=== PATIENT | male | born 1930 | race Caucasian/White ===

== ENCOUNTER → 2018-02-08 | Outpatient (REF) | payer MEDICARE ==
[2018-02-08 19:05] LABS: PTH INTACT 112.5 PG/ML (18.5-88.0)
== END ==
LOC: M LAB REF 17:27
DX: N18.4 Chronic kidney disease, stage 4 (severe) (principal)
CPT/HCPCS: 83970

== ENCOUNTER 2018-07-14 12:21 | Day surgery (SDC) | payer MEDICARE ==
[~2018-07-14] VITALS: Ht 180.3 cm; Wt 77.6 kg
[~2018-07-14 12:21] MED LIST: ACCU1TAB2; ACET65TA; ALBU17IN2; ALDA25TA2; AMAR1TAB6; AMIO1TAB; AMLO10TA; ASPI81TA83; ATEN50TA2; AXID150C; BISA10SU2; BISA5TA; CATA0.3T; CLON0.3T; COLA100C2; COUM1TAB18; ECOT325T5; FURO80TA2; INSULANT; INSULIN LANTUS; JANUVIA; K-LO20PO; K-TA10TA; LASI40TA; LASI80TA; METO-1; METO-745; MILKSUS; POTA10CA2; PROV90AE; SPIR25TA2; THERGRAN; TRAM50TA2; VYTO10TA5; ZOCO20TA; stool softener
[2018-07-14 14:20] LABS: INR 1.86; PROTHROMBIN TIME 21.8 SECONDS (12.1-14.4)
[2018-07-14] MEDS ORDERED: ceFAZolin 1GM INJ (J0690 PER 500MG) As Ordered ONE (14:20)
[2018-07-14] MEDS ORDERED: BACITRACIN OINT 30GM As Ordered ONE (14:26)
[2018-07-14] MEDS ORDERED: VANCOMYCIN 1000 MG/20 ML VIAL (J3370) As Ordered ONE (14:26)
[2018-07-14] MEDS ORDERED: LIDOCAINE 1% SDV INJ 30 ML VIAL As Ordered ONE (14:26)
[2018-07-14] MEDS ORDERED: fentaNYL 100 MCG/2 ML INJECTION (J3010) As Ordered ONE (14:28)
[2018-07-14] MEDS ORDERED: PROPOFOL 200 MG/20 ML VIAL As Ordered ONE (14:29)
[2018-07-14] MEDS ORDERED: ONDANSETRON 4MG/2ML VIAL (J2405) As Ordered ONE (14:29)
[2018-07-14] MEDS ORDERED: LIDOCAINE 2% INJ 100 MG/5 ML SDV (FOR ANES.) As Ordered ONE (14:29)
[2018-07-14] MEDS ORDERED: KETAMINE HCL 200 MG/20 ML VIAL As Ordered ONE (14:42)
[2018-07-14] MEDS ORDERED: ePHEDrine SULFATE 25 MG/5 ML(5MG/ML) SYRINGE As Ordered ONE ×3 (15:08→16:03)
[2018-07-14 16:30] VITALS: BP 152/69
[2018-07-14] MEDS ORDERED: ONDANSETRON 4MG/2ML VIAL (J2405) IV PRN (16:45)
[2018-07-14] MEDS ORDERED: LR 1,000 ML IV SCH (16:45)
--- NOTE | 2018-07-14 17:21 | RO ---
DATE OF PROCEDURE: 07/14/2018 PREPROCEDURE DIAGNOSIS: Pacemaker battery depletion. POSTPROCEDURE DIAGNOSIS: Pacemaker battery depletion. FINDINGS: Pacemaker battery depletion. Discovery of outer insulation full circumference break on the ventricle lead at the junction of the thick portion of the insulation where it joins the thinner portion of the insulation a few centimeters from the terminal pin of the right ventricle lead. PROCEDURE: Explantation of old dual-chamber pacemaker pulse generator ([employer]) and implantation of new dual-chamber pacemaker pulse generator. Placement of a suture sleeve over the insulation break on the right ventricle lead. Placement of a medium size TYRX antimicrobial envelope. SURGEON: Sabino Hendrix MD VIDEO GAME REPAIR TECHNICIAN: None. ANESTHESIA: Lidocaine 1% local/monitored anesthetic care. SPECIMENS: Old [employer] dual-chamber pacemaker pulse generator. ESTIMATED BLOOD LOSS: Less than 5 mL. No blood products replaced. No drains. No complications. DESCRIPTION OF PROCEDURE: Patient was prepped and draped over the left pectoral region. 3M Ioban film was applied. Lidocaine 1% was used for local anesthetic. An incision was made with a #15 blade over the body of the existing pacemaker pulse generator caudal to the original incision. Fine scissor dissection was used to get down to and through the anterior capsule overlying the pacemaker pulse generator. The tie-down suture holding the pacemaker pulse generator was then cut with a 15 blade. The pacemaker pulse generator was then removed from the pocket. At this point, I noticed that there was a full outer insulation break involving the entire circumference on the right ventricle lead where the thinner portion of the ventricle lead joins the thicker portion of the ventricle lead, which contains the lead information. The existing terminal pins were removed from the header of the existing pacemaker pulse generator after loosening the set screws. Both leads were tested and found to be satisfactory. I took a suture sleeve and placed it over the ventricle lead to straddle the insulation break and then secured it with a total of two individual sutures consisting of #0 Ethibond placed on the outer most notches of the suture sleeve. Next, I helped free up some of the pacemaker lead adhesions using the PEAK PlasmaBlade. The terminal pins of the leads were placed into their respective ports in the header of the new pacemaker pulse generator. Each one was secured by tightening the set screws with the hex screwdriver. A medium size TYRX antimicrobial envelope was cut into four pieces and placed into the pacemaker pocket. The pacemaker pulse generator was then placed into the pacemaker pocket with the excess lead material placed below the pacemaker pulse generator. The deep layer was closed using individual sutures consisting of #2-0 Vicryl. A few additional #3-0 Vicryl sutures were used to help better approximate the superficial layer. The skin was closed using tonie. The patient tolerated the procedure well without any immediate complications. The existing pacemaker pulse generator that was removed was a [employer] [place], model 5826 with serial number [id number], originally implanted by Dr. Hendrix 10/29/2008. The new pacemaker pulse generator implanted was a [employer] Assurity MRI with model number CC4405 and serial number [id number]. The existing right atrial lead was a [employer] model 1782T with serial number [id number], originally implanted 10/29/2008. Testing in the operating room for the right atrial lead showed a capture threshold of 1.0 volts at 0.4 milliseconds and a lead impedance of 280 ohms. No P waves because the patient was pacemaker dependent. The existing right ventricle lead was a [employer] model number 1888TC with serial number [id number], originally implanted 10/29/2008. Testing in the operating room with the PSA analyzer in unipolar configuration for the right ventricle lead showed a capture threshold of 1.3 volts with pulse width of 0.4 milliseconds and a lead impedance of 250 ohms in unipolar configuration. Patient was pacemaker dependent and no R waves were present.
== END 2018-07-14 16:58 | disposition home or self-care (01) ==
LOC: M SDC 12:21
PROVIDERS: ATTEND Internal Medicine Cardiovascular Disease
DX: Z45.010 Encounter for checking and testing of cardiac pacemaker pulse generator [battery] (principal); I49.5 Sick sinus syndrome; I10 Essential (primary) hypertension; E11.9 Type 2 diabetes mellitus without complications; Z79.01 Long term (current) use of anticoagulants; Z79.82 Long term (current) use of aspirin; Z79.4 Long term (current) use of insulin; Z79.899 Other long term (current) drug therapy
CPT/HCPCS: 33228; 36415; 85610; C1785; J2405; J3010

== ENCOUNTER → 2018-09-14 | Outpatient (CLI) | payer MEDICARE ==
[~2018-09-14] MED LIST changes: +AMIO200T PO; +AMLO10TA5 PO; +ASPI81TA85 PO; +ATOR1TAB21 PO; +CALC1CAP31 PO; +D 101000 PO; +DOCU-129 PO; +HUMA100I5 SC; +HYDR25TA PO; +LANTINJ4 SC; +MULTCAP PO; +SYNT75TA PO; +TORS20TA2 PO; +ZETI10TA30 PO
--- NOTE | 2018-09-14 09:16 | REP ---
Renal ultrasound for stage IV chronic renal disease: The right kidney measures 14.4 x 5.4 x 6.5 cm. The left kidney measures 11.3 x 4.2 x 5.7 cm. The kidneys are normal size. Renal cortical echogenicity is hyperechoic bilaterally, compatible with medical renal disease. There is no hydronephrosis on the right on the left. The hilar vessels are echogenic compatible with calcified atheroma. There are multiple Bosniak type 1 simple renal cysts bilaterally as follows: Right kidney: Upper pole 9.0 cm. Upper pole 5.6 cm. Mid pole 4.5 cm. Lower pole 5.6 cm. Left kidney: The upper pole 4.6 cm. Upper pole 3.5 cm. Additionally, there is a Bosniak type 3 cyst at the lower pole of the left kidney measuring 4.6 centimeters containing a thick septum measuring up to 5 mm in thickness and also containing flowing debris. No solid renal masses are identified. No renal calculi are identified. Bladder: The bladder is incompletely distended and cannot be further evaluated. Prostate: The the prostate is enlarged with a prostate volume of 43 ml. Prostatic of this are incidentally identified. Impression: Multiple bilateral renal cysts. Most of the cysts are Bosniak type 1 simple cyst. However, there is a Bosniak type 3 complex cyst at the lower pole of the left kidney measuring 4.6 cm and containing a 5 mm thickened septum and 14 debris. The prostate is enlarged. Electronically Signed by Jorge Jaramillo MD 09/14/2018 09:07 A
--- NOTE | 2018-09-14 13:55 | REP ---
RENAL NUCLEAR SCAN WITH FLOW AND FUNCTION: Following the intravenous administration of 8.6 mCi of technetium-99m MAG 3, immediate flow images are obtained in the posterior projections showing symmetrical bilateral blood flow to the region of the kidneys. Delayed renal function images are performed every minute for a period of 30 minutes. Multiple photopenic areas are seen throughout the right renal cortex compatible with multiple renal cysts. Similar findings are seen to a lesser extent involving the upper and mid left kidney. Split function is 62.4% on the left and 37.6% on the right. Time to peak is delayed bilaterally, 4 minutes on the left and 16 minutes on the right. T1/2 could not be calculated bilaterally. Renal function curves are quite shallow in their downward slopes, with poor excretion bilaterally. There is activity in the urinary bladder, with moderate postvoid residual after voiding. IMPRESSION: Bilateral renal cysts cause photopenic defects in the renal cortex bilaterally more so on the right than on the left. There is compromised renal function bilaterally of a moderate degree. Split function is 62.4% on the left and 37.6% on the right. Electronically Signed by Jorge Caputo MD 09/17/2018 06:27 P
== END ==
LOC: M RAD 07:14
PROVIDERS: ATTEND Internal Medicine Nephrology
DX: I70.1 Atherosclerosis of renal artery (principal)
CPT/HCPCS: 76775; 78707; A9562

== ENCOUNTER → 2018-09-15 | Outpatient (REF) | payer MEDICARE ==
[2018-09-15 13:41] LABS: PERCENT SATURATION 6.3 % (19.7-50.0)
== END ==
LOC: M LAB REF 13:05
PROVIDERS: ATTEND Internal Medicine Nephrology
DX: N17.9 Acute kidney failure, unspecified (principal); D50.9 Iron deficiency anemia, unspecified

== ENCOUNTER 2018-09-16 08:05 | Outpatient (CLI) | payer MEDICARE ==
[~2018-09-16] VITALS: Ht 175.3 cm; Wt 81.4 kg
[~2018-09-16 08:05] MED LIST changes: -AMIO200T PO; -AMLO10TA5 PO; -ASPI81TA85 PO; -ATOR1TAB21 PO; -CALC1CAP31 PO; -D 101000 PO; -DOCU-129 PO; -HUMA100I5 SC; -HYDR25TA PO; -LANTINJ4 SC; -MULTCAP PO; -SYNT75TA PO; -TORS20TA2 PO; -ZETI10TA30 PO
[2018-09-16 08:30] VITALS: BP 152/63
[2018-09-16] MEDS ORDERED: ATOR1TAB21 PO (10:19)
[2018-09-16] MEDS ORDERED: ASPI81TA85 PO (10:19)
[2018-09-16] MEDS ORDERED: CALC1CAP31 PO (10:19)
[2018-09-16] MEDS ORDERED: TORS20TA2 PO (10:19)
[2018-09-16] MEDS ORDERED: HUMA100I5 SC (10:19)
[2018-09-16] MEDS ORDERED: SYNT75TA PO (10:19)
[2018-09-16] MEDS ORDERED: AMLO10TA5 PO (10:19)
[2018-09-16] MEDS ORDERED: DOCU-129 PO (10:19)
[2018-09-16] MEDS ORDERED: MULTCAP PO (10:19)
[2018-09-16] MEDS ORDERED: LANTINJ4 SC (10:19)
[2018-09-16] MEDS ORDERED: AMIO200T PO (10:19)
[2018-09-16] MEDS ORDERED: D 101000 PO (10:19)
[2018-09-16] MEDS ORDERED: HYDR25TA PO (10:19)
[2018-09-16] MEDS ORDERED: ZETI10TA30 PO (10:19)
[2018-09-16 14:15] VITALS: BP 162/69
== END 2018-09-16 14:15 | disposition home or self-care (01) ==
LOC: M INFU 08:05
PROVIDERS: ATTEND Internal Medicine Nephrology
DX: D50.9 Iron deficiency anemia, unspecified (principal); N17.9 Acute kidney failure, unspecified
CPT/HCPCS: 36430; P9016

== ENCOUNTER → 2018-11-02 | Outpatient (CLI) | payer MEDICARE ==
[~2018-11-02] MED LIST changes: +AMIO200T PO; +AMLO10TA5 PO; +ASPI81TA85 PO; +ATOR1TAB21 PO; +CALC1CAP31 PO; +D 101000 PO; +DOCU-129 PO; +HUMA100I5 SC; +HYDR25TA PO; +LANTINJ4 SC; +MULTCAP PO; +PRED5SOL10 PO; +SYNT75TA PO; +TORS20TA2 PO; +WARF4TAB52 PO; +ZETI10TA16 PO
--- NOTE | 2018-11-02 15:37 | REP ---
Clinical: Edema. Technique: AP, lateral, bilateral oblique views of the right hand. Findings: Age-related osteopenia and moderate arthritic degenerative changes are appreciated including joint space narrowing, marginal spurring, and areas of cortical irregularity. Peripheral vascular disease noted. No acute fracture dislocation. Impression: Age-related osteopenia and moderate generalized arthritic changes. Electronically Signed by Waqas Zavala MD 11/02/2018 03:29 P
--- NOTE | 2018-11-02 16:01 | REP ---
Right upper extremity duplex Doppler venous ultrasound. Real time compression and duplex Doppler evaluation of the right upper extremity deep venous system is performed. The right subclavian, jugular, axillary, brachial, basilic and cephalic veins are fully compressible where accessible with transducer pressure, and demonstrate no intraluminal thrombus and normal venous waveforms. There is no evidence of deep venous thrombosis. Impression: No evidence of deep venous thrombosis of the right upper extremity deep vein system. Electronically Signed by Jorge Caputo MD 11/02/2018 03:52 P
== END ==
LOC: M RAD 14:25
PROVIDERS: ATTEND Nurse Practitioner Adult Health
DX: M79.601 Pain in right arm (principal); M19.041 Primary osteoarthritis, right hand

== ENCOUNTER 2018-12-02 09:23 | Outpatient (CLI) | payer MEDICARE ==
[~2018-12-02] VITALS: Ht 181.6 cm; Wt 76.8 kg
[2018-12-02 09:15] VITALS: BP 162/89
[~2018-12-02 09:23] MED LIST changes: -PRED5SOL10 PO; -WARF4TAB52 PO
[2018-12-02] MEDS ORDERED: IRON SUCROSE 25 MG in NS 50 ML IV ONE (10:00)
[2018-12-02 11:00] VITALS: BP 142/61
[2018-12-02] MEDS ORDERED: IRON SUCROSE 475 MG in NS 250 ML IV ONE (11:00)
[2018-12-02 12:00] VITALS: BP 156/82
[2018-12-02 13:00] VITALS: BP 152/64
[2018-12-02 14:00] VITALS: BP 143/65
[2018-12-02] MEDS ORDERED: PRED5SOL10 PO (14:05)
[2018-12-02] MEDS ORDERED: WARF4TAB52 PO (14:06)
[2018-12-02 15:15] VITALS: BP 141/62
== END 2018-12-02 15:15 | disposition home or self-care (01) ==
LOC: M INFU 09:23
PROVIDERS: ATTEND Internal Medicine Nephrology
DX: D50.9 Iron deficiency anemia, unspecified (principal)
CPT/HCPCS: 96365; 96366; J1756

== ENCOUNTER → 2018-12-13 | Outpatient (REF) | payer MEDICARE ==
[~2018-12-13] MED LIST changes: +PRED5SOL10 PO; +WARF4TAB52 PO
[2018-12-13 15:52] LABS: PERCENT SATURATION 25.2 % (19.7-50.0)
== END ==
LOC: M LAB REF 13:07
PROVIDERS: ATTEND Nurse Practitioner Family
DX: D50.9 Iron deficiency anemia, unspecified (principal)

== ENCOUNTER → 2018-12-29 | Outpatient (REF) | payer MEDICARE ==
[2018-12-29 13:30] LABS: PERCENT SATURATION 25.8 % (19.7-50.0)
== END ==
LOC: M LAB REF 12:49
PROVIDERS: ATTEND Internal Medicine
DX: D50.9 Iron deficiency anemia, unspecified (principal)

== ENCOUNTER 2019-03-29 11:29 | Day surgery (SDC) | payer MEDICARE ==
[~2019-03-29] VITALS: Ht 177.8 cm; Wt 77.0 kg
[~2019-03-29 11:29] MED LIST changes: +FAMO40TA3 PO; +NS 1,000 ML IV ONE; +VITA100054 PO
[2019-03-29] MEDS ORDERED: LIDOCAINE 2% INJ 100 MG/5 ML SDV (FOR ANES.) As Ordered ONE (12:38)
[2019-03-29] MEDS ORDERED: propofoL 200 MG/20 ML VIAL As Ordered ONE (12:38)
--- NOTE | 2019-03-29 13:13 | ROOR ---
Patient Name: Ghassan Augustine Procedure Date: 03/29/2019 12:54 PM Date of : 1930 Age: 89 [facility] Gender: Male Note Status: Finalized Procedure: Upper Endoscopy + Biopsies Indications: Iron deficiency anemia Providers: Kristopher Torres MD Referring MD: TREY GRAVES JR, MD Requesting Provider: Medicines: Monitored Anesthesia Care Complications: No immediate complications. Procedure: Pre-Anesthesia Assessment: - The heart rate, respiratory rate, oxygen saturations, blood pressure, adequacy of pulmonary ventilation, and response to care were monitored throughout the procedure. The Endoscope was introduced through the mouth, and advanced to the second part of duodenum. The upper GI endoscopy was accomplished without difficulty. The patient tolerated the procedure well. Findings: The Z-line was variable and was found 40 cm from the incisors. Multiple biopsies were obtained with cold forceps for evaluation to rule out Paris's Esophagus randomly at the gastroesophageal junction. A small hiatal hernia was present. No other significant abnormalities were identified in a careful examination of the stomach. Biopsies were taken with a cold forceps in the gastric antrum for Helicobacter pylori testing. The exam of the duodenum was otherwise normal. Biopsies for histology were taken with a cold forceps in the first portion of the duodenum for evaluation of celiac disease. The exam was otherwise without abnormality. A medium non-bleeding diverticulum was found in the gastric fundus. Impression: - Z-line variable, 40 cm from the incisors. - Small hiatal hernia. - The examination was otherwise normal. - Gastric diverticulum. - Multiple biopsies were obtained at the gastroesophageal junction. - Biopsies were taken with a cold forceps for Helicobacter pylori testing. - Biopsies were taken with a cold forceps for evaluation of celiac disease. - The examination was otherwise normal. Recommendation: - Patient has a contact number available for emergencies. The signs and symptoms of potential delayed complications were discussed with the patient. Return to normal activities tomorrow. Written discharge instructions were provided to the patient. - High fiber diet. - Discharge patient to home. - Follow an antireflux regimen. - Continue present medications. - Await pathology results. - Telephone GI clinic for pathology results in 1 week. - Return to referring physician. - The findings and recommendations were discussed with the patient's family. Kristopher Torres MD Kristopher Torres MD 03/29/2019 1:12:35 PM Electronically signed by Kristopher Torres MD Number of Addenda: 0 Note Initiated On: 03/29/2019 12:54 PM Estimated Blood Loss: Estimated blood loss: none.
--- NOTE | 2019-03-29 13:27 | ROOR ---
Patient Name: Ghassan Augustine Procedure Date: 03/29/2019 12:55 PM Date of : 1930 Age: 89 Room: [facility] Gender: Male Note Status: Finalized Procedure: Total Colonoscopy to Cecum Indications: Iron deficiency anemia Providers: Kristopher Torres MD Referring MD: TREY GRAVES JR, MD Requesting Provider: Medicines: Monitored Anesthesia Care Complications: No immediate complications. Procedure: Pre-Anesthesia Assessment: - The heart rate, respiratory rate, oxygen saturations, blood pressure, adequacy of pulmonary ventilation, and response to care were monitored throughout the procedure. The Colonoscope was introduced through the anus and advanced to the cecum, identified by appendiceal orifice and ileocecal valve. The colonoscopy was performed without difficulty. The patient tolerated the procedure well. The quality of the bowel preparation was fair. Findings: The perianal and digital rectal examinations were normal. Non-bleeding internal hemorrhoids were found during retroflexion. The hemorrhoids were small and Grade I (internal hemorrhoids that do not prolapse). Multiple small and large-mouthed diverticula were found in the recto-sigmoid colon, sigmoid colon and descending colon. The exam was otherwise without abnormality on direct and retroflexion views. Impression: - Preparation of the colon was fair. - Non-bleeding internal hemorrhoids. - Diverticulosis in the recto-sigmoid colon, in the sigmoid colon and in the descending colon. - The examination was otherwise normal on direct and retroflexion views. - No specimens collected. - The exam was otherwise normal to the cecum. Recommendation: - Patient has a contact number available for emergencies. The signs and symptoms of potential delayed complications were discussed with the patient. Return to normal activities tomorrow. Written discharge instructions were provided to the patient. - High fiber diet. - Discharge patient to home. - Continue present medications. - Repeat colonoscopy for symptoms only. - Return to referring physician. - The findings and recommendations were discussed with the patient's family. Kristopher Torres MD Kristopher Torres MD 03/29/2019 1:26:40 PM Electronically signed by Kristopher Torres MD Number of Addenda: 0 Note Initiated On: 03/29/2019 12:55 PM Estimated Blood Loss: Estimated blood loss: none.
[2019-03-29 13:56] VITALS: BP 160/80
== END 2019-03-29 13:57 | disposition home or self-care (01) ==
LOC: M OPP 11:29
PROVIDERS: ATTEND Internal Medicine Gastroenterology
DX: K64.0 First degree hemorrhoids (principal); K57.30 Diverticulosis of large intestine without perforation or abscess without bleeding; K22.8 Other specified diseases of esophagus; K44.9 Diaphragmatic hernia without obstruction or gangrene; K31.4 Gastric diverticulum; D50.9 Iron deficiency anemia, unspecified; E11.9 Type 2 diabetes mellitus without complications; Z79.4 Long term (current) use of insulin; Z79.82 Long term (current) use of aspirin; Z79.899 Other long term (current) drug therapy; Z87.891 Personal history of nicotine dependence; Z95.5 Presence of coronary angioplasty implant and graft

== ENCOUNTER 2019-10-09 16:41 | Inpatient (IN) | payer MEDICARE ==
[~2019-10-09 16:41] MED LIST changes: -AMIO200T PO; +AMIO200T3 PO; -AMLO10TA5 PO; +AMLO1TAB25 PO; -ASPI81TA85 PO; +ASPI81TA86 PO; -NS 1,000 ML IV ONE
[2019-10-09] MEDS ORDERED: FUROSEMIDE 40MG/4ML VIAL (J1940) As Ordered ONE (21:01)
[2019-10-10] MEDS ORDERED: LEVOTHYROXINE 50MCG TABLET (0.05MG) As Ordered ONE (05:01)
[2019-10-10] MEDS ORDERED: NITROGLYCERIN 2% OINT 1 GM *U/D* PKT As Ordered ONE ×2 (08:35→21:51)
[2019-10-10] MEDS ORDERED: FUROSEMIDE 100MG/10ML VIAL (J1940) As Ordered ONE (08:35)
[2019-10-10] MEDS ORDERED: SPIRONOLACTONE 25 MG TAB As Ordered ONE (12:48)
[2019-10-10] MEDS ORDERED: AMIODARONE 200 MG TAB (PACERONE) As Ordered ONE (12:48)
[2019-10-10] MEDS ORDERED: FUROSEMIDE 100 MG/10 ML ONE (13:30)
[2019-10-10] MEDS ORDERED: amLODIPine 10 MG TAB As Ordered ONE (16:20)
[2019-10-11] MEDS ORDERED: LEVOTHYROXINE 50MCG TABLET (0.05MG) As Ordered ONE (05:08)
[2019-10-11] MEDS ORDERED: EZETIMIBE 10 MG TAB (ZETIA) As Ordered ONE (08:40)
[2019-10-11] MEDS ORDERED: ATORVASTATIN 20 MG TAB As Ordered ONE (08:40)
[2019-10-11] MEDS ORDERED: CALCITRIOL 0.25 MCG CAP (S0169) As Ordered ONE (08:41)
[2019-10-11] MEDS ORDERED: SPIRONOLACTONE 25 MG TAB As Ordered ONE ×2 (08:41→17:45)
[2019-10-11] MEDS ORDERED: amLODIPine 10 MG TAB As Ordered ONE (08:41)
[2019-10-11] MEDS ORDERED: NITROGLYCERIN 2% OINT 1 GM *U/D* PKT As Ordered ONE ×3 (08:41→22:37)
[2019-10-11] MEDS ORDERED: ASPIRIN 81 MG ENTERIC TAB As Ordered ONE (08:42)
[2019-10-11] MEDS ORDERED: AMIODARONE 200 MG TAB (PACERONE) As Ordered ONE (08:42)
[2019-10-11] MEDS ORDERED: FUROSEMIDE 100 MG/10 ML ONE (13:27)
[2019-10-12] MEDS ORDERED: NITROGLYCERIN 2% OINT 1 GM *U/D* PKT As Ordered ONE ×2 (04:59→10:16)
[2019-10-12] MEDS ORDERED: LEVOTHYROXINE 50MCG TABLET (0.05MG) As Ordered ONE (06:33)
[2019-10-12] MEDS ORDERED: ATORVASTATIN 20 MG TAB As Ordered ONE (09:54)
[2019-10-12] MEDS ORDERED: amLODIPine 10 MG TAB As Ordered ONE (09:55)
[2019-10-12] MEDS ORDERED: EZETIMIBE 10 MG TAB (ZETIA) As Ordered ONE (09:55)
[2019-10-12] MEDS ORDERED: SPIRONOLACTONE 25 MG TAB As Ordered ONE ×2 (09:55→16:16)
[2019-10-12] MEDS ORDERED: CALCITRIOL 0.25 MCG CAP (S0169) As Ordered ONE (09:57)
[2019-10-12] MEDS ORDERED: AMIODARONE 200 MG TAB (PACERONE) As Ordered ONE (09:57)
[2019-10-12] MEDS ORDERED: ASPIRIN 81 MG ENTERIC TAB As Ordered ONE (10:16)
[2019-10-12] MEDS ORDERED: ISOSORBIDE MON. (IMDUR) 30 MG XR TAB As Ordered ONE (16:16)
[2019-10-13] MEDS ORDERED: LEVOTHYROXINE 50MCG TABLET (0.05MG) As Ordered ONE (05:48)
[2019-10-13] MEDS ORDERED: ATORVASTATIN 20 MG TAB As Ordered ONE (10:38)
[2019-10-13] MEDS ORDERED: ISOSORBIDE MON. (IMDUR) 30 MG XR TAB As Ordered ONE (10:38)
[2019-10-13] MEDS ORDERED: EZETIMIBE 10 MG TAB (ZETIA) As Ordered ONE (10:38)
[2019-10-13] MEDS ORDERED: SPIRONOLACTONE 25 MG TAB As Ordered ONE (10:39)
[2019-10-13] MEDS ORDERED: TORSEMIDE 20 MG TAB As Ordered ONE (10:39)
[2019-10-13] MEDS ORDERED: amLODIPine 10 MG TAB As Ordered ONE (10:39)
[2019-10-13] MEDS ORDERED: CALCITRIOL 0.25 MCG CAP (S0169) As Ordered ONE (10:39)
[2019-10-13] MEDS ORDERED: ASPIRIN 81 MG ENTERIC TAB As Ordered ONE (10:40)
[2019-10-13] MEDS ORDERED: AMIODARONE 200 MG TAB (PACERONE) As Ordered ONE (10:40)
[2019-10-13] MEDS ORDERED: FUROSEMIDE 100 MG/10 ML ONE ×2 (13:00)
[2019-10-14] MEDS ORDERED: LEVOTHYROXINE 50MCG TABLET (0.05MG) As Ordered ONE (06:56)
[2019-10-14] MEDS ORDERED: ISOSORBIDE MON. (IMDUR) 30 MG XR TAB As Ordered ONE (10:30)
[2019-10-14] MEDS ORDERED: EZETIMIBE 10 MG TAB (ZETIA) As Ordered ONE (10:30)
[2019-10-14] MEDS ORDERED: amLODIPine 10 MG TAB As Ordered ONE (10:31)
[2019-10-14] MEDS ORDERED: CALCITRIOL 0.25 MCG CAP (S0169) As Ordered ONE (10:31)
[2019-10-14] MEDS ORDERED: SPIRONOLACTONE 12.5MG PER 1/2 TABLET As Ordered ONE ×2 (10:31→17:25)
[2019-10-14] MEDS ORDERED: ATORVASTATIN 10 MG TAB As Ordered ONE (10:31)
[2019-10-14] MEDS ORDERED: TORSEMIDE 20 MG TAB As Ordered ONE ×2 (10:31→23:28)
[2019-10-14] MEDS ORDERED: AMIODARONE 200 MG TAB (PACERONE) As Ordered ONE (10:31)
[2019-10-14] MEDS ORDERED: ASPIRIN 81 MG ENTERIC TAB As Ordered ONE (10:36)
[2019-10-15] MEDS ORDERED: LEVOTHYROXINE 50MCG TABLET (0.05MG) As Ordered ONE (05:50)
[2019-10-15] MEDS ORDERED: IRON SUCROSE 100MG 5ML VIAL (J1756 PER 1MG) ONE (09:00)
[2019-10-15] MEDS ORDERED: SPIRONOLACTONE 25 MG TAB As Ordered ONE ×2 (09:19→17:42)
[2019-10-15] MEDS ORDERED: EZETIMIBE 10 MG TAB (ZETIA) As Ordered ONE (09:19)
[2019-10-15] MEDS ORDERED: ATORVASTATIN 20 MG TAB As Ordered ONE (09:19)
[2019-10-15] MEDS ORDERED: amLODIPine 10 MG TAB As Ordered ONE (09:19)
[2019-10-15] MEDS ORDERED: ISOSORBIDE MON. (IMDUR) 30 MG XR TAB As Ordered ONE (09:19)
[2019-10-15] MEDS ORDERED: TORSEMIDE 20 MG TAB As Ordered ONE ×2 (09:20→21:07)
[2019-10-15] MEDS ORDERED: CALCITRIOL 0.25 MCG CAP (S0169) As Ordered ONE (09:20)
[2019-10-15] MEDS ORDERED: ASPIRIN 81 MG ENTERIC TAB As Ordered ONE (09:21)
[2019-10-15] MEDS ORDERED: AMIODARONE 200 MG TAB (PACERONE) As Ordered ONE (09:22)
[2019-10-15] MEDS ORDERED: FERROUS SULFATE 325MG TAB As Ordered ONE ×2 (10:48→21:07)
[2019-10-16] MEDS ORDERED: LEVOTHYROXINE 50MCG TABLET (0.05MG) As Ordered ONE (05:34)
[2019-10-16] MEDS ORDERED: IRON SUCROSE 100MG 5ML VIAL (J1756 PER 1MG) ONE (09:00)
[2019-10-16] MEDS ORDERED: ISOSORBIDE MON. (IMDUR) 30 MG XR TAB As Ordered ONE (09:10)
[2019-10-16] MEDS ORDERED: ATORVASTATIN 20 MG TAB As Ordered ONE (09:10)
[2019-10-16] MEDS ORDERED: EZETIMIBE 10 MG TAB (ZETIA) As Ordered ONE (09:10)
[2019-10-16] MEDS ORDERED: ASPIRIN ENTERIC 325 MG TAB As Ordered ONE (09:11)
[2019-10-16] MEDS ORDERED: SPIRONOLACTONE 25 MG TAB As Ordered ONE (09:11)
[2019-10-16] MEDS ORDERED: amLODIPine 10 MG TAB As Ordered ONE (09:11)
[2019-10-16] MEDS ORDERED: CALCITRIOL 0.25 MCG CAP (S0169) As Ordered ONE (09:11)
[2019-10-16] MEDS ORDERED: TORSEMIDE 20 MG TAB As Ordered ONE ×2 (09:12→20:03)
[2019-10-16] MEDS ORDERED: AMIODARONE 200 MG TAB (PACERONE) As Ordered ONE (09:12)
[2019-10-16] MEDS ORDERED: FERROUS SULFATE 325MG TAB As Ordered ONE ×2 (09:12→20:03)
[2019-10-16] MEDS ORDERED: WARFARIN SOD 5MG TAB As Ordered ONE (18:02)
[2019-10-16] MEDS ORDERED: **hydrALAZINE HCL** 25 MG TAB As Ordered ONE (20:03)
[2019-10-17] MEDS ORDERED: LEVOTHYROXINE 50MCG TABLET (0.05MG) As Ordered ONE (05:27)
[2019-10-17] MEDS ORDERED: ATORVASTATIN 20 MG TAB As Ordered ONE (09:12)
[2019-10-17] MEDS ORDERED: SPIRONOLACTONE 25 MG TAB As Ordered ONE ×2 (09:13→16:16)
[2019-10-17] MEDS ORDERED: ISOSORBIDE MON. (IMDUR) 30 MG XR TAB As Ordered ONE (09:13)
[2019-10-17] MEDS ORDERED: EZETIMIBE 10 MG TAB (ZETIA) As Ordered ONE (09:13)
[2019-10-17] MEDS ORDERED: TORSEMIDE 20 MG TAB As Ordered ONE (09:14)
[2019-10-17] MEDS ORDERED: ASPIRIN 81 MG ENTERIC TAB As Ordered ONE (09:14)
[2019-10-17] MEDS ORDERED: **hydrALAZINE HCL** 25 MG TAB As Ordered ONE ×2 (09:14→16:17)
[2019-10-17] MEDS ORDERED: AMIODARONE 200 MG TAB (PACERONE) As Ordered ONE (09:14)
[2019-10-17] MEDS ORDERED: CALCITRIOL 0.25 MCG CAP (S0169) As Ordered ONE (09:14)
[2019-10-17] MEDS ORDERED: FERROUS SULFATE 325MG TAB As Ordered ONE (09:15)
[2019-10-17] MEDS ORDERED: SLF 3 ML SYR IV PRN (12:15)
[2019-10-17] MEDS ORDERED: BISACODYL 5 MG TAB PO PRN (12:15)
[2019-10-17] MEDS ORDERED: ONDANSETRON 4 MG TAB PO PRN (12:15)
[2019-10-17] MEDS ORDERED: ACETAMINOPHEN TAB 650MG DOSE (2X325MG) PO PRN (12:15)
[2019-10-17] MEDS ORDERED: RAMELTEON 8 MG TAB (ROZEREM) PO PRN (12:15)
[2019-10-17] MEDS ORDERED: WARF-18 PO (12:38)
[2019-10-17] MEDS ORDERED: SPIR-10 PO (12:38)
[2019-10-17] MEDS ORDERED: D31000TA2 PO (12:38)
[2019-10-17] MEDS ORDERED: LEVO50TA45 PO (12:38)
[2019-10-17] MEDS ORDERED: CARVedilol 3.125 MG TAB As Ordered ONE (12:57)
[2019-10-17] MEDS ORDERED: SLF 3 ML SYR IV SCH (14:00)
[2019-10-17] MEDS ORDERED: WARFARIN SOD 5MG TAB As Ordered ONE (16:16)
[2019-10-17] MEDS ORDERED: IRON SUCROSE 100MG 5ML VIAL (J1756 PER 1MG) ONE (18:00)
[2019-10-17] MEDS ORDERED: CARVedilol 3.125 MG TAB PO SCH (21:00)
[2019-10-17] MEDS ORDERED: FERROUS SULFATE 325MG TAB PO SCH (21:00)
[2019-10-17 21:13] LABS: HEMATOCRIT 29.8 % (42.0-52.0); HEMOGLOBIN 9.6 g/dl (13.5-17.5); MEAN CORPUSCULAR HEMOGLOBIN 32.4 pg (27.0-33.0); MEAN CORPUSCULAR HGB CONC 32.2 g/dl (32.0-36.5); MEAN CORPUSCULAR VOLUME 100.7 fl (80.0-96.0); PLATELET COUNT, AUTOMATED 175 10^3/uL (150-450); RED BLOOD COUNT 2.96 10^6/uL (4.30-6.10); WHITE BLOOD COUNT 5.4 10^3/uL (4.0-10.0)
[2019-10-17 21:25] LABS: INR 1.58; PROTHROMBIN TIME 19.2 SECONDS (11.8-14.0)
[2019-10-17] MEDS ORDERED: **hydrALAZINE HCL** 25 MG TAB PO SCH (22:00)
[2019-10-18] MEDS ORDERED: LEVOTHYROXINE 50MCG TABLET (0.05MG) PO SCH (06:00)
[2019-10-18] MEDS ORDERED: CALCITRIOL 0.25 MCG CAP (S0169) PO SCH (09:00)
[2019-10-18] MEDS ORDERED: ASPIRIN 81 MG ENTERIC TAB PO SCH (09:00)
[2019-10-18] MEDS ORDERED: SPIRONOLACTONE 25 MG TAB PO SCH (09:00)
[2019-10-18] MEDS ORDERED: ISOSORBIDE MON. (IMDUR) 30 MG XR TAB PO SCH (09:00)
[2019-10-18] MEDS ORDERED: IRON SUCROSE 200 MG in NS 200 ML IV ONE (09:00)
[2019-10-18] MEDS ORDERED: ATORVASTATIN 20 MG TAB PO SCH (09:00)
[2019-10-18] MEDS ORDERED: AMIODARONE 200 MG TAB (PACERONE) PO SCH (09:00)
[2019-10-18] MEDS ORDERED: TORSEMIDE 20 MG TAB PO SCH (09:00)
[2019-10-18] MEDS ORDERED: EZETIMIBE 10 MG TAB (ZETIA) PO SCH (09:00)
[2019-10-18] MEDS ORDERED: IRON SUCROSE 200 MG in NS 100 ML OVER 1 HR IV ONE (09:00)
[2019-10-18] MEDS ORDERED: WARFARIN SOD 2.5MG TAB PO SCH (17:00)
[2019-10-21 23:21] LABS: ALBUMIN 2.9 GM/DL (3.2-5.2); CALCIUM LEVEL 9.1 MG/DL (8.8-10.2); CREATININE FOR GFR 2.39 MG/DL (0.70-1.30); GLOMERULAR FILTRATION RATE 27.5 (>35); PHOSPHORUS LEVEL 2.9 MG/DL (2.5-4.9); POTASSIUM SERUM 4.4 MEQ/L (3.5-5.1)
[2019-10-22 19:06] LABS: HEMATOCRIT 31.1 % (42.0-52.0); MEAN CORPUSCULAR HEMOGLOBIN 32.5 pg (27.0-33.0); MEAN CORPUSCULAR HGB CONC 32.2 g/dl (32.0-36.5); PLATELET COUNT, AUTOMATED 189 10^3/uL (150-450); RED BLOOD COUNT 3.08 10^6/uL (4.30-6.10); WHITE BLOOD COUNT 5.4 10^3/uL (4.0-10.0)
[2019-10-22 19:10] LABS: APPEARANCE, BODY FLUID CLEAR
[2019-10-22 19:40] LABS: INR 1.64; PROTHROMBIN TIME 19.8 SECONDS (11.8-14.0)
--- NOTE | 2019-11-14 10:02 | ECGEPIP ---
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
--- NOTE | 2019-11-16 15:47 | ECGEPIP ---
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
--- NOTE | 2019-11-22 09:29 | REP ---
CHEST PORTABLE HISTORY: Shortness of breath. TECHNIQUE: Single frontal view of the chest is performed and compared to a prior study of 10/09/2019. FINDINGS: There is cardiomegaly and there appears to be vascular congestion and diffuse interstitial and alveolar infiltrate, likely representing pulmonary edema. Consolidative opacity and possible effusion is seen inferiorly on the left. There are multiple sternal wires present. There are multiple mediastinal clips present. There is a left dual-lead pacemaker. MTDD
--- NOTE | 2019-11-22 09:31 | REP ---
ULTRASOUND-GUIDED LEFT THORACENTESIS: The procedure was performed under the direct supervision of Dr. Cabello. The risks and benefits of the procedure were explained to the patient and informed consent was obtained. PROCEDURE: The left pleural effusion was localized using ultrasound guidance. The skin was prepped and draped in a sterile fashion. 1% lidocaine was used as a local anesthetic. Using ultrasound guidance, an 8-Citizen Of [place] multi-side hole catheter was inserted using trocar technique. 1035 cc of clear yellow fluid was withdrawn with a sample sent to the lab for analysis. The patient tolerated the procedure well and there were no immediate complications. After the appropriate amount of monitored convalescence, the patient was discharged from the department. GRAY
--- NOTE | 2019-11-22 09:32 | REP ---
CHEST X-RAY: 2-VIEWS HISTORY: Status post left thoracentesis. COMPARISON: Chest x-ray 10/10/2019. FINDINGS: Left pleural effusion is improved post thoracentesis. There is no evidence of pneumothorax. There is plate-like atelectasis in the left base. There is hazy mild opacity in the right base. Cardiomegaly with pacemaker. IMPRESSION: Improved left pleural effusion. No complication seen. MTDD
[2019-11-24 22:12] LABS: BASO % 0.5 % (0.0-1.0); EOS # 0.1 10^3/uL (0.0-0.5); HEMATOCRIT 33.2 % (42.0-52.0); HEMOGLOBIN 10.5 g/dl (13.5-17.5); LYMPH # 0.4 10^3/uL (1.5-5.0); LYMPH % 7.4 % (24.0-44.0); MEAN CORPUSCULAR HEMOGLOBIN 32.5 pg (27.0-33.0); MEAN CORPUSCULAR HGB CONC 31.6 g/dl (32.0-36.5); MEAN CORPUSCULAR VOLUME 102.8 fl (80.0-96.0); MONO # 0.4 10^3/uL (0.0-0.8); MONO % 6.1 % (0.0-5.0); NEUTROPHILS % 84.8 % (36.0-66.0); PLATELET COUNT, AUTOMATED 239 10^3/uL (150-450); RED BLOOD COUNT 3.23 10^6/uL (4.30-6.10); WHITE BLOOD COUNT 5.9 10^3/uL (4.0-10.0)
[2019-11-24 22:17] LABS: INR 3.62; PROTHROMBIN TIME 36.9 SECONDS (12.5-14.3)
[2019-11-30 09:36] LABS: BASO % 0.6 % (0.0-1.0); EOS # 0.1 10^3/uL (0.0-0.5); EOS % 1.5 % (0.0-3.0); HEMATOCRIT 32.7 % (42.0-52.0); HEMOGLOBIN 10.5 g/dl (13.5-17.5); LYMPH # 0.5 10^3/uL (1.5-5.0); LYMPH % 6.4 % (24.0-44.0); MEAN CORPUSCULAR HEMOGLOBIN 33.1 pg (27.0-33.0); MEAN CORPUSCULAR HGB CONC 32.1 g/dl (32.0-36.5); MEAN CORPUSCULAR VOLUME 103.2 fl (80.0-96.0); MONO # 0.4 10^3/uL (0.0-0.8); MONO % 5.7 % (0.0-5.0); NEUTROPHILS # 6.1 10^3/uL (1.5-8.5); NEUTROPHILS % 85.2 % (36.0-66.0); PLATELET COUNT, AUTOMATED 241 10^3/uL (150-450); RED BLOOD COUNT 3.17 10^6/uL (4.30-6.10); WHITE BLOOD COUNT 7.2 10^3/uL (4.0-10.0)
[2019-11-30 09:42] LABS: INR 3.77; PROTHROMBIN TIME 38.1 SECONDS (12.5-14.3)
[2019-12-03 01:01] LABS: BASO % 0.4 % (0.0-1.0); EOS # 0.1 10^3/uL (0.0-0.5); EOS % 2.2 % (0.0-3.0); HEMATOCRIT 29.1 % (42.0-52.0); HEMOGLOBIN 9.3 g/dl (13.5-17.5); LYMPH # 0.5 10^3/uL (1.5-5.0); LYMPH % 8.5 % (24.0-44.0); MEAN CORPUSCULAR HEMOGLOBIN 32.9 pg (27.0-33.0); MEAN CORPUSCULAR VOLUME 102.8 fl (80.0-96.0); MONO # 0.4 10^3/uL (0.0-0.8); MONO % 6.7 % (0.0-5.0); NEUTROPHILS # 4.6 10^3/uL (1.5-8.5); PLATELET COUNT, AUTOMATED 175 10^3/uL (150-450); RED BLOOD COUNT 2.83 10^6/uL (4.30-6.10); WHITE BLOOD COUNT 5.6 10^3/uL (4.0-10.0)
[2019-12-03 02:20] LABS: INR 3.88
[2019-12-03 16:42] LABS: BASO % 0.4 % (0.0-1.0); EOS # 0.2 10^3/uL (0.0-0.5); EOS % 3.6 % (0.0-3.0); HEMATOCRIT 28.5 % (42.0-52.0); HEMOGLOBIN 9.2 g/dl (13.5-17.5); LYMPH # 0.6 10^3/uL (1.5-5.0); LYMPH % 10.9 % (24.0-44.0); MEAN CORPUSCULAR HEMOGLOBIN 32.9 pg (27.0-33.0); MEAN CORPUSCULAR HGB CONC 32.3 g/dl (32.0-36.5); MEAN CORPUSCULAR VOLUME 101.8 fl (80.0-96.0); MONO # 0.4 10^3/uL (0.0-0.8); MONO % 7.9 % (0.0-5.0); NEUTROPHILS # 4.1 10^3/uL (1.5-8.5); NEUTROPHILS % 76.8 % (36.0-66.0); PLATELET COUNT, AUTOMATED 167 10^3/uL (150-450); WHITE BLOOD COUNT 5.3 10^3/uL (4.0-10.0)
[2019-12-03 17:28] LABS: INR 4.47; PROTHROMBIN TIME 43.6 SECONDS (12.5-14.3)
--- NOTE | 2019-12-08 16:12 | ECHO ---
DATE OF PROCEDURE: 10/10/2019 Age: 89 years Height: 72 inches Weight: 187 pounds Body surface area: 2.07 sq. m. Inpatient - Progressive Care Unit (PCU) room 3230 REFERRING PHYSICIAN: Dr. Gallego INDICATION: Congestive heart failure (CHF) (unspecified). MEASUREMENTS: 2D Measurements: RV - 4.5 cm LV - 5.4 cm Septum 1.1 cm Posterior wall 1.2 cm Aortic Root 3.9 cm LA - 4.0 cm LVEF - 25-30% Doppler Measurements: AV - 1.25 m/s LVOT - 0.65 m/s LVOT diameter 2.4 cm MV-E 139 Early mitral deceleration time 127 ms E prime medial 2.9, E prime lateral 6.5 PV - Not well seen RVSP 66 mmHg IVC - 2.8 cm COMMENTS: Underlying consistent ventricular paced rhythm with left bundle branch block (LBBB) QRS configuration. M-Mode and two-dimensional echocardiography was performed with pulsed, continuous wave, color flow, and tissue Doppler studies. At least mildly dilated left ventricle with left ventricular (LV) wall thickness upper limits of normal. Paradoxical septal motion and apical akinesis related to right ventricular pacing. Moderately severe-severe impairment of global left ventricular systolic function. At least mildly dilated left atrium with restrictive impairment of LV diastolic function and significantly elevated estimated mean left atrial pressure. At least mildly dilated right heart chambers with right ventricular free wall hypokinesis and Doppler evidence of severe pulmonary hypertension. Prominently dilated inferior vena cava (IVC) size with absent respiratory collapse in keeping with significantly elevated central venous pressure/right heart failure. Mildly dilated aortic root and ascending aorta. Moderate aortic valvular sclerosis with adequate cusp separation but premature closure in keeping with reduced forward stroke volume. At least mild aortic insufficiency. Mild-moderate degenerative changes of the mitral valvular apparatus without inflow tract obstruction but mild-moderate insufficiency. Normal appearing tricuspid valve with at least mild insufficiency. Pacing lead can be visualized traversing right heart structures. No other intracardiac mass or pericardial effusion but at least moderate sized left pleural effusion. MTDD
[2019-12-09 19:14] LABS: INR 3.04; PROTHROMBIN TIME 32.2 SECONDS (12.5-14.3)
[2019-12-09 19:19] LABS: HEMATOCRIT 29.3 % (42.0-52.0); HEMOGLOBIN 9.3 g/dl (13.5-17.5); MEAN CORPUSCULAR HEMOGLOBIN 32.3 pg (27.0-33.0); MEAN CORPUSCULAR HGB CONC 31.7 g/dl (32.0-36.5); MEAN CORPUSCULAR VOLUME 101.7 fl (80.0-96.0); PLATELET COUNT, AUTOMATED 170 10^3/uL (150-450); RED BLOOD COUNT 2.88 10^6/uL (4.30-6.10); WHITE BLOOD COUNT 5.6 10^3/uL (4.0-10.0)
[2019-12-10 18:14] LABS: HEMATOCRIT 29.9 % (42.0-52.0); HEMOGLOBIN 9.5 g/dl (13.5-17.5); MEAN CORPUSCULAR HEMOGLOBIN 32.2 pg (27.0-33.0); MEAN CORPUSCULAR HGB CONC 31.8 g/dl (32.0-36.5); MEAN CORPUSCULAR VOLUME 101.4 fl (80.0-96.0); PLATELET COUNT, AUTOMATED 178 10^3/uL (150-450); RED BLOOD COUNT 2.95 10^6/uL (4.30-6.10); WHITE BLOOD COUNT 5.2 10^3/uL (4.0-10.0)
[2019-12-11 21:21] LABS: LDH, BODY FLUID 75 U/L (NOT ESTABLISHED); SOURCE, BODY FLUID LDH PLEURAL; SOURCE, BODY FLUID TOT PROTEIN PLEURAL; TOTAL PROTEIN, BODY FLUID 2.8 G/DL (NOT ESTABLISHED)
[2019-12-23 22:25] LABS: BILIRUBIN,DIRECT 0.4 MG/DL (0.0-0.2); BILIRUBIN,TOTAL 1.1 MG/DL (0.2-1.0); CALCIUM LEVEL 9.3 MG/DL (8.8-10.2); CK-MB VALUE MASS 8.8 NG/ML (<3.6); CREATININE FOR GFR 3.8 MG/DL (0.70-1.30); GLOMERULAR FILTRATION RATE 16.1 (>35); MB/CK RELATIVE INDEX 1.98 (< OR =4); POTASSIUM SERUM 4.7 MEQ/L (3.5-5.1); TROPONIN I 0.02 NG/ML (< 0.10)
[2019-12-23 22:27] LABS: ABG BASE EXCESS -1.5 (-2.0-2.0); ABG O2 SATURATION 88.4 % (95.0-99.0); ABG PARTIAL PRESSURE CO2 32.8 mmHg (35.0-45.0); ABG PARTIAL PRESSURE O2 57.8 mmHg (75.0-100.0); ABG STANDARD HCO3 23.1 MEQ/L (22.0-26.0); ABG pH (ARTERIAL) 7.445 UNITS (7.350-7.450)
[2019-12-26 10:02] LABS: HEMATOCRIT 29.4 % (42.0-52.0); HEMOGLOBIN 9.6 g/dl (13.5-17.5); INR 1.88; MEAN CORPUSCULAR HEMOGLOBIN 32.9 pg (27.0-33.0); MEAN CORPUSCULAR HGB CONC 32.7 g/dl (32.0-36.5); MEAN CORPUSCULAR VOLUME 100.7 fl (80.0-96.0); PLATELET COUNT, AUTOMATED 173 10^3/uL (150-450); RED BLOOD COUNT 2.92 10^6/uL (4.30-6.10); WHITE BLOOD COUNT 5.1 10^3/uL (4.0-10.0)
[2019-12-31 11:48] LABS: BILIRUBIN,TOTAL 0.8 MG/DL (0.2-1.0); CALCIUM LEVEL 8.9 MG/DL (8.8-10.2); CREATININE FOR GFR 2.15 MG/DL (0.70-1.30); GLOMERULAR FILTRATION RATE 31.1 (>35); PERCENT SATURATION 18.9 % (19.7-50.0); TOTAL PROTEIN 6.7 GM/DL (6.4-8.2)
[2020-01-03 03:39] LABS: BLOOD UREA NITROGEN 52 MG/DL (7-18); CALCIUM LEVEL 9.3 MG/DL (8.8-10.2); CARBON DIOXIDE LEVEL 26 MEQ/L (21-32); CHLORIDE LEVEL 104 MEQ/L (98-107); CK-MB VALUE MASS 12.3 NG/ML (<3.6); CPK CREATINE PHOSPHOKINASE 522 U/L (39-308); CREATININE FOR GFR 3.85 MG/DL (0.70-1.30); FOLATE > 24.0 NG/ML; GLOMERULAR FILTRATION RATE 15.9 (>35); GLUCOSE, FASTING 215 MG/DL (70-100); MAGNESIUM LEVEL 2.6 MG/DL (1.8-2.4); MB/CK RELATIVE INDEX 2.36 (< OR =4); PHOSPHORUS LEVEL 4.4 MG/DL (2.5-4.9); POTASSIUM SERUM 4.9 MEQ/L (3.5-5.1); PTH INTACT 97.1 PG/ML (18.5-88.0); SODIUM LEVEL 141 MEQ/L (136-145); TROPONIN I 0.02 NG/ML (< 0.10); VITAMIN B12 LEVEL 734 PG/ML
[2020-01-03 03:39] LABS: TROPONIN I 0.03 NG/ML (< 0.10)
[2020-01-03 03:39] LABS: CREATININE,RANDOM URINE 73.5 MG/DL
[2020-01-03 03:53] LABS: ABG MODE OF VENT R/A; ABG PARTIAL PRESSURE CO2 38.5 mmHg (35.0-45.0); ABG pH (ARTERIAL) 7.386 UNITS (7.350-7.450)
[2020-01-03 03:54] LABS: ABG BASE EXCESS -2.2 (-2.0-2.0); ABG HCO3 22.6 MEQ/L (22.0-26.0); ABG O2 SATURATION 91.9 % (95.0-99.0); ABG STANDARD HCO3 22.5 MEQ/L (22.0-26.0); ABG TOTAL CO2 23.8 MEQ/L (23.0-31.0)
[2020-01-03 15:47] LABS: CALCIUM LEVEL 9.1 MG/DL (8.8-10.2); CREATININE FOR GFR 3.45 MG/DL (0.70-1.30); PHOSPHORUS LEVEL 4.4 MG/DL (2.5-4.9); POTASSIUM SERUM 4.3 MEQ/L (3.5-5.1)
[2020-01-03 15:48] LABS: ALBUMIN 3.4 GM/DL (3.2-5.2); MAGNESIUM LEVEL 2.4 MG/DL (1.8-2.4); TOTAL PROTEIN 6.9 GM/DL (6.4-8.2)
[2020-01-03 22:09] LABS: CALCIUM LEVEL 8.9 MG/DL (8.8-10.2); GLOMERULAR FILTRATION RATE 21.2 (>35); MAGNESIUM LEVEL 2.2 MG/DL (1.8-2.4); PHOSPHORUS LEVEL 3.6 MG/DL (2.5-4.9); POTASSIUM SERUM 3.9 MEQ/L (3.5-5.1)
[2020-01-07 05:27] LABS: BILIRUBIN,TOTAL 0.9 MG/DL (0.2-1.0); CALCIUM LEVEL 8.9 MG/DL (8.8-10.2); CREATININE FOR GFR 2.63 MG/DL (0.70-1.30); GLOMERULAR FILTRATION RATE 24.7 (>35); MAGNESIUM LEVEL 2.1 MG/DL (1.8-2.4); PHOSPHORUS LEVEL 3.4 MG/DL (2.5-4.9); POTASSIUM SERUM 3.9 MEQ/L (3.5-5.1); TOTAL PROTEIN 6.5 GM/DL (6.4-8.2)
[2020-01-07 11:12] LABS: BILIRUBIN,TOTAL 0.7 MG/DL (0.2-1.0); CALCIUM LEVEL 8.9 MG/DL (8.8-10.2); CREATININE FOR GFR 2.31 MG/DL (0.70-1.30); GLOMERULAR FILTRATION RATE 28.6 (>35); TOTAL PROTEIN 6.5 GM/DL (6.4-8.2)
== END 2019-10-19 | disposition home or self-care (01) | DRG 291 ==
LOC: M ED 16:41 → M PCU 10-10 03:05
PROVIDERS: ADMIT Internal Medicine; ATTEND Family Medicine
PROC: 0W9B3ZZ Drainage of Left Pleural Cavity, Percutaneous Approach (ICD-10-PCS; principal; 2019-10-16)
DX: I13.0 Hypertensive heart and chronic kidney disease with heart failure and stage 1 through stage 4 chronic kidney disease, or unspecified chronic kidney disease (principal); J96.21 Acute and chronic respiratory failure with hypoxia; I50.33 Acute on chronic diastolic (congestive) heart failure; N17.9 Acute kidney failure, unspecified; J90 Pleural effusion, not elsewhere classified; N18.3 Chronic kidney disease, stage 3 (moderate); Z79.01 Long term (current) use of anticoagulants; E78.5 Hyperlipidemia, unspecified; D53.9 Nutritional anemia, unspecified; I48.0 Paroxysmal atrial fibrillation

== ENCOUNTER 2019-12-10 10:13 | Emergency (ER) | payer MEDICARE ==
[~2019-12-10] VITALS: Ht 180.3 cm; Wt 64.1 kg
[~2019-12-10 10:13] MED LIST changes: +D31000TA2 PO; +LEVO50TA45 PO; +SPIR-10 PO; +WARF-18 PO
[2019-12-10 11:16] LABS: APPEARANCE, URINE CLEAR (CLEAR); BACTERIA, URINE AUTO 1+ (NEGATIVE); BILIRUBIN, URINE AUTO NEGATIVE (NEGATIVE); BLOOD, URINE BLOOD NEGATIVE (NEGATIVE); COLOR, URINE STRAW (YELLOW); GLUCOSE, URINE (UA) AUTO 3+ mg/dL (NEGATIVE); KETONE, URINE AUTO NEGATIVE (NEGATIVE); LEUKOCYTE ESTERASE, URINE AUTO 1+ (NEGATIVE); MUCUS, URINE SMALL (NEGATIVE); NITRITE, URINE AUTO NEGATIVE (NEGATIVE); PROTEIN, URINE AUTO NEGATIVE (NEGATIVE); RBC, URINE AUTO 4 /HPF (0-3); SPECIFIC GRAVITY URINE AUTO 1.006 (1.002-1.035); SQUAMOUS EPITHELIAL CELL UR AU 0 /HPF (0-6); UROBILINOGEN, URINE AUTO 0.2 mg/dL (0.0-2.0); WBC, URINE AUTO 19 /HPF (0-3)
[2019-12-10] MEDS ORDERED: HYDR-3910 (11:20)
[2019-12-10] MEDS ORDERED: LANTINJ4 (11:20)
[2019-12-10] MEDS ORDERED: QUIN1TAB4 (11:20)
[2019-12-10] MEDS ORDERED: ISOS30TA4 (11:20)
[2019-12-10] MEDS ORDERED: HUMA100I5 (11:20)
[2019-12-10] MEDS ORDERED: CARV3.12 (11:20)
[2019-12-10] MEDS ORDERED: HumaLOG INSULIN (NovoLOG) PER UNIT SC STA (11:27)
[2019-12-10 12:23] LABS: CALCIUM LEVEL 8.9 MG/DL (8.8-10.2); CREATININE FOR GFR 2.72 MG/DL (0.70-1.30); GLOMERULAR FILTRATION RATE 23.7 (>35); POTASSIUM SERUM 6.1 MEQ/L (3.5-5.1)
[2019-12-10] MEDS ORDERED: SOD POLYSTYRENE SULFONATE SUSP 15 GM/60 ML UD PO ONE (13:00)
[2019-12-10 14:31] VITALS: BP 125/62
== END 2019-12-10 15:07 | disposition home or self-care (01) ==
LOC: M ED 10:13 → EDBD 10:13 → M ED 15:07
DX: E11.65 Type 2 diabetes mellitus with hyperglycemia (principal); E87.5 Hyperkalemia; I13.10 Hypertensive heart and chronic kidney disease without heart failure, with stage 1 through stage 4 chronic kidney disease, or unspecified chronic kidney disease; Z79.82 Long term (current) use of aspirin; Z79.4 Long term (current) use of insulin; Z79.899 Other long term (current) drug therapy

== ENCOUNTER → 2019-12-14 | Outpatient (REF) | payer MEDICARE ==
[~2019-12-14] MED LIST changes: +CARV3.12; +HUMA100I5; +HYDR-3910; +ISOS30TA4; +LANTINJ4; +QUIN1TAB4
[2019-12-14 18:34] LABS: PERCENT SATURATION 17.6 % (19.7-50.0)
== END ==
LOC: M LAB REF 17:05
PROVIDERS: ATTEND Internal Medicine Nephrology
DX: D50.9 Iron deficiency anemia, unspecified (principal)

== ENCOUNTER → 2019-12-25 | Outpatient (REF) | payer MEDICARE | LOC: M LAB REF 16:34 | PROVIDERS: ATTEND Internal Medicine | DX: N17.9 Acute kidney failure, unspecified (principal) ==

== ENCOUNTER → 2020-03-08 | Outpatient (REF) | payer MEDICARE ==
[2020-03-08 18:00] LABS: INR 2.02; PROTHROMBIN TIME 23.3 SECONDS (12.5-14.3)
== END ==
LOC: M LAB REF 16:18
PROVIDERS: ATTEND Internal Medicine
DX: I48.0 Paroxysmal atrial fibrillation (principal)

== ENCOUNTER 2020-04-18 12:27 | Inpatient (IN) | payer MEDICARE ==
[~2020-04-18] VITALS: Ht 180.3 cm; Wt 64.7 kg
[~2020-04-18 12:27] MED LIST changes: -CARV3.12; +CARV3.12 PO; -HUMA100I5; +HUMA100I5 SQ; -HYDR-3910; +HYDR-3910 PO; +ISOS1TAB35 PO; -ISOS30TA4; -LANTINJ4; +LANTINJ4 SQ; -QUIN1TAB4; +QUIN1TAB4 PO
[2020-04-18 13:17] LABS: BASO % 0.3 % (0.0-1.0); EOS # 0.2 10^3/uL (0.0-0.5); EOS % 1.9 % (0.0-3.0); HEMATOCRIT 29.8 % (42.0-52.0); HEMOGLOBIN 9.7 g/dl (13.5-17.5); LYMPH # 0.7 10^3/uL (1.5-5.0); LYMPH % 7.3 % (24.0-44.0); MEAN CORPUSCULAR HEMOGLOBIN 34.5 pg (27.0-33.0); MEAN CORPUSCULAR HGB CONC 32.6 g/dl (32.0-36.5); MONO # 0.4 10^3/uL (0.0-0.8); MONO % 4.4 % (2.0-8.0); NEUTROPHILS # 7.6 10^3/uL (1.5-8.5); NEUTROPHILS % 85.7 % (36.0-66.0); PLATELET COUNT, AUTOMATED 190 10^3/uL (150-450); RED BLOOD COUNT 2.81 10^6/uL (4.30-6.10); WHITE BLOOD COUNT 8.9 10^3/uL (4.0-10.0)
[2020-04-18] MEDS ORDERED: NS 1,000 ML IV SCH (13:31)
[2020-04-18 13:35] LABS: CK-MB VALUE MASS 2.1 NG/ML (<3.6); MB/CK RELATIVE INDEX 4.57 (< OR =4); TROPONIN I 0.02 NG/ML (< 0.10)
[2020-04-18 13:38] LABS: CALCIUM LEVEL 10.3 MG/DL (8.8-10.2); CREATININE FOR GFR 2.21 MG/DL (0.70-1.30); GLOMERULAR FILTRATION RATE 30.1 (>35); POTASSIUM SERUM 4.4 MEQ/L (3.5-5.1)
[2020-04-18] MEDS ORDERED: HumuLIN R (REGULAR) INSULIN (NovoLIN R) **100U/ML** PER UNIT IV ONE (13:45)
--- OUTSIDE RECORDS SUMMARY | 2020-04-18 14:29 | CCD | Continuity of Care Document ---
Author Author Ghassan RUEDA DPM Organization Unknown Address [address] [place] [address] [address] [place] [address] Phone [phone] Problems Active Problems Provider Date Onychomycosis Hernnado Rueda DPM Onset: 12/21/2018 Type 2 diabetes mellitus with diabetic polyneuropathy Hernando Rueda DPM Onset: 12/21/2018 Corns and callosities Hernando Rueda DPM Onset: 12/21/2018 Social History Type Date Description Comments Sex Unknown ETOH Use Rarely consumed alcohol in the p ast Tobacco Use Start: Unknown End: Unknown Patient is a former smoker smoked cigars 8 years quit 1990 Allergies, Adverse Reactions, Alerts Description No Known Drug Allergies Medications Active Medications SIG Qnty Indications Ordering Provide r Date Pravastatin Sodium 20mg Tablets Jackeline PENNY M.D., Zetia 10mg Tablets Jackeline PENNY M.D., Amiodarone HCL 200mg Tablets Jackeline PENNY M.D., Quinapril HCL 40mg Tablets Jackeline PENNY M.D., Warfarin Sodium 2.5mg Tablets Jackeline PENNY M.D., Zemplar 1mcg Capsules Jackeline PENNY M.D., Vytorin 10-20mg Tablets Jackeline PENNY M.D., Ventolin HFA 108(90Base) mcg/ac Aerosol Jackeline PENNY M.D., Nizatidine 150mg Capsules Jackeline PENNY M.D., Lantus 100Unit/ML Solution Jackeline PENNY M.D.,[place] Januvia 50mg Tablets Jackeline PENNY M.D.,[place] Glimepiride 4mg Tablets Lepine ANP,Aliya Furosemide 80mg Tablets Jackeline PENNY M.D.,[place] Atenolol 50mg Tablets Jackeline PENNY M.D.,[place] Amlodipine Besylate 10mg Tablets Jackeline PENNY M.D.,[place] Contour Blood Glucose Test Strips Strips Jackeline PENNY M.D.,[place] 00 Immunizations Description No Information Available Vital Signs Date Vital Result Comment 08/09/2014 10:27am Pain Level 1 05/10/2014 10:51am Pain Level 0 Results Description No Information Available Procedures Date Code Description Status 01/16/2020 99735 Debridement 6-10 Nails Electric Completed 01/16/2020 55501 Paring/Cut Benign Lesion 2 To 4 Completed 11/07/2019 61087 Debridement 6-10 Nails Electric Completed 11/07/2019 52383 Paring/Cut Benign Lesion 2 To 4 Completed 08/29/2019 12818 Debridement 6-10 Nails Electric Completed 08/29/2019 34944 Paring/Cut Benign Lesion 2 To 4 Completed Medical Devices Description No Information Available Encounters Description No Information Available Assessments Date Code Description Provider 01/16/2020 B35.1 Tinea unguium Hernando Rueda, DP 01/16/2020 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 Hernando Rueda, DP 01/16/2020 L84 Corns and callosities Hernando Rueda, DP 11/07/2019 B35.1 Tinea unguium Hernando Rueda, DP 11/07/2019 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 Hernando Rueda, DP 11/07/2019 L84 Corns and callosities Hernando Rueda, DP 08/29/2019 B35.1 Tinea unguium Hernando Rueda, DP 08/29/2019 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 Hernando Rueda, DP 08/29/2019 L84 Corns and callosities Hernando Rueda DPM Plan of Treatment Future Appointment(s):* 03/26/2020 3:00 pm - Hernando Rueda DPM at [facility] Functional Status Description No Information Available Mental Status Description No Information Available Referrals Description No Information Available
--- OUTSIDE RECORDS SUMMARY | 2020-04-18 14:29 | CCD | Continuity of Care Document ---
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 Name Role Phone Tenzin Viveros JR, MD AUTM [phone] Arpit Waggoner MD AUTM [phone] Sabiha Browne PA-C AUTM [phone] Thony Cat MD AUTM [phone] Caden Dong MD AUTM [phone] Problems Active Problems Provider Date Coronary arteriosclerosis Sabiha Browne, PA-C Onset: 2011 Coronary artery bypass grafts x 4 Sabihatavo Tiradow, PA-C Onset : 06/04/2011 Chronic diastolic heart failure Sabiha Tiradow, PA-C Onset: 06/04/2011 Benign hypertensive heart disease with congestive card iac failure Sabiha Tiradow, PA-C Onset: 06/04/2011 Atrial fibrillation Sabihatavo Tiradow, PA-C Onset: 06/04/2011 Aortic valve disorder Sabihatavo Tiradow, PA-C Onset: 06/04/2011 Mitral valve disorder Sabiha Tiradow, PA-C Onset: 06/04/2011 Pure hypercholesterolemia Sabihatavo Tiradow, PA-C Onset: 2011 Sinus node dysfunction Sabihatavo Tiradow, PA-C Onset: 2 Cardiac pacemaker in situ Sabiha Tiradow, PA-C Onset: 2011 Carotid artery occlusion Sabiha Browne, PA-C Onset: 012 History of coronary artery bypass grafting Sabiha Browne P A-C Onset: 02/14/2015 Paroxysmal atrial fibrillation Sabiha Browne, PA-C Onset: 0 08/16/2015 Social History Type Date Description Comments Sex Unknown Tobacco Use Start: Unknown Never Smoked Cigarettes Tobacco Use Start: Unknown End: Unknown Former Cigar Smoker up to 2 per day for approx 8 years, quit 1998 ETOH Use Consumes Beer 1-2 weekly Tobacco Use Start: Unknown End: Unknown Patient is a former smoker Cigars: up to 2 per day for approx 8 years, quit 1998, never smoked cigarettes Smoking Status Reviewed: 02/15/20 Patient is a former smoker Ci gars: up to 2 per day for approx 8 years, quit 1998, never smoked cigarettes Exercise Type/Frequency Ambulatory & jenifer f-care, unable to carry out any work activities Exercise Type/Frequency Does housework sporadica lly Exercise Limitations Imbalance Allergies, Adverse Reactions, Alerts Description No Known Drug Allergies Medications Active Medications SIG Qnty Indications Ordering Provide r Date Calcitriol 0.25mcg Capsules 1 by mouth every day Unknown 02/14/2020 Isosorbide Mononitrate ER 30mg Tablets ER 24HR 1 by mouth every day Unknown 020 Carvedilol 3.125mg Tablets 1 by mouth twice a day Unknown 02/14/2020 Levothyroxine Sodium 50mcg Tablets 1 by mouth every day Unknown 02/14/2020 Famotidine 40mg Tablets 1 by mouth every day Unknown 02/14/2020 Tamsulosin HCL 0.4mg Capsules 1 by mouth every day at bedtime Unknown 02/14/2020 Hydralazine HCL 25mg Tablets 1 by mouth two times a day Caden Dong MD 11/13/2019 Coumadin 2.5mg Tablets as directed by pcp Unknown 01/08/2019 Torsemide 20mg Tablets 1 by mouth every day Caden Dong MD 11/30/2018 Humalog Kwikpen 100U nit/ML Solution Pen-Inject inject as directed per sliding scale Eleroy Tenzin ku JR, MD F 08/16/2016 Atorvastatin Calcium 20mg Tablets 1 by mouth every night at bedtime Jackeline PENNY MD, Martin ins F 08/14/2014 Lantus 100Unit/ML Solution as directed Tenzin Viveros JR, MD F 01/31/2013 Zetia 10mg Tablets 1 b y mouth every day 90tabs Riki Augustin MD 10/30/2010 Aspirin 81mg Tablets 1 po [place] Unknown 11/07/2008 Multi-Vitamin Tablets daily Unknown 11/07/2008 Nitrostat 0.4mg Tablets Sub 1 sl q 5min x3 prn for chest pain 25tabs Riki Augustin MD History Medications Allopurinol 100mg Tablets 1 by mouth every day Caden Dong MD 11/13/2019 - 02/14/2020 Quinapril HCL 40mg Tablets 1 by mouth every night at bedtime Caden Dong MD 2019 - 02/14/2020 Colace 100mg Capsules 1 by mouth once a day Jackeline PENNY MD, Dave F 020 - 02/14/2020 Spironolactone 25mg Tablets 1 by mouth every day Caden Dong MD 11/13/2019 - 02/14/2020 Nateglinide 120mg Tablets 1 by mouth twice daily Caden Dong MD 11/13/2019 - 02/14/2020 Immunizations Description No Information Available Vital Signs Date Vital Result Comment 02/15/2020 12:17pm Weight 156.00 lb Home Weight 157lb Home weight Height 70 inches 5'10" BMI (Body Mass Index) 22.4 kg/m2 Heart Rate 80 /min Regular Respiratory Rate 16 /min BP Systolic Right Arm 126 mmHg sitting, regular c uff BP Diastolic Right Arm 66 mmHg sitting, regular cuff 11/14/2019 2:47pm Weight 147.00 lb Height 70 inches 5'10" BMI (Body Mass Index) 21.1 kg/m2 Heart Rate 80 /min Regular Respiratory Rate 16 /min BP Systolic Right Arm 126 mmHg sitting, regular c uff BP Diastolic Right Arm 68 mmHg sitting, regular cuff BP Systolic Left Arm 124 mmHg sitting BP Diastolic Left Arm 68 mmHg sitting Results Test Acquired Date Facility Test Result H/L Range Note Renal Profile 03/11/2020 [facility] ([facility] - Glucose 347 High 70-100 Blood Urea Nitrogen 40.2 High 5-21 Creatinine 2.5 High 0.6-1.5 GFR (Calculated) 24 Sodium 139 136-146 Potassium 4.77 3.5-5.3 Chloride 95.6 Low 98-110 Carbon Dioxide 32.5 High 20-32 Calcium 9.6 8.4-10.4 Phosphorus 3.6 Albumin 3.8 3.5-4.7 CBC without Differential 03/11/2020 [facility] ([facility] - White Blood Count 4.7 4.3-10.9 Red Blood Count 2.98 Low 4.70-6.20 Platelets 200 130-400 Hemoglobin 10.0 Low 13.0-17.0 Hematocrit 31.1 Low 39.0-50.0 Renal Profile 01/08/2020 [facility] ([facility])- - Glucose 216 High 70-100 Blood Urea Nitrogen 36.9 High 5-21 Creatinine 2.1 High 0.6-1.5 GFR (Calculated) 30 Sodium 140.2 136-146 Potassium 4.88 3.5-5.3 Chloride 103.4 98-110 Carbon Dioxide 26.7 20-32 Calcium 8.3 Low 8.4-10.4 Phosphorus 3.4 Albumin 3.8 3.5-4.7 CBC without Differential 01/08/2020 [facility] - White Blood Count 4.5 4.3-10.9 Red Blood Count 2.90 Low 4.70-6.20 Platelets 213 130-400 Hemoglobin 9.7 Low 13.0-17.0 Hematocrit 30.4 Low 39.0-50.0 Laboratory test finding 01/08/2020 [facility] ([facility])- - Magnesium Level 1.99 Renal Profile 12/14/2019 [facility] ([facility])- - Glucose 221 High 70-100 Blood Urea Nitrogen 60.3 High 5-21 Creatinine 3.2 High 0.6-1.5 GFR (Calculated) 18 Sodium 141.4 136-146 Potassium 4.63 3.5-5.3 Chloride 100.9 98-110 Carbon Dioxide 24.0 20-32 Calcium 9.1 8.4-10.4 Phosphorus 4.0 Albumin 3.9 3.5-4.7 CBC without Differential 12/14/2019 [facility] ([facility] - White Blood Count 6.0 4.3-10.9 Red Blood Count 2.85 Low 4.70-6.20 Platelets 299 130-400 Hemoglobin 9.4 Low 13.0-17.0 Hematocrit 29.3 Low 39.0-50.0 Laboratory test finding 12/14/2019 [facility] ([facility])- - Magnesium Level 2.31 Renal Profile 12/04/2019 [facility] ([facility])- - Glucose 362 High 70-100 Blood Urea Nitrogen 40.3 High 5-21 Creatinine 2.2 High 0.6-1.5 GFR (Calculated) 28 Sodium 139 136-146 Potassium 5.27 3.5-5.3 Chloride 103.1 98-110 Carbon Dioxide 26.0 20-32 Calcium 9.4 8.4-10.4 Phosphorus 3.5 Albumin 4.1 3.5-4.7 CBC without Differential 12/04/2019 [facility] ([facility] - White Blood Count 5.1 4.3-10.9 Red Blood Count 3.08 Low 4.70-6.20 Platelets 191 130-400 Hemoglobin 10.3 Low 13.0-17.0 Hematocrit 31.8 Low 39.0-50.0 Laboratory test finding 12/04/2019 [facility] ([facility])- - Magnesium Level 2.17 BMP 11/10/2019 [facility] ([facility])- - Calcium Ser/Plasma Mass/Vol 9.4 Sodium 137 Carbon Dioxide Ser/Plasm 24 Chloride Serum/Plasma 102 Potassium 4.9 Glucose 261 High 70-100 Blood Urea Nitrogen 42 High 5-21 Creatinine 3.3 High 0.6-1.5 G F R 18 CBC without Differential 11/10/2019 [facility] ([facility])- - White Blood Count 4.8 4.3-10.9 Red Blood Count 3.09 Low 4.70-6.20 Platelets 213 130-400 Hemoglobin 10.0 Low 13.0-17.0 Hematocrit 29.8 Low 39.0-50.0 PT/Inr 11/10/2019 [facility] ([facility])- - P T 1.4 I N R None Renal Profile 10/30/2019 [facility] ([facility])- - Glucose 297 High 70-100 Blood Urea Nitrogen 44.7 High 5-21 Creatinine 3.1 High 0.6-1.5 GFR (Calculated) 19 Sodium 140.7 136-146 Potassium 4.08 3.5-5.3 Chloride 96.5 Low 98-110 Carbon Dioxide 29.6 20-32 Calcium 8.8 8.4-10.4 Phosphorus 3.7 Albumin 3.9 3.5-4.7 CBC without Differential 10/30/2019 [facility] ([facility] - White Blood Count 6.8 4.3-10.9 Red Blood Count 3.34 Low 4.70-6.20 Platelets 361 130-400 Hemoglobin 10.9 Low 13.0-17.0 Hematocrit 32.9 Low 39.0-50.0 Laboratory test finding 10/30/2019 [facility] ([facility])- - Magnesium Level 1.99 CBC without Differential 10/17/2019 [facility] - not inter faced (315)- - White Blood Count 5.4 4.0-10.0 Red Blood Count 2.96 Low 4.30-6.10 Platelets 175 150-450 Hemoglobin 9.6 Hematocrit 29.9 CBC without Differential 10/16/2019 [facility] - not inter faced (315)- - White Blood Count 5.4 4.0-10.0 Red Blood Count 3.08 Low 4.30-6.10 Platelets 169 150-450 Hemoglobin 10.0 Hematocrit 31.1 CBC without Differential 10/10/2019 [facility] ([facility] - White Blood Count 7.2 4.0-10.0 Red Blood Count 3.17 Low 4.30-6.10 Platelets 241 150-450 Hemoglobin 10.5 Low 13.5-17.5 Hematocrit 32.7 Low 42.0-52.0 CBC without Differential 10/09/2019 [facility] - not inter faced (315)- - White Blood Count 5.9 4.0-10.0 Red Blood Count 3.23 Low 4.30-6.10 Platelets 239 150-450 Hemoglobin 10.5 Hematocrit 33.2 Procedures Date Code Description Status 02/15/2020 42874 Pacer Interrogation Any Leads Co mpleted 11/14/2019 76480 ECG 12-Lead Completed Medical Devices Description No Information Available Encounters Type Date Location Provider Dx Diagnosis Office Visit 02/15/2020 12:45p Main Office Sabiha Browne PA-C 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 I49.5 Sick sinus syndrome Office Visit 11/14/2019 2:30p Main Office Sabiha Browne PA-C I25.1 0 Athscl heart disease of [place] coronary artery w/o ang pctrs Z95.1 Presence of aortocoronary by pass graft I50.42 Chronic combined systolic an d diastolic hrt fail I11.0 Hypertensive heart disease w ith heart failure I48.0 Paroxysmal atrial fibrillati on I35.1 Nonrheumatic aortic (valve) insufficiency I34.0 Nonrheumatic mitral (valve) insufficiency I49.5 Sick sinus syndrome Z95.0 Presence of cardiac pacemake r E78.00 Pure hypercholesterolemia, u nspecified I65.23 Occlusion and stenosis of bi lateral carotid arteries Assessments Date Code Description Provider 02/15/2020 I50.42 Chronic combined sys tolic (congestive) and diastolic (congestive) heart failure Sabiha Browne, PA-C 02/15/2020 I49.5 Sick sinus syndrome Sabihatavo resendiz, PA-C 11/14/2019 I25.10 Atherosclerotic heart disease of [place] coronary artery with Sabiha Browne, PA-C 11/14/2019 Z95.1 Presence of aortocoronary bypass graft Sabiha Browne, PA-C 11/14/2019 I50.42 Chronic combined sys tolic (congestive) and diastolic (congestive) heart failure Sabiha Browne, PA-C 11/14/2019 I11.0 Hypertensive heart disease with heart failure Sabiha Browne, PA-C 11/14/2019 I48.0 Paroxysmal atrial fibrillation K bernice Browne, PA-C 11/14/2019 I35.1 Nonrheumatic aortic (valve) insu fficiency Sabiha Tiradow, PA-C 11/14/2019 I34.0 Nonrheumatic mitral (valve) insu fficiency Sabiha Tiradow, PA-C 11/14/2019 I49.5 Sick sinus syndrome Sabiha resendiz, PA-C 11/14/2019 Z95.0 Presence of cardiac pacemaker Susan Gao, PA-C 11/14/2019 E78.00 Pure hypercholesterolemia, unspe cified Sabiha Browne, PA-C 11/14/2019 I65.23 Occlusion and stenosis of bilate ral carotid arteries Sabiha Browne PA-C Plan of Treatment Future Appointment(s):* 05/16/2020 7:00 am - [facility] at Main Office * 05/16/2020 9:45 am - Sabiha Browne PA-C at Main Office * 02/17/2021 9:30 am - Sabiha Browne PA-C at Main Office 02/15/2020 - Sabiha Browne PA-C* I50.42 Chronic combined systolic (congestive) and diastolic (congestive) heart failure* Recommendations:* Follow a low sodium diet and 1500cc/24 hour fluid restriction and do daily weights. Call the office with weight gain of 3 lbs or more. * I49.5 Sick sinus syndrome * All * Follow up:* 3 month follow up. 91 day [place] home pacer check 12 month office pacer check. Functional Status Functional Condition Comment Date Status Independent with all ADL's Activ e Requires assistance with ambulating uses cane, walker with 2 whe els Active Mental Status Description No Information Available Referrals Description No Information Available
--- OUTSIDE RECORDS SUMMARY | 2020-04-18 14:29 | CCD | Continuity of Care Document ---
Author Author Ghassan RUEDA DPM Organization Unknown Address [address] [place] [address], [facility] [address] [place] [address] Phone [phone] Problems Active Problems Provider Date Onychomycosis Hernando Rueda DPM Onset: 12/21/2018 Type 2 diabetes [...] PENNY M.D., Lantus 100Unit/ML Solution Jackeline PENNY M.D.,[place] Januvia 50mg Tablets Jackeline PENNY M.D.,[place] Glimepiride 4mg Tablets Lepine ANP,Aliya Furosemide 80mg Tablets Jackeline PENNY M.D.,[place] Atenolol 50mg Tablets Jackeline PENNY M.D.,[place] Amlodipine Besylate 10mg Tablets Jackeline PENNY M.D.,[place] Contour Blood Glucose Test Strips Strips Jackeline PENNY M.D.,[place] 00 Immunizations Description No Information Available Vital Signs Date Vital Result Comment 08/09/2014 10:27am Pain Level 1 05/10/2014 10:51am Pain Level 0 Results Description No Information Available Procedures Date Code Description Status 03/26/2020 23984 Debridement 6-10 Nails Electric Completed 03/26/2020 55953 Paring/Cut Benign Lesion 2 To 4 Completed 01/16/2020 20142 Debridement 6-10 Nails Electric Completed 01/16/2020 89378 Paring/Cut Benign Lesion 2 To 4 Completed 11/07/2019 44979 Debridement 6-10 Nails Electric Completed 11/07/2019 65227 Paring/Cut Benign Lesion 2 To 4 Completed Medical Devices Description No Information Available Encounters Description No Information Available Assessments Date Code Description Provider 03/26/2020 B35.1 Tinea unguium Hernando Rueda, DP 03/26/2020 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 Hernando Rueda, [facility] 03/26/2020 L84 Corns and callosities Hernando Rueda, DP 01/16/2020 B35.1 Tinea unguium Hernando Rueda, DP 01/16/2020 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
--- OUTSIDE RECORDS SUMMARY | 2020-04-18 14:29 | CCD | Continuity of Care Document ---
Author Author Ghassan RUEDA DPM Organization Unknown Address [address] [place] [address], [facility] [address] [place] [address] Phone [phone] Problems Active Problems Provider Date Onychomycosis Hernando [...] PENNY M.D., Lantus 100Unit/ML Solution Jackeline PENNY M.D.,[place] Januvia 50mg Tablets Jackeline PENNY M.D.,[place] Glimepiride 4mg Tablets Lepine [place],Aliya Furosemide 80mg Tablets Jackeline PENNY M.D.,[place] Atenolol 50mg Tablets Jackeline PENNY M.D.,[place] Amlodipine Besylate 10mg Tablets Jackeline PENNY M.D.,[place] Contour Blood Glucose Test Strips Strips Jackelnie PENNY M.D.,[place] 00 Immunizations Description No Information Available Vital Signs Date Vital Result Comment 08/09/2014 10:27am Pain Level 1 05/10/2014 10:51am Pain Level 0 Results Description No Information Available Procedures Date Code Description Status 01/16/2020 80940 Debridement 6-10 Nails Electric Completed 01/16/2020 37638 Paring/Cut Benign Lesion 2 To 4 Completed 11/07/2019 45704 Debridement 6-10 Nails Electric Completed 11/07/2019 41243 Paring/Cut Benign Lesion 2 To 4 Completed Medical Devices Description No Information Available Encounters Description No Information Available Assessments Date Code Description Provider 01/16/2020 B35.1 Tinea unguium Hernando Rueda, BENJI 01/16/2020 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
--- OUTSIDE RECORDS SUMMARY | 2020-04-18 14:30 | CCD ---
Author Author [facility] Organization [facility] Address Unknown Phone Unavailable Care Team Providers Care Weeder Name Role Phone SYMENOW G CHRISTOPHER PA Unavailable Unavailable SYMENOW, G CHRISTOPHER PA Unavailable Unavailable SYMENOW, G CHRISTOPHER PA Unavailable Unavailable SYMENOW, G CHRISTOPHER PA Unavailable Unavailable SYMENOW, G CHRISTOPHER PA Unavailable Unavailable SYMENOW, G CHRISTOPHER PA Unavailable Unavailable SYMENOW, G CHRISTOPHER PA Unavailable Unavailable SYMENOW, G CHRISTOPHER PA Unavailable Unavailable SYMENOW, G CHRISTOPHER PA Unavailable Unavailable SYMENOW, G CHRISTOPHER PA Unavailable Unavailable SYMENOW, G CHRISTOPHER PA Unavailable Unavailable SYMENOW, G CHRISTOPHER PA Unavailable Unavailable SYMENOW, G CHRISTOPHER PA Unavailable Unavailable SYMENOW, G CHRISTOPHER PA Unavailable Unavailable SYMENOW, G CHRISTOPHER PA Unavailable Unavailable SYMENOW, G CHRISTOPHER PA Unavailable Unavailable SYMENOW, G CHRISTOPHER PA Unavailable Unavailable Osiris PERKINS PA Unavailable Unavailable GREGORIOOsiris PA Unavailable Unavailable GREGORIOOsiris PA Unavailable Unavailable GREGORIOOsiris PA Unavailable Unavailable GREGORIOOsiris PA Unavailable Unavailable GREGORIOOsiris PA Unavailable Unavailable Osiris PERKINS PA Unavailable Unavailable Osiris PERKINS PA Unavailable Unavailable GREGORIOOsiris PA Unavailable Unavailable Osiris PERKINS PA Unavailable Unavailable GREGORIOOsiris PA Unavailable Unavailable GREGORIOOsiris PA Unavailable Unavailable GREGORIO, L VIRGEN PA Unavailable Unavailable GREGORIO, L VIRGEN PA Unavailable Unavailable GREGORIO, L VIRGEN PA Unavailable Unavailable GREGORIO, L VIRGEN PA Unavailable Unavailable GREGORIO, L VIRGEN PA Unavailable Unavailable GREGORIO, L VIRGEN PA Unavailable Unavailable GREGORIO, L VIRGEN PA Unavailable Unavailable Symenow, Rehana Sabiha PA Unavailable Unavailable Symenow, Rehana Sabiha PA Unavailable Unavailable Symenow, Rehana Sabiha PA Unavailable Unavailable Symenow, Rehana Sabiha PA Unavailable Unavailable Symenow, Rehana Sabiha PA Unavailable Unavailable Symenow, Rehana Sabiha PA Unavailable Unavailable Symenow, Rehana Sabiha PA Unavailable Unavailable Symenow, Rehana Sabiha PA Unavailable Unavailable Symenow, Rehana Sabiha PA Unavailable Unavailable Symenow, Rehana Sabiha PA Unavailable Unavailable Symenow, Rehana Sabiha PA Unavailable Unavailable Symenow, Rehana Sabiha PA Unavailable Unavailable Symenow, Rehana Sabiha PA Unavailable Unavailable Symenow, Rehana Sabiha PA Unavailable Unavailable Symenow, Rehana Sabiha PA Unavailable Unavailable Symenow, Rehana Sabiha PA Unavailable Unavailable Symenow, Rehana Sabiha PA Unavailable Unavailable Symenow, Rehana Sabiha PA Unavailable Unavailable Symenow, Rehana Sabiha PA Unavailable Unavailable Symenow, Rehana Sabiha PA Unavailable Unavailable Symenow, Rehana Sabiha PA Unavailable Unavailable Symenow, Rehana Sabiha PA Unavailable Unavailable Symenow, Rehana Sabiha PA Unavailable Unavailable Symenow, Rehana Sabiha PA Unavailable Unavailable Symenow, Rehana Sabiha PA Unavailable Unavailable Symenow, Rehana Sabiha PA Unavailable Unavailable Symenow, Rehana Sabiha PA Unavailable Unavailable Symenow, Rehana Sabiha PA Unavailable Unavailable Symenow, Rehana Sabiha PA Unavailable Unavailable Symenow, Rehana Sabiha PA Unavailable Unavailable Symenow, Rehana Sabiha PA Unavailable Unavailable Symenow, Rehana Sabiha PA Unavailable Unavailable Symenow, Rehana Sabiha PA Unavailable Unavailable Symenow, Rehana Sabiha PA Unavailable Unavailable Symenow, Rehana Sabiha PA Unavailable Unavailable Symenow, Rehana Sabiha PA Unavailable Unavailable Dombek-Alexandr Duggan MD Unavailable Unavailable Tommiebek-Alexandr Duggan MD Unavailable Unavailable Dombek-Alexandr Duggan MD Unavailable Unavailable Dombek-Alexandr Duggan MD Unavailable Unavailable Tommiebek-Alexandr Duggan MD Unavailable Unavailable Dombek-Lang, Alexandr Nieves MD Unavailable Unavailable Tommiebek-LangAlexandr MD Unavailable Unavailable Dombek-LangAlexandr MD Unavailable Unavailable Dombek-Lang, Alexandr Nieves MD Unavailable Unavailable Dombek-Lang, Alexandr Nieves MD Unavailable Unavailable Dombek-Lang, Alexandr Nieves MD Unavailable Unavailable Dombek-Lang, Alexandr Nieves MD Unavailable Unavailable Dombek-LangAlexandr MD Unavailable Unavailable Dombek-Alexandr Duggan MD Unavailable Unavailable Tommiebek-Alexandr Duggan MD Unavailable Unavailable Tommiebek-Alexandr Duggan MD Unavailable Unavailable Tommiebek-Alexandr Duggan MD Unavailable Unavailable TommiebekAlexandr Davenport MD Unavailable Unavailable Dombek-Alexandr Duggan MD Unavailable Unavailable Tommiebek-Alexandr Duggan MD Unavailable Unavailable TommiebeAlexandr Dejesus MD Unavailable Unavailable Tommiebek-Alexandr Duggan MD Unavailable Unavailable TommiebekAlexandr Davenport MD Unavailable Unavailable Tommiebek-Alexandr Duggan MD Unavailable Unavailable TommiebeAlexandr Dejesus MD Unavailable Unavailable TommiebeAlexandr Dejesus MD Unavailable Unavailable Tommiebek-Alexandr Duggan MD Unavailable Unavailable Tommiebek-Alexandr Duggan MD Unavailable Unavailable Tommiebek-Alexandr Duggan MD Unavailable Unavailable Tommiebek-Alexandr Duggan MD Unavailable Unavailable TommiebeAlexandr Dejesus MD Unavailable Unavailable Tommiebek-Alexandr Duggan MD Unavailable Unavailable TommiebekAlexandr Davenport MD Unavailable Unavailable Tommiebek-Alexandr Duggan MD Unavailable Unavailable TommiebekAlexandr Davenport MD Unavailable Unavailable TommiebekAlexandr Davenport MD Unavailable Unavailable Marti Graves MD Unavailable Unavailable Marti Graves MD Unavailable Unavailable Marti Graves MD Unavailable Unavailable JackelineMarti MD Unavailable Unavailable Loco HillsMarti MD Unavailable Unavailable Loco HillsMarti MD Unavailable Unavailable Loco HillsMarti MD Unavailable Unavailable Loco HillsMarti MD Unavailable Unavailable JackelineMarti MD Unavailable Unavailable JackelineMarti MD Unavailable Unavailable Loco HillsMarti MD Unavailable Unavailable JackelineMarti MD Unavailable Unavailable JackelineMarti MD Unavailable Unavailable Loco HillsMarti MD Unavailable Unavailable JackelineMarti MD Unavailable Unavailable JackelineMarti MD Unavailable Unavailable JackelineMarti MD Unavailable Unavailable Loco HillsMarti MD Unavailable Unavailable JackelineMarti MD Unavailable Unavailable JackelineMarti MD Unavailable Unavailable Loco HillsMarti MD Unavailable Unavailable Loco HillsMarti MD Unavailable Unavailable JackelineMarti MD Unavailable Unavailable Loco HillsMarti MD Unavailable Unavailable Loco HillsMarti MD Unavailable Unavailable Loco HillsMarti MD Unavailable Unavailable JackelineMarti MD Unavailable Unavailable Loco HillsMarti MD Unavailable Unavailable JackelineMarti MD Unavailable Unavailable Loco HillsMarti MD Unavailable Unavailable Loco HillsMarti MD Unavailable Unavailable JackelineMarti MD Unavailable Unavailable Loco HillsMarti MD Unavailable Unavailable JackelineMarti MD Unavailable Unavailable JackelineMarti MD Unavailable Unavailable Loco HillsMarti MD Unavailable Unavailable Loco HillsMarti MD Unavailable Unavailable JackelineMarti MD Unavailable Unavailable JackelineMarti MD Unavailable Unavailable Loco HillsMarti MD Unavailable Unavailable JackelineMarti MD Unavailable Unavailable Loco HillsMarti MD Unavailable Unavailable Loco HillsMarti MD Unavailable Unavailable Loco HillsMarti MD Unavailable Unavailable Loco HillsMarti MD Unavailable Unavailable JackelineMarti MD Unavailable Unavailable Loco HillsMarti MD Unavailable Unavailable Loco HillsMarti MD Unavailable Unavailable Loco HillsMarti MD Unavailable Unavailable Loco HillsMarti MD Unavailable Unavailable Loco HillsMarti MD Unavailable Unavailable JackelineMarti MD Unavailable Unavailable JackelineMarti MD Unavailable Unavailable Loco HillsMarti MD Unavailable Unavailable JackelineMarti MD Unavailable Unavailable Loco HillsMarti MD Unavailable Unavailable JackelineMarti MD Unavailable Unavailable JackelineMarti MD Unavailable Unavailable Loco HillsMarti MD Unavailable Unavailable JackelineMarti MD Unavailable Unavailable JackelineMarti MD Unavailable Unavailable Loco HillsMarti MD Unavailable Unavailable JackelineMarti MD Unavailable Unavailable Loco HillsMarti MD Unavailable Unavailable Loco HillsMarti MD Unavailable Unavailable Loco HillsMarti MD Unavailable Unavailable Loco HillsMarti MD Unavailable Unavailable JackelineMarti MD Unavailable Unavailable JackelineMarti MD Unavailable Unavailable JackelineMarti MD Unavailable Unavailable Loco HillsMarti MD Unavailable Unavailable JackelineMarti MD Unavailable Unavailable JackelineMarti MD Unavailable Unavailable JackelineMarti MD Unavailable Unavailable JackelineMarti MD Unavailable Unavailable JackelineMarti MD Unavailable Unavailable Loco HillsMarti MD Unavailable Unavailable JackelineMarti MD Unavailable Unavailable Loco HillsMarti MD Unavailable Unavailable Loco HillsMarti MD Unavailable Unavailable JackelineMarti MD Unavailable Unavailable JackelineMarti MD Unavailable Unavailable Loco HillsMarti MD Unavailable Unavailable JackelineMarti MD Unavailable Unavailable JackelineMarti MD Unavailable Unavailable Loco HillsMarti MD Unavailable Unavailable Mary, Gloria MEAL ATTENDANT Unavailable Unavailable Mary, Gloria MEAL ATTENDANT Unavailable Unavailable Mary, Gloria MEAL ATTENDANT Unavailable Unavailable Mary, Gloria MEAL ATTENDANT Unavailable Unavailable Mary, Gloria MEAL ATTENDANT Unavailable Unavailable Mary, Gloria MEAL ATTENDANT Unavailable Unavailable Mary, Gloria MEAL ATTENDANT Unavailable Unavailable Mary, Gloria MEAL ATTENDANT Unavailable Unavailable Mary, Gloria MEAL ATTENDANT Unavailable Unavailable Mary, Gloria MEAL ATTENDANT Unavailable Unavailable Mary, Gloria MEAL ATTENDANT Unavailable Unavailable Mary, Gloria MEAL ATTENDANT Unavailable Unavailable Mary, Gloria MEAL ATTENDANT Unavailable Unavailable Mary, Gloria MEAL ATTENDANT Unavailable Unavailable Mary, Gloria MEAL ATTENDANT Unavailable Unavailable Mary, Gloria MEAL ATTENDANT Unavailable Unavailable Mary, Gloria MEAL ATTENDANT Unavailable Unavailable Mary, Gloria MEAL ATTENDANT Unavailable Unavailable Mary, Gloria MEAL ATTENDANT Unavailable Unavailable Mary, Gloria MEAL ATTENDANT Unavailable Unavailable Mary, Gloria MEAL ATTENDANT Unavailable Unavailable Mary, Gloria MEAL ATTENDANT Unavailable Unavailable Mary, Gloria MEAL ATTENDANT Unavailable Unavailable Mary, Gloria MEAL ATTENDANT Unavailable Unavailable Mary, Gloria MEAL ATTENDANT Unavailable Unavailable Mary, Gloria MEAL ATTENDANT Unavailable Unavailable Mary, Gloria MEAL ATTENDANT Unavailable Unavailable Letitia, P Khalid MD Unavailable Unavailable Letitia, P Khalid MD Unavailable Unavailable Letitia, P Khalid MD Unavailable Unavailable Letitia, P Khalid MD Unavailable Unavailable Letitia, P Khalid MD Unavailable Unavailable Letitia, P Khalid MD Unavailable Unavailable Letitia, P Khalid MD Unavailable Unavailable Letitia, P Khalid MD Unavailable Unavailable Letitia, P Khalid MD Unavailable Unavailable Letitia, P Khalid MD Unavailable Unavailable Letitia, P Khalid MD Unavailable Unavailable Letitia, P Khalid MD Unavailable Unavailable Letitia, P Khalid MD Unavailable Unavailable Letitia, P Khalid MD Unavailable Unavailable Letitia, P Khalid MD Unavailable Unavailable Letitia, P Khalid MD Unavailable Unavailable Letitia, P Khalid MD Unavailable Unavailable Letitia, P Khalid MD Unavailable Unavailable Letitia, P Khalid MD Unavailable Unavailable Letitia, P Khalid MD Unavailable Unavailable Letitia, P Khalid MD Unavailable Unavailable Letitia, P Khalid MD Unavailable Unavailable Letitia, P Khalid MD Unavailable Unavailable Letitia, P Khalid MD Unavailable Unavailable Letitia, P Khalid MD Unavailable Unavailable Letitia, P Khalid MD Unavailable Unavailable Letitia, P Khalid MD Unavailable Unavailable Letitia, P Khalid MD Unavailable Unavailable Letitia, P Khalid MD Unavailable Unavailable Letitia, P Khalid MD Unavailable Unavailable Letitia, P Khalid MD Unavailable Unavailable Letitia, P Khalid MD Unavailable Unavailable Letitia, P Khalid MD Unavailable Unavailable Letitia, P Khalid MD Unavailable Unavailable Letitia, P Khalid MD Unavailable Unavailable Letitia, P Khalid MD Unavailable Unavailable Letitia, P Khalid MD Unavailable Unavailable Letitia, P Khalid MD Unavailable Unavailable Letitia, P Khalid MD Unavailable Unavailable Letitia, P Khalid MD Unavailable Unavailable Letitia, P Khalid MD Unavailable Unavailable Letitia, P Khalid MD Unavailable Unavailable Letitia, P Khalid MD Unavailable Unavailable Letitia, P Khalid MD Unavailable Unavailable Letitia, Katheryn Negrete MD Unavailable Unavailable Letitia, Katheryn Negrete MD Unavailable Unavailable Letitia, Katheryn Negrete MD Unavailable Unavailable Letitia, Katheryn Negrete MD Unavailable Unavailable Letitia, Katheryn Negrete MD Unavailable Unavailable Katheryn Dong MD Unavailable Unavailable WERBLIN, Jennifer. LORI Unavailable [phone] WERBLIN, Jennifer. LORI Unavailable [phone] WERBLIN, Z. LORI Unavailable [phone] WERBLIN, Z. LORI Unavailable [phone] WERBLIN, Z. LORI Unavailable [phone] [facility] Un[facility] Unavailable Alexandr Fernández MD Unavailable Unavailable Alexandr Fernández MD Unavailable Unavailable Alexandr Fernández MD Unavailable Unavailable Alexandr Fernández MD Unavailable Unavailable Alexandr Fernández MD Unavailable Unavailable Alexandr Fernández MD Unavailable Unavailable Alexandr Fernández MD Unavailable Unavailable Alexandr Fernández MD Unavailable Unavailable Alexandr Fernández MD Unavailable Unavailable Alexandr Fernández MD Unavailable Unavailable Alexandr Fernández MD Unavailable Unavailable Alexandr Fernández MD Unavailable Unavailable Alexandr Fernández MD Unavailable Unavailable Alexandr Fernández MD Unavailable Unavailable Alexandr Fernández MD Unavailable Unavailable TommiebeAlexandr Dejesus MD Unavailable Unavailable TommiebeAlexandr Dejesus MD Unavailable Unavailable Alexandr Fernández MD Unavailable Unavailable Alexandr Fernández MD Unavailable Unavailable TommiebeAlexandr Dejesus MD Unavailable Unavailable Alexandr Fernández MD Unavailable Unavailable TommiebekAlexandr Davenport MD Unavailable Unavailable Alexandr Fernández MD Unavailable Unavailable Alexandr Fernández MD Unavailable Unavailable TommiebeAlexandr Dejesus MD Unavailable Unavailable TommiebekAlexandr Davenport MD Unavailable Unavailable Alexandr Fernández MD Unavailable Unavailable Alexandr Fernández MD Unavailable Unavailable Alexandr Fernández MD Unavailable Unavailable Alexandr Fernández MD Unavailable Unavailable Alexandr Fernández MD Unavailable Unavailable Alexandr Fernández MD Unavailable Unavailable Alexandr Fernández MD Unavailable Unavailable Alexandr Fernández MD Unavailable Unavailable Alexandr Fernández MD Unavailable Unavailable Alexandr Fernández MD Unavailable Unavailable LePine, M Aliya BOOK CANVASSER Unavailable Unavailable LePine, M Aliya BOOK CANVASSER Unavailable Unavailable LePine, M Aliya BOOK CANVASSER Unavailable Unavailable LePine, M Aliya BOOK CANVASSER Unavailable Unavailable LePine, M Aliya BOOK CANVASSER Unavailable Unavailable LePine, M Aliya BOOK CANVASSER Unavailable Unavailable LePine, M Aliya BOOK CANVASSER Unavailable Unavailable LePine, M Aliya BOOK CANVASSER Unavailable Unavailable LePine, M Aliya BOOK CANVASSER Unavailable Unavailable LePine, M Aliya BOOK CANVASSER Unavailable Unavailable LePine, M Aliya BOOK CANVASSER Unavailable Unavailable LePine, M Aliya BOOK CANVASSER Unavailable Unavailable LePine, M Aliya BOOK CANVASSER Unavailable Unavailable LePine, M Aliya BOOK CANVASSER Unavailable Unavailable LePine, M Aliya BOOK CANVASSER Unavailable Unavailable LePine, M Aliya BOOK CANVASSER Unavailable Unavailable LePine, M Aliya BOOK CANVASSER Unavailable Unavailable LePine, M Aliya BOOK CANVASSER Unavailable Unavailable LePine, M Alyia BOOK CANVASSER Unavailable Unavailable LePine, M Aliya BOOK CANVASSER Unavailable Unavailable LePine, M Aliya BOOK CANVASSER Unavailable Unavailable LePine, M Aliya BOOK CANVASSER Unavailable Unavailable LePine, M Aliya BOOK CANVASSER Unavailable Unavailable LePine, M Aliya BOOK CANVASSER Unavailable Unavailable LePine, M Aliya BOOK CANVASSER Unavailable Unavailable LePine, M Aliya BOOK CANVASSER Unavailable Unavailable LePine, M Aliya BOOK CANVASSER Unavailable Unavailable LePine, M Aliya BOOK CANVASSER Unavailable Unavailable LePine, M Aliya BOOK CANVASSER Unavailable Unavailable LePine, M Aliya BOOK CANVASSER Unavailable Unavailable LePine, M Aliya BOOK CANVASSER Unavailable Unavailable LePine, M Aliya BOOK CANVASSER Unavailable Unavailable LePine, M Aliya BOOK CANVASSER Unavailable Unavailable LePine, M Aliya BOOK CANVASSER Unavailable Unavailable LePine, M Aliya BOOK CANVASSER Unavailable Unavailable LePine, M Aliya BOOK CANVASSER Unavailable Unavailable LePine, M Aliya BOOK CANVASSER Unavailable Unavailable LePine, M Aliya BOOK CANVASSER Unavailable Unavailable LePine, M Aliya BOOK CANVASSER Unavailable Unavailable LePine, M Aliya BOOK CANVASSER Unavailable Unavailable LePine, M Aliya BOOK CANVASSER Unavailable Unavailable LePine, M Aliya BOOK CANVASSER Unavailable Unavailable LePine, M Aliya BOOK CANVASSER Unavailable Unavailable LePine, M Aliya BOOK CANVASSER Unavailable Unavailable LePine, M Aliya BOOK CANVASSER Unavailable Unavailable LePine, M Aliya BOOK CANVASSER Unavailable Unavailable LePine, M Aliya BOOK CANVASSER Unavailable Unavailable LePine, M Aliya BOOK CANVASSER Unavailable Unavailable LePine, M Aliya BOOK CANVASSER Unavailable Unavailable LePine, M Aliya BOOK CANVASSER Unavailable Unavailable LePine, M Aliya BOOK CANVASSER Unavailable Unavailable LePine, M Aliya BOOK CANVASSER Unavailable Unavailable LePine, M Aliya BOOK CANVASSER Unavailable Unavailable LePine, M Aliya BOOK CANVASSER Unavailable Unavailable LePine, M Aliya BOOK CANVASSER Unavailable Unavailable LePine, M Aliya BOOK CANVASSER Unavailable Unavailable Re-disclosure Warning The records that you are about to access may contain information from federally-assisted alcohol or drug abuse programs. If such information is present, then the following federally mandated warning applies: This information has been disclosed to you from records protected by federal confidentiality rules (42 CFR part 2). The federal rules prohibit you from making any further disclosure of this information unless further disclosure is expressly permitted by the written consent of the person to whom it pertains or as otherwise permitted by 42 CFR part 2. A general authorization for the release of medical or other information is NOT sufficient for this purpose. The Federal rules restrict any use of the information to criminally investigate or prosecute any alcohol or drug abuse patient.The records that you are about to access may contain highly sensitive health information, the redisclosure of which is protected by Article 27-F of the [facility] Public Health law. If you continue you may have access to information: Regarding HIV / AIDS; Provided by facilities licensed or operated by the [facility] Office of Mental Health; or Provided by the [facility] Office for People With Developmental Disabilities. If such information is present, then the following [facility] mandated warning applies: This information has been disclosed to you from confidential records which are protected by state law. State law prohibits you from making any further disclosure of this information without the specific written consent of the person to whom it pertains, or as otherwise permitted by law. Any unauthorized further disclosure in violation of state law may result in a fine or mcfp sentence or both. A general authorization for the release of medical or other information is NOT sufficient authorization for further disc losure. Allergies and Adverse Reactions Type Description Substance Reaction Status Data Source(s ) Drug allergy No Known Allergies No Known Allergies [facility] Allergy to substance No Known Allergies No known allergies (situation ) [place] (Sabino Watkins MD [facility]) Family History Family Member Name Family Member Gender Family Member Status Date o f Status Description Data Source(s) Unknown Unknown Problem [facility] ([facility] Unknown Male Problem [facility] ([facility]) Unknown Female Problem [facility] ([facility] Encounters Encounter Providers Location Date Indications Data Source(s ) Outpatient Attender: Tenzin Graves MDReferrer: Dulce Graves MD EMERGENCY ROOM-LAB NOT ORDERED BY [facility] 04/18/2020 09:30:00 AM [facility] - 04/18/2020 09:30:00 AM [facility] Outpatient Attender: Tenzin Graves MDReferrer: Dulce Graves MD EMERGENCY ROOM-LABOTHPROV 04/09/2020 11:04:00 AM [facility] - 04/09/2020 11:04:00 AM [facility] Outpatient Attender: Tenzin Graves MDReferrer: Dulce Graves MD EMERGENCY ROOM-LABOTHPROV 03/25/2020 10:59:00 AM [facility] - 03/25/2020 10:59:00 AM [facility] Outpatient Attender: Tenzin Graves MDReferrer: Dulce Graves MD EMERGENCY ROOM-LABOTHPROV 03/18/2020 01:25:00 PM [facility] - 03/18/2020 01:25:00 PM [facility] Outpatient Attender: Tenzin Graves MDReferrer: Tenzin valenzuela MD 03/13/2020 11:30:00 AM [facility] Outpatient Attender: Tenzin Graves MDReferrer: Dulce Graves MD EMERGENCY ROOM-LABOTHPROV 02/16/2020 01:47:00 PM [facility] - 02/16/2020 01:47:00 PM [facility] Outpatient Attender: Sabiha KINNEY Main Office 02/15/2020 11:45:00 AM EST [facility] ([facility] Outpatient Attender: Tenzin Graves MDReferrer: Dulce Graves MD EMERGENCY ROOM-LABOTHPROV 02/09/2020 01:40:00 PM [facility] - 02/09/2020 01:40:00 PM [facility] Outpatient Attender: Tenzin Graves MD 12/11/2019 01:01:0 0 PM [facility] Outpatient Attender: Sabiha KINNEY Main Office 11/14/2019 02:30:00 PM EDT [facility] ([facility]) Outpatient Attender: Tenzin Graves MDReferrer: Dulce Graves MD EMERGENCY ROOM-LABOTHPROV 09/25/2019 11:03:00 AM EDT - 09/25/2019 11:03:00 AM [facility] Outpatient Attender: Tenzin Graves MDReferrer: Dulce Graves MD EMERGENCY ROOM-LABOTHPROV 09/21/2019 08:35:00 AM EDT - 09/21/[facility]: Tenzin Graves MDReferrer: Tenzin avlenzuela MD 09/08/2019 09:04:00 AM EDT - 09/08/2019 09:04:[address] [facility] Outpatient Attender: Tenzin Graves MDReferrer: Dulce Graves MD EMERGENCY ROOM-LABOTHPROV 08/24/2019 09:08:00 AM EDT - 08/24/2019 09:08:00 AM [facility] Outpatient Attender: Lizbeth Fernández MDConsultant: [facility] [id number] 08/05/2019 04:54:00 PM EDT [facility] Inpatient Attender: Lizbeth Fernández MDAdmitter: Lizbeth Fernández MDReferrer: Tenzin Graves MD EMERGENCY ROOM-2N 08/05/2019 02:00:00 PM EDT - 08/09/2019 04:10[facility] Attender: Lizbeth Fernández MDAttender: JENNY MONTILLA PAAdmitter: Lizbeth Fernández MDReferrer: Tenzin Graves MD EMERGENCY ROOM-2N 08/04/2019 01:03:00 PM EDT - 08/05/2019 01:59:[facility]. Outpatient Attender: Sabiha KINNEY Main Office 07/28/2019 08:30:00 AM EDT [facility] ([facility]) Outpatient Attender: Sabiha Montilla PAReferrer: Karl Graves MD EMERGENCY ROOM-LABOTHPROV 07/26/2019 08:52:00 AM EDT - 07/26/2019 08:52:00 AM [facility] Outpatient Attender: Gloria Palomino 02:00:00 PM EDT [facility] ([facility] ) Outpatient Attender: Tenzin Palomino 0 05/08/2019 11:20:00 AM EDT [facility] ([facility] ) Outpatient Attender: Sabiha KINNEY Main Office 04/03/2019 07:45:00 AM [facility] Outpatient Attender: Tenzin Graves MDReferrer: Dulce Graves MD EMERGENCY ROOM-LABOTHPROV 03/15/2019 11:22:00 AM [facility] - 03/15/2019 11:22:00 AM [facility] Outpatient Attender: Sabiha Rooneyer: Karl Graves MD EMERGENCY ROOM-LABOTHPROV 02/14/2019 11:20:00 AM [facility] - 02/14/2019 11:20:00 AM [facility] Outpatient Attender: Sabiha Rooneyer: Karl Graves MD EMERGENCY ROOM-LABOTHPROV 01/18/2019 11:11:00 AM [facility] - 01/18/2019 11:11:00 AM [facility] Outpatient Attender: Sabiha Ventura: Tenzin nuñez MD 01/18/2019 11:00:00 AM [facility] Outpatient Attender: Sabiha Ventura: Karl Graves MD EMERGENCY ROOM-LABOTHPROV 01/11/2019 09:29:00 AM [facility] - 01/11/2019 09:29:00 AM [facility] Outpatient Attender: Tenzin Graves MDReferrer: Dulce Graves MD EMERGENCY ROOM-LABOTHPROV 01/02/2019 08:35:00 AM [facility] 01/02/2019 08:35:00 AM [facility] Outpatient Attender: Aliya SMITHReferrer: Roby Graves MD EMERGENCY ROOM-LABOTHPROV 01/02/2019 08:32:00 AM [facility] - 01/02/2019 08:32:00 AM [facility] Outpatient Attender: Tenzin Josepherrer: Lupe SMITH EMERGENCY ROOM-LABOTHPROV 11/21/2018 09:15:00 AM EDT - 11/21/2018 09:15:00 AM [facility] Emergency Attender: VIRGEN Pierreerrer: Aliya SMITH 10/24/2018 02:07:00 PM EDT - 10/24/2018 03:30:00 PM [facility] pital Patient discharged. Outpatient Attender: Sabiha KINNEY 10/20/2018 12:30:00 P M [facility] Outpatient Attender: Sabiha Pierreerrer: Aliya SMITH EMERGENCY ROOM-LABOTHPROV 10/10/2018 08:28:00 AM EDT - 10/10/2018 08:28:00 AM [facility] Outpatient Attender: Caden BELTRÁNeferrer: Aliya SMITH EMERGENCY ROOM-LABOTHPROV 09/19/2018 09:21:00 AM EDT - 09/19/2018 09:21:00 AM [facility] Outpatient Attender: Tenzin Josepherrer: Lupe SMITH EMERGENCY ROOM-ULTRA 08/31/2018 12:44:00 PM EDT - 08/31/2018 12:44:00 PM [facility] Outpatient Attender: Tenzin Villagomez: Lupe SMITH EMERGENCY ROOM-LABOTHPROV 08/25/2018 09:06:00 AM EDT - 08/25/2018 09:06:00 AM [facility] Outpatient Attender: Tenzin Graves MD 03/2018 09:27:00 AM EST - 05/26/2018 03:26:00 PM [facility] Emergency Attender: VIRGEN KINNEY 10/31 10:48:00 AM EDT - 11/18/2017 12:00:00 PM [facility] Outpatient Attender: Tenzin Graves MD 12/2017 09:27:00 AM EDT - 09/08/2017 09:27:00 AM [facility] Outpatient Attender: Tenzin Graves MD 06/2017 09:04:00 AM EDT - 09/02/2017 09:04:00 AM [facility] Outpatient Attender: Aliya SMITH 018 09:49:00 AM EDT - 06/07/2017 09:49:00 AM [facility] Outpatient Attender: Aliya SMITH 05/10/2017 08:53:00 AM [facility] Inpatient Attender: JENNY Wongitter : LORI BROOKE EMERGENCY ROOM-2N 05/05/2017 10:36:00 AM EST - 05/04/2017 03:50:00 PM [facility] Outpatient Attender: Sabiha KINNEY EMERGENCY ROOM-LABOTH RO 03/04/2017 09:04:00 AM [facility] - 03/04/2017 09:04:00 AM [facility] Outpatient Attender: [facility]INNEY [facility] 08/27/2016 08:17:00 AM EDT - 08/27/2016 08:17:00 AM [facility] Outpatient Attender: [facility]IN[facility]/19/2016 11:00:00 AM [facility] - 02/19/2016 11:00:00 AM [facility] Outpatient Attender: Sabiha KINNEY [facility] 08/19/2015 07:40:00 AM [facility] Outpatient Attender: Sabiha KINNEY 02/20/2015 09:21:00 A [facility] Outpatient Attender: Sabiha KINNEY [facility] 08/16/2014 07:10:00 AM [facility] Outpatient Attender: Sabiha KINNEY [facility] 02/14/2014 09:10:00 AM [facility] Outpatient Attender: Sabiha KINNEY [facility] 08/16/2013 07:28:00 AM [facility] Outpatient Attender: Tenzin Graves MD 05/09/2013 08:50:0 0 AM [facility] Outpatient Attender: Sabiha KINNEY 02/07/2013 07:49:00 [facility] Outpatient Attender: Sabiha KINNEY 06/13/2012 07:37:00 [facility] Outpatient Attender: Sabiha KINNEY 12/10/2011 09:40:00 [facility] Medications Medication Brand Name Start Date Product Form Dose Route Admi nistrative Instructions Pharmacy Instructions Status Indications Reaction Description Data Source(s) Levothyroxine Sodium 0.05 MG Oral Tablet Levothyroxine Sodiu m 02/14/2020 12:00:00 AM EST ORAL active M [facility] ([facility]) Famotidine 40 MG Oral Tablet Famotidine 02/14/2020 12:00:00 AM EST ORAL active [facility] ([facility]) Tamsulosin hydrochloride 0.4 MG Oral Capsule Tamsulosin HCL 02/14/2020 12:00:00 AM EST ORAL active [facility] ([facility]) Calcitriol 0.94394 MG Oral Capsule Calcitriol 02/14/2020 12:00:00 AM EST ORAL active [facility] ([facility]) 24 HR Isosorbide Mononitrate 30 MG Extended Release Or al Tablet Isosorbide Mononitrate ER 02/14/2020 12:00:00 AM EST ORAL active [facility] ([facility]) carvedilol 3.125 MG Oral Tablet Carvedilol 02/14/2020 12:00:00 AM EST ORAL active [facility] ([facility]) 0.4 mg 12/15/2019 12:00:00 AM EDT capsule 30 TAKE ONE CAPSULE BY MOUTH EVERY DAY AT BEDTIME TAKE ONE CAPSULE BY MOUTH EVERY DAY AT BEDTIME SOLD: 020 [facility] carvedilol 3.125 MG Oral Tablet CARVEDILOL 12/05/2019 12:00:00 AM EDT tablet 60 TAKE ONE TABLET BY MOUTH TWICE A DAY TAKE ONE TABLET BY MOUT H TWICE A DAY SOLD: 12/07/2019 [facility] 20 mg 12/05/2019 12:00:00 AM EDT tablet 120 TAKE TWO TABLETS BY MOUTH TWICE A DAY TAKE TWO TABLETS BY MOUTH TWICE A DAY SOLD: 12/07/2019 [facility] 0.25 mcg 12/05/2019 12:00:00 AM EDT capsule 30 TAKE ONE CAPSULE BY MOUTH EVERY DAY TAKE ONE CAPSULE BY MOUTH EVERY DAY SOLD: 12/07/2019 [facility] Hydralazine Hydrochloride 25 MG Oral Tablet Hydralazine HCL 11/13/2019 12:00:00 AM EDT ORAL active [facility] ([facility]) nateglinide 120 MG Oral Tablet Nateglinide 11/13/2019 12:00:00 AM EDT ORAL completed [facility] ([facility]) Spironolactone 25 MG Oral Tablet Spironolactone 11/13/2019 12:00:00 A M EDT ORAL completed [facility] ([facility]) Docusate Sodium 100 MG Oral Capsule [Colace] Colace 12:00:00 AM EDT ORAL completed [facility] ([facility]) quinapril 40 MG Oral Tablet Quinapril HCL 11/13/2019 12:00:00 AM EDT ORAL completed [facility] ([facility]) Allopurinol 100 MG Oral Tablet Allopurinol 11/13/2019 12:00:00 AM EDT ORAL completed [facility] ([facility]) 24 HR Isosorbide Mononitrate 30 MG Extended Release Or al Tablet ISOSORBIDE MONONITRATE 11/02/2019 12:00:00 AM EDT tablet extended release 24 hr 30 TAKE 1 TABLET BY MOUTH ONCE A DAY TAKE 1 TABLET BY MOUTH ONCE A DAY SOLD: 11/02/2019 [facility] carvedilol 3.125 MG Oral Tablet CARVEDILOL 11/02/2019 12:00:00 AM EDT tablet 60 TAKE 1 TABLET BY MOUTH TWO TIMES A DAY TAKE 1 TABLET BY MOUT H TWO TIMES A DAY SOLD: 11/02/2019 [facility] 20 mg 11/02/2019 12:00:00 AM EDT tablet 120 TAKE 2 TABLETS BY MOUTH TWO TIMES A DAY TAKE 2 TABLETS BY MOUTH TWO TIMES A DAY SOLD: 11/02/2019 [facility] 25 mg 11/02/2019 12:00:00 AM EDT tablet 60 TAKE 1 TABLET BY MOUTH TWO TIMES A DAY TAKE 1 TABLET BY MOUTH TWO TIMES A DAY SOLD: 11/02/2019 [facility] Hydralazine Hydrochloride 25 MG Oral Tablet HYDRALAZINE HCL 11/02/2019 12:00:00 AM EDT tablet 90 TAKE 1 TABLET BY MOUTH THREE TIMES A DAY TAKE 1 TABLET BY MOUTH THREE TIMES A DAY SOLD: 11/02/2019 [facility] 90 mcg/actuation 09/13/2019 12:00:00 AM EDT HFA aerosol inha ler 8 INHALE TWO PUFFS BY MOUTH FOUR TIMES A DAY NEEDED INHALE TWO PUFFS BY MOUTH FOUR TIMES A DAY NEEDED SOLD: 09/29/2019 [facility] 90 mcg/actuation 09/13/2019 12:00:00 AM EDT HFA aerosol inha ler 8 INHALE TWO PUFFS BY MOUTH FOUR TIMES A DAY NEEDED INHALE TWO PUFFS BY MOUTH FOUR TIMES A DAY NEEDED SOLD: 10/03/2019 [facility] 90 mcg/actuation 09/13/2019 12:00:00 AM EDT HFA aerosol inha ler 8 INHALE TWO PUFFS BY MOUTH FOUR TIMES A DAY NEEDED INHALE TWO PUFFS BY MOUTH FOUR TIMES A DAY NEEDED SOLD: 09/15/2019 [facility] Famotidine 40 MG Oral Tablet Famotidine 04/02/2019 12:00:00 AM EST ORAL active [facility] ([facility] 40 mg 03/22/2019 12:00:00 AM EST tablet 30 TAKE ONE TABLET BY MOUTH EVERY DAY TAKE ONE TABLET BY MOUTH EVERY DAY SOLD: 03/23/2019 [facility] Famotidine 40 MG Oral Tablet Famotidine 03/22/2019 12:00:00 AM EST ORAL active [facility] ([facility]) 17.5-3.13-1.6 gram 03/15/2019 12:00:00 AM EST recon soln 354 USE DIRECTED USE DIRECTED SOLD: 03/17/2019 [facility] Suprep Bowel Prep Kit Suprep Bowel Prep Kit 03/14/2019 12:00:00 AM EST active [facility] ([facility]) 25 mg 02/09/2019 12:00:00 AM EST tablet extended release 24 hr 30 TAKE ONE TABLET BY MOUTH EVERY DAY TAKE ONE TABLET BY MOUTH EVERY DAY SOLD: 04/03/2019 [facility] 24 HR metoprolol succinate 25 MG Extended Release Oral Tablet Metoprolol Succinate ER 02/07/2019 12:00:00 AM EST ORAL completed [facility] ([facility]) Insurance Providers Payer name Policy type / Coverage type Policy ID Covered alliance party ID Covered alliance party's relationship to cruz Policy Cruz Plan Information MEDICARE COMPLETE [id number] SP [id number] [facility] [id number] SP [id number] MEDICARE [id number] SP [id number] [facility] MEDICARE [id number] S [id number] [facility] MEDICARE [id number] S [id number] [facility] MEDICARE [id number] S [id number] [facility] MEDICARE [id number] S [id number] [facility] MEDICARE [id number] S [id number] [facility] MEDICARE [id number] S [id number] [facility] MEDICARE [id number] S [id number] [facility] MEDICARE [id number] S [id number] MEDICARE COMPLETE-[facility] O [id number] S [id number] [facility] MEDICARE [id number] Page [id number] [facility] MEDICARE [id number] Medicare Natl Govt Servic Medicare Primary [id number] Self [id number] [facility] [employer] Commercial [id number] Self [id number] 00 United Hcare/Multiplan Medigap Part B [id number] Self [id number] Medicare Natl Govt Servic Medicare Primary [id number] Self [id number] [facility] MEDICARE PI PI [facility] MEDICARE [id number] S [id number] Medicare Natl Govt Servic Medicare Primary [id number] Self [id number] Medicare Natl Govt Servic Medicare Primary [id number] Self [id number] Commercial [id number] Self [id number] 00 Medicare (Part B) Medicare Primary [id number] Self [id number] [facility]-Commercial Plan Medigap Part B [id number] Self [id number] [facility] [employer] [id number] Self [id number] [facility]-Medicare [facility] Commercial [id number] Self [id number] Medicare (Part B) Medicare Primary [id number] Self [id number] Medicare Natl Govt Servic Medicare Primary [id number] Self [id number] MEDICARE COMPLETE [id number] 00 SP [id number] 00 Medicare (Part B) Medicare Primary [id number] Self [id number] Medicare (Part B) Medicare Primary [id number] Self [id number] Medicare Natl Govt Servic Medicare Primary [id number] Self [id number] Medicare (Part B) Medicare Primary [id number] Self [id number] Medicare Natl Govt Servic Medicare Primary [id number] Self [id number] Medicare Natl Govt Servic Medicare Primary [id number] Self [id number] Medicare (Part B) Medicare Primary [id number] Self [id number] Medicare (Part B) Medicare Primary [id number] Self [id number] Medicare Natl Govt Servic Medicare Primary [id number] Self [id number] Unitedhcare Medicare [place] Commercial [id number] Self [id number] Medicare Natl Govt Servic Medicare Primary [id number] Self [id number] [employer] Commercial Self Unitedhcare Medicare [place] Commercial [id number] Self [id number] United Hcare/Multiplan Medigap Part B Self Medicare Natl Govt Servic Medicare Primary Self Medicare (Part B) Medicare Primary Self [facility]-Commercial Plan Medigap Part B Self [facility] MCR Commercial Self U/HC Medicare Solutions Commercial Self [facility] (MCR) Commercial Self SELF PAY SP UNAVAILABLE S UNAVAILA BLE Medicare Medicare Primary Self [facility] Medigap Part B Self Problems, Conditions, and Diagnoses Code Display Name Description Problem Type Effective Dates Data Source(s) [id number] Anemia Anemia Problem 03/14/2019 12:00:00 AM SOO Chao [facility] ([facility]) Z79.01 emt intermediate (current) use of anticoagulant s RADIO COMMENTATOR (CURRENT) USE OF ANTICOAGULANT Diagnosis 04/18/2020 09:30:00 AM [facility] l R91.8 Other nonspecific abnormal finding of lyudmila ng field OTHER NONSPECIFIC ABNORMAL FINDING OF LUNG FIELD Diagnosis 03/13/2020 12:00:00 PM [facility] I50.33 Acute on chronic diastolic (congestive) heart failure ACUTE ON CHRONIC DIASTOLIC (CONGESTIVE) Diagnosis 09/25/2019 11:03:00 AM [facility] E87.6 Hypokalemia HYPOKALEMIA Diagnosis 09/25/2019 11:03:00 AM [facility] 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, or unspecified chronic kidney disease HYP HRT CHR KDNY DIS W HRT FAIL AND ST Diagnosis 020 08:35:00 AM [facility] J98.11 Atelectasis ATELECTASIS Diagnosis 09/08/2019 09:04:00 AM [facility] J18.1 Lobar pneumonia, unspecified organism LO BAR PNEUMONIA, UNSPECIFIED ORGANISM Diagnosis 09/08/2019 09:04:00 AM [facility] l J90 Pleural effusion, not elsewhere classifi ed PLEURAL EFFUSION, NOT ELSEWHERE CLASSIFIED Diagnosis 09/08/2019 09:04:00 AM [facility] l I50.9 Heart failure, unspecified HEART FAILURE, UNSPECIFIED Diagnosis 09/08/2019 09:04:00 AM [facility] Z96.642 Presence of left artificial hip joint TN ESENCE OF LEFT ARTIFICIAL HIP JOINT Diagnosis 08/05/2019 02:00:00 PM [facility] l Z86.79 Personal history of other diseases of th e circulatory system PERSONAL HISTORY OF OTHER DISEASES OF THE CIRCULAT Diagnosis 08/05/2019 02:00:0 0 PM [facility] Z66 Do not resuscitate DO NOT RESUSCITATE Diagnosis 0 02:00:00 PM [facility] R59.9 Enlarged lymph nodes, unspecified ENLARGED LYMPH NODES, UNSPECIFIED Diagnosis 08/05/2019 02:00:00 PM [facility] R09.02 Hypoxemia HYPOXEMIA Diagnosis 08/05/2019 02:00:00 PM [facility] K22.2 Esophageal obstruction ESOPHAGEAL OBSTRUCTION Diagnosi s 08/05/2019 02:00:00 PM [facility] K21.9 Gastro-esophageal reflux disease without esophagitis GASTRO-ESOPHAGEAL REFLUX DISEASE WITHOUT ESOPHAGIT Diagnosis 08/05/2019 02:00:00 PM [facility] I49.5 Sick sinus syndrome SICK SINUS SYNDROME Diagnosis 0 08/05/2019 02:00:00 PM [facility] E78.2 Mixed hyperlipidemia MIXED HYPERLIPIDEMIA Diagnosis 08/05/2019 02:00:00 PM [facility] J44.0 Chronic obstructive pulmonar y disease with acute lower respiratory infection CHR OBSTRUCTIVE PULMON DISEASE WITH (ACUTE) LOWER Diagnosis 08/05/2019 02:00:00 PM [facility] I50.41 Acute combined systolic (con gestive) and diastolic (congestive) heart failure ACUTE COMBINED SYSTOLIC AND DIASTOLIC (CONGESTIVE) Diagnosis 08/05/2019 02:00:00 PM [facility] Z87.891 Personal history of nicotine dependence PERSONAL HISTORY OF NICOTINE DEPENDENCE Diagnosis 08/04/2019 01:03:00 PM [facility] Z79.82 group home (current) use of aspirin RADIO COMMENTATOR (CU RRENT) USE OF ASPIRIN Diagnosis 08/04/2019 01:03:00 PM [facility] Z79.4 emt intermediate (current) use of insulin LONG-TERM (CU RRENT) USE OF INSULIN Diagnosis 08/04/2019 01:03:00 PM [facility] Z95.0 Presence of cardiac pacemaker PRESENCE OF CARDIAC PACE MAKER Diagnosis 08/04/2019 01:03:00 PM [facility] Z79.899 Other assisted (current) drug therapy O THER LONG-TERM (CURRENT) DRUG THERAPY Diagnosis 08/04/2019 01:03:00 PM [facility] l Z95.1 Presence of aortocoronary bypass graft P RESENCE OF AORTOCORONARY BYPASS GRAFT Diagnosis 08/04/2019 01:03:00 PM [facility] I25.5 Ischemic cardiomyopathy ISCHEMIC CARDIOMYOPATHY Diagno sis 08/04/2019 01:03:00 PM [facility] R79.82 Elevated C-reactive protein (CRP) ELEVATED C-SANDRA CTIVE PROTEIN (CRP) Diagnosis 08/04/2019 01:03:00 PM [facility] 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, unspecif ied RHEUMATIC MITRAL VALVE DISEASE, UNSPECIFIED Diagnosis 08/04/2019 01:03:00 PM [facility] al 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, unsp ecified NONRHEUMATIC AORTIC VALVE DISORDER, UNSPECIFIED Diagnosis 08/04/2019 01:03:00 PM [facility] E11.9 Type 2 diabetes mellitus without complic ations TYPE 2 DIABETES MELLITUS WITHOUT COMPLICATIONS Diagnosis 08/04/2019 01:03:00 PM [facility] J45.909 Unspecified asthma, uncomplicated UNSPECIFIED THMA, UNCOMPLICATED Diagnosis 08/04/2019 01:03:00 PM [facility] R06.00 Dyspnea, unspecified DYSPNEA, UNSPECIFIED Diagnosis 08/04/2019 01:03:00 PM [facility] I50.32 Chronic diastolic (congestive) heart jhonatan lure CHRONIC DIASTOLIC (CONGESTIVE) HEART JHONATAN Diagnosis 07/26/2019 08:52:00 AM [facility] I48.0 Paroxysmal atrial fibrillation PAROXYSMAL ATRIAL FIBRI LLATION Diagnosis 07/26/2019 08:52:00 AM [facility] 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 HYPOTHYROIDISM DUE TO MEDS AND OTH EXOGENOUS SUBSTANCES Diagnosis 03/15/2019 11:22:00 AM [facility] Surgeries/Procedures Procedure Description Date Indications Data Source(s) PARING/CUTTING BENIGN HYPERKERATOTIC LESION 2-4 2020 12:00:00 AM EST [facility] DEBRIDEMENT NAIL ANY METHOD 03/26/2020 12:00:00 AM EST [facility] INTERROGATION EVAL IN PERSON 1/DUAL/COLOR GRINDER LEAD PM 2019 12:00:00 AM EST [facility] ([facility]) PARING/CUTTING BENIGN HYPERKERATOTIC LESION 2-4 2019 12:00:00 AM EST [facility] ([facility] DEBRIDEMENT NAIL ANY METHOD 01/16/2020 12:00:00 AM EST [facility] ECG ROUTINE ECG W/LEAST 12 LDS W/I&R 11/14/2019 12:00: 00 AM EDT [facility] ([facility]) PARING/CUTTING BENIGN HYPERKERATOTIC LESION 2-4 2019 12:00:00 AM EDT [facility] ([facility] DEBRIDEMENT NAIL ANY METHOD 11/07/2019 12:00:00 AM EDT [facility] ([facility] INTERROGATION EVAL REMOTE </90 D 1/2/COLOR GRINDER LEAD PM 09/06 12:00:00 AM EDT [facility] ([facility]) INTERROGATION REMOTE </90 D PRINTING EQUIPMENT MECHANIC REVIEW 09/07/19 12:00:00 AM EDT [facility] ([facility]) PARING/CUTTING BENIGN HYPERKERATOTIC LESION 2-4 2019 12:00:00 AM EDT [facility] ([facility] DEBRIDEMENT NAIL ANY METHOD 08/29/2019 12:00:00 AM EDT [facility] ([facility] Introduction of Insulin into Subcutaneous Tissue, Percutaneo us Approach 08/05/2019 12:00:00 AM [facility] Introduction of Other Therapeutic Substa nce into Peripheral Vein, Percutaneous Approach 08/05/2019 12:00:00 AM [facility] Introduction of Anti-inflammatory into R espiratory Tract, Via Natural or Artificial Opening 08/05/2019 12:00:00 AM [facility] Introduction of Other Anti-infective int o Peripheral Vein, Percutaneous Approach 08/05/2019 12:00:00 AM [facility] ECG ROUTINE ECG W/LEAST 12 LDS W/I&R 07/21/2019 12:00: 00 AM EDT [facility] ([facility]) INTERROGATION EVAL REMOTE </90 D 1/2/COLOR GRINDER LEAD PM 06/07 12:00:00 AM EDT [facility] ([facility]) INTERROGATION REMOTE </90 D PRINTING EQUIPMENT MECHANIC REVIEW 06/08/19 12:00:00 AM EDT [facility] ([facility]) History of diabetes mellitus , Dx: Early 90's, A1c: unsure of the last result, FBS: 140 this morning History of diabetes mellitus , Dx: Early 90's, A1c: unsure of the last result, FBS: 140 this morning 05/23/2019 12:00:00 AM EDT [place] (Sabino Watkins MD [facility]) History of cataract surgery PCIOL OU - MFIOL History of cataract surgery PCIOL OU - MFIOL 05/23/2019 12:00:00 AM EDT [place] (Dax Watkins MD [facility]) PARING/CUTTING BENIGN HYPERKERATOTIC LESION 2-4 2019 12:00:00 AM EST [facility] ([facility] DEBRIDEMENT NAIL ANY METHOD 6/> 05/01/2019 12:00:00 AM EST [facility] ECG ROUTINE ECG W/LEAST 12 LDS W/I&R 04/03/2019 12:00: 00 AM EST [facility] ([facility]) Colonoscopy 03/29/2019 12:00:00 AM EST M [facility] ([facility]) INTERROGATION EVAL REMOTE </90 D 1/2/COLOR GRINDER LEAD PM 03/09 12:00:00 AM EST [facility] ([facility]) INTERROGATION REMOTE </90 D PRINTING EQUIPMENT MECHANIC REVIEW 03/09/19 12:00:00 AM EST [facility] ([facility]) PARING/CUTTING BENIGN HYPERKERATOTIC LESION 2-4 2018 12:00:00 AM EST [facility] ([facility] DEBRIDEMENT NAIL ANY METHOD 6/> 02/20/2019 12:00:00 AM EST [facility] ([facility] Results ID Date Data Source [id number] 04/18/2020 10:03:00 AM EST [facility] [phone] Name Value Range Interpretation Code Description Data Cindy rce(s) Supporting Document(s) PROTHROMBIN TIME (PATIENT) 15.3 SECONDS 9.1-11.6 [facility] INR 1.48 0.87-1.06 [facility] ID Date Data Source [id number] 04/09/2020 11:34:00 AM EST [facility] FA[facility] TO [phone] Name Value Range Interpretation Code Description Data Cindy rce(s) Supporting Document(s) PROTHROMBIN TIME (PATIENT) 13.7 SECONDS 9.1-11.6 [facility] INR 1.32 0.87-1.06 [facility] ID Date Data Source [id number] 03/25/2020 11:48:00 AM EST [facility] [phone] Name Value Range Interpretation Code Description Data Cindy rce(s) Supporting Document(s) PROTHROMBIN TIME (PATIENT) 15.0 SECONDS 9.1-11.6 [facility] INR 1.45 0.87-1.06 [facility] ID Date Data Source [id number] 03/18/2020 01:58:00 PM EST [facility] [phone] Name Value Range Interpretation Code Description Data Cindy rce(s) Supporting Document(s) PROTHROMBIN TIME (PATIENT) 16.0 SECONDS 9.1-11.6 [facility] INR 1.55 0.87-1.06 [facility] ID Date Data Source [id number] 03/13/2020 01:10:00 PM EST Adria buck DATE OF EXAMINATION: 03/13/2020 11:45 EST CHEST W/O IV CONTRAST HISTORY: Abnormal lung findings. Comparison is made to prior study of 08/04/2019 TECHNIQUE: This CT exam was performed using the following dose reduction techniques:automatic exposure control, adjustment of mA and/or kV according to thepatient's size, and use of iterative reconstruction technique. Standard contiguous axial spiral imaging was obtained from lung apices to thelung bases without intravenous contrast administration and with coronalreformatting. FINDINGS: Emphysematous changes of both lungs reveal no interval progression. C alcifiedgranuloma is seen in the right upper lobe. There is no definite focalconsolidation or mass. 1 to 2 mm nodule in the right lower lobe is unchanged.Previously noted pleural effusion on each side has resolved with reexpansion ofboth lower lobes. Previously noted mediastinal nodes are unchanged in numbersize and contour. Neoplastic involvement is not excluded. Clinical correlationfor these nodes is encouraged. Alternatively a PET/CT may prove useful forfurther evaluation. A sending aorta measures 4.4 cm, unchanged since the priorstudy. IMPRESSION: Interval resolution of previously noted pleural ef fusions reexpansion of bothlower lobes. Mediastinal nodes are unchanged. Neoplastic involvement is not excluded.Correlation with PET/CT may prove useful for further evaluation. Electronically signed in PS360 by: Thony Becker M.D. 03/13/2020 13:04 EST Name Value Range Interpretation Code Description Data Cindy e(s) Supporting Document(s) ID Date Data Source [id number] 03/11/2020 02:47:00 PM EST [facility] ([facility]) Name Value Range Interpretation Code Description Data Cindy rce(s) Supporting Document(s) White Blood Count 4.7 4.3-10.9 [facility] ([facility]) Red Blood Count 2.98 4.70-6.20 [facility] ([facility]) Platelets 200 130-400 [facility] ([facility]) Hemoglobin 10.0 13.0-17.0 [facility] ([facility]) Hematocrit 31.1 39.0-50.0 [facility] ([facility]) ID Date Data Source [id number] 03/11/2020 02:47:00 PM EST [facility] ([facility]) Name Value Range Interpretation Code Description Data Cindy rce(s) Supporting Document(s) Glucose 347 70-100 [facility] ([facility]) Creatinine 2.5 0.6-1.5 [facility] ([facility]) Blood Urea Nitrogen 40.2 5-21 [facility] ([facility]) Sodium 139 136-146 [facility] ([facility]) Glomerular filtration rate/1.73 sq M.pre dicted [Volume Rate/Area] in Serum or Plasma by Creatinine-based formula (MDRD) 24 [facility] ([facility]) Chloride 95.6 98-110 [facility]) Carbon Dioxide 32.5 20-32 [facility] ([facility]) Potassium 4.77 3.5-5.3 [facility] ([facility]) Calcium 9.6 8.4-10.4 [facility] ([facility]) Phosphorus 3.6 [facility] ([facility]) Albumin 3.8 3.5-4.7 [facility] ID Date Data Source [id number] 02/16/2020 02:12:00 PM EST [facility] FA[facility] [phone] Name Value Range Interpretation Code Description Data Cindy rce(s) Supporting Document(s) PROTHROMBIN TIME (PATIENT) 28.7 SECONDS 9.1-11.6 [facility] INR 2.79 0.87-1.06 [facility] ID Date Data Source [id number] 02/09/2020 02:22:00 PM EST [facility] FA[facility] [phone] Name Value Range Interpretation Code Description Data Cindy rce(s) Supporting Document(s) PROTHROMBIN TIME (PATIENT) 15.8 SECONDS 9.1-11.6 [facility] INR 1.53 0.87-1.06 [facility] ID Date Data Source [id number] 01/08/2020 02:32:00 PM EST [facility]) Name Value Range Interpretation Code Description Data Cindy rce(s) Supporting Document(s) Magnesium Level 1.99 [facility]) ID Date Data Source [id number] 01/08/2020 02:32:00 PM EST [facility] ([facility]) Name Value Range Interpretation Code Description Data Cindy rce(s) Supporting Document(s) Red Blood Count 2.90 4.70-6.20 [facility] White Blood Count 4.5 4.3-10.9 [facility] ([facility]) Platelets 213 130-400 [facility] ([facility]) Hematocrit 30.4 39.0-50.0 [facility] Hemoglobin 9.7 13.0-17.0 [facility] ID Date Data Source [id number] 01/08/2020 02:32:00 PM EST [facility] ([facility]) Name Value Range Interpretation Code Description Data Cindy rce(s) Supporting Document(s) Creatinine 2.1 0.6-1.5 [facility] Glucose 216 70-100 [facility] Blood Urea Nitrogen 36.9 5-21 [facility] ([facility]) Potassium 4.88 3.5-5.3 [facility] Sodium 140.2 136-146 [facility] Glomerular filtration rate/1.73 sq M.pre dicted [Volume Rate/Area] in Serum or Plasma by Creatinine-based formula (MDRD) 30 [facility] Carbon Dioxide 26.7 20-32 [facility] ([facility]) Calcium 8.3 8.4-10.4 [facility] Chloride 103.4 98-110 [facility] Albumin 3.8 3.5-4.7 [facility] Phosphorus 3.4 [facility] ID Date Data Source [id number] 12/14/2019 09:31:00 AM EDT [facility] Name Value Range Interpretation Code Description Data Cindy rce(s) Supporting Document(s) Magnesium Level 2.31 [facility] ID Date Data Source [id number] 12/14/2019 09:31:00 AM EDT [facility] Name Value Range Interpretation Code Description Data Cindy rce(s) Supporting Document(s) White Blood Count 6.0 4.3-10.9 [facility] Red Blood Count 2.85 4.70-6.20 [facility] Platelets 299 130-400 [facility] Hemoglobin 9.4 13.0-17.0 [facility]) Hematocrit 29.3 39.0-50.0 [facility] ID Date Data Source [id number] 12/14/2019 09:31:00 AM EDT [facility] Name Value Range Interpretation Code Description Data Cindy rce(s) Supporting Document(s) Glucose 221 70-100 [facility] Glomerular filtration rate/1.73 sq M.pre dicted [Volume Rate/Area] in Serum or Plasma by Creatinine-based formula (MDRD) 18 [facility] Blood Urea Nitrogen 60.3 5-21 [facility] Creatinine 3.2 0.6-1.5 [facility] Potassium 4.63 3.5-5.3 [facility] Chloride 100.9 98-110 [facility] Sodium 141.4 136-146 [facility] Carbon Dioxide 24.0 20-32 [facility] Phosphorus 4.0 [facility] Calcium 9.1 8.4-10.4 [facility] Albumin 3.9 3.5-4.7 [facility] ID Date Data Source [id number] 12/04/2019 08:58:00 AM EDT [facility] ([facility]) Name Value Range Interpretation Code Description Data Cindy rce(s) Supporting Document(s) Magnesium Level 2.17 [facility] ID Date Data Source [id number] 12/04/2019 08:58:00 AM EDT [facility] ([facility]) Name Value Range Interpretation Code Description Data Cindy rce(s) Supporting Document(s) White Blood Count 5.1 4.3-10.9 [facility] ([facility]) Red Blood Count 3.08 4.70-6.20 [facility]) Hematocrit 31.8 39.0-50.0 [facility]) Platelets 191 130-400 [facility] ([facility]) Hemoglobin 10.3 13.0-17.0 [facility] ([facility]) ID Date Data Source [id number] 12/04/2019 08:58:00 AM EDT [facility] ([facility]) Name Value Range Interpretation Code Description Data Cindy rce(s) Supporting Document(s) Glucose 362 70-100 [facility] ([facility]) Blood Urea Nitrogen 40.3 5-21 [facility] ([facility]) Creatinine 2.2 0.6-1.5 [facility] ([facility]) Sodium 139 136-146 [facility] ([facility]) Glomerular filtration rate/1.73 sq M.pre dicted [Volume Rate/Area] in Serum or Plasma by Creatinine-based formula (MDRD) 28 [facility] Potassium 5.27 3.5-5.3 [facility] Chloride 103.1 98-110 [facility] Carbon Dioxide 26.0 20-32 [facility] Calcium 9.4 8.4-10.4 [facility] Albumin 4.1 3.5-4.7 [facility] Phosphorus 3.5 [facility] ID Date Data Source [id number] 11/10/2019 02:59:00 PM EDT [facility]) Name Value Range Interpretation Code Description Data Cindy rce(s) Supporting Document(s) I N R Laboratory test result [facility] ([facility]) P T 1.4 [facility] ([facility]) ID Date Data Source [id number] 11/10/2019 02:59:00 PM EDT [facility]) Name Value Range Interpretation Code Description Data Cindy rce(s) Supporting Document(s) White Blood Count 4.8 4.3-10.9 [facility] ([facility]) Platelets 213 130-400 [facility] ([facility]) Red Blood Count 3.09 4.70-6.20 [facility]) Hemoglobin 10.0 13.0-17.0 [facility] ([facility]) Hematocrit 29.8 39.0-50.0 [facility] ([facility]) ID Date Data Source [id number] 11/10/2019 02:59:00 PM EDT [facility]) Name Value Range Interpretation Code Description Data Cindy rce(s) Supporting Document(s) Calcium [Mass/volume] in Serum or Plasma 9.4 [facility] ([facility]) Carbon dioxide, total [Moles/volume] in Serum or Plasma 24 [facility] ([facility]) Chloride [Moles/volume] in Serum or Plasma 102 [facility]) Sodium 137 [facility] ([facility]) Blood Urea Nitrogen 42 5-21 [facility] ([facility]) Potassium [Moles/volume] in Serum or Plasma 4.9 [facility] ([facility]) Glucose 261 70-100 [facility] ([facility]) Glomerular filtration rate/1.73 sq M.pre dicted [Volume Rate/Area] in Serum or Plasma by Creatinine-based formula (MDRD) 18 [facility] ([facility]) Creatinine 3.3 0.6-1.5 [facility] ([facility]) ID Date Data Source [id number] 10/30/2019 08:33:00 AM EDT [facility] ([facility]) Name Value Range Interpretation Code Description Data Cindy rce(s) Supporting Document(s) Magnesium Level 1.99 [facility] ([facility]) ID Date Data Source [id number] 10/30/2019 08:33:00 AM EDT [facility] ([facility]) Name Value Range Interpretation Code Description Data Cindy rce(s) Supporting Document(s) White Blood Count 6.8 4.3-10.9 [facility]) Red Blood Count 3.34 4.70-6.20 [facility]) Hemoglobin 10.9 13.0-17.0 [facility] ([facility]) Platelets 361 130-400 [facility] ([facility]) Hematocrit 32.9 39.0-50.0 [facility] ([facility]) ID Date Data Source [id number] 10/30/2019 08:33:00 AM EDT [facility] ([facility]) Name Value Range Interpretation Code Description Data Cindy rce(s) Supporting Document(s) Creatinine 3.1 0.6-1.5 [facility] Glucose 297 70-100 [facility] ([facility]) Blood Urea Nitrogen 44.7 5-21 [facility] ([facility]) Potassium 4.08 3.5-5.3 [facility] Sodium 140.7 136-146 [facility] Glomerular filtration rate/1.73 sq M.pre dicted [Volume Rate/Area] in Serum or Plasma by Creatinine-based formula (MDRD) 19 [facility] Calcium 8.8 8.4-10.4 [facility] Chloride 96.5 98-110 [facility] Carbon Dioxide 29.6 20-32 [facility] ([facility]) Phosphorus 3.7 [facility]) Albumin 3.9 3.5-4.7 [facility] ID Date Data Source [id number] 10/17/2019 04:02:00 PM EDT [facility] Name Value Range Interpretation Code Description Data Cindy rce(s) Supporting Document(s) White Blood Count 5.4 4.0-10.0 [facility] Hemoglobin 9.6 [facility] Platelets 175 150-450 [facility] Red Blood Count 2.96 4.30-6.10 [facility] Hematocrit 29.9 [facility] ID Date Data Source [id number] 10/16/2019 04:01:00 PM EDT [facility] Name Value Range Interpretation Code Description Data Cindy rce(s) Supporting Document(s) White Blood Count 5.4 4.0-10.0 [facility] Red Blood Count 3.08 4.30-6.10 [facility] Hemoglobin 10.0 [facility] Platelets 169 150-450 [facility] Hematocrit 31.1 [facility] ID Date Data Source [id number] 10/10/2019 03:59:00 PM EDT [facility] Name Value Range Interpretation Code Description Data Cindy rce(s) Supporting Document(s) White Blood Count 7.2 4.0-10.0 [facility] Red Blood Count 3.17 4.30-6.10 [facility] Platelets 241 150-450 [facility] Hemoglobin 10.5 13.5-17.5 [facility]) Hematocrit 32.7 42.0-52.0 [facility] ID Date Data Source [id number] 10/09/2019 03:57:00 PM EDT [facility] Name Value Range Interpretation Code Description Data Cindy rce(s) Supporting Document(s) White Blood Count 5.9 4.0-10.0 [facility] ([facility]) Red Blood Count 3.23 4.30-6.10 [facility]) Platelets 239 150-450 [facility] ([facility]) Hemoglobin 10.5 [facility] ([facility]) Hematocrit 33.2 [facility] ([facility]) ID Date Data Source [id number] 09/25/2019 12:15:00 PM EDT [facility] FAX [phone] Name Value Range Interpretation Code Description Data Cindy rce(s) Supporting Document(s) B-TYPE NATRIURETIC PEPTIDE 9870 pg/ml 0-450 *H [facility] ID Date Data Source [id number] 09/25/2019 11:57:00 AM EDT [facility] FAX [phone] Name Value Range Interpretation Code Description Data Cindy rce(s) Supporting Document(s) ACETONE,SERUM NEGATIVE NEGATIVE [facility] ID Date Data Source [id number] 09/25/2019 12:15:00 PM EDT [facility] FA[facility] [phone] Name Value Range Interpretation Code Description Data Cindy rce(s) Supporting Document(s) GLUCOSE 240 mg/dL 74-[address] [facility] BLOOD UREA NITROGEN 36 mg/dL 7-18 H [facility] ital CREATININE 3.1 mg/dL 0.7-1.[address] [facility] SODIUM 139 mmol/L 136-[address] [facility] POTASSIUM 4.0 mmol/L 3.5-5.[address] [facility] CHLORIDE 101 mmol/L 98-[address] [facility] CO2 25 mmol/L 21-[address] [facility] CALCIUM 9.3 mg/dL 8.5-10.[address] [facility] ANION GAP 13.0 mmol/L 5-[address] [facility] GLOMERULAR FILTRATION RATE 18 mL/min [facility] GFR IS CALCULATED IN mL/min/1.73m2 LEONARD L FUNCTION: >90MILDLY DECREASED: 60-89MILDY TO MODERATELY DECREASED: 45-59 MODERATELY TO SEVERELY DECREASED: 30-44SEVERELY DECREASED: 15-29RENAL FAILURE: <15 ID Date Data Source [id number] 09/21/2019 10:00:00 AM EDT [facility] [phone] Name Value Range Interpretation Code Description Data Cindy rce(s) Supporting Document(s) B-TYPE NATRIURETIC PEPTIDE [id number] pg/ml 0-450 *H [facility] ID Date Data Source [id number] 09/21/2019 10:00:00 AM [facility] [phone] Name Value Range Interpretation Code Description Data Cindy rce(s) Supporting Document(s) GLUCOSE 44 mg/dL 74-[address] [facility] BLOOD UREA NITROGEN 31 mg/dL 7-18 H [facility] ital CREATININE 2.7 mg/dL 0.7-1.[address] [facility] SODIUM 145 mmol/L 136-[address] [facility] POTASSIUM 3.1 mmol/L 3.5-5.1 [facility] CHLORIDE 104 mmol/L 98-[address] [facility] CO2 29 mmol/L 21-[address] [facility] CALCIUM 9.1 mg/dL 8.5-10.[address] [facility] ANION GAP 12.0 mmol/L 5-[address] [facility] GLOMERULAR FILTRATION RATE 22 mL/min [facility] GFR IS CALCULATED IN mL/min/1.73m2 LEONARD L FUNCTION: >90MILDLY DECREASED: 60-89MILDY TO MODERATELY DECREASED: 45-59 MODERATELY TO SEVERELY DECREASED: 30-44SEVERELY DECREASED: 15-29RENAL FAILURE: <15 ID Date Data Source [id number] 09/08/2019 09:59:00 AM [facility] DATE OF EXAMINATION: 09/08/2019 9:08 EDT CHEST 2 VIEWS HISTORY: Follow-up of pneumonia TECHNIQUE: PA and lateral radiographs of the chest COMPARISON: 08/08/2019 FINDINGS: Previously noted left-sided effusion and left lower lobe pneumonia has resolved.Today's study reveals newly developed moderate right lower lobe atelectasis.Cardiac silhouette and pulmonary vascularity is within normal limits. IMPRESSION: Resolved left-sided pleural effusion and left lower lobe pneumonia. Newly developed mild right lower lobe atelectasis. Electronically signed in [id number] by: Thony Becker M.D. 09/08/2019 9:53 EDT Name Value Range Interpretation Code Description Data Cindy rce(s) Supporting Document(s) ID Date Data Source [id number] 08/24/2019 09:55:00 AM [facility] Name Value Range Interpretation Code Description Data Cindy rce(s) Supporting Document(s) PROTHROMBIN TIME (PATIENT) 29.7 SECONDS 9.2-11.[address] [facility] INR 2.95 0.87-1.[address] [facility] ID Date Data Source [id number] 08/17/2019 12:17:00 PM [facility] In-Patient NoteNote:[facility] Dear Dr Correia,Dear Mr Hdz, We had a pleasure of having Mr Ghassan Samano at our facility. He presented with worsening of his chronic heart failure, bilateral pleural effusions and atelectases as well as possible LLL pneumonia.I am concerned about his left sided pleural effusion as well as CT changes in his left lower lobe.He may have a neoplastic process involving left lung. He will need thoracenthesis and further follow up in that issue.I am sending you a copy of his CT reading as well as CD of the images send home with the patient. It was a pleasure to meet your very delightful patient. Sincerely, Lizbeth Duggan M.D.Hospitalist [facility] Name Value Range Interpretation Code Description Data Cindy rce(s) Supporting Document(s) ID Date Data Source [id number] 08/17/2019 12:17:00 PM [facility] Discharge Appointments AppointmentsFoll ow up with:TENZIN GRAVES JRon: 08/11/19at: 11:00 Outpatient Tests*You need the following test(s) done as an outpatient:CBCBMPPT, INRYou will also need to have a follow up with a lung specialistto evaluate your left lung and fluid on the left side.* [] Diagnosis & Medication Allergy Information Coded Allergies:No Known Allergies (08/05/19) DiagnosisProblem ListMedical Problems Aortic valve disease Asthma Atrial fibrillation CAD (coronary artery disease) Carotid arterial disease Congestive heart failure COPD (chronic obstructive pulmonary disease) Diabetes Esophageal stricture GERD with stricture Hyperlipidemia Hypertensive heart and chronic kidney disease Hypoxemia Left lower lobe pneumonia Pleural effusion Sick sinus syndromeSurgical Problems History of carotid endarterectomy History of cataract surgery History of coronary artery bypass graft History of left hip replacement History of permanent cardiac pacemaker placement History of tonsillectomy Discharge Instructions Review & Sign* I understand the instructions I have received: Patient/Family Signature: Date/Time OrderingProvider Signature: Date/Time Discharging Nurse Signature: Date/Time Name Value Range Interpretation Code Description Data Cindy rce(s) Supporting Document(s) ID Date Data Source [id number] 08/11/2019 08:26:00 AM EDT [facility] Patient: GHASSAN AUGUSTINE Observation Report - [facility].VisitID: [id number] [place] [address] [phone], MRegistration Date/Time: 08/04/2019 10:52 Weight:77.7 kg (M). Height/Length:71 inches (S). BMI:23.9 Obs Start: 08/04/2019 13:47 Obs Dispo: 08/05/2019 13:38 Obs Duration: 24 hr 12 min Time Seen: (13:30), initial patient contact, received patient report. ED care transferred. Decision to end Obs: 13:38 08/05/2019. HISTORY OF PRESENT ILLNESSChief Complaint: DYSPNEA and FOOT SWELLING. ( This is an 89 year old male with history of CAD, CABGx4, Hypertensive Heart Disease, Congestive Heart Failure, Atrial fibrillation, Hyperlipidemia, Diabetes Mellitus, Sick sinus syndrome with pacemaker in place Carotid Artery Disease st post left CEA, VAlvular Heart Disease WHO PRESENTED TO Emergency Department of [facility] with dyspnea. His worsening of breathing and shortness of breath started 4 days ago with ortho pnea and increased foot swelling. He denies any fever or chills, no chest pain or chest discomfort.His symptoms are described as severe.They are worse with lying flat and improve with sitting up. His symptoms started gradually and they are continues.). This started 4 ago and is still present. At its maximum, severity described as severe. When seen in the E.D., severity described as severe. Modifying factors- worsened by walking and supine position. Relieved by oxygen and upright position. The patient has had loss of appetite, fatigue, a sleep problem and generalized weakness. No weight loss, headache, visual disturbance or muscle aches. No decreased urine output. (Leg edema). Similar symptoms previously. Patient has had similar symptoms several times. Recent medical care: The patient was seen recently by a health care provider. REVIEW OF SYSTEMSNo fever, sore throat, sinus drainage, nasal congestion or cough. No chest pain, abdominal pain, nausea, vomiting or diarrhea. No black stools, bloody stools, difficulty with urination, skin rash or back pain. No calf pain, headache, blackouts or double vision. The patient has had difficulty breathing. No difficulty with ambulation. All other systems reviewed and are negative. PAST HISTORYSee nurses notes. Hypertension. Diabetes mellitus. Heart disease. Lung disease. Renal disease. SOCIAL HISTORYFormer smoker, end date 1998 (cigar). Alcohol use, consumes two beers a week. No drug use. No recent travel. Is a local resident. FAMILY HISTORYFather: Lung Disease. Sister(s): Breast Cancer. ADDITIONAL NOTESThe nursing notes have been reviewed with agreement regarding the chief complaint, HPI, PMH and patient medications and allergies. PHYSICAL EXAMVital Signs: 08/04/2019 15:55 BP: 151/75. MAP: 100. HR: 80. RR: 18. O2 saturation: 94% on nasal cannula at 3 liters/minute. Temp: 98.2 F. Pain level now: 0/10.08/04/2019 15:00 BP: 138/74. MAP: 95. HR: 80. RR: 16. O2 saturation: 93% on nasal cannula at 4 liters/minute.08/04/2019 13:22 BP: 156/72. MAP: 100. HR: 79. RR: 16. O2 saturation: 91% on nasal cannula at 4 liters/minute.08/04/2019 13:02 BP: 122/75. MAP: 90. HR: 80. O2 saturation: 92% on nasal cannula at 4 liters/minute. Pain level now: 0.08/04/2019 12:00 BP: 155/77. MAP: 103. HR: 80. RR: 18. O2 saturation: 90% on nasal cannula at 4 liters/minute. Pain level now: 0.08/04/2019 11:58 BP: 164/81. MAP: 108. HR: 80. O2 saturation: 93% on nasal cannula at 3 liters/minute.08/04/2019 11:05 BP: 150/72. MAP: 98. HR: 80. RR: 22. O2 saturation: 92% on nasal cannula at 3 liters/minute. Pain level now: 0.08/04/2019 10:57 BP: sitting 172/73. MAP: 106. HR: 80. RR: 18. O2 saturation: 94% on nasal cannula at 2 liters/minute. Pain level now: 0.08/04/2019 10:49 BP: 147/67. MAP: 93. HR: 88. RR: 20. O2 saturation: 97% on non-rebreather at 12 liters/minute. Temp: 99.2 F. Pain level now: 0/10. Have been reviewed. Appearance: Alert. No acute distress. Eyes: Pupils equal, round and reactive to light. Eyes normal inspection. ENT: Ears normal. Nose normal. Pharynx normal. Neck: Normal inspection. Neck supple. CVS: Normal heart rate and rhythm. Heart sounds normal. Pulses normal. Respiratory: Decreased air movement in the right lung base, decreased air movement in the left lung base. Abdomen: No visible injury. Soft and nontender. Bowel sounds normal. No organomegaly. No mass. Femoral pulses equal. Skin: Skin warm and dry. Normal skin color. No rash. Normal skin turgor. (Well healed sternotomy incision). Extremities: Extremities exhibit normal ROM. (Bilateral pedal edema). Neuro: Oriented X 3. No motor deficit. No sensory deficit. Reflexes normal. LABS, X-RAYS, AND EKGLaboratory Tests: CBC w Diff: (CHRISTIE: 08/05/2019 06:15)( MsgRcvd 08/05/2019 06:35) New Order TSYSORDER [id number] Test Result Flag Units (Reference)WHITE BLOOD COUNT 6.0 K/mm3 (4.0-10.0) RED BLOOD COUNT 2.79 L M/mm3 (4.50-6.00) HEMOGLOBIN 9.1 L gm/dL (14.0-18.0) HEMATOCRIT 28.5 L % (42.0-54.0) MEAN CELL VOLUME 102.2 *H fl (80-96) MEAN CORPUSCULAR HEMOGLOBIN 32.6 H pg (27.0-31.0) MEAN CORPUSCULAR HGB CONC 31.9 L g/dl (32.0-36.0) RED CELL DISTRIBUTION WIDTH 15.6 H % (10.0-14.5) PLATELET COUNT 184 K/mm3 (172-450) MEAN PLATELET VOLUME 10.0 fl (9.0- 13.0) GRAN % 80.0 % (50-80.0) IG% 0.2 % (0.0-0.2) LYMPH % 11.4 L % (25.0-50.0) MONO % 6.9 % (2.0-10.0) EOS % 1.0 % (0-5.0) BASO % 0.5 % (0.0-2.0) GRAN # 4.8 K/mm3 (2.0- 8.00) IG# 0.0 K/mm3 (0.0-0.2) LYMPH # 0.7 L K/mm3 (1.0-5.0) MONO # 0.4 K/mm3 (0.10-1.20) EOS # 0.1 K/mm3 (0.0-0.5) BASO # 0.0 K/mm3 (0.0-0.2) CMP: (CHRISTIE: 08/05/2019 06:15)( MsgRcvd 08/05/2019 07:06) New Order TSYSORDER [id number] Test Result Flag Units (Reference)GLUCOSE 221 H mg/dL (74-106) BLOOD UREA NITROGEN 36 H mg/dL (7-18) CREATININE 2.4 H mg/dL (0.7-1.3) SODIUM 147 H mmol/L (136-145) POTASSIUM 3.7 mmol/L (3.5-5.1) CHLORIDE 107 mmol/L (98-107) CO2 31 mmol/L (21-32) CALCIUM 8.7 mg/dL (8.5-10.1) ANION GAP 9.0 mmol/L (5-12) GLOMERULAR FILTRATION RATE 26 mL/min GFR IS CALCULATED IN mL/min/[id number] FUNCTION: >90MILDLY DECREASED: 60-89MILDY TO MODERATELY DECREASED: 45-59 MODERATELY TO SEVERELY DECREASED: 30-44SEVERELY DECREASED: 15-29RENAL FAILURE: <15 AST 18 U/L (15-37) ALT 20 U/L (12-78) ALKALINE PHOSPHATASE 79 U/L (46-116) TOTAL BILIRUBIN 0.8 mg/dL (0.2-1.0) TOTAL PROTEIN 7.1 g/dl (6.4-8.2) ALBUMIN 3.6 gm/dL (3.4-5.0) PT with INR: (CHRISTIE: 08/05/2019 06:15)( [facility] [place] 07:11[place] New Order TSYSORDER [id number] Test Result Flag Units (Reference)PROTHROMBIN TIME (PATIENT) 25.6 H SECONDS (9.2-11.6) INR 2.53 H (0.87-1.06) CT Chest wo IV Cont: (CHRISTIE: 08/04/2019 13:45)( TngRcvd 08/04/2019 14:39) Exam CHEST W/O IV CONTRAST DATE OF EXAMINATION: 08/04/2019 13:47 EDT CHEST W/O IV CONTRAST HISTORY: Hypoxia. Comparison is made to prior study of 01/18/2019 TECHNIQUE: This CT exam was performed using the following dose reduction techniques: automatic exposure control, adjustment of mA and/or kV according to the patient's size, and use of iterative reconstruction technique. Standard contiguous axial spiral imaging was obtained from lung apices to the lung bases without intravenous contrast administration and with coronal reformatting. FINDINGS: Lungs: Compressive atelectatic changes of both lower lobes with area of increased consolidation in the left lower lobe which may be compressive atelectasis or pneumonia Pleural space: [id number] bilateral pleural effusions more pronounced on the left side Mediastinum: Previously noted mediastinal nodes are once again identified, grossly unchanged since the prior study. Neoplastic process is not excluded Bones/joints: Median sternotomy with multiple midline sternotomy sutures and mediastinal tonie No pericardial effusion IMPRESSION: Newly developed small to moderate bilateral pleural effusions with compressive atelectasis of both lower lobes. Electronically signed in PS360 by: Thony Becker M.D. 08/04/2019 14:33 EDT Dictated by: THONY BECKER CBC w Diff: (CHRISTIE: 08/04/2019 11:20)( MsgRcvd 08/04/2019 11:34) New Order TSYSORDER [id number] Test Result Flag Units (Reference)WHITE BLOOD COUNT 6.2 K/mm3 (4.0-10.0) RED BLOOD COUNT 3.04 L M/mm3 (4.50-6.00) HEMOGLOBIN 9.8 L gm/dL (14.0-18.0) HEMATOCRIT 30.9 L % (42.0-54.0) MEAN CELL VOLUME 101.6 *H fl (80-96) MEAN CORPUSCULAR HEMOGLOBIN 32.2 H pg (27.0-31.0) MEAN CORPUSCULAR HGB CONC 31.7 L g/dl (32.0-36.0) RED CELL DISTRIBUTION WIDTH 15.7 H % (10.0-14.5) PLATELET COUNT 2 13 K/mm3 (172-450) MEAN PLATELET VOLUME 9.9 fl (9.0-13.0) GRAN % 81.7 H % (50-80.0) IG% 0.0 % (0.0-0.2) LYMPH % 9.5 L % (25.0-50.0) MONO % 7.2 % (2.0-10.0) EOS % 1.0 % (0-5.0) BASO % 0.6 % (0.0-2.0) GRAN # 5.1 K/mm3 (2.0-8.00) IG# 0.0 K/mm3 (0.0-0.2) LYMPH # 0.6 L K/mm3 (1.0-5.0) MONO # 0.5 K/mm3 (0.10-1.20) EOS # 0.1 K/mm3 (0.0-0.5) BASO # 0.0 K/mm3 (0.0-0.2) PT with INR: (CHRISTIE: 08/04/2019 11:20)( MsgRcvd 08/04/2019 11:54) New Order TSYSORDER [id number] Test Result Flag Units (Reference)PROTHROMBIN TIME (PATIENT) 22.6 H SECONDS (9.2-11.6) INR 2.22 H (0.87-1.06) PARTIAL THROMBOPLASTIN TIME 41.7 H SECONDS (21.4-30.2) CMP: (CHRISTIE: 08/04/2019 11:20)( MsgRcvd 08/04/2019 12:17) New Order Test Result Flag Units (Reference)GLUCOSE 273 H mg/dL (74-106) BLOOD UREA NITROGEN 35 H mg/dL (7-18) CREATININE 2.5 H mg/dL (0.7-1.3) SODIUM 142 mmol/L (136-145) POTASSIUM 3.9 mmol/L (3.5-5.1) CHLORIDE 104 mmol/L (98-107) CO2 28 mmol/L (21-32) CALCIUM 9.2 mg/dL (8.5-10.1) ANION GAP 10.0 mmol/L (5-12) GLOMERULAR FILTRATION RATE 25 mL/min GFR IS CALCULATED IN mL/min/[id number] FUNCTION: > 90MILDLY DECREASED: 60-89MILDY TO MODERATELY DECREASED: 45-59 MODERATELY TO SEVERELY DECREASED: 30-44SEVERELY DECREASED: 15-29RENAL FAILURE: <15 AST 22 U/L (15-37) ALT 20 U/L (12-78) ALKALINE PHOSPHATASE 88 U/L (46-116) TOTAL BILIRUBIN 1.3 H mg/dL (0.2-1.0) TOTAL PROTEIN 7.9 g/dl (6.4-8.2) ALBUMIN 3.8 gm/dL (3.4-5.0) TROPONIN I < 0.017 ng/mL (0.0-0.056) MAGNESIUM 2.1 mg/dL (1.8-2.4) B-TYPE NATRIURETIC PEPTIDE 63909 *H pg/ml (0- 450) CRP: (CHRISTIE: 08/04/2019 11:20)( MsgRcvd 08/04/2019 14:00) New Order TSYSORDER [id number] Test Result Flag Units (Reference)C REACTIVE PROTEIN 70.9 H mg/L (0.0-3.0) CHEST 2 VIEWS: (CHRISTIE: 08/04/2019 11:04)( MsgRcvd 08/04/2019 12:06) F Test Result Flag Units (Reference)CHEST 2 VIEWS DATE OF EXAMINATION: 08/04/2019 11:07 EDT -- -- CHEST 2 VIEWS -- HISTORY: Shortness of breath -- TECHNIQUE: PA and lateral radiographs of the chest -- COMPARISON: 07/26/2019 -- -- FINDINGS: -- Moderate COPD is again identified. Cardiac silhouette is in the upper limits of normal. Pulmonary venous hypertension is seen without amy edema. Small newly developed left-sided pleural effusion and trace right-sided pleural effusion is noted with mild bibasilar atelectasis versus less likely pneumonia. -- -- IMPRESSION: -- Newly developed pulmonary venous hypertension bilateral effusions and bibasilar atelectasis most pronounced on the left side as described above. -- Electronically signed in PS360 by: Thony Becker M.D. 08/04/2019 12:00 EDT -- -- Dictated by: THONY BECKER . PROGRESS AND PROCEDURESCourse of Care: 13,30 i MET INITIALLY WITH mR Augustine IN EMERGENCY DEPARTMENT.I WOULD ADD CT OF THE CHEST WELL CRP. 13:[address] SUGGESTIVE OF LEFT LOWER LOBE PNEUMONIA WELL WILL OBTAIN 2 BLOOD CTX WELL crp. 16:30 Patient is resting and appear to feels tired. 08/05/2019 8:30am Reviewed morning labs and met with Mr Augustine. His chest exam is still significant for largely diminished breath sounds in bot lower lobes left more then right. Patient is not having pain. No chest pain, nausea, vomiting, palpitations or anxiety. No dizziness or seizure. He is having difficulty breathing. Physical exam findings are improved. Alert. Patient in mild distress. Crackles present. Decreased breath sounds. Normal heart rate and rhythm. No cardiac murmur. Abdomen soft and nontender. Skin warm and dry. ( Bilateral lower leg edema). 08/05/2019 12:30 I did contact Mrs Tracey Nelson patient's significant other to inform her of acute admission. 08/05/2019 Due to significant worsening of patients conGESTIVE HEART FAILURE with Left Lower Lobe Pneumonia and Chronic Kidney Disease and atrial fibrillation patient is being admitted to acute care floor for further treatment. Disposition: Admitted to the Medical / Surgical Unit. CLINICAL IMPRESSIONDyspnea. Acute congestive heart failure. Moderately elevated C- reactive protein. Probable pneumonia. Ischemic cardiomyopathy. Chronic Kidney Disease. INSTRUCTIONS Understanding of the discharge instructions verbalized. (Electronically signed by Lizbeth Fernández MD 08/05/2019 14:11) Weight:77.7 kg (M). Height/Length:71 inches (S). BMI:23.9 Obs Start: 08/04/2019 13:47 Obs Dispo: 08/05/2019 13:38 Obs Duration: 24 hr 12 min PAST HISTORYProblems:Asthma [Chronic].Anemia [Chronic].Hypercholesterolemia [Chronic].Hypertension [Chronic].Renal Insufficiency [Chronic].Congestive Heart Failure [Chronic].Diabetes Mellitus [Chronic].Thyroid problem [Chronic].Atrial Fibrillation. (Paroxysmal)Aortic valve disease.Sick Sinus Syndrome.Esophageal problems- stricture.Mitral valve disease. Additional Surgeries:Carotid endarterectomy.Cataract Surgery.Coronary Artery Bypass Graft.Hip Surgery Bilateral.Pacemaker.Tonsillectomy. Medications:Nitroglycerin Sublingual 0.4 mg, as needed, last dose unknkown.Xopenex HFA Inhalation (Aerosol 45 mcg/act), daily, last dose 08/04/19.Zetia Oral (Tablet 10 mg) 1 tablet, daily, last dose 08/04/19.Amiodarone HCL Oral 200 mg, daily, last dose 08/04/19.AmLODIPine Besylate Oral (Tablet 10 mg) 1 tablet, daily, last dose 08/04/19.Aspirin Oral (Tablet Chewable 81 mg) 1 tablet, daily, last dose 08/04/19.Atorvastatin Calcium Oral 20 mg, daily, last dose 08/03/19pm.Calcitriol Oral (Capsule 0.25 mcg) 1 capsule, daily, last dose 08/04/19.HumaLOG KwikPen Subcutaneous (Solution Pen-injector 100 unit/mL) per sliding sclea, 3x a day, diabetes, last dose 08/04/19 (10units).Lantus Subcutaneous 24 units, daily after meals, last dose 08/03/19pm.Multivitamins Oral 1 pill, daily, last dose 08/04/19.Synthroid Oral 75 mcg, daily, last dose 08/04/19.Torsemide Oral (Tablet 20 mg) 2 tablets, daily, last dose 08/04/19.Vitamin D3 Oral (Tablet 25 MCG (1000 UT)) 1 tablet, daily, last dose 08/04/19. Allergies:No Known Drug Allergy. FAMILY HISTORYFather: Lung Disease. Sister(s): Breast Cancer. (Electronically signed by Pau Perez 08/06/2019 23:41) Name Value Range Interpretation Code Description Data Cindy rce(s) Supporting Document(s) ID Date Data Source [id number] 08/09/2019 11:56:00 AM EDT [facility] Progress Note GeneralEncounter:Chart re viewed. Patient interviewed and examined. Labs, medications and orders viewed by me. SubjectiveGeneral Condition:Mr Augustine is ObjectiveOther:Laboratory Tests 08/06 08/07 08/07 1813 0635 1045 Chemistry Sodium (136 - 145 mmol/L) 143 147 H Potassium (3.5 - 5.1 mmol/L) 3.2 L 3.3 L Chloride (98 - 107 mmol/L) 103 106 Carbon Dioxide (21 - 32 mmol/L) 31 32 Anion Gap (5 - 12 mmol/L) 9.0 9.0 BUN (7 - 18 mg/dL) 50 *H 51 *H Creatinine (0.7 - 1.3 mg/dL) 2.9 H 2.7 H Estimated GFR (MDRD) (mL/min) 21 22 Glucose (74 - 106 mg/dL) 200 H 55 L Calcium (8.5 - 10.1 mg/dL) 9.1 8.7 Total Bilirubin (0.2 - 1.0 mg/dL) 0.5 AST (15 - 37 U/L) 38 H ALT (12 - 78 U/L) 29 Alkaline Phosphatase (46 - 116 U/L) 76 Total Protein (6.4 - 8.2 g/dl) 7.3 Albumin (3.4 - 5.0 gm/dL) 3.5 Coagulation PT (9.2 - 11.6 SECONDS) 22.8 H INR (0.87 - 1.06) 2.24 H Hematology WBC (4.0 - 10.0 K/mm3) 6.8 RBC (4.50 - 6.00 M/mm3) 2.97 L Hgb (14.0 - 18.0 gm/dL) 9.6 L Hct (42.0 - 54.0 %) 30.1 L MCV (80 - 96 fl) 101.3 *H MCH (27.0 - 31.0 pg) 32.3 H MCHC Differential (32.0 - 36.0 g/dl) 31.9 L RDW (10.0 - 14.5 %) 15.5 H Plt Count (172 - 450 K/mm3) 262 MPV (9.0 - 13.0 fl) 10.1 Gran % (Auto) (50 - 80.0 %) 74.9 Gran # (2.0 - 8.00 K/mm3) 5.1 Immature Gran % (0.0 - 0.2 %) 0.1 Lymphocytes % (25.0 - 50.0 %) 13.4 L Monocytes % (2.0 - 10.0 %) 5.9 Eosinophils % (0 - 5.0 %) 5.1 H Basophils % (0.0 - 2.0 %) 0.6 Immature Gran # (0.0 - 0.2 K/mm3) 0.0 Lymphocytes # (1.0 - 5.0 K/mm3) 0.9 L Monocytes # (0.10 - 1.20 K/mm3) 0.4 Eosinophils # (0.0 - 0.5 K/mm3) 0.4 Basophils # (0.0 - 0.2 K/mm3) 0.0 Other Body Source Stool Occult Blood (NEGATIVE) NEGATIVE Current MedicationsAcetaminophen 650 MG Q6H PRN PO PAIN/FEVER Amiodarone HCl 300 MG DAILY PO Amlodipine Besylate 10 MG DAILY PO Aspirin 81 MG DAILY PO Atorvastatin Calcium 20 MG DAILY 2100 PO Azithromycin 500 MG Q24H IVPB Sodium Chloride 250 MLCeftriaxone Sodium 1 GM Q12H IVPB Sodium Chloride 100 MLCholecalciferol 1,000 UNIT DAILY PO Docusate Sodium 100 MG DAILY PO Ezetimibe 10 MG DAILY PO Famotidine 40 MG DAILY PO Insulin Glargine 16 U DAILY 2100 SC Insulin Human Regular MODERATE DOSE - Sliding Scale < 60 MG/DL * Follow Hypoglycemic Protocol 61 - 150 No COVERAGE 151 - 180 2 UNITS 181 - 240 4 UNITS 241 - 300 6 UNITS 301 - 350 8 UNITS 351 - 400 10 UNITS > 400 Serum Glucose, Notify Provider ACHS SC Levalbuterol HCl 1.25 MG QID IH Levothyroxine Sodium 50 MCG DAILY@0600 PO Multivitamins 1 TAB DAILY PO Potassium Chloride 20 MEQ BID PO Sodium Chloride 5 ML QID PRN IV Flush Spironolactone 50 MG DAILY PO Torsemide 40 MG DAILY PO Vital Signs 08/06 08/06 08/07 08/07 08/07 1900 2300 0300 0656 1120 Temp 97.9 98.6 97.8 99.1 98.9 Pulse 80 80 80 81 80 Resp 16 20 20 18 18 B/P 125/72 140/76 137/72 122/69 125/66 B/P Mean Pulse Ox 94 94 96 96 97 O2 Delivery O2 Flow Rate FiO2 08/07 1441 Temp 99.1 Pulse 79 Resp 16 B/P 135/73 B/P Mean Pulse Ox 92 O2 Delivery O2 Flow Rate FiO2 Laboratory Tests 08/06 08/07 08/07 1813 0635 1045 Chemistry Sodium (136 - 145 mmol/L) 143 147 H Potassium (3.5 - 5.1 mmol/L) 3.2 L 3.3 L Chloride (98 - 107 mmol/L) 103 106 Carbon Dioxide (21 - 32 mmol/L) 31 32 Anion Gap (5 - 12 mmol/L) 9.0 9.0 BUN (7 - 18 mg/dL) 50 *H 51 *H Creatinine (0.7 - 1.3 mg/dL) 2.9 H 2.7 H Estimated GFR (MDRD) (mL/min) 21 22 Glucose (74 - 106 mg/dL) 200 H 55 L Calcium (8.5 - 10.1 mg/dL) 9.1 8.7 Total Bilirubin (0.2 - 1.0 mg/dL) 0.5 AST (15 - 37 U/L) 38 H ALT (12 - 78 U/L) 29 Alkaline Phosphatase (46 - 116 U/L) 76 Total Protein (6.4 - 8.2 g/dl) 7.3 Albumin (3.4 - 5.0 gm/dL) 3.5 Coagulation PT (9.2 - 11.6 SECONDS) 22.8 H INR (0.87 - 1.06) 2.24 H Hematology WBC (4.0 - 10.0 K/mm3) 6.8 RBC (4.50 - 6.00 M/mm3) 2.97 L Hgb (14.0 - 18.0 gm/dL) 9.6 L Hct (42.0 - 54.0 %) 30.1 L MCV (80 - 96 fl) 101.3 *H MCH (27.0 - 31.0 pg) 32.3 H MCHC Differential (32.0 - 36.0 g/dl) 31.9 L RDW (10.0 - 14.5 %) 15.5 H Plt Count (172 - 450 K/mm3) 262 MPV (9.0 - 13.0 fl) 10.1 Gran % (Auto) (50 - 80.0 %) 74.9 Gran # (2.0 - 8.00 K /mm3) 5.1 Immature Gran % (0.0 - 0.2 %) 0.1 Lymphocytes % (25.0 - 50.0 %) 13.4 L Monocytes % (2.0 - 10.0 %) 5.9 Eosinophils % (0 - 5.0 %) 5.1 H Basophils % (0.0 - 2.0 %) 0.6 Immature Gran # (0.0 - 0.2 K/mm3) 0.0 Lymphocytes # (1.0 - 5.0 K/mm3) 0.9 L Monocytes # (0.10 - 1.20 K/mm3) 0.4 Eosinophils # (0.0 - 0.5 K/mm3) 0.4 Basophils # (0.0 - 0.2 K/mm3) 0.0 Other Body Source Stool Occult Blood (NEGATIVE) NEGATIVE Current MedicationsAcetaminophen 650 MG Q6H PRN PO PAIN/FEVER Amiodarone HCl 300 MG DAILY PO Amlodipine Besylate 10 MG DAILY PO Aspirin 81 MG DAILY PO Atorvastatin Calcium 20 MG DAILY 2100 PO Azithromycin 500 MG Q24H IVPB Sodium Chloride 250 MLCeftriaxone Sodium 1 GM Q12H IVPB Sodium Chloride 100 MLCholecalciferol 1,000 UNIT DAILY PO Docusate Sodium 100 MG DAILY PO Ezetimibe 10 MG DAILY PO Famotidine 40 MG DAILY PO Insulin Glargine 16 U DAILY 2100 SC Insulin Human Regular MODERATE DOSE - Sliding Scale < 60 MG/DL * Follow Hypoglycemic Protocol 61 - 150 No COVERAGE 151 - 180 2 UNITS 181 - 240 4 UNITS 241 - 300 6 UNITS 301 - 350 8 UNITS 351 - 400 10 UNITS > 400 Serum Glucose, Notify Provider ACHS SC Levalbuterol HCl 1.25 MG QID IH Levothyroxine Sodium 50 MCG DAILY@0600 PO Multivitamins 1 TAB DAILY PO Potassium Chloride 20 MEQ BID PO Sodium Chloride 5 ML QID PRN IV Flush Spironolactone 50 MG DAILY PO Torsemide 40 MG DAILY PO Vital Signs 08/06 08/06 08/07 08/07 08/07 1900 2300 0300 0656 1120 Temp 97.9 98.6 97.8 99.1 98.9 Pulse 80 80 80 81 80 Resp 16 20 20 18 18 B/P 125/72 140/76 137/72 122/69 125/66 B/P Mean Pulse Ox 94 94 96 96 97 O2 Delivery O2 Flow Rate FiO2 08/07 1441 Temp 99.1 Pulse 79 Resp 16 B/P 135/73 B/P Mean Pulse Ox 92 O2 Delivery O2 Flow Rate FiO2 Assessment/PlanAllergiesCoded Allergies:No Known Allergies (08/05/19) Problem List 1. Left lower lobe pneumonia 2. 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 Sick sinus syndrome 5. Atrial fibrillation 6. Hyperlipidemia 7. Hypoxemia 8. Diabetes 9. COPD (chronic obstructive pulmonary disease) 10. 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 Carotid arterial disease 13. Aortic valve disease 14. CAD (coronary artery disease) Name Value Range Interpretation Code Description Data Cindy rce(s) Supporting Document(s) ID Date Data Source [id number] 08/09/2019 06:39:00 AM EDT [facility] Name Value Range Interpretation Code Description Data Cindy rce(s) Supporting Document(s) WHITE BLOOD COUNT 6.7 K/mm3 4.0-10.0 [facility] RED BLOOD COUNT 3.03 M/mm3 4.50-6.00 L [facility] l HEMOGLOBIN 9.8 gm/dL 14.0-18.[address] [facility] HEMATOCRIT 30.6 % 42.0-54.[address] [facility] MEAN CELL VOLUME 101.0 fl 80-96 *H [facility] MEAN CORPUSCULAR HEMOGLOBIN 32.3 pg 27.0-31.0 H [facility] MEAN CORPUSCULAR HGB CONC 32.0 g/dl 32.0-36.0 [facility] RED CELL DISTRIBUTION WIDTH 15.3 % 10.0-14.5 H [facility] PLATELET COUNT 263 K/mm3 172-[address] [facility] MEAN PLATELET VOLUME 9.7 fl 9.0-13.0 [facility] pital GRAN % 70.7 % 50-80.0 [facility] IG% 0.1 % 0.0-0.[address] [facility] LYMPH % 17.2 % 25.0-50.[address] [facility] MONO % 5.4 % 2.0-10.0 [facility] EOS % 5.7 % 0-5.[address] [facility] BASO % 0.9 % 0.0-2.[address] [facility] GRAN # 4.7 K/mm3 2.0-8.[address] [facility] IG# 0.0 K/mm3 0.0-0.[address] [facility] LYMPH # 1.2 K/mm3 1.0-5.[address] [facility] MONO # 0.4 K/mm3 0.10-1.[address] [facility] EOS # 0.4 K/mm3 0.0-0.[address] [facility] BASO # 0.1 K/mm3 0.0-0.[address] [facility] ID Date Data Source [id number] 08/09/2019 07:49:00 AM EDT [facility] l Name Value Range Interpretation Code Description Data Cindy rce(s) Supporting Document(s) ERYTHROCYTE SEDIMENTATION RATE 60 mm/hr 0-30 H [facility] ID Date Data Source [id number] 08/09/2019 07:06:00 AM EDT [facility] l Name Value Range Interpretation Code Description Data Cindy rce(s) Supporting Document(s) C REACTIVE PROTEIN 49.7 mg/L 0.0-3.0 [facility] ID Date Data Source [id number] 08/09/2019 07:03:00 AM [facility] Name Value Range Interpretation Code Description Data Cindy rce(s) Supporting Document(s) GLUCOSE 87 mg/dL 74-[address] [facility] BLOOD UREA NITROGEN 60 mg/dL 7-18 *H [facility] ital CREATININE 2.9 mg/dL 0.7-1.[address] [facility] SODIUM 145 mmol/L 136-[address] [facility] POTASSIUM 4.4 mmol/L 3.5-5.[address] [facility] CHLORIDE 105 mmol/L 98-[address] [facility] CO2 31 mmol/L 21-[address] [facility] CALCIUM 9.2 mg/dL 8.5-10.[address] [facility] ANION GAP 9.0 mmol/L 5-[address] [facility] GLOMERULAR FILTRATION RATE 21 mL/min [facility] GFR IS CALCULATED IN mL/min/1.73m2 LEONARD L FUNCTION: >90MILDLY DECREASED: 60-89MILDY TO MODERATELY DECREASED: 45-59 MODERATELY TO SEVERELY DECREASED: 30-44SEVERELY DECREASED: 15-29RENAL FAILURE: <15 ID Date Data Source [id number] 08/09/2019 06:59:00 AM T [facility] Name Value Range Interpretation Code Description Data [facility] rce(s) Supporting Document(s) PROTHROMBIN TIME (PATIENT) 23.7 SECONDS 9.2-11.[address] [facility] INR 2.34 0.87-1.[address] [facility] ID Date Data Source [id number] 08/08/2019 04:13:00 PM EDT [facility] l Progress Note GeneralEncounter:Chart re viewed. Patient interviewed and examined. Labs, medications and orders viewed by me. SubjectiveGeneral Condition:89 year old male admited with worsening orthopnea, bibasilar atelectases, left lower lobe pneumonia and pleural effusions.Continue diuresis, replacing potassium, atelectasis prevention and nebulizer treatments.Continue fluid restriction of 2000 ml as well as daily weights. Encourage out ofbed stay, ambulation in hallways and sitting position.Will repeat chest xray tomorrow.It is possible that Mr Augustine presents with a combination of CHF exacerbation., atelectases that led to infiltrate formation and possibly underlying neoplastic process. There was a pleural based small nodule on patient's CT from 2019. ObjectiveNote:Temp; 98.9, Pulse; 80, Resp: 18, B/P: 115/66 SaO2: 94, O2 Status:2 L per NC EENT PERRL/EOMI, normal ENT inspectionNeck normal inspection, non- tender, supple, full range of motionRespiratory chest non-tender, decreased lashell ath sounds, Breath sounds absent in left lower base, Decreased air exchange in both lungs , no wheezingCardiovascular regular rate/rhythm, no gallop, no JVDGastrointestinal normal bowel sounds, non tender, soft, no organomegaly, no pulsatile massBack normal inspection, no CVA tendernessExtremities non-tender, normal range of motion, normal inspection, normal capillary refill, no calf tendernessNeurologic/Psychiatric alert, 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 tested, normal mood/affect, no motor/sensory deficits, oriented x 3Other:Laboratory Tests 08/06 08/06 0643 1813 Chemistry Sodium (136 - 145 mmol/L) 146 H Pending Potassium (3.5 - 5.1 mmol/L) 3.1 L Pending Chloride (98 - 107 mmol/L) 104 Pending Carbon Dioxide (21 - 32 mmol/L) 31 Pending Anion Gap (5 - 12 mmol/L) 11.0 Pending BUN (7 - 18 mg/dL) 48 *H Pending Creatinine (0.7 - 1.3 mg/dL) 2.7 H Pending Estimated GFR (MDRD) (mL/min) 22 Glucose (74 - 106 mg/dL) 81 Pending Calcium (8.5 - 10.1 mg/dL) 9.3 Pending Iron (65 - 175 ug/dL) 23 L Total Bilirubin (0.2 - 1.0 mg/dL) 0.6 AST (15 - 37 U/L) 32 ALT (12 - 78 U/L) 27 Alkaline Phosphatase (46 - 116 U/L) 80 B-Natriuretic Peptide (0 - 450 pg/ml) 9907 *H Total Protein (6.4 - 8.2 g/dl) 7.4 Albumin (3.4 - 5.0 gm/dL) 3.6 Hematology WBC (4.0 - 10.0 K/mm3) 6.6 RBC (4.50 - 6.00 M/mm3) 2.91 L Hgb (14.0 - 18.0 gm/dL) 9.5 L Hct (42.0 - 54.0 %) 29.4 L MCV (80 - 96 fl) 101.0 *H MCH (27.0 - 31.0 pg) 32.6 H MCHC Differential (32.0 - 36.0 g/dl) 32.3 RDW (10.0 - 14.5 %) 15.4 H Plt Count (172 - 450 K/mm3) 241 MPV (9.0 - 13.0 fl) 9.8 Gran % (Auto) (50 - 80.0 %) 76.5 Gran # (2.0 - 8.00 K/mm3) 5.1 Immature Gran % (0.0 - 0.2 %) 0.2 Lymphocytes % (25.0 - 50.0 %) 10.7 L Monocytes % (2.0 - 10.0 %) 6.9 Eosinophils % (0 - 5.0 %) 4.8 Basophils % (0.0 - 2.0 %) 0.9 Immature Gran # (0.0 - 0.2 K/mm3) 0.0 Lymphocytes # (1.0 - 5.0 K/mm3) 0.7 L Monocytes # (0.10 - 1.20 K/mm3) 0.5 Eosinophils # (0.0 - 0.5 K/mm3) 0.3 Basophils # (0.0 - 0.2 K/mm3) 0.1 Current MedicationsAcetaminophen 650 MG Q6H PRN PO PAIN/FEVER Amiodarone HCl 300 MG DAILY PO Amlodipine Besylate 10 MG DAILY PO Aspirin 81 MG DAILY PO Atorvastatin Calcium 20 MG DAILY 2100 PO Azithromycin 500 MG Q24H IVPB Sodium Chloride 250 MLCeftriaxone Sodium 1 GM Q12H IVPB Sodium Chloride 100 MLCholecalciferol 1,000 UNIT DAILY PO Docusate Sodium 100 MG DAILY PO Ezetimibe 10 MG DAILY PO Famotidine 40 MG DAILY PO Insulin Glargine 16 U DAILY 2100 SC Insulin Human Regular MODERATE DOSE - Sliding Scale < 60 MG/DL * Follow Hypoglycemic Protocol 61 - 150 No COVERAGE 151 - 180 2 UNITS 181 - 240 4 UNITS 241 - 300 6 UNITS 301 - 350 8 UNITS 351 - 400 10 UNITS > 400 Serum Glucose, Notify Provider ACHS SC Levalbuterol HCl 1.25 MG QID IH Levothyroxine Sodium 50 MCG DAILY@0600 PO Multivitamins 1 TAB DAILY PO Potassium Chloride 20 MEQ BID PO Sodium Chloride 5 ML QID PRN IV Flush Torsemide 20 MG DAILY PO Vital Signs 08/05 08/05 08/06 08/06 08/06 1910 2248 0258 0657 1116 Temp 98.7 98.7 98.9 99.1 98.7 Pulse 80 80 79 80 80 Resp 17 17 18 18 18 B/P 135/71 137/72 148/74 130/67 115/62 B/P Mean Pulse Ox 91 90 91 94 94 O2 Delivery O2 Flow Rate FiO2 08/06 1505 Temp 98.9 Pulse 80 Resp 18 B/P 115/66 B/P Mean Pulse Ox 94 O2 Delivery O2 Flow Rate FiO2 Assessment/PlanAllergiesCoded Allergies:No Known Allergies (08/05/19) Problem List 1. Left lower lobe pneumonia A&PContinue Ceftriaxone and Azithromycin IV Continue incentive spirometer as well as Xopenex nebulizer treatments.Patient still requires oxygen supplementation. 2. Congestive heart failure A&PContginue aggressive diuresis as well as electrolyte replacement and daily weights, 2000 ml of fluids and strict iS AND oS. 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 Sick sinus syndrome A&PSt post pacemaker placement 5. Atrial fibrillation A&PParoxysmal On beta natalie 6. Hyperlipidemia A&PContinnue Statin 7. Hypoxemia A&PContoinue oxygen supplementation 8. Diabetes A&PContinue concentrated sweet diet and Lantus Insulin. 9. COPD (chronic obstructive pulmonary disease) A&PContinue nebulizer treatments,Incentive spirometer and oxygen supplementation 10. Esophageal stricture A&PRElated to GERD with esophagitis. Continue soft food as well as PPIs. 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 Carotid arterial disease A&PSecondary prevention to be continued. 13. Aortic valve disease A&PContinue following with PCP and cardiology 14. CAD (coronary artery disease) A&PContinue secondary prevention Name Value Range Interpretation Code Description Data Cindy rce(s) Supporting Document(s) ID Date Data Source [id number] 08/08/2019 11:26:00 AM EDT [facility] DATE OF EXAMINATION: 08/08/2019 9:49 EDT CHEST 2 VIEWS HISTORY: Left lower lobe pneumonia TECHNIQUE: PA and lateral radiographs of the chest COMPARISON: CT scan of 08/04/2019 FINDINGS: Previously noted left-sided pleural effusion and left lower lobe parenchymaldisease is unchanged. Previously noted right-sided effusion has decreased insize. Cardiomediastinal contours appear unremarkable. IMPRESSION: Unchanged pleural-parenchymal disease in the left lower lobe. Previously noted right-sided effusion has decreased in size. Electronically signed in [id number] by: Thony Becker M.D. 08/08/2019 11:20 EDT Name Value Range Interpretation Code Description Data Cindy rce(s) Supporting Document(s) ID Date Data Source [id number] 08/08/2019 10:57:00 AM EDT [facility] l Name Value Range Interpretation Code Description Data Cindy rce(s) Supporting Document(s) STOOL FOR OCCULT BLOOD NEGATIVE NEGATIVE [facility] ospital ID Date Data Source [id number] 08/08/2019 07:15:00 AM EDT [facility] l Name Value Range Interpretation Code Description Data Cindy rce(s) Supporting Document(s) GLUCOSE 55 mg/dL 74-106 [facility] BLOOD UREA NITROGEN 51 mg/dL 7-18 *H [facility] ital CREATININE 2.7 mg/dL 0.7-1.[address] [facility] SODIUM 147 mmol/L 136-[address] [facility] POTASSIUM 3.3 mmol/L 3.5-5.[address] [facility] CHLORIDE 106 mmol/L 98-[address] [facility] CO2 32 mmol/L 21-[address] [facility] CALCIUM 8.7 mg/dL 8.5-10.[address] [facility] ANION GAP 9.0 mmol/L 5-[address] [facility] GLOMERULAR FILTRATION RATE 22 mL/min [facility] GFR IS CALCULATED IN mL/min/1.73m2 LEONARD L FUNCTION: >90MILDLY DECREASED: 60-89MILDY TO MODERATELY DECREASED: 45-59 MODERATELY TO SEVERELY DECREASED: 30-44SEVERELY DECREASED: 15-29RENAL FAILURE: <15 AST 38 U/L 15-[address] [facility] ALT 29 U/L 12-[address] [facility] ALKALINE PHOSPHATASE 76 U/L 46-116 [facility] pital TOTAL BILIRUBIN 0.5 mg/dL 0.2-1.[address] [facility] TOTAL PROTEIN 7.3 g/dl 6.4-8.[address] [facility] ALBUMIN 3.5 gm/dL 3.4-5.0 [facility] ID Date Data Source [id number] 08/08/2019 06:57:00 AM EDT [facility] l Name Value Range Interpretation Code Description Data Cindy rce(s) Supporting Document(s) PROTHROMBIN TIME (PATIENT) 22.8 SECONDS 9.2-11.[address] [facility] INR 2.24 0.87-1.[address] [facility] ID Date Data Source [id number] 08/08/2019 06:49:00 AM EDT [facility] l Name Value Range Interpretation Code Description Data Cindy rce(s) Supporting Document(s) WHITE BLOOD COUNT 6.8 K/mm3 4.0-10.0 [facility] 2.97 M/mm3 4.50-6.00 L [facility] HEMOGLOBIN 9.6 gm/dL 14.0-18.[address] [facility] HEMATOCRIT 30.1 % 42.0-54.[address] [facility] MEAN CELL VOLUME 101.3 fl 80-96 *H [facility] MEAN CORPUSCULAR HEMOGLOBIN 32.3 pg 27.0-31.0 H [facility] MEAN CORPUSCULAR HGB CONC 31.9 g/dl 32.0-36.0 L [facility] RED CELL DISTRIBUTION WIDTH 15.5 % 10.0-14.5 H [facility] PLATELET COUNT 262 K/mm3 172-[address] [facility] MEAN PLATELET VOLUME 10.1 fl 9.0-13.0 [facility] pital GRAN % 74.9 % 50-80.[address] [facility] IG% 0.1 % 0.0-0.[address] [facility] LYMPH % 13.4 % 25.0-50.[address] [facility] MONO % 5.9 % 2.0-10.[address] [facility] EOS % 5.1 % 0-5.[address] [facility] BASO % 0.6 % 0.0-2.[address] [facility] GRAN # 5.1 K/mm3 2.0-8.[address] [facility] IG# 0.0 K/mm3 0.0-0.[address] [facility] LYMPH # 0.9 K/mm3 1.0-5.[address] [facility] MONO # 0.4 K/mm3 0.10-1.[address] [facility] EOS # 0.4 K/mm3 0.0-0.[address] [facility] BASO # 0.0 K/mm3 0.0-0.[address] [facility] ID Date Data Source [id number] 08/07/2019 06:26:00 PM EDT [facility] Progress Note GeneralEncounter:Chart re viewed. Patient interviewed and examined. Labs, medications and orders viewed by me. SubjectiveGeneral Condition:Very frail elderly man with multiple chronic medical problems including CAD, CHF, Diabetes Mellitus, Arthitis, Impaired mobility, Gerd, esophageal stricture, COPD presented to [facility] ED woith progressively worsening ortopnea preventing him from sleep. Mr Augustine also has chronic kidney disease with GFR inlow 20-ties.He was found to have worsening of his CHF as well as possibly left lower lobe pneumonia.Patient needs few days of more aggressive diuresis to improve his respiratory function.Mr Augustine needs limited sodium diet and fluid restriction of max 2000 ml of liquid.We continue aggressive respiratory therapy as well as Ceftriaxone and Azithromycin, oxygen supplementation and incentive spirometry. ObjectiveNote:Temp; 98.9, Pulse; 80, Resp: 18, B/P: 115/66 SaO2: 94, O2 Status: 2 L of oxygen NC EENT PERRL/EOMI, normal ENT inspectionNeck normal inspection, non-tender, supple, full range of motionRespiratory Breath sounds are diminished,(-) left 1/3, decreased air movement the remaining 2/3 of the left lung No wheezing or rhonchi.Card iovascular regular rate/rhythm, no murmur, Pedal edema bilateralGastrointestinal normal bowel sounds, non tender, soft, no organomegaly, no pulsatile massBack normal inspection, no CVA tenderness, no vertebral tendernessExtremities non- tender, normal capillary refill, no calf tenderness, pedal edemaNeurologic/Psychiatric alert, 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1 Albumin (3.4 - 5.0 gm/dL) 3.5 Coagulation PT (9.2 - 11.6 SECONDS) 30.2 H INR (0.87 - 1.06) 2.99 H Hematology WBC (4.0 - 10.0 K/mm3) 6.5 RBC (4.50 - 6.00 M/mm3) 2.73 L Hgb (14.0 - 18.0 gm/dL) 8.9 L Hct (42.0 - 54.0 %) 27.6 L MCV (80 - 96 fl) 101.1 *H MCH (27.0 - 31.0 pg) 32.6 H MCHC Differential (32.0 - 36.0 g/dl) 32.2 RDW (10.0 - 14.5 %) 15.6 H Plt Count (172 - 450 K/mm3) 210 MPV (9.0 - 13.0 fl) 10.3 Gran % (Auto) (50 - 80.0 %) 76.7 Gran # (2.0 - 8.00 K/mm3) 5.0 Immature Gran % (0.0 - 0.2 %) 0.2 Lymphocytes % (25.0 - 50.0 %) 12.2 L Monocytes % (2.0 - 10.0 %) 6.7 Eosinophils % (0 - 5 .0 %) 3.4 Basophils % (0.0 - 2.0 %) 0.8 Immature Gran # (0.0 - 0.2 K/mm3) 0.0 Lymphocytes # (1.0 - 5.0 K/mm3) 0.8 L Monocytes # (0.10 - 1.20 K/mm3) 0.4 Eosinophils # (0.0 - 0.5 K/mm3) 0.2 Basophils # (0.0 - 0.2 K/mm3) 0.1 Current MedicationsAcetaminophen 650 MG Q6H PRN PO PAIN/FEVER Amiodarone HCl 300 MG DAILY PO Amlodipine Besylate 10 MG DAILY PO Aspirin 81 MG DAILY PO Atorvastatin Calcium 20 MG DAILY 2100 PO Azithromycin 500 MG Q24H IVPB Sodium Chloride 250 MLCeftriaxone Sodium 1 GM Q12H IVPB Sodium Chloride 100 MLCholecalciferol 1,000 UNIT DAILY PO Docusate Sodium 100 MG DAILY PO Ezetimibe 10 MG DAILY PO Famotidine 40 MG DAILY PO Insulin Glargine 16 U DAILY 2100 SC Insulin Human Regular MODERATE DOSE - Sliding Scale < 60 MG/DL * Follow Hypoglycemic Protocol 61 - 150 No COVERAGE 151 - 180 2 UNITS 181 - 240 4 UNITS 241 - 300 6 UNITS 301 - 350 8 UNITS 351 - 400 10 UNITS > 400 Serum Glucose, Notify Provider ACHS SC Levalbuterol HCl 1.25 MG QID IH Levothyroxine Sodium 50 MCG DAILY@0600 PO Multivitamins 1 TAB DAILY PO Sodium Chloride 5 ML QID PRN IV Flush Torsemide 20 MG DAILY PO Vital Signs 08/04 08/05 08/05 08/05 08/05 2304 0243 0700 1100 1432 Temp 98.7 98.7 98.9 98.1 98.4 Pulse 80 80 80 80 80 Resp 18 16 18 18 18 B/P 135/70 149/80 141/73 143/75 135/71 B/P Mean Pulse Ox 90 86 91 92 92 O2 Delivery O2 Flow Rate FiO2 08/05 1910 Temp 98.7 Pulse 80 Resp 17 B/P 135/71 B/P Mean Pulse Ox 91 O2 Delivery O2 Flow Rate FiO2 Assessment/PlanAllergiesCoded Allergies:No Known Allergies (08/05/19) Problem List 1. Left lower lobe pneumonia A&PContinue Ceftriaxone and AzithromycinContinue incentive spirometry and nebulizertreatments. Will repeat chest xray in 2 days. . 2. Congestive heart failure A&PSevere CHF and CKD that makes aggressive diuresis a challenge.A temporary worsening of Cr related to diuresis is to be expected. 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 No NSAIDs , Renal Dosing. 4. Sick sinus syndrome A&PSt post pacemaker placement 5. Atrial fibrillation A&Shashi Warfarin and betablocker 6. Hyperlipidemia A&PContinue Statin 7. Hypoxemia A&POxygen Via nasal Cannula 8. Diabetes A&PContinue insulin and ADA diet, 9. COPD (chronic obstructive pulmonary disease) A&POxygen supplementation plus nebulizer treatments. 10. Esophageal stricture A&PContinue soft diet and PPIs. 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 Carotid arterial disease A&PSecondary prevention to be continued. 13. Aortic valve disease A&PPatient is following with [facility] 14. CAD (coronary artery disease) A&PSecondary prevention to be continued Name Value Range Interpretation Code Description Data Cindy rce(s) Supporting Document(s) ID Date Data Source [id number] 08/07/2019 06:33:00 PM EDT [facility] l Name Value Range Interpretation Code Description Data Cindy rce(s) Supporting Document(s) GLUCOSE 200 mg/dL 74-[address] [facility] BLOOD UREA NITROGEN 50 mg/dL 7-18 *H [facility] ital CREATININE 2.9 mg/dL 0.7-1.[address] [facility] SODIUM 143 mmol/L 136-[address] [facility] POTASSIUM 3.2 mmol/L 3.5-5.[address] [facility] CHLORIDE 103 mmol/L 98-[address] [facility] CO2 31 mmol/L 21-[address] [facility] CALCIUM 9.1 mg/dL 8.5-10.[address] [facility] ANION GAP 9.0 mmol/L 5-[address] [facility] GLOMERULAR FILTRATION RATE 21 mL/min [facility] GFR IS CALCULATED IN mL/min/1.73m2 LEONARD L FUNCTION: >90MILDLY DECREASED: 60-89MILDY TO MODERATELY DECREASED: 45-59 MODERATELY TO SEVERELY DECREASED: 30-44SEVERELY DECREASED: 15-29RENAL FAILURE: <15 ID Date Data Source [id number] 08/07/2019 07:30:00 AM EDT [facility] Name Value Range Interpretation Code Description Data Cindy rce(s) Supporting Document(s) B-TYPE NATRIURETIC PEPTIDE 9907 pg/ml 0-450 *H [facility] ID Date Data Source [id number] 08/07/2019 07:30:00 AM EDT [facility] Name Value Range Interpretation Code Description Data Cindy rce(s) Supporting Document(s) IRON 23 ug/dL 65-[address] [facility] ID Date Data Source [id number] 08/07/2019 07:30:00 AM EDT [facility] Name Value Range Interpretation Code Description Data Cindy rce(s) Supporting Document(s) GLUCOSE 81 mg/dL 74-[address] [facility] BLOOD UREA NITROGEN 48 mg/dL 7-18 *H [facility] ital CREATININE 2.7 mg/dL 0.7-1.[address] [facility] SODIUM 146 mmol/L 136-[address] [facility] POTASSIUM 3.1 mmol/L 3.5-5.[address] [facility] CHLORIDE 104 mmol/L 98-[address] [facility] CO2 31 mmol/L 21-[address] [facility] CALCIUM 9.3 mg/dL 8.5-10.[address] [facility] ANION GAP 11.0 mmol/L 5-[address] [facility] GLOMERULAR FILTRATION RATE 22 mL/min [facility] GFR IS CALCULATED IN mL/min/1.73m2 LEONARD L FUNCTION: >90MILDLY DECREASED: 60-89MILDY TO MODERATELY DECREASED: 45-59 MODERATELY TO SEVERELY DECREASED: 30-44SEVERELY DECREASED: 15-29RENAL FAILURE: <15 AST 32 U/L 15-[address] [facility] ALT 27 U/L 12-[address] [facility] ALKALINE PHOSPHATASE 80 U/L 46-116 [facility] pital TOTAL BILIRUBIN 0.6 mg/dL 0.2-1.[address] [facility] TOTAL PROTEIN 7.4 g/dl 6.4-8.[address] [facility] ALBUMIN 3.6 gm/dL 3.4-5.[address] [facility] ID Date Data Source [id number] 08/07/2019 06:54:00 AM EDT [facility] Name Value Range Interpretation Code Description Data [facility](s) Supporting Document(s) WHITE BLOOD COUNT 6.6 K/mm3 4.0-10.0 [facility] al RED BLOOD COUNT 2.91 M/mm3 4.50-6.00 L [facility] HEMOGLOBIN 9.5 gm/dL 14.0-18.[address] [facility] HEMATOCRIT 29.4 % 42.0-54.[address] [facility] MEAN CELL VOLUME 101.0 fl 80-96 *H [facility] MEAN CORPUSCULAR HEMOGLOBIN 32.6 pg 27.0-31.0 H [facility] MEAN CORPUSCULAR HGB CONC 32.3 g/dl 32.0-36.0 [facility] RED CELL DISTRIBUTION WIDTH 15.4 % 10.0-14.5 H [facility] PLATELET COUNT 241 K/mm3 172-[address] [facility] MEAN PLATELET VOLUME 9.8 fl 9.0-13.0 [facility] pitva GRAN % 76.5 % 50-80.[address] [facility] IG% 0.2 % 0.0-0.[address] [facility] LYMPH % 10.7 % 25.0-50.[address] [facility] MONO % 6.9 % 2.0-10.[address] [facility] EOS % 4.8 % 0-5.[address] [facility] BASO % 0.9 % 0.0-2.[address] [facility] GRAN # 5.1 K/mm3 2.0-8.[address] [facility] IG# 0.0 K/mm3 0.0-0.[address] [facility] LYMPH # 0.7 K/mm3 1.0-5.[address] [facility] MONO # 0.5 K/mm3 0.10-1.[address] [facility] EOS # 0.3 K/mm3 0.0-0.[address] [facility] BASO # 0.1 K/mm3 0.0-0.[address] [facility] ID Date Data Source [id number] 08/06/2019 07:29:00 AM EDT [facility] Name Value Range Interpretation Code Description Data Cindy rce(s) Supporting Document(s) GLUCOSE 88 mg/dL 74-[address] [facility] BLOOD UREA NITROGEN 43 mg/dL 7-18 *H [facility] ital CREATININE 2.6 mg/dL 0.7-1.[address] [facility] SODIUM 147 mmol/L 136-[address] [facility] POTASSIUM 3.2 mmol/L 3.5-5.[address] [facility] CHLORIDE 105 mmol/L 98-[address] [facility] CO2 30 mmol/L 21-[address] [facility] CALCIUM 8.8 mg/dL 8.5-10.[address] [facility] ANION GAP 12.0 mmol/L 5-[address] [facility] GLOMERULAR FILTRATION RATE 23 mL/min [facility] GFR IS CALCULATED IN mL/min/1.73m2 LEONARD L FUNCTION: >90MILDLY DECREASED: 60-89MILDY TO MODERATELY DECREASED: 45-59 MODERATELY TO SEVERELY DECREASED: 30-44SEVERELY DECREASED: 15-29RENAL FAILURE: <15 AST 23 U/L 15-[address] [facility] ALT 22 U/L 12-[address] [facility] ALKALINE PHOSPHATASE 74 U/L 46-116 [facility] TOTAL BILIRUBIN 0.7 mg/dL 0.2-1.[address] [facility] TOTAL PROTEIN 7.1 g/dl 6.4-8.[address] [facility] ALBUMIN 3.5 gm/dL 3.4-5.[address] [facility] ID Date Data Source [id number] 08/06/2019 06:48:00 AM EDT [facility] Name Value Range Interpretation Code Description Data Cindy rce(s) Supporting Document(s) PROTHROMBIN TIME (PATIENT) 30.2 SECONDS 9.2-11.[address] [facility] INR 2.99 0.87-1.[address] [facility] ID Date Data Source [id number] 08/06/2019 06:40:00 AM T [facility] Name Value Range Interpretation Code Description Data Cindy rce(s) Supporting Document(s) WHITE BLOOD COUNT 6.5 K/mm3 4.0-10.0 [facility]LOOD COUNT 2.73 M/mm3 4.50-6.00 L [facility] HEMOGLOBIN 8.9 gm/dL 14.0-18.[address] [facility] HEMATOCRIT 27.6 % 42.0-54.0 [facility] MEAN CELL VOLUME 101.1 fl 80-96 *H [facility] MEAN CORPUSCULAR HEMOGLOBIN 32.6 pg 27.0-31.0 H [facility] MEAN CORPUSCULAR HGB CONC 32.2 g/dl 32.0-36.0 [facility] RED CELL DISTRIBUTION WIDTH 15.6 % 10.0-14.5 H [facility] PLATELET COUNT 210 K/mm3 172-[address] [facility] MEAN PLATELET VOLUME 10.3 fl 9.0-13.0 [facility] pital GRAN % 76.7 % 50-80.[address] [facility] IG% 0.2 % 0.0-0.[address] [facility] LYMPH % 12.2 % 25.0-50.[address] [facility] MONO % 6.7 % 2.0-10.[address] [facility] EOS % 3.4 % 0-5.[address] [facility] BASO % 0.8 % 0.0-2.[address] [facility] GRAN # 5.0 K/mm3 2.0-8.[address] [facility] IG# 0.0 K/mm3 0.0-0.[address] [facility] LYMPH # 0.8 K/mm3 1.0-5.[address] [facility] MONO # 0.4 K/mm3 0.10-1.20 [facility] EOS # 0.2 K/mm3 0.0-0.[address] [facility] BASO # 0.1 K/mm3 0.0-0.[address] [facility] ID Date Data Source [id number] 08/05/2019 10:24:00 PM EDT [facility] l HistoryChief Complaint/Admit ReasonCHF exacerbationFluid OverloadLeft Lower Lobe PneumoniaBilateral pleural effusionsChronic Kidney InsufficiencyDiabetes MellitusHistory of Presenting IllnessMr Augustine is a delightful 89 year old male with hx of CAD, st post CABG x 4, Hypertensive Heart Disease, Congestive Heart Failure, Paroxysmal atrial fibrillation, Hyperlipidemia, Insulin dependent diabetes mellitus, valvular heart disease, sick sinus syndrome, st post pacemaker placement and carotid artery disease who presented to [facility] Emertgency Department on 08/04/2019 after progressively worsening shortness of breath and orthopnea that prevented his from sleep. Mr Augustine also noticed shortness of breath with any slightest exertion and swelling of his feet.Evaluation in Emergency Department revealed elevated BNP (that needs to be corrrected for his chronic kidney failure), Large left sided and smaller right sided effusion as well as bibasilar atelectases and left lower lobe pneumonia with CRP of 77. We are transitioning Mr Augustine to acute care fopr further treatment of his pneumonia, aggressive diuresis with attention to his kidney failure and potential decompensation.Patient's comorbidities do not allow for "at home trial of treatment". Past Medical/Surgical HistoryPast Medical/Surgical HistoryMedical Problems Aortic valve disease Asthma Atrial fibrillation CAD (coronary artery disease) Carotid arterial disease Congestive heart failure COPD (chronic obstructive pulmonary disease) Diabetes Esophageal stricture GERD with stricture Hyperlipidemia Hypertensive heart and chronic kidney disease Hypoxemia Left lower lobe pneumonia Pleural effusion Sick sinus syndromeSurgical Problems History of carotid endarterectomy History of cataract surgery History of coronary artery bypass graft History of left hip replacement History of permanent cardiac pacemaker placement History of tonsillectomy Reconciled Home Med ListSee Reconciled Home Medication List AllergiesCoded Allergies:No Known Allergies (08/05/19) Family history arthritis (2 sisters of cancers)Social History , quit smoking, no recreational drug use, Occasional beer Review of SystemsConstitutionalReports: Generalized weakness, Malaise, Fatigue. Denies: Pain, Chills, Sweats. SkinReports: swelling. Denies: bruising, diaphoresis, ecchymosis, laceration. EyesDenies: redness, discharge, visual loss/blurred, diplopia, eye pain. ENTDenies: earache, nasal congestion, rhinorrhea, ear drainage, ear ringing, nose bleeding. RespiratoryReports: dyspne a, shortness of breath (Orthopnea). CardiovascularReports: dyspnea on exertion, edema, orthopnea. Denies: chest pain. GastrointestinalDenies: nausea, vomiting, abdominal pain, diarrhea, constipation. GenitourinaryReports: frequency. Denies: dysuria, flank pain, hematuria. MusculoskeletalReports: arthritis, extremity pain, extremity swelling. HematologyReports: bruising, petechiae. EndocrineDenies: cold intolerance, heat intolerance, polydipsia, polyphagia. NeurologicalDenies: bladder dysfunction, bowel dysfunction, change in LOC, dizziness, spinning sensation. PsychDenies: agitation, anxiety, auditory hallucination, change in mental status, other. Additional notesDATE OF EXAMINATION: 08/04/2019 13:47 EDT CHEST W/O IV CONTRAST HISTORY: Hypoxia. Comparison is made to prior study of 01/18/2019 TECHNIQUE: This CT exam was performed using the following dose reduction techniques: automatic exposure control, adjustment of mA and/or kV according to the patient's size, and use of iterative reconstruction technique. Standard contiguous axial spiral imaging was obtained from lung apices to the lung bases without intravenous contrast administration and with coronal reformatting. FINDINGS: Lungs: Compressive atelectatic changes of both lower lobes with area of increased consolidation in the left lower lobe which may be compressive atelectasis or pneumonia Pleural space: Eoqdw-ec-mocmluij bilateral pleural effusions more pronounced on the left side Mediastinum: Previously noted mediastinal nodes are once again identified, grossly unchanged since the prior study. Neoplastic process is not excluded Bones/joints: Median sternotomy with multiple midline sternotomy sutures and mediastinal tonie No pericardial effusion IMPRESSION: Newly developed small to moderate bilateral pleural effusions with compressive atelectasis of both lower lobes. Electronically signed in PS360 by: Thony Becker M.D. 08/04/2019 14:33 EDT C REACTIVE PROTEIN 70.9 H mg/L (0.0-3.0) B-TYPE NATRIURETIC PEPTIDE 47708 *H pg/ml (0-450) Unable to obtainAll 14 systems were reviewed and arre negative unless mentioned above ExamVital SignsVital Signs 08/04 1548 Temp 98.6 Pulse 80 Resp 16 B/P 138/78 B/P Mean Pulse Ox 92 O2 Delivery O2 Flow Rate FiO2 Physical ExaminationEENT PERRL/EOMI, normal ENT inspection, TMs normalNeck normal inspection, non-tender, supple, full range of motionRespiratory decreased breath sounds, Breath sound are absent in the left lower 1/3 Cardiovascular regular rate/rhythm, no gallop, no JVD, no murmurPeripheral Pulses2+ femoral (R), 2+ femoral (L), 2+ dorsalis pedis (R), 2+ dorsalis pedis (L), 3+carotid (R), 3+ carotid (L)Gastrointestinal normal bowel sounds, non tender, soft, no organomegaly, no pulsatile massBack Exam normal inspection, no CVA tendernessExtremities non-tender, normal range of motion, normal inspection, normal capillary refill, no calf tenderness, pedal edemaNeurologic/Psychiatric alert, 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 Left lower lobe pneumonia A&PStarted Ceftriaxone 1 g q 12 hrs as well as Zithromax 500 mg iv q 24 hrs as wellas respiratory therapy, Incentive spirometer and neb treatments plus oxygen supplementation 2. 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 Sick sinus syndrome A&PSt post pacemaker placement 5. Atrial fibrillation A&PParoxysmal Qualifiers Atrial fibrillation type: paroxysmal Qualified Code: I48.0 - Paroxysmal atrial fibrillation 6. Hyperlipidemia A&PContinue Atorvastatin 20 mg po daily Qualifiers Hyperlipidemia type: mixed hyperlipidemia Qualified Code: E78.2 - Mixed hyperlipidemia 7. Hypoxemia A&PContinue oxygen supplementation 8. Diabetes A&BSkwo5is insulin 16 units at bedtime and sliding svcale plus consistent carb diet. 9. COPD (chronic obstructive pulm onary disease) A&PNebulizer treatments as well as oxygen supplementation Qualifiers COPD type: COPD with acute lower respiratory infection Qualified Code: J44.0 - Chronic obstructive pulmonary disease with (acute) lower respiratory infection 10. Esophageal stricture A&PRelated to GERD Continue Pepcid 40 mg po daily 11. GERD with stricture A&PSoft food and Famotidine 40 mg po daily 12. Carotid arterial disease A&PContinue secondary prevention.Following twice a year with Dr Waggoner Qualifiers Laterality: bilateral 13. Aortic valve disease A&PMild sclerosis without stenosis and mild regurgitation 14. CAD (coronary artery disease) A&PSt post CABG x 4 2017.Continue to follow with cardiology on a regular basis. DIET Consistent Carbohydrate (2 g sodium)Activity OOB as tolerated w/assist, Patient ambulates using two canes.Patient Condition StableResuscitation Status DNR & DNIPlan discussed with patient, significant otherCase discussed with manager caseblane staffCopies toFamily Provider: TENZIN GRAVES JR VTE ProphylaxisVTE Prophylaxis: Patient is fully anticoagulated with warfarin Name Value Range Interpretation Code Description Data Cindy rce(s) Supporting Document(s) ID Date Data Source [id number] 08/06/2019 12:21:00 PM EDT [facility] the patient hospitalized ([facility] or [facility] er)? Y Name Value Range Interpretation Code Description Data Cindy rce(s) Supporting Document(s) L PNEUMO SERO 1 NEGATIVE NEGATIVE N [facility] Screen for L. pneumophila serogroup 1: NEGATIVE (Presumptive negative for L. pneumophila serogroup 1 antigen in urine, suggesting no recent or current infection. Infection due to Legionella cannot be ruled out since other serogroups and species may cause disease, antigen may not be present in urine in early infection, and the level of antigen present in the urine may be below the detection limit of the test.)TESTED BY CHROMATOGRAPHIC IMMUNOASSAY (REFERENCE RANGE= NEGATIVE) ID Date Data Source [id number] 08/10/2019 04:06:00 PM EDT [facility] Name Value Range Interpretation Code Description Data Cindy rce(s) Supporting Document(s) Specimen Source Urine [facility] Streptococcus pneumoniae Ag Negative Negative [facility] Body Fluid Culture, Sterile Not indicated. [facility] Organism ID Not indicated. [facility] Please Note: [facility] [employer] standar ds require a culture to beperformed on CSF specimens submitted for bacterial antigen testing.(CAP CLARE.[id number]) Urine specimens will not be cultured. ID Date Data Source [id number] 08/05/2019 07:10:00 AM EDT [facility] l TSYSORDER [id number] Name Value Range Interpretation Code Description Data Cindy rce(s) Supporting Document(s) PROTHROMBIN TIME (PATIENT) 25.6 SECONDS 9.2-11.[address] [facility] INR 2.53 0.87-1.[address] [facility] ID Date Data Source [id number] 08/05/2019 07:05:00 AM T [facility] l TSYSORDER [id number] Name Value Range Interpretation Code Description Data Cindy rce(s) Supporting Document(s) GLUCOSE 221 mg/dL 74-[address] [facility] BLOOD UREA NITROGEN 36 mg/dL 7-18 H [facility] ital CREATININE 2.4 mg/dL 0.7-1.[address] [facility] SODIUM 147 mmol/L 136-[address] [facility] POTASSIUM 3.7 mmol/L 3.5-5.[address] [facility] CHLORIDE 107 mmol/L 98-[address] [facility] CO2 31 mmol/L 21-[address] [facility] CALCIUM 8.7 mg/dL 8.5-10.[address] [facility] ANION GAP 9.0 mmol/L 5-[address] [facility] GLOMERULAR FILTRATION RATE 26 mL/min [facility] GFR IS CALCULATED IN mL/min/1.73m2 LEONARD L FUNCTION: >90MILDLY DECREASED: 60-89MILDY TO MODERATELY DECREASED: 45-59 MODERATELY TO SEVERELY DECREASED: 30-44SEVERELY DECREASED: 15-29RENAL FAILURE: <15 AST 18 U/L 15-[address] [facility] ALT 20 U/L 12-[address] [facility] ALKALINE PHOSPHATASE 79 U/L 46-116 [facility] pital TOTAL BILIRUBIN 0.8 mg/dL 0.2-1.[address] [facility] TOTAL PROTEIN 7.1 g/dl 6.4-8.[address] [facility] ALBUMIN 3.6 gm/dL 3.4-5.[address] [facility] ID Date Data Source [id number] 08/05/2019 06:34:00 AM T [facility] TSYSORDER [id number] Name Value Range Interpretation Code Description Data Cindy rce(s) Supporting Document(s) WHITE BLOOD COUNT 6.0 K/mm3 4.0-10.0 [facility] 2.79 M/mm3 4.50-6.00 L [facility] HEMOGLOBIN 9.1 gm/dL 14.0-18.[address] [facility] HEMATOCRIT 28.5 % 42.0-54.[address] [facility] MEAN CELL VOLUME 102.2 fl 80-96 *H [facility] MEAN CORPUSCULAR HEMOGLOBIN 32.6 pg 27.0-31.0 H [facility] MEAN CORPUSCULAR HGB CONC 31.9 g/dl 32.0-36.0 L [facility] RED CELL DISTRIBUTION WIDTH 15.6 % 10.0-14.5 H [facility] PLATELET COUNT 184 K/mm3 172-[address] [facility] MEAN PLATELET VOLUME 10.0 fl 9.0-13.0 [facility] pital GRAN % 80.0 % 50-80.[address] [facility] IG% 0.2 % 0.0-0.[address] [facility] LYMPH % 11.4 % 25.0-50.[address] [facility] MONO % 6.9 % 2.0-10.[address] [facility] EOS % 1.0 % 0-5.[address] [facility] BASO % 0.5 % 0.0-2.[address] [facility] GRAN # 4.8 K/mm3 2.0-8.[address] [facility] IG# 0.0 K/mm3 0.0-0.[address] [facility] LYMPH # 0.7 K/mm3 1.0-5.[address] [facility] MONO # 0.4 K/mm3 0.10-1.[address] [facility] EOS # 0.1 K/mm3 0.0-0.[address] [facility] BASO # 0.0 K/mm3 0.0-0.[address] [facility] ID Date Data Source [id number] 08/10/2019 02:09:00 PM EDT [facility] Name Value Range Interpretation Code Description Data Cindy rce(s) Supporting Document(s) BLOOD CULTURE, ROUTINE Final report . [facility] 08/10/19 1409: BLOOD CULT, RT previousl y reported as: Preliminary report BC RESULT1 Comment . [facility] No aerobic or anaerobic growth in five d ays.Performed at: RN - [facility] [id number] Director: Cira Joe MD, Phone: [phone]/11/20 1409: BC RESULT1 previously reported as: Comment No growth in 36 - 48 hours. Performed at: [address] [id number] Gauge Maker Apprentice: Cira Joe MD, Phone: [phone] 08/07/19 1205: BC RESULT1 previously reported as: Comment No growth after 16-24 hours. Performed at: [address] [id number] Gauge Maker Apprentice: Cira Joe MD, Phone: [phone] @ Edited by: @ Reason: [] ID Date Data Source [id number] 08/10/2019 02:05:00 PM EDT [facility] Name Value Range Interpretation Code Description Data Cindy rce(s) Supporting Document(s) Blood Culture, Routine Final report [facility] ID Date Data Source [id number] 08/10/2019 02:05:00 PM EDT [facility] Name Value Range Interpretation Code Description Data Cindy rce(s) Supporting Document(s) Result 1 [facility] No aerobic or anaerobic growth in five d ays. ID Date Data Source [id number] 08/10/2019 02:09:00 PM EDT [facility] Name Value Range Interpretation Code Description Data Cindy rce(s) Supporting Document(s) BLOOD CULTURE, ROUTINE Final report . [facility] 08/10/19 1409: BLOOD CULT, RT previousl y reported as: Preliminary report BC RESULT1 Comment . [facility] No aerobic or anaerobic growth in five d ays.Performed at: [facility] [id number] Director: Cira Joe MD, Phone: [phone]/11/20 1409: BC RESULT1 previously reported as: Comment No growth in 36 - 48 hours. Performed at: [address] [id number] Gauge Maker Apprentice: Cira Joe MD, Phone: [phone] 08/07/19 1205: BC RESULT1 previously reported as: Comment No growth after 16-24 hours. Performed at: RN - [facility] [address] [id number] Gauge Maker Apprentice: Cira Joe MD, Phone: [phone] @ Edited by: @ Reason: [] ID Date Data Source [id number] 08/10/2019 02:05:00 PM EDT [facility] Name Value Range Interpretation Code Description Data Cindy rce(s) Supporting Document(s) Blood Culture, Routine Final report [facility] ID Date Data Source [id number] 08/10/2019 02:05:00 PM EDT [facility] Name Value Range Interpretation Code Description Data Cindy rce(s) Supporting Document(s) Result 1 [facility] No aerobic or anaerobic growth in five d ays. ID Date Data Source [id number] 08/04/2019 02:38:00 PM EDT [facility] DATE OF EXAMINATION: 08/04/2019 13:47 EDT CHEST W/O IV CONTRAST HISTORY: Hypoxia. Comparison is made to prior study of 01/18/2019 TECHNIQUE: This CT exam was performed using the following dose reduction techniques:automatic exposure control, adjustment of mA and/or kV according to thepatient's size, and use of iterative reconstruction technique. Standard contiguous axial spiral imaging was obtained from lung apices to thelung bases without intravenous contrast administration and with coronalreformatting. FINDINGS: Lungs: Compressive atelectatic changes of both lower lobes with area ofincreased consolidation in the left lower lobe which may be compressiveatelectasis or pneumoniaPleural space: Fdjpz-ww-midbnnka bilateral pleural effusions more pronounced onthe left sideMediastinum: Previously noted mediastinal nodes are once again identified,grossly unchanged since the prior study. Neoplastic process is not excludedBones/joints: Median sternotomy with multiple midline sternotomy sutures andmediastinal tonie No pericardial effusion IMPRESSION: Newly developed small to moderate bilateral pleural effusions with compressiveatelectasis of both lower lobes. Electronically signed in PS360 by: Thony Becker M.D. 08/04/2019 14:33 EDT Name Value Range Interpretation Code Description Data Cindy rce(s) Supporting Document(s) ID Date Data Source [id number] 08/04/2019 12:06:00 PM EDT [facility] DATE OF EXAMINATION: 08/04/2019 11:07 EDT CHEST 2 VIEWS HISTORY: Shortness of breath TECHNIQUE: PA and lateral radiographs of the chest COMPARISON: 07/26/2019 FINDINGS: Moderate COPD is again identified. Cardiac silhouette is in the upper limits ofnormal. Pulmonary venous hypertension is seen without amy edema. Small newlydeveloped left-sided pleural effusion and trace right-sided pleural effusion isnoted with mild bibasilar atelectasis versus less likely pneumonia. IMPRESSION: Newly developed pulmonary venous hypertension bilateral effusions and bibasilaratelectasis most pronounced on the left side as described above. Electronically signed in PS360 by: Thony Becker M.D. 08/04/2019 12:00 EDT Name Value Range Interpretation Code Description Data Cindy rce(s) Supporting Document(s) ID Date Data Source [id number] 08/04/2019 01:58:00 PM EDT [facility] TSYSORDER [id number] Name Value Range Interpretation Code Description Data Cindy rce(s) Supporting Document(s) C REACTIVE PROTEIN 70.9 mg/L 0.0-3.0 [facility] ID Date Data Source [id number] 08/04/2019 12:15:00 PM EDT [facility] TSYSORDER [id number] Name Value Range Interpretation Code Description Data Cindy rce(s) Supporting Document(s) B-TYPE NATRIURETIC PEPTIDE [id number] pg/ml 0-450 *H [facility] ID Date Data Source [id number] 08/04/2019 12:15:00 PM EDT [facility] TSYSORDER [id number] Name Value Range Interpretation Code Description Data Cindy rce(s) Supporting Document(s) MAGNESIUM 2.1 mg/dL 1.8-2.[address] [facility] ID Date Data Source [id number] 08/04/2019 12:15:00 PM EDT [facility] TSYSORDER [id number] Name Value Range Interpretation Code Description Data Cindy rce(s) Supporting Document(s) TROPONIN I < 0.017 ng/mL 0.0-0.[address] [facility] ID Date Data Source [id number] 08/04/2019 12:15:00 PM EDT [facility] TSYSORDER [id number] Name Value Range Interpretation Code Description Data Cindy rce(s) Supporting Document(s) GLUCOSE 273 mg/dL 74-[address] [facility] BLOOD UREA NITROGEN 35 mg/dL 7-18 H [facility] ital CREATININE 2.5 mg/dL 0.7-1.[address] [facility] SODIUM 142 mmol/L 136-[address] [facility] POTASSIUM 3.9 mmol/L 3.5-5.[address] [facility] CHLORIDE 104 mmol/L 98-[address] [facility] CO2 28 mmol/L 21-[address] [facility] CALCIUM 9.2 mg/dL 8.5-10.[address] [facility] ANION GAP 10.0 mmol/L 5-[address] [facility] GLOMERULAR FILTRATION RATE 25 mL/min [facility] GFR IS CALCULATED IN mL/min/1.73m2 LEONARD L FUNCTION: >90MILDLY DECREASED: 60-89MILDY TO MODERATELY DECREASED: 45-59 MODERATELY TO SEVERELY DECREASED: 30-44SEVERELY DECREASED: 15-29RENAL FAILURE: <15 AST 22 U/L 15-[address] [facility] ALT 20 U/L 12-[address] [facility] ALKALINE PHOSPHATASE 88 U/L 46-116 [facility] pital TOTAL BILIRUBIN 1.3 mg/dL 0.2-1.[address] [facility] TOTAL PROTEIN 7.9 g/dl 6.4-8.[address] [facility] ALBUMIN 3.8 gm/dL 3.4-5.[address] [facility] ID Date Data Source [id number] 08/04/2019 11:53:00 AM EDT [facility] TSYSORDER [id number] Name Value Range Interpretation Code Description Data Cindy rce(s) Supporting Document(s) PARTIAL THROMBOPLASTIN TIME 41.7 SECONDS 21.4-30.[address] [facility] ID Date Data Source [id number] 08/04/2019 11:53:00 AM EDT [facility] [id number] Name Value Range Interpretation Code Description Data Cindy rce(s) Supporting Document(s) PROTHROMBIN TIME (PATIENT) 22.6 SECONDS 9.2-11.[address] [facility] INR 2.22 0.87-1.[address] [facility] ID Date Data Source [id number] 08/04/2019 11:32:00 AM EDT [facility] l TSYSORDER [id number] Name Value Range Interpretation Code Description Data Cindy rce(s) Supporting Document(s) WHITE BLOOD COUNT 6.2 K/mm3 4.0-10.0 [facility] RED BLOOD COUNT 3.04 M/mm3 4.50-6.00 L [facility] HEMOGLOBIN 9.8 gm/dL 14.0-18.[address] [facility] HEMATOCRIT 30.9 % 42.0-54.[address] [facility] MEAN CELL VOLUME 101.6 fl 80-96 *H [facility] MEAN CORPUSCULAR HEMOGLOBIN 32.2 pg 27.0-31.0 H [facility] MEAN CORPUSCULAR HGB CONC 31.7 g/dl 32.0-36.0 L [facility] RED CELL DISTRIBUTION WIDTH 15.7 % 10.0-14.5 H [facility] PLATELET COUNT 213 K/mm3 172-[address] [facility] MEAN PLATELET VOLUME 9.9 fl 9.0-13.0 [facility] pital GRAN % 81.7 % 50-80.[address] [facility] IG% 0.0 % 0.0-0.[address] [facility] LYMPH % 9.5 % 25.0-50.[address] [facility] MONO % 7.2 % 2.0-10.[address] [facility] EOS % 1.0 % 0-5.[address] [facility] BASO % 0.6 % 0.0-2.[address] [facility] GRAN # 5.1 K/mm3 2.0-8.[address] [facility] IG# 0.0 K/mm3 0.0-0.[address] [facility] LYMPH # 0.6 K/mm3 1.0-5.[address] [facility] MONO # 0.5 K/mm3 0.10-1.[address] [facility] EOS # 0.1 K/mm3 0.0-0.[address] [facility] BASO # 0.0 K/mm3 0.0-0.[address] [facility] ID Date Data Source [id number] 08/01/2019 02:16:00 PM EDT [facility] ([facility]) Name Value Range Interpretation Code Description Data Cindy rce(s) Supporting Document(s) Urea nitrogen [Mass/volume] in Serum or Plasma 31 mg/dL 7-18 [facility] ([facility]) Glucose [Mass/volume] in Serum or Plasma 221 mg/dL 74-99 [facility] ([facility]) 100-125 mg/dL PRE-DIABETES/FASTING >126 mg/dL DIABETES/FASTING Sodium [Moles/volume] in Serum or Plasma 147 meq/L 136-145 [facility] ([facility]) Creatinine 2.3 mg/dL 0.6-1.3 [facility] ([facility]) Potassium [Moles/volume] in Serum or Plasma 4.0 meq/L 3.5-5.1 [facility] ([facility]) Carbon dioxide, total [Moles/volume] in Serum or Plasma 25 meq/L 21 -32 [facility] ([facility]) Chloride [Moles/volume] in Serum or Plasma 108 meq/L 98-107 [facility] ([facility]) Glomerular filtration rate/1.73 sq M pre dicted among non-blacks [Volume Rate/Area] in Serum or Plasma by Creatinine-based formula (MDRD) 27 mL/min [facility] ([facility]) Calcium [Mass/volume] in Serum or Plasma 8.7 mg/dL 8.5-10.1 [facility] ([facility]) Glomerular filtration rate/1.73 sq M pre dicted among blacks [Volume Rate/Area] in Serum or Plasma by Creatinine-based formula (MDRD) 33 mL/min [facility] ([facility]) <content>CHRONIC KIDNEY DISEASE STAGING PER NKF</content>
<content></content>
<content>STAGE I & II GFR >= 60 NORMAL TO MILDLY DECREASED</content>
<content>STAGE III GFR 30-59 MODERATELY DECREASED</content>
<content>STAGE IV GFR 15-29 SEVERELY DECREASED</content>
<content>STAGE V GFR <15 VERY LITTLE GFR LEFT</content>
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
<content></content> ID Date Data Source [id number] 07/26/2019 09:33:00 AM EDT [facility] DATE OF EXAMINATION: 07/26/2019 9:07 EDT CHEST 2 VIEWS HISTORY: A. Fib TECHNIQUE: PA and lateral radiographs of the chest COMPARISON: CT of 01/18/2019 FINDINGS: Moderate COPD is noted. Cardiac silhouette and pulmonary vascularity is withinnormal limits. Dual-lead left-sided pacer device is seen. IMPRESSION: Moderate COPD. Electronically signed in PS360 by: Thony Becker M.D. 07/26/2019 9:27 EDT Name Value Range Interpretation Code Description Data Cindy rce(s) Supporting Document(s) ID Date Data Source [id number] 07/26/2019 08:58:00 AM EDT [facility] ([facility]) Name Value Range Interpretation Code Description Data Cindy rce(s) Supporting Document(s) Magnesium [Mass/volume] in Serum or Plasma 2.3 mg/dL 1.8-2.4 [facility] ([facility]) FAX RESULTS TO [phone] CC: [phone] ID Date Data Source [id number] 07/26/2019 08:58:00 AM EDT [facility] ([facility]) Name Value Range Interpretation Code Description Data Cindy rce(s) Supporting Document(s) Glu 120 mg/dL 74-106 [facility] Na 144 mmol/L 136-145 [facility] ([facility]) BUN 32 mg/dL 7-18 [facility] Cre 2.5 mg/dL 0.7-1.3 [facility] Co2 29 mmol/L 21-32 [facility] K 3.6 mmol/L 3.5-5.1 [facility] ([facility]) CL 103 mmol/L 98-107 [facility] ([facility]) Gap 12.0 mmol/L 5-12 [facility] ([facility]) CA 9.4 mg/dL 8.5-10.1 [facility] GFR 25 mL/min [facility] <content>GFR IS CALCULATED IN mL/min/1.73m2</content>
<content></content>
<content>NORMAL FUNCTION: >90</content>
<content>MILDLY DECREASED: 60-89</content>
<content>MILDY TO MODERATELY DECREASED: 45-59</content>
<content>MODERATELY TO SEVERELY DECREASED: 30-44</content>
<content>SEVERELY DECREASED: 15- 29</content>
<content>RENAL FAILURE: <15</content>
<content></content> Ast 26 U/L 15-37 [facility] Alt 24 U/L 12-78 [facility] Tbili 0.8 mg/dL 0.2-1.0 [facility] Alk 86 U/L 46-116 [facility] TP 7.4 g/dL 6.4-8.2 [facility] Alb 4.1 gm/dL 3.4-5.0 [facility] ID Date Data Source [id number] 07/26/2019 08:58:00 AM EDT [facility] ([facility]) Name Value Range Interpretation Code Description Data Cindy rce(s) Supporting Document(s) Magnesium 2.3 mg/dL 1.8-2.4 [facility]) FAX RESULTS TO [phone] CC: [phone] ID Date Data Source [id number] 07/26/2019 08:58:00 AM EDT [facility] ([facility]) Name Value Range Interpretation Code Description Data Cindy rce(s) Supporting Document(s) Glu 120 mg/dL 74-106 [facility] BUN 32 mg/dL 7-18 [facility] Na 144 mmol/L 136-145 [facility] Cre 2.5 mg/dL 0.7-1.3 [facility] Co2 29 mmol/L 21-32 [facility] CL 103 mmol/L 98-107 [facility] K 3.6 mmol/L 3.5-5.1 [facility] Gap 12.0 mmol/L 5-12 [facility] ([facility]) GFR 25 mL/min [facility] <content>GFR IS CALCULATED IN mL/min/1.73m2</content>
<content></content>
<content>NORMAL FUNCTION: >90</content>
<content>MILDLY DECREASED: 60-89</content>
<content>MILDY TO MODERATELY DECREASED: 45-59</content>
<content>MODERATELY TO SEVERELY DECREASED: 30-44</content>
<content>SEVERELY DECREASED: 15- 29</content>
<content>RENAL FAILURE: <15</content>
<content></content> CA 9.4 mg/dL 8.5-10.1 [facility] Ast 26 U/L 15-37 [facility] Alt 24 U/L 12-78 [facility] TP 7.4 g/dL 6.4-8.2 [facility] Alk 86 U/L 46-116 [facility] Tbili 0.8 mg/dL 0.2-1.0 [facility] Alb 4.1 gm/dL 3.4-5.0 [facility]) ID Date Data Source [id number] 07/26/2019 09:41:00 AM EDT [facility] l FAX RESULTS TO [phone]: Name Value Range Interpretation Code Description Data Cindy rce(s) Supporting Document(s) MAGNESIUM 2.3 mg/dL 1.8-2.[address] [facility] ID Date Data Source [id number] 07/26/2019 09:41:00 AM EDT [facility] TO [phone]: Name Value Range Interpretation Code Description Data Cindy rce(s) Supporting Document(s) GLUCOSE 120 mg/dL 74-[address] [facility] BLOOD UREA NITROGEN 32 mg/dL 7-18 H [facility] ital CREATININE 2.5 mg/dL 0.7-1.[address] [facility] SODIUM 144 mmol/L 136-[address] [facility] POTASSIUM 3.6 mmol/L 3.5-5.[address] [facility] CHLORIDE 103 mmol/L 98-[address] [facility] CO2 29 mmol/L 21-[address] [facility] CALCIUM 9.4 mg/dL 8.5-10.[address] [facility] ANION GAP 12.0 mmol/L 5-[address] [facility] GLOMERULAR FILTRATION RATE 25 mL/min [facility] GFR IS CALCULATED IN mL/min/1.73m2 LEONARD L FUNCTION: >90MILDLY DECREASED: 60-89MILDY TO MODERATELY DECREASED: 45-59 MODERATELY TO SEVERELY DECREASED: 30-44SEVERELY DECREASED: 15-29RENAL FAILURE: <15 AST 26 U/L 15-[address] [facility] ALT 24 U/L 12-[address] [facility] ALKALINE PHOSPHATASE 86 U/L 46-116 [facility] pital TOTAL BILIRUBIN 0.8 mg/dL 0.2-1.[address] [facility] TOTAL PROTEIN 7.4 g/dl 6.4-8.[address] [facility] ALBUMIN 4.1 gm/dL 3.4-5.[address] [facility] ID Date Data Source [id number] 07/21/2019 01:34:00 PM EDT [facility] ([facility]) Name Value Range Interpretation Code Description Data Cindy rce(s) Supporting Document(s) Glucose [Mass/volume] in Serum or Plasma 252 mg/dL 74-99 [facility] ([facility]) 100-125 mg/dL PRE-DIABETES/FASTING >126 mg/dL DIABETES/FASTING Urea nitrogen [Mass/volume] in Serum or Plasma 32 mg/dL 7-18 [facility] ([facility]) Sodium [Moles/volume] in Serum or Plasma 142 meq/L 136-145 [facility] ([facility]) Potassium [Moles/volume] in Serum or Plasma 4.1 meq/L 3.5-5.1 [facility] ([facility]) Creatinine 2.6 mg/dL 0.6-1.3 [facility] ([facility]) Calcium [Mass/volume] in Serum or Plasma 9.5 mg/dL 8.5-10.1 [facility] ([facility]) Chloride [Moles/volume] in Serum or Plasma 104 meq/L 98-107 [facility] ([facility]) Carbon dioxide, total [Moles/volume] in Serum or Plasma 26 meq/L 21 -32 [facility] Glomerular filtration rate/1.73 sq M pre dicted among non-blacks [Volume Rate/Area] in Serum or Plasma by Creatinine-based formula (MDRD) 23 mL/min [facility] Glomerular filtration rate/1.73 sq M pre dicted among blacks [Volume Rate/Area] in Serum or Plasma by Creatinine-based formula (MDRD) 28 mL/min [facility] ([facility]) <content>CHRONIC KIDNEY DISEASE STAGING PER NKF</content>
<content></content>
<content>STAGE I & II GFR >= 60 NORMAL TO MILDLY DECREASED</content>
<content>STAGE III GFR 30-59 MODERATELY DECREASED</content>
<content>STAGE IV GFR 15-29 SEVERELY DECREASED</content>
<content>STAGE V GFR <15 VERY LITTLE GFR LEFT</content>
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
<content></content> ID Date Data Source [id number] 07/21/2019 01:34:00 PM EDT [facility] ([facility]) Name Value Range Interpretation Code Description Data Cindy rce(s) Supporting Document(s) Natriuretic peptide B [Mass/volume] in Serum or Plasma 441.0 pg/mL 0.0-100.0 [facility] ([facility]) ID Date Data Source [id number] 07/21/2019 01:34:00 PM EDT [facility] ([facility]) Name Value Range Interpretation Code Description Data Cindy rce(s) Supporting Document(s) Leukocytes [#/volume] in Blood by Automated count 5.6 x10*3/UL 4.1-10 .9 [facility] ([facility]) Hemoglobin [Mass/volume] in Blood 10.1 g/dL 12.0-18.0 [facility] ([facility]) NOTE: RESULT VERIFIED. Erythrocytes [#/volume] in Blood by Automated count 3.18 x10*6/UL 4.2 0-6.30 [facility] Hematocrit [Volume Fraction] of Blood by Automated count 31.3 % 3 7.0-51.0 [facility] MCV 98.2 fL 80.0-97.0 [facility] MCHC 32.3 g/dL 31.0-38.0 [facility] ([facility]) Erythrocyte distribution width [Ratio] by Automated count 15.7 % 11.6-13.7 [facility] ([facility]) MCH 31.8 pg 26.0-32.0 [facility] MPV 8.3 FL 7.8-11.0 [facility] ([facility]) Platelets [#/volume] in Blood by Automated count 242 x10*3/UL 140-440 [facility] ([facility]) Lymph % 19.7 % 10.0-58.5 [facility] Mid % 8.0 % 1.7-9.3 [facility] Neut % 72.3 % 37.0-92.0 [facility] Neut # 4.0 x10*3/UL 2.0-7.8 [facility] ([facility]) Mid # 0.5 x10*3/UL 0.1-0.6 [facility] ([facility]) Lymph # 1.1 x10*3/UL 0.6-4.1 [facility] ([facility]) ID Date Data Source [id number] 05/08/2019 11:15:00 AM EDT [facility] ([facility] Name Value Range Interpretation Code Description Data Cindy rce(s) Supporting Document(s) Glucose [Mass/volume] in Serum or Plasma 191 mg/dL 74-99 [facility] ([facility]) 100-125 mg/dL PRE-DIABETES/FASTING >126 mg/dL DIABETES/FASTING Creatinine 2.0 mg/dL 0.6-1.3 [facility] ([facility]) Sodium [Moles/volume] in Serum or Plasma 146 meq/L 136-145 [facility] ([facility]) Urea nitrogen [Mass/volume] in Serum or Plasma 29 mg/dL 7-18 [facility] ([facility]) Calcium [Mass/volume] in Serum or Plasma 9.3 mg/dL 8.5-10.1 [facility] ([facility]) Chloride [Moles/volume] in Serum or Plasma 105 meq/L 98-107 [facility] ([facility]) Potassium [Moles/volume] in Serum or Plasma 4.1 meq/L 3.5-5.1 [facility] ([facility]) Carbon dioxide, total [Moles/volume] in Serum or Plasma 25 meq/L 21 -32 [facility] ([facility]) Alkaline phosphatase isoenzyme [Units/volume] in Serum or Pl asma 94 mg/dL 46-116 [facility] ([facility]) Aspartate aminotransferase [Enzymatic activity/volume] in Serum or Plasma 20 U/L 15-37 [facility] ([employer] [facility]) Total Bilirubin 0.7 mg/dL 0.2-1.0 [facility] ([facility]) Proteinase 3 Ab [Units/volume] in Serum 7.6 g/dL 6.4-8.2 [facility] ([facility]) Alanine aminotransferase [Enzymatic activity/volume] in Seru m or Plasma 24 U/L 12-78 [facility] ([facility]) Albumin [Mass/volume] in Serum or Plasma 4.3 g/dL 3.4-5.0 [facility] ([facility]) Glomerular filtration rate/1.73 sq M pre dicted among non-blacks [Volume Rate/Area] in Serum or Plasma by Creatinine-based formula (MDRD) 32 mL/min [facility] ([facility]) A/G Ratio 1.30 CALC 1.00-1.[address] [facility] ([facility]) Glomerular filtration rate/1.73 sq M pre dicted among blacks [Volume Rate/Area] in Serum or Plasma by Creatinine-based formula (MDRD) 38 mL/min [facility] ([facility]) <content>CHRONIC KIDNEY DISEASE STAGING PER NKF</content>
<content></content>
<content>STAGE I & II GFR >= 60 NORMAL TO MILDLY DECREASED</content>
<content>STAGE III GFR 30-59 MODERATELY DECREASED</content>
<content>STAGE IV GFR 15-29 SEVERELY DECREASED</content>
<content>STAGE V GFR <15 VERY LITTLE GFR LEFT</content>
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
<content></content>
<content></content> ID Date Data Source [id number] 05/08/2019 11:15:00 AM EDT [facility] ([facility]) Name Value Range Interpretation Code Description Data Cindy rce(s) Supporting Document(s) Hemoglobin A1c/Hemoglobin.total in Blood 7.8 g/dL 4.8-5.6 [facility] ([facility]) Lab Result Notes: Pre-Diabetes 5.7 - 6.4 % Diabetes = or > 6.5% Glucose mean value [Mass/volume] in Blood Estimated fr om glycated hemoglobin 177 mg/dL 60-110 [facility] ([employer] [facility]) ID Date Data Source [id number] 05/08/2019 11:15:00 AM EDT [facility] ([facility]) Name Value Range Interpretation Code Description Data Cindy rce(s) Supporting Document(s) Leukocytes [#/volume] in Blood by Automated count 5.7 x10*3/UL 4.1-[address] [facility] ([facility]) Erythrocytes [#/volume] in Blood by Automated count 3.17 x10*6/UL 4.2 0-6.30 [facility] ([facility]) Hematocrit [Volume Fraction] of Blood by Automated count 31.3 % 3 7.0-51.0 [facility] ([facility]) MCH 32.5 pg 26.0-32.0 [facility] ([facility]) Hemoglobin [Mass/volume] in Blood 10.3 g/dL 12.0-18.0 [facility] ([facility]) MCV 98.5 fL 80.0-97.0 [facility] ([facility]) Erythrocyte distribution width [Ratio] by Automated count 13.8 % 11.6-13.7 [facility] ([facility]) MCHC 33.0 g/dL 31.0-38.0 [facility] ([facility]) Lymphocytes/100 leukocytes in Blood by Automated count 23.2 % 10. 0-58.5 [facility] ([facility]) Platelet mean volume [Entitic volume] in Blood by Satish 8.4 FL 7.8-11.0 [facility] ([facility]) Platelets [#/volume] in Blood by Automated count 231 x10*3/UL 140-440 [facility] ([facility]) Mid % 7.1 % 1.7-9.3 [facility] ([facility]) Mid # 0.4 x10*3/UL 0.1-0.6 [facility] ([facility]) Lymph # 1.3 x10*3/UL 0.6-4.1 [facility] ([facility]) Neut % 69.7 % 37.0-92.0 [facility] ([facility]) Neutrophils [#/volume] in Semen by Manual count 4.0 x10*3/UL 2.0-7.8 [facility] ([facility]) ID Date Data Source [id number] 05/08/2019 11:15:00 AM EDT [facility] ([facility]) Name Value Range Interpretation Code Description Data Cindy rce(s) Supporting Document(s) Hemoglobin A1c/Hemoglobin.total in Blood <pending> [facility] ([facility]) ID Date Data Source [id number] 05/08/2019 11:15:00 AM EDT [facility] ([facility]) Name Value Range Interpretation Code Description Data Cindy rce(s) Supporting Document(s) Leukocytes [#/volume] in Blood by Automated count 5.7 x10*3/UL 4.1-10 .9 [facility] ([facility]) Hematocrit [Volume Fraction] of Blood by Automated count 31.3 % 3 7.0-51.0 [facility] ([facility]) Hemoglobin [Mass/volume] in Blood 10.3 g/dL 12.0-18.0 [facility] ([facility]) Erythrocytes [#/volume] in Blood by Automated count 3.17 x10*6/UL 4.2 0-6.30 [facility] ([facility]) MCV 98.5 fL 80.0-97.0 [facility] MCH 32.5 pg 26.0-32.0 [facility]) MCHC 33.0 g/dL 31.0-38.0 [facility] ([facility]) Platelets [#/volume] in Blood by Automated count 231 x10*3/UL 140-440 [facility] ([facility]) Erythrocyte distribution width [Ratio] by Automated count 13.8 % 11.6-13.7 [facility] ([facility]) Lymph % 23.2 % 10.0-58.5 [facility] MPV 8.4 FL 7.8-11.0 [facility] Mid % 7.1 % 1.7-9.3 [facility] Mid # 0.4 x10*3/UL 0.1-0.6 [facility] ([facility]) Neut % 69.7 % 37.0-92.0 [facility] Lymph # 1.3 x10*3/UL 0.6-4.1 [facility] ([facility]) Neut # 4.0 x10*3/UL 2.0-7.8 [facility] ([facility]) ID Date Data Source [id number] 05/08/2019 11:15:00 AM EDT [facility] ([facility]) Name Value Range Interpretation Code Description Data Cindy rce(s) Supporting Document(s) Hemoglobin A1c/Hemoglobin.total in Blood 7.8 g/dL 4.8-5.[address] [facility] Lab Result Notes: Pre-Diabetes 5.7 - 6.4 % Diabetes = or > 6.5% Glucose mean value [Mass/volume] in Blood Estimated fr om glycated hemoglobin 177 mg/dL 60-[address] [facility] ([facility] ) ID Date Data Source [id number] 05/08/2019 11:15:00 AM EDT [facility] ([facility]) Name Value Range Interpretation Code Description Data Cindy rce(s) Supporting Document(s) Glucose [Mass/volume] in Serum or Plasma 191 mg/dL 74-99 [facility] ([facility]) 100-125 mg/dL PRE-DIABETES/FASTING >126 mg/dL DIABETES/FASTING Sodium [Moles/volume] in Serum or Plasma 146 meq/L 136-145 [facility] ([facility]) Creatinine 2.0 mg/dL 0.6-1.3 [facility] ([facility]) Urea nitrogen [Mass/volume] in Serum or Plasma 29 mg/dL 7-18 [facility] ([facility]) Chloride [Moles/volume] in Serum or Plasma 105 meq/L 98-107 [facility] ([facility]) Potassium [Moles/volume] in Serum or Plasma 4.1 meq/L 3.5-5.1 [facility] ([facility]) Alkaline phosphatase isoenzyme [Units/volume] in Serum or Pl asma 94 mg/dL 46-116 [facility] ([facility]) Carbon dioxide, total [Moles/volume] in Serum or Plasma 25 meq/L 21 -32 [facility] ([facility]) Calcium [Mass/volume] in Serum or Plasma 9.3 mg/dL 8.5-10.1 [facility] ([facility]) Total Bilirubin 0.7 mg/dL 0.2-1.0 [facility] ([facility]) Aspartate aminotransferase [Enzymatic activity/volume] in Serum or Plasma 20 U/L 15-37 [facility] ([facility] ) Alanine aminotransferase [Enzymatic activity/volume] in Seru m or Plasma 24 U/L 12-78 [facility] ([facility]) Proteinase 3 Ab [Units/volume] in Serum 7.6 g/dL 6.4-8.2 [facility] ([facility]) A/G Ratio 1.30 CALC 1.00-1.90 [facility]) Albumin [Mass/volume] in Serum or Plasma 4.3 g/dL 3.4-5.0 [facility] ([facility]) Glomerular filtration rate/1.73 sq M pre dicted among non-blacks [Volume Rate/Area] in Serum or Plasma by Creatinine-based formula (MDRD) 32 mL/min [facility] Glomerular filtration rate/1.73 sq M pre dicted among blacks [Volume Rate/Area] in Serum or Plasma by Creatinine-based formula (MDRD) 38 mL/min [facility] <content>CHRONIC KIDNEY DISEASE STAGING PER NKF</content>
<content></content>
<content>STAGE I & II GFR >= 60 NORMAL TO MILDLY DECREASED</content>
<content>STAGE III GFR 30-59 MODERATELY DECREASED</content>
<content>STAGE IV GFR 15-29 SEVERELY DECREASED</content>
<content>STAGE V GFR <15 VERY LITTLE GFR LEFT</content>
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
<content></content> ID Date Data Source [id number] 05/08/2019 11:15:00 AM EDT [facility] Name Value Range Interpretation Code Description Data Cindy rce(s) Supporting Document(s) Microalbumin Urine 190.3 mg/L 1.3-20.0 [facility] ([facility]) NOTE: DILUTED AND VERIFIED Urine Creatinine 130.3 mg/dL 30.0-125.0 [facility] Microalb/Creat Ratio 146.0 ug/mg 0.0-30.0 [facility] ([facility]) ID Date Data Source [id number] 03/15/2019 12:43:00 PM EST [facility] FAX RESULTS TO [phone] Name Value Range Interpretation Code Description Data Cindy rce(s) Supporting Document(s) TSH 4.61 uIU/mL 0.36-3.[address] [facility] ID Date Data Source [id number] 03/15/2019 11:32:00 AM EST [facility] ([facility]) Name Value Range Interpretation Code Description Data Cindy rce(s) Supporting Document(s) Thyrotropin [Units/volume] in Serum or Plasma by Detec tion limit <= 0.05 mIU/L 4.61 uIU/mL 0.36-3.74 [facility] ([facility] ) FAX RESULTS TO [phone] Procedure Social History Code Duration Value Status Description Data Source(s ) Smoking 02/15/2020 12:00:00 AM EST Patient is a former smoker completed Patient is a former smoker [facility] ([facility]) Smoking 06/01/2019 10:46:05 PM EDT Never smoked tobacco (findi ng) completed Never smoked tobacco (finding) ROJELIO (Sabino Watkins MD [facility]) Vital Signs ID Date Data Source [id number] Name Value Range Interpretation Code Description Data Source(s) Diastolic blood pressure 66 mm[Hg] 66 mm[Hg] [facility] ([facility]) sitting, regular cuff Systolic blood pressure 126 mm[Hg] 126 mm[Hg] M [facility] ([facility]) sitting, regular cuff Respiratory rate 16 /min 16 /min [facility] ( [facility]) Heart rate 80 /min 80 /min [facility] ([facility]) Regular Body mass index (BMI) [Ratio] 22.4 kg/m2 22.4 k g/m2 [facility] ([facility]) Body height 70 [in_i] 70 [in_i] [facility] ([facility]) 5'10" Body weight 156.00 [lb_av] 156.00 [lb_av] [facility] T ([facility]) Diastolic blood pressure 68 mm[Hg] 68 mm[Hg] [facility] ([facility]) sitting Systolic blood pressure 124 mm[Hg] 124 mm[Hg] M [facility] ([facility]) sitting Diastolic blood pressure 68 mm[Hg] 68 mm[Hg] [facility] ([facility]) sitting, regular cuff Systolic blood pressure 126 mm[Hg] 126 mm[Hg] M [facility] ([facility]) sitting, regular cuff Respiratory rate 16 /min 16 /min [facility] ( [facility]) Heart rate 80 /min 80 /min [facility] ([facility]) Regular Body mass index (BMI) [Ratio] 21.1 kg/m2 21.1 k g/m2 [facility] ([facility]) Body height 70 [in_i] 70 [in_i] [facility] 5'10" Body weight 147.00 [lb_av] 147.00 [lb_av] [facility] T ([facility]) Body mass index (BMI) [Ratio] 26.9 kg/m2 26.9 k g/m2 [facility] ([facility]) Oxygen saturation in Arterial blood by Pulse oximetry --post exerci se 92 % 92 % [facility] ([facility]) RM Air Oxygen saturation in Arterial blood by Pulse oximetry 98 % 98 % [facility] ([facility]) RM Air Body weight 174.25 [lb_av] 174.25 [lb_av] [facility] T ([facility]) Body height 67.5 [in_i] 67.5 [in_i] [facility] ([facility]) 5'7.50" Heart rate 80 /min 80 /min [facility] ([facility]) Diastolic blood pressure 70 mm[Hg] 70 mm[Hg] [facility] ([facility]) RT Arm Systolic blood pressure 138 mm[Hg] 138 mm[Hg] M [facility] ([facility]) RT Arm Diastolic blood pressure 64 mm[Hg] 64 mm[Hg] [facility] ([facility]) sitting, regular cuff Systolic blood pressure 126 mm[Hg] 126 mm[Hg] M [facility]ENT ([facility]) sitting, regular cuff Respiratory rate 16 /min 16 /min [facility] ( [facility]) Heart rate 72 /min 72 /min [facility] ([facility]) Regular Body mass index (BMI) [Ratio] 24.1 kg/m2 24.1 k g/m2 [facility] ([facility]) Body height 70 [in_i] 70 [in_i] [facility] ([facility]) 5'10" Body weight 168.00 [lb_av] 168.00 [lb_av] [facility] T ([facility]) Body mass index (BMI) [Ratio] 26.9 kg/m2 26.9 k g/m2 [facility] ([facility]) Oxygen saturation in Arterial blood by Pulse oximetry --post exerci se 93 % 93 % [facility] ([facility]) RM Air Oxygen saturation in Arterial blood by Pulse oximetry 96 % 96 % [facility] ([facility]) RM Air Body weight 174.38 [lb_av] 174.38 [lb_av] [facility] T ([facility]) Body height 67.5 [in_i] 67.5 [in_i] [facility] ([facility]) 5'7.50" Respiratory rate 20 /min 20 /min [facility] ( [facility]) room air Diastolic blood pressure 70 mm[Hg] 70 mm[Hg] [facility] ([facility]) RT Arm Systolic blood pressure 126 mm[Hg] 126 mm[Hg] [facility] RT Arm Body mass index (BMI) [Ratio] 26.1 kg/m2 26.1 k g/m2 [facility] ([facility]) Body weight 169.00 [lb_av] 169.00 [lb_av] [facility] T ([facility]) Body height 67.5 [in_i] 67.5 [in_i] [facility] ([facility]) 5'7.50" Heart rate 78 /min 78 /min [facility] ([facility]) Diastolic blood pressure 80 mm[Hg] 80 mm[Hg] [facility] ([facility]) Systolic blood pressure 128 mm[Hg] 128 mm[Hg] [facility] Diastolic blood pressure 72 mm[Hg] 72 mm[Hg] [facility] ([facility]) Sitting Systolic blood pressure 134 mm[Hg] 134 mm[Hg] M [facility]ENT ([facility]) Sitting Diastolic blood pressure 76 mm[Hg] 76 mm[Hg] [facility] ([facility]) Sitting, regular cuff Systolic blood pressure 136 mm[Hg] 136 mm[Hg] M [facility] ([facility]) Sitting, regular cuff Respiratory rate 16 /min 16 /min [facility] ( [facility]) Heart rate 60 /min 60 /min [facility] ([facility]) Regular Body mass index (BMI) [Ratio] 24.1 kg/m2 24.1 k g/m2 [facility] ([facility]) Body height 70 [in_i] 70 [in_i] [facility] ([facility]) 5'10" Body weight 168.00 [lb_av] 168.00 [lb_av] [facility] T ([facility]) Body weight 77.112 kg 77.112 kg [facility] Body mass index (BMI) [Ratio] 24.4 kg/m2 24.4 k g/m2 [facility] ([facility]) Heart rate 59 /min 59 /min [facility]) Diastolic blood pressure 78 mm[Hg] 78 mm[Hg] [facility] ([facility]) Systolic blood pressure 130 mm[Hg] 130 mm[Hg] M EDENT ([facility]) Body weight 170.00 [lb_av] 170.00 [lb_av] [facility] T ([facility]) Body height 70 [in_i] 70 [in_i] [facility] 5'[facility]" ID Date Data Source [id number] 08/17/2019 03:29:00 PM EDT [facility] l Name Value Range Interpretation Code Description Data Source(s) WEIGHT 75.8 kilos 75.8 [facility] HEIGHT 152.4 centimeters 152.[address] [facility] WEIGHT 75.2 kilos 75.2 [facility] HEIGHT 180.34 centimeters 180.34 centimeter [facility] [facility] WEIGHT 76.8 kilos 76.8 [facility] HEIGHT 152.4 centimeters 152.[address] [facility] WE[facility] 76.5 [facility] 76.[facility]4 [facility] 152.[address] [facility] WEIGHT 77.7 kilos 77.7 [facility] HEIGHT 180.34 centimeters 180.34 centimeter [facility]
[2020-04-18 15:31] LABS: ACETAMINOPHEN LEVEL < 2.0 UG/ML (10.0-30.0); ALBUMIN 3.4 GM/DL (3.2-5.2); ALT/SGPT 17 U/L (12-78); BILIRUBIN,DIRECT 0.3 MG/DL (0.0-0.2); BILIRUBIN,TOTAL 0.7 MG/DL (0.2-1.0); CK-MB VALUE MASS 1.8 NG/ML (<3.6); CPK CREATINE PHOSPHOKINASE 43 U/L (39-308); ETHYL ALCOHOL (ETHANOL) < 0.003 % (0.000-0.010); MB/CK RELATIVE INDEX 4.19 (< OR =4); SALICYLATE LEVEL < 1.7 MG/DL (5.0-30.0); TOTAL PROTEIN 6.9 GM/DL (6.4-8.2); TROPONIN I 0.02 NG/ML (< 0.10)
--- NOTE | 2020-04-18 15:42 | REP ---
INDICATION: Altered Mental Status. COMPARISON: Comparison study October 16, 2019. TECHNIQUE: Portable upright AP chest radiograph. FINDINGS: Patient is status post median sternotomy. Monitoring electrodes are seen. A bipolar pacemaker is seen in the right heart view of the left side. Moderate cardiomegaly is observed unchanged. The aorta is somewhat tortuous. Vascular and interstitial markings are slightly prominent in the bases. No pleural effusion is seen.. IMPRESSION: Cardiomegaly with pacemaker. Prominent vascular and interstitial markings in the bases, CHF pattern.. <Electronically signed by Ricky Cabello > 04/18/20 [id number]
[2020-04-18] MEDS ORDERED: LIDOCAINE 2% 5ML JELLY UROJET TOP ONE (16:30)
--- NOTE | 2020-04-18 17:11 | REP ---
INDICATION: Altered Mental Status. COMPARISON: Comparison head CT study October 10, 2019.. TECHNIQUE: Helical scanning is acquired. 5 mm axial images were reformatted. Coronal MPR images were generated. FINDINGS: Bone window settings demonstrate an intact bony calvarium. There is no evidence of skull fracture or incidental bony calvarial lesion. The visualized paranasal sinuses appear clear. No intraorbital abnormality is seen. On soft tissue window setting images; the lateral, third, and fourth ventricles are normal in size and position. Caputo-white differentiation pattern is normal above and below the tentorium. There are is no evidence of intracranial hemorrhage. No mass, edema, infarction, or midline shift is seen. No extra-axial fluid collection is appreciated. There is heavy vascular calcification in the distal internal carotid arteries bilaterally. Moderate to marked generalized volume loss is seen. There are extensive small-vessel atherosclerotic changes. 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 This is unchanged from the October 10, 2019 prior study. There is no acute intracranial abnormality. IMPRESSION: Advanced generalized volume loss and is small-vessel atherosclerotic changes. 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 No acute intracranial abnormality.. <Electronically signed by Ricky Cabello > 04/18/20 [id number]
[2020-04-18 18:29] LABS: AMPHETAMINES LEVEL URINE NEGATIVE (NEGATIVE); BARBITURATES URINE NEGATIVE (NEGATIVE); BENZODIAZEPINES URINE NEGATIVE (NEGATIVE); CANNABINOIDS URINE NEGATIVE (NEGATIVE); COCAINE METABOLITE URINE NEGATIVE (NEGATIVE); METHADONE URINE NEGATIVE (NEGATIVE); OPIATES URINE NEGATIVE (NEGATIVE); PHENCYCLIDINE URINE NEGATIVE (NEGATIVE)
[2020-04-18] MEDS ORDERED: DEXTROSE 50% 50 ML SYRINGE IV PRN (18:30)
[2020-04-18] MEDS ORDERED: GLUCAGON INJ 1MG VIAL SC PRN (18:30)
[2020-04-18] MEDS ORDERED: GLUCOSE 4GM CHEW TABLET PO PRN (18:30)
[2020-04-18] MEDS ORDERED: ASPI-161 PO (18:34)
[2020-04-18] MEDS ORDERED: VENTAER INH (18:34)
[2020-04-18] MEDS ORDERED: PATIENT COMMENT (18:34)
[2020-04-18] MEDS ORDERED: TAMS1CAP17 PO (18:34)
--- OUTSIDE RECORDS SUMMARY | 2020-04-18 18:43 | CCD ---
Author Author [facility] Organization [facility] Address Unknown Phone Unavailable Care Team Providers Care Assembly Room Supervisor Name Role Phone SYMENOW G CHRISTOPHER PA [...] Unavailable SYMENOW, G CHRISTOPHER PA Unavailable Unavailable GREGORIOOsiris PA Unavailable Unavailable [...] Unavailable Symenow, Rehana Sabiha PA Unavailable Unavailable Rehana Montilla PA Unavailable Unavailable Dombek-Lang, Alexandr Nieves MD Unavailable Unavailable Dombek-Lang, Alexandr Nieves MD Unavailable Unavailable Dombek-Lang, Alexandr Nieves MD Unavailable Unavailable Dombek-Lang, Alexandr Nieves MD Unavailable Unavailable Dombek-Lang, Alexandr Nieves MD Unavailable Unavailable Dombek-Lang, Alexandr Nieves MD Unavailable Unavailable Dombek-Lang, V Lizbeth HELMS Unavailable Unavailable Dombek-Lang, Alexandr Nieves MD Unavailable Unavailable Dombek-Lang, V Lizbeth HELMS Unavailable Unavailable Dombek-Lang, V Lizbeth HELMS Unavailable Unavailable Dombek-Lang, V Lizbeth HELMS Unavailable Unavailable Dombek-Lang, V Lizbeth HELMS Unavailable Unavailable Dombek-Lang, Alexandr Nieves MD Unavailable Unavailable Dombek-Lang, Alexandr Nieves MD Unavailable Unavailable Dombek-Lang, Alexandr Nieves MD Unavailable Unavailable Dombek-Lang, Alexandr Nieves MD Unavailable Unavailable Dombek-Lang, Alexandr Nieves MD Unavailable Unavailable Dombek-Lang, Alexandr Nieves MD Unavailable Unavailable Dombek-Lang, Alexandr Nieves MD Unavailable Unavailable Tommiebek-Alexandr Duggan MD Unavailable Unavailable Dombek-Urban, Alexandr Nieves MD Unavailable Unavailable Tommiebek-Alexandr Dgugan MD Unavailable Unavailable Dombek-Lang, Alexandr Nieves MD Unavailable Unavailable Tommiebek-Urban, Alexandr Nieves MD Unavailable Unavailable TommiebeAlexanrd Dejesus MD Unavailable Unavailable Dombek-Alexandr Duggan MD Unavailable Unavailable Tommiebek-Alexandr Duggan MD Unavailable Unavailable Dombek-Urban, Alexandr Nieves MD Unavailable Unavailable Dombek-LangAlexandr MD Unavailable Unavailable Tommiebek-Alexandr Duggan MD Unavailable Unavailable Tommiebek-Alexandr Duggan MD Unavailable Unavailable Tommiebek-Alexandr Duggan MD Unavailable Unavailable Tommiebek-Lang, Alexandr Nieves MD Unavailable Unavailable Tommiebek-Alexandr Duggan MD Unavailable Unavailable Tommiebek-Alexandr Duggan MD Unavailable Unavailable Tommiebek-LangAlexandr MD Unavailable Unavailable Marti Graves MD Unavailable Unavailable JackelineMarti MD Unavailable Unavailable LakehurstMarti MD Unavailable Unavailable JackelineMarti MD Unavailable Unavailable LakehurstMarti MD Unavailable Unavailable JackelineMarti MD Unavailable Unavailable JackelineMarti MD Unavailable Unavailable LakehurstMarti MD Unavailable Unavailable LakehurstMarti MD Unavailable Unavailable LakehurstMarti MD Unavailable Unavailable JackelineMarti MD Unavailable Unavailable JackelineMarti MD Unavailable Unavailable JackelineMarti MD Unavailable Unavailable JackelineMarti MD Unavailable Unavailable JackelineMarti MD Unavailable Unavailable JackelineMarti MD Unavailable Unavailable LakehurstMarti MD Unavailable Unavailable LakehurstMarti MD Unavailable Unavailable LakehurstMarti MD Unavailable Unavailable LakehurstMarti MD Unavailable Unavailable LakehurstMarti MD Unavailable Unavailable LakehurstMarti MD Unavailable Unavailable LakehurstMarti MD Unavailable Unavailable LakehurstMarti MD Unavailable Unavailable LakehurstMarti MD Unavailable Unavailable LakehurstMarti MD Unavailable Unavailable LakehurstMarti MD Unavailable Unavailable JackelineMarti MD Unavailable Unavailable LakehurstMarti MD Unavailable Unavailable LakehurstMarti MD Unavailable Unavailable JackelineMarti MD Unavailable Unavailable JackelineMarti MD Unavailable Unavailable JackelineMarti MD Unavailable Unavailable LakehurstMarti MD Unavailable Unavailable LakehurstMarti MD Unavailable Unavailable JackelineMarti MD Unavailable Unavailable JackelineMarti MD Unavailable Unavailable JackelineMarti MD Unavailable Unavailable JackelineMarti MD Unavailable Unavailable JackelineMarti MD Unavailable Unavailable JackelineMarti MD Unavailable Unavailable JackelineMarti MD Unavailable Unavailable LakehurstMarti MD Unavailable Unavailable LakehurstMarti MD Unavailable Unavailable LakehurstMarti MD Unavailable Unavailable LakehurstMarti MD Unavailable Unavailable LakehurstMarti MD Unavailable Unavailable JackelineMarti MD Unavailable Unavailable JackelineMarti MD Unavailable Unavailable LakehurstMarti MD Unavailable Unavailable LakehurstMarti MD Unavailable Unavailable JackelineMarti MD Unavailable Unavailable LakehurstMarti MD Unavailable Unavailable JackelineMarti MD Unavailable Unavailable LakehurstMarti MD Unavailable Unavailable LakehurstMarti MD Unavailable Unavailable JackelineMarti MD Unavailable Unavailable LakehurstMarti MD Unavailable Unavailable LakehurstMarti MD Unavailable Unavailable LakehurstMarti MD Unavailable Unavailable LakehurstMarti MD Unavailable Unavailable JackelineMarti MD Unavailable Unavailable JackelineMarti MD Unavailable Unavailable LakehurstMarti MD Unavailable Unavailable JackelineMarti MD Unavailable Unavailable LakehurstMarti MD Unavailable Unavailable LakehurstMarti MD Unavailable Unavailable LakehurstMarti MD Unavailable Unavailable LakehurstMarti MD Unavailable Unavailable JackelineMarti MD Unavailable Unavailable JackelineMarti MD Unavailable Unavailable JackelineMarti MD Unavailable Unavailable JackelineMarti MD Unavailable Unavailable LakehurstMarti MD Unavailable Unavailable LakehurstMarti MD Unavailable Unavailable LakehurstMarti MD Unavailable Unavailable JackelineMarti MD Unavailable Unavailable LakehurstMarti MD Unavailable Unavailable JackelineMarti MD Unavailable Unavailable LakehurstMarti MD Unavailable Unavailable LakehurstMarti MD Unavailable Unavailable LakehurstMarti MD Unavailable Unavailable LakehurstMarti MD Unavailable Unavailable LakehurstMarti MD Unavailable Unavailable JackelineMatri MD Unavailable Unavailable JackelineMarti MD Unavailable Unavailable Mary, Gloria MARKETING STRATEGY MANAGER Unavailable Unavailable Mary, Gloria MARKETING STRATEGY MANAGER Unavailable Unavailable Mary, Gloria MARKETING STRATEGY MANAGER Unavailable Unavailable Mary, Gloria MARKETING STRATEGY MANAGER Unavailable Unavailable Mary, Gloria MARKETING STRATEGY MANAGER Unavailable Unavailable Mary, Gloria MARKETING STRATEGY MANAGER Unavailable Unavailable Mary, Gloria MARKETING STRATEGY MANAGER Unavailable Unavailable Mary, Glorai MARKETING STRATEGY MANAGER Unavailable Unavailable Mary, Gloria MARKETING STRATEGY MANAGER Unavailable Unavailable Mary, Gloria MARKETING STRATEGY MANAGER Unavailable Unavailable Mary, Gloria MARKETING STRATEGY MANAGER Unavailable Unavailable Mary, Gloria MARKETING STRATEGY MANAGER Unavailable Unavailable Mary, Gloria MARKETING STRATEGY MANAGER Unavailable Unavailable Mary, Gloria MARKETING STRATEGY MANAGER Unavailable Unavailable Mary, Gloria MARKETING STRATEGY MANAGER Unavailable Unavailable Mary, Gloria MARKETING STRATEGY MANAGER Unavailable Unavailable Mary, Gloria MARKETING STRATEGY MANAGER Unavailable Unavailable Mary, Gloria MARKETING STRATEGY MANAGER Unavailable Unavailable Mary, Gloria MARKETING STRATEGY MANAGER Unavailable Unavailable Mary, Gloria MARKETING STRATEGY MANAGER Unavailable Unavailable Mary, Gloria MARKETING STRATEGY MANAGER Unavailable Unavailable Mary, Gloria MARKETING STRATEGY MANAGER Unavailable Unavailable Mary, Gloria MARKETING STRATEGY MANAGER Unavailable Unavailable Mary, Gloria MARKETING STRATEGY MANAGER Unavailable Unavailable Mary, Gloria MARKETING STRATEGY MANAGER Unavailable Unavailable Mary, Gloria MARKETING STRATEGY MANAGER Unavailable Unavailable Mary, Gloria MARKETING STRATEGY MANAGER Unavailable Unavailable Letitia, P Khalid MD Unavailable [...] Unavailable Letitia, Katheryn Negrete MD Unavailable Unavailable WERBLIN, Z. LORI Unavailable [phone] WERBLIN, Z. LORI Unavailable [phone] WERBLIN, Z. LORI Unavailable [phone] WERBLIN, Z. LORI Unavailable [phone] WERBLIN, Z. LORI Unavailable [phone] [facility] Unavailable Unavailable Alexandr Fernández MD [...] Unavailable Unavailable Alexandr Fernández MD Unavailable Unavailable lAexandr Fernández MD Unavailable Unavailable Alexandr Fernández MD Unavailable Unavailable Alexandr Fernández MD Unavailable Unavailable Alexandr Fernández MD Unavailable Unavailable Alexandr Fernández MD Unavailable Unavailable Alexandr Fernández MD Unavailable Unavailable Alexandr Fernández MD Unavailable Unavailable Alexandr Fernández MD Unavailable Unavailable Alexandr Fernández MD Unavailable Unavailable LePine, M Aliya CHEMICAL TREATMENT PLANT TECHNICIAN Unavailable Unavailable LePine, M Aliya CHEMICAL TREATMENT PLANT TECHNICIAN Unavailable Unavailable LePine, M Aliya CHEMICAL TREATMENT PLANT TECHNICIAN Unavailable Unavailable LePine, M Aliya CHEMICAL TREATMENT PLANT TECHNICIAN Unavailable Unavailable LePine, M Aliya CHEMICAL TREATMENT PLANT TECHNICIAN Unavailable Unavailable LePine, M Aliya CHEMICAL TREATMENT PLANT TECHNICIAN Unavailable Unavailable LePine, M Aliya CHEMICAL TREATMENT PLANT TECHNICIAN Unavailable Unavailable LePine, M Aliya CHEMICAL TREATMENT PLANT TECHNICIAN Unavailable Unavailable LePine, M Aliya CHEMICAL TREATMENT PLANT TECHNICIAN Unavailable Unavailable LePine, M Aliya CHEMICAL TREATMENT PLANT TECHNICIAN Unavailable Unavailable LePine, M Aliya CHEMICAL TREATMENT PLANT TECHNICIAN Unavailable Unavailable LePine, M Aliya CHEMICAL TREATMENT PLANT TECHNICIAN Unavailable Unavailable LePine, M Aliya CHEMICAL TREATMENT PLANT TECHNICIAN Unavailable Unavailable LePine, M Aliya CHEMICAL TREATMENT PLANT TECHNICIAN Unavailable Unavailable LePine, M Aliya CHEMICAL TREATMENT PLANT TECHNICIAN Unavailable Unavailable LePine, M Aliya CHEMICAL TREATMENT PLANT TECHNICIAN Unavailable Unavailable LePine, M Aliya CHEMICAL TREATMENT PLANT TECHNICIAN Unavailable Unavailable LePine, M Aliya CHEMICAL TREATMENT PLANT TECHNICIAN Unavailable Unavailable LePine, M Aliya CHEMICAL TREATMENT PLANT TECHNICIAN Unavailable Unavailable LePine, M Aliya CHEMICAL TREATMENT PLANT TECHNICIAN Unavailable Unavailable LePine, M Aliya CHEMICAL TREATMENT PLANT TECHNICIAN Unavailable Unavailable LePine, M Aliya CHEMICAL TREATMENT PLANT TECHNICIAN Unavailable Unavailable LePine, M Aliya CHEMICAL TREATMENT PLANT TECHNICIAN Unavailable Unavailable LePine, M Aliya CHEMICAL TREATMENT PLANT TECHNICIAN Unavailable Unavailable LePine, M Aliya CHEMICAL TREATMENT PLANT TECHNICIAN Unavailable Unavailable LePine, M Aliya CHEMICAL TREATMENT PLANT TECHNICIAN Unavailable Unavailable LePine, M Aliya CHEMICAL TREATMENT PLANT TECHNICIAN Unavailable Unavailable LePine, M Aliya CHEMICAL TREATMENT PLANT TECHNICIAN Unavailable Unavailable LePine, M Aliya CHEMICAL TREATMENT PLANT TECHNICIAN Unavailable Unavailable LePine, M Aliya CHEMICAL TREATMENT PLANT TECHNICIAN Unavailable Unavailable LePine, M Aliya CHEMICAL TREATMENT PLANT TECHNICIAN Unavailable Unavailable LePine, M Aliya CHEMICAL TREATMENT PLANT TECHNICIAN Unavailable Unavailable LePine, M Aliya CHEMICAL TREATMENT PLANT TECHNICIAN Unavailable Unavailable LePine, M Aliya CHEMICAL TREATMENT PLANT TECHNICIAN Unavailable Unavailable LePine, M Aliya CHEMICAL TREATMENT PLANT TECHNICIAN Unavailable Unavailable LePine, M Aliya CHEMICAL TREATMENT PLANT TECHNICIAN Unavailable Unavailable LePine, M Aliya CHEMICAL TREATMENT PLANT TECHNICIAN Unavailable Unavailable LePine, M Aliya CHEMICAL TREATMENT PLANT TECHNICIAN Unavailable Unavailable LePine, M Aliya CHEMICAL TREATMENT PLANT TECHNICIAN Unavailable Unavailable LePine, M Aliya CHEMICAL TREATMENT PLANT TECHNICIAN Unavailable Unavailable LePine, M Aliya CHEMICAL TREATMENT PLANT TECHNICIAN Unavailable Unavailable LePine, M Aliya CHEMICAL TREATMENT PLANT TECHNICIAN Unavailable Unavailable LePine, M Aliya CHEMICAL TREATMENT PLANT TECHNICIAN Unavailable Unavailable LePine, M Aliya CHEMICAL TREATMENT PLANT TECHNICIAN Unavailable Unavailable LePine, M Aliya CHEMICAL TREATMENT PLANT TECHNICIAN Unavailable Unavailable LePine, M Aliya CHEMICAL TREATMENT PLANT TECHNICIAN Unavailable Unavailable LePine, M Aliya CHEMICAL TREATMENT PLANT TECHNICIAN Unavailable Unavailable LePine, M Aliya CHEMICAL TREATMENT PLANT TECHNICIAN Unavailable Unavailable LePine, M Aliya CHEMICAL TREATMENT PLANT TECHNICIAN Unavailable Unavailable LePine, M Aliya CHEMICAL TREATMENT PLANT TECHNICIAN Unavailable Unavailable LePine, M Aliya CHEMICAL TREATMENT PLANT TECHNICIAN Unavailable Unavailable LePine, M Aliya CHEMICAL TREATMENT PLANT TECHNICIAN Unavailable Unavailable LePine, M Aliya CHEMICAL TREATMENT PLANT TECHNICIAN Unavailable Unavailable LePine, M Aliya CHEMICAL TREATMENT PLANT TECHNICIAN Unavailable Unavailable LePine, M Aliya CHEMICAL TREATMENT PLANT TECHNICIAN Unavailable Unavailable LePine, M Aliya CHEMICAL TREATMENT PLANT TECHNICIAN Unavailable Unavailable Re-disclosure Warning The records that [...] is protected by Article 27-F of the [facility] Public Health law. If you continue you may have access to information: Regarding HIV / AIDS; Provided by facilities licensed or operated by the [facility] Office of Mental Health; or Provided by the [facility] Office for People With Developmental Disabilities. If such information is present, then the following [facility] mandated warning applies: This information has [...] law may result in a fine or care home sentence or both. A general authorization for the release of medical or other information is NOT sufficient authorization for further disc losure. Allergies and Adverse Reactions Type Description Substance Reaction Status Data Source(s ) Drug allergy No Known Allergies No Known Allergies [facility] Allergy to substance No Known Allergies No known allergies (situation ) [place] (Sabino Watkins MD [facility]) Family History Family Member Name Family Member Gender Family Member Status Date o f Status Description Data Source(s) Unknown Unknown Problem [facility] ([facility]) Unknown Male Problem MED[facility] ([facility]) Unknown Female Problem [facility] ([facility] Encounters Encounter Providers Location Date Indications Data Source(s ) Outpatient Attender: Tenzin Graves MDReferrer: Dulce Graves MD EMERGENCY ROOM-LAB NOT ORDERED BY [facility] 04/18/2020 09:30:00 AM [facility] - 04/18/2020 09:30:00 AM [facility] Outpatient Attender: Tenzin Graves MDReferrer: Dulce Graves MD EMERGENCY ROOM-LABOTHPROV 04/09/2020 11:04:00 AM [facility] - 04/09/2020 11:04:00 AM [facility] Outpatient Attender: Tenzin Graves MDReferrer: Dulce Graves MD EMERGENCY ROOM-LABOTHPROV 03/25/2020 10:59:00 AM [facility] - 03/25/2020 10:59:00 AM [facility] Outpatient Attender: Tenzin Graves MDReferrer: Dulce Graves MD EMERGENCY ROOM-LABOTHPROV 03/18/2020 01:25:00 PM [facility] - 03/18/2020 01:25:00 PM [facility] Outpatient Attender: Tenzin Graves MDReferrer: Tenzin valenzuela MD 03/13/2020 11:30:00 AM [facility] Outpatient Attender: Tenzin Graves MDReferrer: Dulce Graves MD EMERGENCY ROOM-LABOTHPROV 02/16/2020 01:47:00 PM [facility] - 02/16/2020 01:47:00 PM [facility] Outpatient Attender: Sabiha KINNEY Main Office 02/15/2020 11:45:00 AM EST MED[facility] ([facility]) Outpatient Attender: Tenzin Graves MDReferrer: Dulce Graves MD EMERGENCY ROOM-LABOTHPROV 02/09/2020 01:40:00 PM [facility] - 02/09/2020 01:40:00 PM [facility] Outpatient Attender: Tenzin Graves MD 12/11/2019 01:01:0 0 PM [facility] Outpatient Attender: Sabiha KINNEY Main Office 11/14/2019 02:30:00 PM EDT MED[facility] ([facility]) Outpatient Attender: Tenzin Graves MDReferrer: Dulce Graves MD EMERGENCY ROOM-LABOTHPROV 09/25/2019 11:03:00 AM EDT - 09/25/2019 11:03:00 AM [facility] Outpatient Attender: Tenzin Graves MDReferrer: Dulce Graves MD EMERGENCY ROOM-LABOTHPROV 09/21/2019 08:35:00 AM EDT - 09/21/2019 08:35:00 AM [facility] Outpatient Attender: Tenizn Graves MDReferrer: Tenzin valenzuela MD 09/08/2019 09:04:00 AM EDT - 09/08/2019 09:04:00 AM EDT [facility] Outpatient Attender: Tenzin Graves MDReferrer: Dulce Graves MD EMERGENCY ROOM-LABOTHPROV 08/24/2019 09:08:00 AM EDT - 08/24/2019 09:08:00 AM [facility] Outpatient Attender: Lizbeth Fernández MDConsultant: [facility] [id number] [facility]: Lizbeth Fernández MDAdmitter: Lizbeth Fernández MDReferrer: Tenzin Graves MD EMERGENCY ROOM-2N 08/05/2019 02:00:00 PM EDT - 08/09/2019 04:10:00 PM [facility] Patient discharged. Inpatient Attender: Lizbeth Fernández MDAttender: JENNY MONTILLA PAAdmitter: Lizbeth Fernández MDReferrer: Tenzin Graves MD EMERGENCY ROOM-2N 08/04/2019 01:03:00 PM EDT - 08/05/2019 01:59:00 PM [facility] Patient discharged. Outpatient Attender: Sabiha KINNEY Main Office 07/28/2019 08:30:00 AM EDT MED[facility] ([facility]) Outpatient Attender: Sabiha Montilla PAReferrer: Karl Graves MD EMERGENCY ROOM-LABOTHPROV 07/26/2019 08:52:00 AM ED - 07/26/2019 08:52:00 AM [facility] Outpatient Attender: Gloria Palomino 02:00:00 PM EDT MEDENT ([facility] ) Outpatient Attender: Tenzin Palomino 0 05/08/2019 11:20:00 AM EDT MEDENT ([facility] ) Outpatient Attender: Sabiha KINNEY Main Office 04/03/2019 07:45:00 AM [facility] Outpatient Attender: Tenzin Graves MDReferrer: Dulce Graves MD EMERGENCY ROOM-LABOTHPROV 03/15/2019 11:22:00 AM [facility] - 03/15/2019 11:22:00 AM [facility] Outpatient Attender: Sabiha ANNAeferrer: Karl Graves MD EMERGENCY ROOM-LABOTHPROV 02/14/2019 11:20:00 AM [facility] - 02/14/2019 11:20:00 AM [facility] Outpatient Attender: Sabiha Rooneyer: Karl Graves MD EMERGENCY ROOM-LABOTHPROV 01/18/2019 11:11:00 AM [facility] - 01/18/2019 11:11:00 AM [facility] Outpatient Attender: Sabiha Rooneyer: Tenzin nuñez MD 01/18/2019 11:00:00 AM [facility] Outpatient Attender: Sabiha Ventura: Karl Graves MD EMERGENCY ROOM-LABOTHPROV 01/11/2019 09:29:00 AM [facility] - 01/11/2019 09:29:00 AM [facility] Outpatient Attender: Tenzin Graves MDReferrer: Dulce Graves MD EMERGENCY ROOM-LABOTHPROV 01/02/2019 08:35:00 AM [facility] - 01/02/2019 08:35:00 AM [facility] Outpatient Attender: Aliya Smallwood RNPReferrer: Roby Graves MD EMERGENCY ROOM-LABOTHPROV 01/02/2019 08:32:00 AM [facility] - 01/02/2019 08:32:00 AM [facility] Outpatient Attender: Tenzin Graves MDReferrer: Lupe SMITH EMERGENCY ROOM-LABOTHPROV 11/21/2018 09:15:00 AM EDT - 11/21/2018 09:15:00 AM [facility] Emergency Attender: VIRGEN Pierreerrer: Aliya SMITH 10/24/2018 02:07:00 PM EDT - 10/24/2018 03:30:00 PM [facility] pital Patient discharged. Outpatient Attender: Sabiha KINNEY 10/20/2018 12:30:00 P [facility] Outpatient Attender: Sabiha Pierreerrer: Aliya SMITH EMERGENCY ROOM-LABOTHPROV 10/10/2018 08:28:00 AM EDT - 10/10/2018 08:28:00 AM [facility] Outpatient Attender: Caden Dong MDReferrer: Aliya SMITH EMERGENCY ROOM-LABOTHPROV 09/19/2018 09:21:00 AM EDT - 09/19/2018 09:21:00 AM [facility] Outpatient Attender: Tenzin Graves MDReferrer: Lupe SMITH EMERGENCY ROOM-ULTRA 08/31/2018 12:44:00 PM EDT - 08/31/2018 12:44:00 PM [facility] Outpatient Attender: Tenzni Josepherrer: Lupe SMITH EMERGENCY ROOM-LABOTHPROV 08/25/2018 09:06:00 AM EDT - 08/25/2018 09:06:00 AM [facility] Outpatient Attender: Tenzin Graves MD 03/2018 09:27:00 AM [facility] - 05/26/2018 03:26:00 PM [facility] Emergency Attender: VIRGEN KINNEY 10/31 10:48:00 AM EDT - 11/18/2017 12:00:00 PM [facility] Outpatient Attender: Tenzin Graves MD 12/2017 09:27:00 AM EDT - 09/08/2017 09:27:00 AM [facility] Outpatient Attender: Tenzin Graves MD 06/2017 09:04:00 AM EDT - 09/02/2017 09:04:00 AM [facility] Outpatient Attender: Aliya SMITH 018 09:49:00 AM EDT - 06/07/2017 09:49:00 AM [facility] Outpatient Attender: Aliya SMITH 05/10/2017 08:53:00 AM [facility] Inpatient Attender: JENNY BENITESdmitter : LORI BROOKE EMERGENCY ROOM-2N 05/05/2017 10:36:00 AM EST - 05/04/2017 03:50:00 PM [facility] Outpatient Attender: Sabiha KINNEY EMERGENCY ROOM-LABOTHP ROV 03/04/2017 09:04:00 AM [facility] - 03/04/2017 09:04:00 AM [facility] Outpatient Attender: Sabiha KINNEY EMERGENCY ROOM-LABOTHP ROV 08/27/2016 08:17:00 AM T - 08/27/2016 08:17:00 AM [facility] Outpatient Attender: Sabiha KINNEY EMERGENCY ROOM-LABOTHP ROV 02/19/2016 11:00:00 AM [facility] - 02/19/2016 11:00:00 AM [facility] Outpatient Attender: Sabiha KINNEY EMERGENCY ROOM-RADOTHP ROV 08/19/2015 07:40:00 AM [facility] Outpatient Attender: Sabiha KINNEY 02/20/2015 09:21:00 A [facility] Outpatient Attender: Sabiha KINNEY EMERGENCY ROOM-LABOTHP ROV 08/16/2014 07:10:00 AM [facility] Outpatient Attender: Sabiha KINNEY EMERGENCY ROOM-LABOTHP ROV 02/14/2014 09:10:00 AM [facility] Outpatient Attender: Sabiha KINNEY EMERGENCY ROOM-LABOTHP ROV 08/16/2013 07:28:00 AM [facility] Outpatient Attender: Tenzin Graves MD 05/09/2013 08:50:0 0 AM [facility] Outpatient Attender: Sabiha KINNEY 02/07/2013 07:49:00 A [facility] Outpatient Attender: Sabiha KINNEY 06/13/2012 07:37:00 A [facility] Outpatient Attender: Sabiha KINNEY 12/10/2011 09:40:00 [facility] Medications Medication Brand Name Start Date Product Form Dose Route Admi nistrative Instructions Pharmacy Instructions Status Indications Reaction Description Data Source(s) Levothyroxine Sodium 0.05 MG Oral Tablet Levothyroxine Miquelu m 02/14/2020 12:00:00 AM EST ORAL active M [facility] ([facility]) Famotidine 40 MG Oral Tablet Famotidine 02/14/2020 12:00:00 AM EST ORAL active [facility] ([facility]) Tamsulosin hydrochloride 0.4 MG Oral Capsule Tamsulosin HCL 02/14/2020 12:00:00 AM EST ORAL active [facility] ([facility] Calcitriol 0.33056 MG Oral Capsule Calcitriol 02/14/2020 12:00:00 AM EST ORAL [facility] 24 HR Isosorbide Mononitrate 30 MG Extended Release Or al Tablet Isosorbide Mononitrate ER 02/14/2020 12:00:00 AM EST ORAL active [facility] ([facility]) carvedilol 3.125 MG Oral Tablet Carvedilol 02/14/2020 12:00:00 AM EST ORAL active [facility] ([facility]) 0.4 mg 12/15/2019 12:00:00 AM EDT [...] 11/13/2019 12:00:00 AM EDT ORAL active [facility] ([facility] nateglinide 120 MG Oral Tablet Nateglinide 11/13/2019 12:00:00 AM EDT ORAL completed [facility] ([facility]) Spironolactone 25 MG Oral Tablet Spironolactone 11/13/2019 12:00:00 A M EDT ORAL completed [facility] ([facility] Docusate Sodium 100 MG Oral Capsule [Colace] Colace 12:00:00 AM EDT ORAL completed [facility] ([facility]) quinapril 40 MG Oral Tablet Quinapril HCL 11/13/2019 12:00:00 AM EDT ORAL completed [facility] ([facility]) Allopurinol 100 MG Oral Tablet Allopurinol 11/13/2019 12:00:00 AM EDT ORAL completed [facility] ([facility]) 24 HR Isosorbide Mononitrate 30 MG [...] ORAL active [facility] ([facility]) 40 mg 03/22/2019 12:00:00 AM EST tablet [...] 03/14/2019 12:00:00 AM EST active [facility] ([facility]) 25 mg 02/09/2019 12:00:00 AM EST tablet extended release 24 hr 30 TAKE ONE TABLET BY MOUTH EVERY DAY TAKE ONE TABLET BY MOUTH EVERY DAY SOLD: 04/03/2019 Alexa Patel 24 HR metoprolol succinate 25 MG Extended Release Oral Tablet Metoprolol Succinate ER 02/07/2019 12:00:00 AM EST ORAL completed [facility] ([facility]) Insurance Providers Payer name Policy type / Coverage type Policy ID Covered democrat ID Covered democrat's relationship to cruz Policy Cruz Plan Information MEDICARE COMPLETE [id number] SP [id number] [facility] [id number] SP [id number] MEDICARE [id number] SP [id number] A UNITED [employer] MEDICARE [id number] S [id number] UNITED HEALTHCARE MEDICARE [id number] S [id number] [facility] MEDICARE [id number] S [id number] [facility] MEDICARE [id number] S [id number] [facility] MEDICARE [id number] S [id number] [facility] MEDICARE [id number] S [id number] [facility] MEDICARE [id number] S [id number] [facility] MEDICARE [id number] S [id number] MEDICARE COMPLETE-[facility] O [id number] S [id number] [facility] MEDICARE [id number] Page [id number] [facility] MEDICARE [id number] Medicare Natl Govt Servic Medicare Primary [id number] Self [id number] [facility] [employer] Commercial [id number] Self [id number] [facility]/Multiplan Medigap Part B [id number] Self [id number] Medicare Natl Govt Servic Medicare Primary [id number] Self [id number] [facility] MEDICARE PI PI [facility] MEDICARE [id number] S [id number] Medicare Natl Govt Servic Medicare Primary [id number] Self [id number] Medicare Natl Govt Servic Medicare Primary [id number] Self [id number] [facility] [employer] Commercial [id number] Self [id number] Medicare (Part B) Medicare Primary [id number] Self [id number] [facility]-Commercial Plan Medigap Part B [id number] Self [id number] [facility] makeena Commercial [id number] Self [id number] [facility]-Medicare Solutions Commercial [id number] Self [id number] Medicare (Part B) Medicare Primary [id number] Self [id number] Medicare Natl Govt Servic Medicare Primary [id number] Self [id number] MEDICARE COMPLETE [id number] 00 SP [id number] 00 Medicare (Part B) Medicare Primary [id number] Self [id number] Medicare (Part B) Medicare Primary [id number] Self [id number] Medicare Natl Govt Servic Medicare Primary [id number] Self [id number] Medicare (Part B) Medicare Primary [id number] Self [id number] Medicare Natl Govt Servic Medicare Primary [id number] Self [id number] Medicare Natl Govt Servic Medicare Primary [id number] Self [id number] Medicare (Part B) Medicare Primary [id number] Self [id number] Medicare (Part B) Medicare Primary [id number] Self [id number] Medicare Natl Govt Servic Medicare Primary [id number] Self [id number] Unitedhcare Medicare [employer] Commercial [id number] Self [id number] Medicare Natl Govt Servic Medicare Primary [id number] Self [id number] [facility] [employer] Commercial Self Unitedhcare Medicare [employer] Commercial [id number] Self [id number] [facility] Hcare/Multiplan Medigap Part B Self Medicare Natl Govt Servic Medicare Primary Self Medicare (Part B) Medicare Primary Self [facility]-Commercial Plan Medigap Part B Self Uhc MCR Commercial Self U/HC Medicare Solutions Commercial Self United [employer] (MCR) Commercial Self SELF PAY SP UNAVAILABLE S UNAVAILA BLE Medicare Medicare Primary Self United Healthcare Medigap Part B Self Problems, Conditions, and Diagnoses Code Display Name Description Problem Type Effective Dates Data Source(s) 780371418 Anemia Anemia Problem 03/14/2019 12:00:00 AM [facility] ([facility]) Z79.01 group home (current) use of anticoagulant s MOTOR MAN (CURRENT) USE OF ANTICOAGULANT Diagnosis 04/18/2020 09:30:00 AM [facility] l R91.8 Other nonspecific abnormal finding of lyudmila ng field OTHER NONSPECIFIC ABNORMAL FINDING OF LUNG FIELD Diagnosis 03/13/2020 12:00:00 PM [facility] I50.33 Acute on chronic diastolic (congestive) heart failure ACUTE ON CHRONIC DIASTOLIC (CONGESTIVE) Diagnosis 09/25/2019 11:03:00 AM [facility] E87.6 Hypokalemia HYPOKALEMIA Diagnosis 09/25/2019 11:03:00 AM [facility] 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, or unspecified chronic kidney disease HYP HRT CHR KDNY DIS W HRT FAIL AND ST Diagnosis 020 08:35:00 AM [facility] J98.11 Atelectasis ATELECTASIS Diagnosis 09/08/2019 09:04:00 AM [facility] J18.1 Lobar pneumonia, unspecified organism LO BAR PNEUMONIA, UNSPECIFIED ORGANISM Diagnosis 09/08/2019 09:04:00 AM [facility] l J90 Pleural effusion, not elsewhere classifi ed PLEURAL EFFUSION, NOT ELSEWHERE CLASSIFIED Diagnosis 09/08/2019 09:04:00 AM [facility] I50.9 Heart failure, unspecified HEART FAILURE, UNSPECIFIED Diagnosis 09/08/2019 09:04:00 AM [facility] Z96.642 Presence of left artificial hip joint IA ESENCE OF LEFT ARTIFICIAL HIP JOINT Diagnosis 08/05/2019 02:00:00 PM [facility] Z86.79 Personal history of other diseases of th e circulatory system PERSONAL HISTORY OF OTHER DISEASES OF THE CIRCULAT Diagnosis 08/05/2019 02:00:0 0 PM [facility] Z66 Do not resuscitate DO NOT RESUSCITATE Diagnosis 0 02:00:00 PM [facility] R59.9 Enlarged lymph nodes, unspecified ENLARGED LYMPH NODES, UNSPECIFIED Diagnosis 08/05/2019 02:00:00 PM [facility] R09.02 Hypoxemia HYPOXEMIA Diagnosis 08/05/2019 02:00:00 PM [facility] K22.2 Esophageal obstruction ESOPHAGEAL OBSTRUCTION Diagnosi s 08/05/2019 02:00:00 PM [facility] K21.9 Gastro-esophageal reflux disease without esophagitis GASTRO-ESOPHAGEAL REFLUX DISEASE WITHOUT ESOPHAGIT Diagnosis 08/05/2019 02:00:00 PM [facility] I49.5 Sick sinus syndrome SICK SINUS SYNDROME Diagnosis 0 08/05/2019 02:00:00 PM [facility] E78.2 Mixed hyperlipidemia MIXED HYPERLIPIDEMIA Diagnosis 08/05/2019 02:00:00 PM [facility] J44.0 Chronic obstructive pulmonar y disease with acute lower respiratory infection CHR OBSTRUCTIVE PULMON DISEASE WITH (ACUTE) LOWER Diagnosis 08/05/2019 02:00:00 PM [facility] I50.41 Acute combined systolic (con gestive) and diastolic (congestive) heart failure ACUTE COMBINED SYSTOLIC AND DIASTOLIC (CONGESTIVE) Diagnosis 08/05/2019 02:00:00 PM [facility] Z87.891 Personal history of nicotine dependence PERSONAL HISTORY OF NICOTINE DEPENDENCE Diagnosis 08/04/2019 01:03:00 PM [facility] Z79.82 group home (current) use of aspirin MOTOR MAN (CU RRENT) USE OF ASPIRIN Diagnosis 08/04/2019 01:03:00 PM [facility] Z79.4 group home (current) use of insulin MOTOR MAN (CU RRENT) USE OF INSULIN Diagnosis 08/04/2019 01:03:00 PM [facility] Z95.0 Presence of cardiac pacemaker PRESENCE OF CARDIAC PACE MAKER Diagnosis 08/04/2019 01:03:00 PM [facility] Z79.899 Other custodial (current) drug therapy O THER MOTOR MAN (CURRENT) DRUG THERAPY Diagnosis 08/04/2019 01:03:00 PM [facility] l Z95.1 Presence of aortocoronary bypass graft P RESENCE OF AORTOCORONARY BYPASS GRAFT Diagnosis 08/04/2019 01:03:00 PM [facility] l I25.5 Ischemic cardiomyopathy ISCHEMIC CARDIOMYOPATHY Diagno sis 08/04/2019 01:03:00 PM [facility] R79.82 Elevated C-reactive protein (CRP) ELEVATED C-SANDRA CTIVE PROTEIN (CRP) Diagnosis 08/04/2019 01:03:00 PM [facility] 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, unspecif ied RHEUMATIC MITRAL VALVE DISEASE, UNSPECIFIED Diagnosis 08/04/2019 01:03:00 PM [facility] 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, unsp ecified NONRHEUMATIC AORTIC VALVE DISORDER, UNSPECIFIED Diagnosis 08/04/2019 01:03:00 PM [facility] E11.9 Type 2 diabetes mellitus without complic ations TYPE 2 DIABETES MELLITUS WITHOUT COMPLICATIONS Diagnosis 08/04/2019 01:03:00 PM [facility] J45.909 Unspecified asthma, uncomplicated UNSPECIFIED THMA, UNCOMPLICATED Diagnosis 08/04/2019 01:03:00 PM [facility] R06.00 Dyspnea, unspecified DYSPNEA, UNSPECIFIED Diagnosis 08/04/2019 01:03:00 PM [facility] I50.32 Chronic diastolic (congestive) heart jhonatan lure CHRONIC DIASTOLIC (CONGESTIVE) HEART JHONATAN Diagnosis 07/26/2019 08:52:00 AM [facility] I48.0 Paroxysmal atrial fibrillation PAROXYSMAL ATRIAL FIBRI LLATION Diagnosis 07/26/2019 08:52:00 AM [facility] 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 HYPOTHYROIDISM DUE TO MEDS AND OTH EXOGENOUS SUBSTANCES Diagnosis 03/15/2019 11:22:00 AM [facility] Surgeries/Procedures Procedure Description Date Indications Data Source(s) PARING/CUTTING BENIGN HYPERKERATOTIC LESION 2-4 2020 12:00:00 AM EST [facility] ([facility] DEBRIDEMENT NAIL ANY METHOD 03/26/2020 12:00:00 AM EST [facility] ([facility] INTERROGATION EVAL IN PERSON 1/DUAL/CEMENT MIXER LEAD PM 2019 12:00:00 AM EST [facility] ([facility]) PARING/CUTTING BENIGN HYPERKERATOTIC LESION 2-4 2019 12:00:00 AM EST [facility] ([facility] DEBRIDEMENT NAIL ANY METHOD 01/16/2020 12:00:00 AM EST [facility] ([facility] ECG ROUTINE ECG W/LEAST 12 LDS W/I&R 11/14/2019 12:00: 00 AM EDT [facility] ([facility]) PARING/CUTTING BENIGN HYPERKERATOTIC LESION 2-4 2019 12:00:00 AM EDT [facility] ([facility] DEBRIDEMENT NAIL ANY METHOD 11/07/2019 12:00:00 AM EDT [facility] ([facility] INTERROGATION EVAL REMOTE </90 D 1/2/CEMENT MIXER LEAD PM 09/06 12:00:00 AM EDT [facility] ([facility]) INTERROGATION REMOTE </90 D STAFF MECHANICAL ENGINEER REVIEW 09/07/19 12:00:00 AM EDT [facility] ([facility]) PARING/CUTTING BENIGN HYPERKERATOTIC LESION 2-4 2019 12:00:00 AM EDT [facility] ([facility] DEBRIDEMENT NAIL ANY METHOD 08/29/2019 12:00:00 AM EDT [facility] ([facility] Introduction of Insulin into Subcutaneous Tissue, Percutaneo us Approach 08/05/2019 12:00:00 AM [facility] Introduction of Other Therapeutic Substa nce into Peripheral Vein, Percutaneous Approach 08/05/2019 12:00:00 AM [facility] Introduction of Anti-inflammatory into R espiratory Tract, Via Natural or Artificial Opening 08/05/2019 12:00:00 AM [facility] Introduction of Other Anti-infective int o Peripheral Vein, Percutaneous Approach 08/05/2019 12:00:00 AM [facility] ECG ROUTINE ECG W/LEAST 12 LDS W/I&R 07/21/2019 12:00: 00 AM EDT [facility] ([facility]) INTERROGATION EVAL REMOTE </90 D 1/2/CEMENT MIXER LEAD PM 06/07 12:00:00 AM EDT [facility] ([facility]) INTERROGATION REMOTE </90 D STAFF MECHANICAL ENGINEER REVIEW 06/08/19 12:00:00 AM EDT [facility] ([facility]) History of diabetes mellitus , Dx: Early 90's, A1c: unsure of the last result, FBS: 140 this morning History of diabetes mellitus , Dx: Early 90's, A1c: unsure of the last result, FBS: 140 this morning 05/23/2019 12:00:00 AM EDT ROJELIO (Sabino Watkins MD [facility]) History of cataract surgery PCIOL OU - MFIOL History of cataract surgery PCIOL OU - MFIOL 05/23/2019 12:00:00 AM EDT ROJELIO (Dax Watkins MD [facility]) PARING/CUTTING BENIGN HYPERKERATOTIC LESION 2-4 2019 12:00:00 AM EST [facility] ([facility] DEBRIDEMENT NAIL ANY METHOD 6/> 05/01/2019 12:00:00 AM EST [facility] ([facility] ECG ROUTINE ECG W/LEAST 12 LDS W/I&R 04/03/2019 12:00: 00 AM EST [facility] ([facility]) Colonoscopy 03/29/2019 12:00:00 AM EST M EDENT ([facility]) INTERROGATION EVAL REMOTE </90 D 1/2/CEMENT MIXER LEAD PM 03/09 12:00:00 AM EST [facility] ([facility]) INTERROGATION REMOTE </90 D STAFF MECHANICAL ENGINEER REVIEW 03/09/19 12:00:00 AM EST [facility] ([facility]) PARING/CUTTING BENIGN HYPERKERATOTIC LESION 2-4 2018 12:00:00 AM EST [facility] ([facility] DEBRIDEMENT NAIL ANY METHOD 6/> 02/20/2019 12:00:00 AM EST [facility] ([facility] Results ID Date Data Source [id number] 04/18/2020 10:03:00 AM EST [facility] [phone] Name Value Range Interpretation Code Description Data Cindy rce(s) Supporting Document(s) PROTHROMBIN TIME (PATIENT) 15.3 SECONDS 9.1-11.6 [facility] INR 1.48 0.87-1.06 [facility] ID Date Data Source [id number] 04/09/2020 11:34:00 AM EST [facility] FA[facility] TO [phone] Name Value Range Interpretation Code Description Data Cindy rce(s) Supporting Document(s) PROTHROMBIN TIME (PATIENT) 13.7 SECONDS 9.1-11.6 H [facility] INR 1.32 0.87-1.06 [facility] ID Date Data Source [id number] 03/25/2020 11:48:00 AM EST [facility] [phone] Name Value Range Interpretation Code Description Data Cindy rce(s) Supporting Document(s) PROTHROMBIN TIME (PATIENT) 15.0 SECONDS 9.1-11.6 [facility] INR 1.45 0.87-1.06 [facility] ID Date Data Source [id number] 03/18/2020 01:58:00 PM EST [facility] [phone] Name Value Range Interpretation Code Description Data Cindy rce(s) Supporting Document(s) PROTHROMBIN TIME (PATIENT) 16.0 SECONDS 9.1-11.6 [facility] INR 1.55 0.87-1.06 [facility] ID Date Data Source [id number] 03/13/2020 01:10:00 PM EST [facility] l DATE OF EXAMINATION: 03/13/2020 11:45 EST CHEST [...] rce(s) Supporting Document(s) ID Date Data Source [id number] 03/11/2020 02:47:00 PM EST [facility] ([facility]) Name Value Range Interpretation Code Description Data Cindy rce(s) Supporting Document(s) White Blood Count 4.7 4.3-10.9 [facility] ([facility]) Red Blood Count 2.98 4.70-6.20 [facility] ([facility]) Platelets 200 130-400 [facility] ([facility]) Hemoglobin 10.0 13.0-17.0 [facility] ([facility]) Hematocrit 31.1 39.0-50.0 [facility] ([facility]) ID Date Data Source [id number] 03/11/2020 02:47:00 PM EST [facility] ([facility]) Name Value Range Interpretation Code Description Data Cindy rce(s) Supporting Document(s) Glucose 347 70-100 [facility] ([facility]) Creatinine 2.5 0.6-1.5 [facility] ([facility]) Blood Urea Nitrogen 40.2 5-21 [facility] ([facility]) Sodium 139 136-146 [facility] Glomerular filtration rate/1.73 sq M.pre dicted [Volume Rate/Area] in Serum or Plasma by Creatinine-based formula (MDRD) 24 [facility] ([facility]) Chloride 95.6 98-110 [facility] Carbon Dioxide 32.5 20-32 [facility] ([facility]) Potassium 4.77 3.5-5.3 [facility] ([facility]) Calcium 9.6 8.4-10.4 [facility] ([facility]) Phosphorus 3.6 [facility] ([facility]) Albumin 3.8 3.5-4.7 [facility] ID Date Data Source [id number] 02/16/2020 02:12:00 PM EST [facility] [phone] Name Value Range Interpretation Code Description Data Cindy rce(s) Supporting Document(s) PROTHROMBIN TIME (PATIENT) 28.7 SECONDS 9.1-11.6 H [facility] INR 2.79 0.87-1.06 [facility] ID Date Data Source [id number] 02/09/2020 02:22:00 PM EST [facility] [phone] Name Value Range Interpretation Code Description Data Cindy rce(s) Supporting Document(s) PROTHROMBIN TIME (PATIENT) 15.8 SECONDS 9.1-11.6 H [facility] INR 1.53 0.87-1.06 [facility] ID Date Data Source [id number] 01/08/2020 02:32:00 PM EST [facility] ([facility]) Name Value Range Interpretation Code Description Data Cindy rce(s) Supporting Document(s) Magnesium Level 1.99 [facility] ([facility] ID Date Data Source [id number] 01/08/2020 02:32:00 PM EST [facility] ([facility]) Name Value Range Interpretation Code Description Data Cindy rce(s) Supporting Document(s) Red Blood Count 2.90 4.70-6.20 [facility]) White Blood Count 4.5 4.3-10.9 [facility] ([facility]) Platelets 213 130-400 [facility] [place] Hematocrit 30.4 39.0-50.0 [facility] ([facility]) Hemoglobin 9.7 13.0-17.0 [facility] ([facility]) ID Date Data Source [id number] 01/08/2020 02:32:00 PM EST [facility] Name Value Range Interpretation Code Description Data Cindy rce(s) Supporting Document(s) Creatinine 2.1 0.6-1.5 [facility] ([facility]) Glucose 216 70-100 [facility] Blood Urea Nitrogen 36.9 5-21 [facility] Potassium 4.88 3.5-5.3 [facility] [place] Sodium 140.2 136-146 [facility] [place] Glomerular filtration rate/1.73 sq M.pre dicted [Volume Rate/Area] in Serum or Plasma by Creatinine-based formula (MDRD) 30 [facility] ([facility]) Carbon Dioxide 26.7 20-32 [facility] Calcium 8.3 8.4-10.4 [facility] [place] Chloride 103.4 98-110 [facility] [place] Albumin 3.8 3.5-4.7 [facility] [place] Phosphorus 3.4 [facility] ([facility]) ID Date Data Source [id number] 12/14/2019 09:31:00 AM EDT [facility] Name Value Range Interpretation Code Description Data Cindy rce(s) Supporting Document(s) Magnesium Level 2.31 [facility] ([facility] ID Date Data Source [id number] 12/14/2019 09:31:00 AM EDT [facility] ([facility] [place] ID Date Data Source [id number] 12/14/2019 09:31:00 AM EDT [facility] ([facility]) Name Value Range Interpretation Code Description Data Cindy rce(s) Supporting Document(s) Glucose 221 70-100 [facility] [place] Glomerular filtration rate/1.73 sq M.pre dicted [Volume Rate/Area] in Serum or Plasma by Creatinine-based formula (MDRD) 18 [facility] ([facility]) Blood Urea Nitrogen 60.3 5-21 [facility] Creatinine 3.2 0.6-1.5 [facility] ([facility] [...] [facility] [place] ID Date Data Source [id number] 12/04/2019 08:58:00 AM EDT [facility] ([facility]) Name Value Range Interpretation Code Description Data Cindy rce(s) Supporting Document(s) Magnesium Level 2.17 [facility] ([facility] [place] ID Date Data Source [id number] 12/04/2019 08:58:00 AM EDT [facility] ([facility]) Name Value Range Interpretation Code Description Data Cindy rce(s) Supporting Document(s) White Blood Count 5.1 4.3-10.9 [facility] ([facility]) Red Blood Count 3.08 4.70-6.20 [facility] ([facility]) Hematocrit 31.8 39.0-50.0 [facility] ([facility]) Platelets 191 130-400 [facility] ([facility]) Hemoglobin 10.3 13.0-17.0 [facility] ([facility]) ID Date Data Source [id number] 12/04/2019 08:58:00 AM EDT [facility] ([facility]) Name Value Range Interpretation Code Description Data Cindy rce(s) Supporting Document(s) Glucose 362 70-100 [facility] [place] Blood Urea Nitrogen 40.3 5-21 [facility] ([facility]) Creatinine 2.2 0.6-1.5 [facility] ([facility]) Sodium 139 136-146 [facility] ([facility]) Glomerular filtration rate/1.73 sq M.pre dicted [Volume Rate/Area] in Serum or Plasma by Creatinine-based formula (MDRD) 28 [facility] ([facility]) Potassium 5.27 3.5-5.3 [facility] [place] Chloride 103.1 98-110 [facility] [place] Carbon Dioxide 26.0 20-32 [facility] ([facility]) Calcium 9.4 8.4-10.4 [facility] [place] Albumin 4.1 3.5-4.7 [facility] [place] Phosphorus 3.5 [facility] ([facility]) ID Date Data Source [id number] 11/10/2019 02:59:00 PM EDT [facility] ([facility]) Name Value Range Interpretation Code Description Data Cindy rce(s) Supporting Document(s) I N R Laboratory test result [facility] ([facility]) P T 1.4 [facility] ([facility]) ID Date Data Source [id number] 11/10/2019 02:59:00 PM EDT [facility] Name Value Range Interpretation Code Description Data Cindy rce(s) Supporting Document(s) White Blood Count 4.8 4.3-10.9 [facility] ([facility]) Platelets 213 130-400 [facility] ([facility]) Red Blood Count 3.09 4.70-6.20 [facility] ([facility]) Hemoglobin 10.0 13.0-17.0 [facility] ([facility]) Hematocrit 29.8 39.0-50.0 [facility] ([facility]) ID Date Data Source [id number] 11/10/2019 02:59:00 PM EDT [facility] Name Value Range Interpretation Code Description Data Cindy rce(s) Supporting Document(s) Calcium [Mass/volume] in Serum or Plasma 9.4 [facility] ([facility]) Carbon dioxide, total [Moles/volume] in Serum or Plasma 24 [facility] ([facility]) Chloride [Moles/volume] in Serum or Plasma 102 [facility] ([facility]) Sodium 137 [facility] Blood Urea Nitrogen 42 5-21 [facility] ([facility]) Potassium [Moles/volume] in Serum or Plasma 4.9 [facility] ([facility]) Glucose 261 70-100 [facility]) Glomerular filtration rate/1.73 sq M.pre dicted [Volume Rate/Area] in Serum or Plasma by Creatinine-based formula (MDRD) 18 [facility] ([facility]) Creatinine 3.3 0.6-1.5 [facility] ([facility] [facility]) ID Date Data Source [id number] 10/30/2019 08:33:00 AM EDT [facility]) Name Value Range Interpretation Code Description Data Cindy rce(s) Supporting Document(s) Magnesium Level 1.99 [facility]) ID Date Data Source [id number] 10/30/2019 08:33:00 AM EDT [facility] Name Value Range Interpretation Code Description Data Cindy rce(s) Supporting Document(s) White Blood Count 6.8 4.3-10.9 [facility]) Red Blood Count 3.34 4.70-6.20 [facility] Hemoglobin 10.9 13.0-17.0 [facility]) Platelets 361 130-400 [facility] Hematocrit 32.9 39.0-50.0 [facility]) ID Date Data Source [id number] 10/30/2019 08:33:00 AM EDT [facility] Name Value Range Interpretation Code Description Data Cindy rce(s) Supporting Document(s) Creatinine 3.1 0.6-1.5 [facility]) Glucose 297 70-100 [facility] Blood Urea Nitrogen 44.7 5-21 [facility] ([facility]) Potassium 4.08 3.5-5.3 [facility] Sodium 140.7 136-146 [facility] Glomerular filtration rate/1.73 sq M.pre dicted [Volume Rate/Area] in Serum or Plasma by Creatinine-based formula (MDRD) 19 [facility] Calcium 8.8 8.4-10.4 [facility] Chloride 96.5 98-110 [facility] Carbon Dioxide 29.6 20-32 [facility]) Phosphorus 3.7 [facility]) Albumin 3.9 3.5-4.7 [facility] ID Date Data Source [id number] 10/17/2019 04:02:00 PM EDT [facility]) ID Date Data Source [id number] 10/16/2019 04:01:00 PM EDT [facility]) ID Date Data Source [id number] 10/10/2019 03:59:00 PM EDT [facility] ([facility]) ID Date Data Source [id number] 10/09/2019 03:57:00 PM EDT [facility] Name Value Range Interpretation Code Description Data Cindy rce(s) Supporting Document(s) White Blood Count 5.9 4.0-10.0 [facility]) Red Blood Count 3.23 4.30-6.10 [facility]) Platelets 239 150-450 [facility]) Hemoglobin 10.5 [facility]) Hematocrit 33.2 [facility]) ID Date Data Source [id number] 09/25/2019 12:15:00 PM EDT [facility] FAX [phone] Name Value Range Interpretation Code Description Data Cindy rce(s) Supporting Document(s) B-TYPE NATRIURETIC PEPTIDE 9870 pg/ml 0-450 *[facility] ID Date Data Source [id number] 09/25/2019 11:57:00 AM EDT [facility] FAX [phone] Name Value Range Interpretation Code Description Data Cindy rce(s) Supporting Document(s) ACETONE,SERUM NEGATIVE NEGATIVE [facility] ID Date Data Source [id number] 09/25/2019 12:15:00 PM EDT [facility] FAX [phone] Name Value Range Interpretation Code Description Data Cindy rce(s) Supporting Document(s) GLUCOSE 240 mg/dL 74-106 H [facility] BLOOD UREA NITROGEN 36 mg/dL 7-18 H [facility] ital CREATININE 3.1 mg/dL 0.7-1.3 H [facility] SODIUM 139 mmol/L 136-145 [facility] POTASSIUM 4.0 mmol/L 3.5-5.1 [facility] CHLORIDE 101 mmol/L 98-107 [facility] CO2 25 mmol/L 21-32 [facility] CALCIUM 9.3 mg/dL 8.5-10.1 [facility] ANION GAP 13.0 mmol/L 5-12 H [facility] GLOMERULAR FILTRATION RATE 18 mL/min [facility] GFR IS CALCULATED IN mL/min/1.73m2 LEONARD L FUNCTION: >90MILDLY DECREASED: 60-89MILDY TO MODERATELY DECREASED: 45-59 MODERATELY TO SEVERELY DECREASED: 30-44SEVERELY DECREASED: 15-29RENAL FAILURE: <15 ID Date Data Source [id number] 09/21/2019 10:00:[address] [facility] [phone] Name Value Range Interpretation Code Description Data Cindy rce(s) Supporting Document(s) B-TYPE NATRIURETIC PEPTIDE 43332 pg/ml 0-450 *[facility] ID Date Data Source [id number] 09/21/2019 10:00:[address] [facility] [phone] Name Value Range Interpretation Code Description Data Cindy rce(s) Supporting Document(s) GLUCOSE 44 mg/dL 74-106 L [facility] BLOOD UREA NITROGEN 31 mg/dL 7-18 H [facility] ital CREATININE 2.7 mg/dL 0.7-1.3 H [facility] SODIUM 145 mmol/L 136-145 [facility] POTASSIUM 3.1 mmol/L 3.5-5.1 L [facility] CHLORIDE 104 mmol/L 98-107 [facility] CO2 29 mmol/L 21-32 [facility] CALCIUM 9.1 mg/dL 8.5-10.1 [facility] ANION GAP 12.0 mmol/L 5-12 [facility] GLOMERULAR FILTRATION RATE 22 mL/min [facility] GFR IS CALCULATED IN mL/min/1.73m2 LEONARD L FUNCTION: >90MILDLY DECREASED: 60-89MILDY TO MODERATELY DECREASED: 45-59 MODERATELY TO SEVERELY DECREASED: 30-44SEVERELY DECREASED: 15-29RENAL FAILURE: <15 ID Date Data Source [id number] 09/08/2019 09:59:[address] [facility] DATE OF EXAMINATION: 09/08/2019 9:08 EDT CHEST [...] rce(s) Supporting Document(s) ID Date Data Source [id number] 08/24/2019 09:55:00 AM [facility] Name Value Range Interpretation Code Description Data Cindy rce(s) Supporting Document(s) PROTHROMBIN TIME (PATIENT) 29.7 SECONDS 9.2-11.6 [facility] INR 2.95 0.87-1.06 [facility] ID Date Data Source [id number] 08/17/2019 12:17:00 PM [facility] In-Patient NoteNote:GREGORIA [facility] Dear Dr Correia,Dear Andreina, We had a pleasure of having Mr [...] your very delightful patient. Sincerely, Lizbeth Duggan M.D.[facility] Name Value Range Interpretation Code Description Data Cindy rce(s) Supporting Document(s) ID Date Data Source [id number] 08/17/2019 12:17:00 PM [facility] Discharge Appointments AppointmentsFoll ow up with:TENZIN GRAVES [...] rce(s) Supporting Document(s) ID Date Data Source [id number] 08/11/2019 08:26:[address] [facility] Patient: GHASSAN AUGUSTINE Observation Report - Physicians/Mid Levels [facility].VisitID: [id number] [place] [address] [phone], MRegistration Date/Time: 08/04/2019 10:52 Weight:77.7 kg (M). [...] Disease WHO PRESENTED TO Emergency Department of [facility] with dyspnea. His worsening of breathing [...] cannula at 4 liters/minute. Pain level now: 010.08/04/2019 11:58 BP: 164/81. MAP: 108. HR: 80. [...] 06:15)( MsgRcvd 08/05/2019 06:35) New Order TSYSORDER [id number] Test Result Flag Units (Reference)WHITE BLOOD COUNT [...] 06:15)( MsgRcvd 08/05/2019 07:06) New Order TSYSORDER [id number] Test Result Flag Units (Reference)GLUCOSE 221 H mg/dL (74-106) BLOOD UREA NITROGEN 36 H mg/dL (7-18) CREATININE 2.4 H mg/dL (0.7-1.3) SODIUM 147 H mmol/L (136-145) POTASSIUM 3.7 mmol/L (3.5-5.1) CHLORIDE 107 mmol/L (98-107) CO2 31 mmol/L (21-32) CALCIUM 8.7 mg/dL (8.5-10.1) ANION GAP 9.0 mmol/L (5-12) GLOMERULAR FILTRATION RATE 26 mL/min GFR IS CALCULATED IN mL/min/1.61f2HVJHZO FUNCTION: >90MILDLY DECREASED: 60-89MILDY TO MODERATELY DECREASED: 45-59 MODERATELY TO SEVERELY DECREASED: 30-44SEVERELY DECREASED: 15-29RENAL FAILURE: <15 AST 18 U/L (15-37) ALT 20 U/L (12-78) ALKALINE PHOSPHATASE 79 U/L (46-116) TOTAL BILIRUBIN 0.8 mg/dL (0.2-1.0) TOTAL PROTEIN 7.1 g/dl (6.4-8.2) ALBUMIN 3.6 gm/dL (3.4-5.0) PT with INR: (CHRISTIE: 08/05/2019 06:15)( [facility] 08/05/2019 07:11) New Order TSYSORDER [id number] Test Result Flag Units (Reference)PROTHROMBIN TIME (PATIENT) 25.6 H SECONDS (9.2-11.6) INR 2.53 H (0.87-1.06) CT Chest wo IV Cont: (CHRISTIE: 08/04/2019 13:45)( [facility] 08/04/2019 14:39) Exam CHEST W/O IV CONTRAST [...] be compressive atelectasis or pneumonia Pleural space: Yudhj-dh-pajzpnff bilateral pleural effusions more pronounced on the [...] 11:20)( MsgRcvd 08/04/2019 11:34) New Order TSYSORDER [id number] Test Result Flag Units (Reference)WHITE BLOOD COUNT [...] 11:20)( MsgRcvd 08/04/2019 11:54) New Order TSYSORDER [id number] Test Result Flag Units (Reference)PROTHROMBIN TIME (PATIENT) [...] RATE 25 mL/min GFR IS CALCULATED IN mL/min/1.19n3QZRHTK FUNCTION: > 90MILDLY DECREASED: 60-89MILDY TO MODERATELY DECREASED: 45-59 MODERATELY TO SEVERELY DECREASED: 30-44SEVERELY DECREASED: 15-29RENAL FAILURE: <15 AST 22 U/L (15-37) ALT 20 U/L (12-78) ALKALINE PHOSPHATASE 88 U/L (46-116) TOTAL BILIRUBIN 1.3 H mg/dL (0.2-1.0) TOTAL PROTEIN 7.9 g/dl (6.4-8.2) ALBUMIN 3.8 gm/dL (3.4-5.0) TROPONIN I < 0.017 ng/mL (0.0-0.056) MAGNESIUM 2.1 mg/dL (1.8-2.4) B-TYPE NATRIURETIC PEPTIDE 08232 *H pg/ml (0- 450) CRP: (CHRISTIE: 08/04/2019 11:20)( MsgRcvd 08/04/2019 14:00) New Order TSYSORDER [id number] Test Result Flag Units (Reference)C REACTIVE PROTEIN [...] Calcium Oral 20 mg, daily, last dose 08/03/19.Calcitriol Oral (Capsule 0.25 mcg) 1 capsule, daily, last dose 08/04/19.HumaLOG KwikPen Subcutaneous (Solution Pen-injector 100 unit/mL) per sliding sclea, 3x a day, diabetes, last dose 08/04/19 (10units).Lantus Subcutaneous 24 units, daily after meals, last dose 08/03/19.Multivitamins Oral 1 pill, daily, last dose 08/04/19.Synthroid Oral 75 mcg, daily, last dose 08/04/19.Torsemide Oral (Tablet 20 mg) 2 tablets, daily, last dose 08/04/19.Vitamin D3 Oral (Tablet 25 MCG (1000 UT)) 1 tablet, daily, last dose 08/04/19. Allergies:No Known Drug Allergy. FAMILY HISTORYFather: Lung Disease. Sister(s): Breast Cancer. (Electronically signed by Jenny Montilla, P.Shawna 08/06/2019 23:41) Name Value Range Interpretation Code Description Data Cindy rce(s) Supporting Document(s) ID Date Data Source [id number] 08/09/2019 11:56:00 AM EDT [facility] l Progress Note GeneralEncounter:Chart re viewed. Patient [...] rce(s) Supporting Document(s) ID Date Data Source [id number] 08/09/2019 06:39:00 AM EDT [facility] Name Value Range Interpretation Code Description Data Cindy rce(s) Supporting Document(s) WHITE BLOOD COUNT 6.7 K/mm3 4.0-10.0 [facility] 3.03 M/mm3 4.50-6.[address] [facility] HEMOGLOBIN 9.8 gm/dL 14.0-18.0 L [facility] HEMATOCRIT 30.6 % 42.0-54.0 [facility] MEAN CELL VOLUME 101.0 fl 80-96 *H [facility] MEAN CORPUSCULAR HEMOGLOBIN 32.3 pg 27.0-31.0 H [facility] MEAN CORPUSCULAR HGB CONC 32.0 g/dl 32.0-36.0 [facility] RED CELL DISTRIBUTION WIDTH 15.3 % 10.0-14.5 H [facility] PLATELET COUNT 263 K/mm3 172-450 [facility] MEAN PLATELET VOLUME 9.7 fl 9.0-13.0 [facility] pital GRAN % 70.7 % 50-80.0 [facility] IG% 0.1 % 0.0-0.2 [facility] LYMPH % 17.2 % 25.0-50.0 L [facility] MONO % 5.4 % 2.0-10.0 [facility] EOS % 5.7 % 0-5.0 H [facility] BASO % 0.9 % 0.0-2.0 [facility] GRAN # 4.7 K/mm3 2.0-8.00 [facility] IG# 0.0 K/mm3 0.0-0.2 [facility] LYMPH # 1.2 K/mm3 1.0-5.0 [facility] MONO # 0.4 K/mm3 0.10-1.20 [facility] EOS # 0.4 K/mm3 0.0-0.5 [facility] BASO # 0.1 K/mm3 0.0-0.2 [facility] ID Date Data Source [id number] 08/09/2019 07:49:00 AM EDT [facility] l Name Value Range Interpretation Code Description Data Cindy rce(s) Supporting Document(s) ERYTHROCYTE SEDIMENTATION RATE 60 mm/hr 0-30 H [facility] ID Date Data Source [id number] 08/09/2019 07:06:00 AM EDT [facility] l Name Value Range Interpretation Code Description Data Cindy rce(s) Supporting Document(s) C REACTIVE PROTEIN 49.7 mg/L 0.0-3.0 [facility] ID Date Data Source [id number] 08/09/2019 07:03:00 AM [facility] l Name Value Range Interpretation Code Description Data Cindy rce(s) Supporting Document(s) GLUCOSE 87 mg/dL 74-106 [facility] BLOOD UREA NITROGEN 60 mg/dL 7-18 *H [facility] ital CREATININE 2.9 mg/dL 0.7-1.3 H [facility] SODIUM 145 mmol/L 136-145 [facility] POTASSIUM 4.4 mmol/L 3.5-5.1 [facility] CHLORIDE 105 mmol/L 98-107 [facility] CO2 31 mmol/L 21-32 [facility] CALCIUM 9.2 mg/dL 8.5-10.1 [facility] ANION GAP 9.0 mmol/L 5-12 [facility] GLOMERULAR FILTRATION RATE 21 mL/min [facility] GFR IS CALCULATED IN mL/min/1.73m2 LEONARD L FUNCTION: >90MILDLY DECREASED: 60-89MILDY TO MODERATELY DECREASED: 45-59 MODERATELY TO SEVERELY DECREASED: 30-44SEVERELY DECREASED: 15-29RENAL FAILURE: <15 ID Date Data Source [id number] 08/09/2019 06:59:00 AM [facility] Name Value Range Interpretation Code Description Data [facility] rce(s) Supporting Document(s) PROTHROMBIN TIME (PATIENT) 23.7 SECONDS 9.2-11.6 H [facility] INR 2.34 0.87-1.06 H [facility] ID Date Data Source [id number] 08/08/2019 04:13:[address] [facility] Progress Note GeneralEncounter:Chart re viewed. 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, normal mood/affect, no [...] rce(s) Supporting Document(s) ID Date Data Source [id number] 08/08/2019 11:26:00 AM EDT [facility] l DATE OF EXAMINATION: 08/08/2019 9:49 EDT CHEST [...] rce(s) Supporting Document(s) ID Date Data Source [id number] 08/08/2019 10:57:00 AM EDT [facility] l Name Value Range Interpretation Code Description Data [facility] rce(s) Supporting Document(s) STOOL FOR OCCULT BLOOD NEGATIVE NEGATIVE [facility] ospital ID Date Data Source [id number] 08/08/2019 07:15:00 AM EDT [facility] l Name Value Range Interpretation Code Description Data [facility] rce(s) Supporting Document(s) GLUCOSE 55 mg/dL 74-106 L [facility] BLOOD UREA NITROGEN 51 mg/dL 7-18 *H [facility] ital CREATININE 2.7 mg/dL 0.7-1.3 H [facility] SODIUM 147 mmol/L 136-145 H [facility] POTASSIUM 3.3 mmol/L 3.5-5.1 L [facility] CHLORIDE 106 mmol/L 98-107 [facility] CO2 32 mmol/L 21-32 [facility] CALCIUM 8.7 mg/dL 8.5-10.1 [facility] ANION GAP 9.0 mmol/L 5-12 [facility] GLOMERULAR FILTRATION RATE 22 mL/min [facility] GFR IS CALCULATED IN mL/min/1.73m2 LEONARD L FUNCTION: >90MILDLY DECREASED: 60-89MILDY TO MODERATELY DECREASED: 45-59 MODERATELY TO SEVERELY DECREASED: 30-44SEVERELY DECREASED: 15-29RENAL FAILURE: <15 AST 38 U/L 15-37 H [facility] ALT 29 U/L 12-78 [facility] ALKALINE PHOSPHATASE 76 U/L 46-116 [facility] pital TOTAL BILIRUBIN 0.5 mg/dL 0.2-1.0 [facility] TOTAL PROTEIN 7.3 g/dl 6.4-8.2 [facility] ALBUMIN 3.5 gm/dL 3.4-5.0 [facility] ID Date Data Source [id number] 08/08/2019 06:57:00 AM EDT [facility] l Name Value Range Interpretation Code Description Data Cindy rce(s) Supporting Document(s) PROTHROMBIN TIME (PATIENT) 22.8 SECONDS 9.2-11.6 H [facility] INR 2.24 0.87-1.06 H [facility] ID Date Data Source [id number] 08/08/2019 06:49:00 AM EDT [facility] l Name Value Range Interpretation Code Description Data Cindy rce(s) Supporting Document(s) WHITE BLOOD COUNT 6.8 K/mm3 4.0-10.0 [facility] al RED BLOOD COUNT 2.97 M/mm3 4.50-6.[address] [facility] HEMOGLOBIN 9.6 gm/dL 14.0-18.0 L [facility] HEMATOCRIT 30.1 % 42.0-54.0 L [facility] MEAN CELL VOLUME 101.3 fl 80-96 *H [facility] MEAN CORPUSCULAR HEMOGLOBIN 32.3 pg 27.0-31.0 H [facility] MEAN CORPUSCULAR HGB CONC 31.9 g/dl 32.0-36.0 L [facility] RED CELL DISTRIBUTION WIDTH 15.5 % 10.0-14.5 H [facility] PLATELET COUNT 262 K/mm3 172-450 [facility] MEAN PLATELET VOLUME 10.1 fl 9.0-13.0 [facility] pital GRAN % 74.9 % 50-80.0 [facility] IG% 0.1 % 0.0-0.2 [facility] LYMPH % 13.4 % 25.0-50.0 L [facility] MONO % 5.9 % 2.0-10.0 [facility] EOS % 5.1 % 0-5.0 H [facility] BASO % 0.6 % 0.0-2.0 [facility] GRAN # 5.1 K/mm3 2.0-8.00 [facility] IG# 0.0 K/mm3 0.0-0.2 [facility] LYMPH # 0.9 K/mm3 1.0-5.0 L [facility] MONO # 0.4 K/mm3 0.10-1.20 [facility] EOS # 0.4 K/mm3 0.0-0.5 [facility] BASO # 0.0 K/mm3 0.0-0.2 [facility] ID Date Data Source [id number] 08/07/2019 06:26:00 PM EDT [facility] Progress Note GeneralEncounter:Chart re viewed. Patient interviewed and examined. Labs, medications and orders viewed by me. 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, normal mood/affect, no [...] rce(s) Supporting Document(s) ID Date Data Source [id number] 08/07/2019 06:33:00 PM EDT [facility] l Name Value Range Interpretation Code Description Data [facility] rce(s) Supporting Document(s) GLUCOSE 200 mg/dL 74-106 H [facility] BLOOD UREA NITROGEN 50 mg/dL 7-18 *H [facility] ital CREATININE 2.9 mg/dL 0.7-1.3 H [facility] SODIUM 143 mmol/L 136-145 [facility] POTASSIUM 3.2 mmol/L 3.5-5.1 L [facility] CHLORIDE 103 mmol/L 98-107 [facility] CO2 31 mmol/L 21-32 [facility] CALCIUM 9.1 mg/dL 8.5-10.1 [facility] ANION GAP 9.0 mmol/L 5-12 [facility] GLOMERULAR FILTRATION RATE 21 mL/min [facility] GFR IS CALCULATED IN mL/min/1.73m2 LEONARD L FUNCTION: >90MILDLY DECREASED: 60-89MILDY TO MODERATELY DECREASED: 45-59 MODERATELY TO SEVERELY DECREASED: 30-44SEVERELY DECREASED: 15-29RENAL FAILURE: <15 ID Date Data Source [id number] 08/07/2019 07:30:00 AM EDT [facility] Name Value Range Interpretation Code Description Data [facility] rce(s) Supporting Document(s) B-TYPE NATRIURETIC PEPTIDE 9907 pg/ml 0-450 *H [facility] ID Date Data Source [id number] 08/07/2019 07:30:00 AM EDT [facility] Name Value Range Interpretation Code Description Data Cindy rce(s) Supporting Document(s) IRON 23 ug/dL 65-175 L [facility] ID Date Data Source [id number] 08/07/2019 07:30:[address] [facility] Name Value Range Interpretation Code Description Data Cindy rce(s) Supporting Document(s) GLUCOSE 81 mg/dL 74-106 [facility] BLOOD UREA NITROGEN 48 mg/dL 7-18 *H [facility] ital CREATININE 2.7 mg/dL 0.7-1.3 H [facility] SODIUM 146 mmol/L 136-145 H [facility] POTASSIUM 3.1 mmol/L 3.5-5.1 L [facility] CHLORIDE 104 mmol/L 98-107 [facility] CO2 31 mmol/L 21-32 [facility] CALCIUM 9.3 mg/dL 8.5-10.1 [facility] ANION GAP 11.0 mmol/L 5-12 [facility] GLOMERULAR FILTRATION RATE 22 mL/min [facility] GFR IS CALCULATED IN mL/min/1.73m2 LEONARD L FUNCTION: >90MILDLY DECREASED: 60-89MILDY TO MODERATELY DECREASED: 45-59 MODERATELY TO SEVERELY DECREASED: 30-44SEVERELY DECREASED: 15-29RENAL FAILURE: <15 AST 32 U/L 15-37 [facility] ALT 27 U/L 12-78 [facility] ALKALINE PHOSPHATASE 80 U/L 46-116 [facility] pital TOTAL BILIRUBIN 0.6 mg/dL 0.2-1.0 [facility] TOTAL PROTEIN 7.4 g/dl 6.4-8.2 [facility] ALBUMIN 3.6 gm/dL 3.4-5.0 [facility] ID Date Data Source [id number] 08/07/2019 06:54:00 AM [facility] Name Value Range Interpretation Code Description Data Cindy [facility](s) Supporting Document(s) WHITE BLOOD COUNT 6.6 K/mm3 4.0-10.0 [facility] al RED BLOOD COUNT 2.91 M/mm3 4.50-6.[address] [facility] HEMOGLOBIN 9.5 gm/dL 14.0-18.0 L [facility] HEMATOCRIT 29.4 % 42.0-54.0 L [facility] MEAN CELL VOLUME 101.0 fl 80-96 *H [facility] MEAN CORPUSCULAR HEMOGLOBIN 32.6 pg 27.0-31.0 H [facility] MEAN CORPUSCULAR HGB CONC 32.3 g/dl 32.0-36.0 [facility] RED CELL DISTRIBUTION WIDTH 15.4 % 10.0-14.5 H [facility] PLATELET COUNT 241 K/mm3 172-450 [facility] MEAN PLATELET VOLUME 9.8 fl 9.0-13.0 [facility] pital GRAN % 76.5 % 50-80.0 [facility] IG% 0.2 % 0.0-0.2 [facility] LYMPH % 10.7 % 25.0-50.0 L [facility] MONO % 6.9 % 2.0-10.0 [facility] EOS % 4.8 % 0-5.0 [facility] BASO % 0.9 % 0.0-2.0 [facility] GRAN # 5.1 K/mm3 2.0-8.00 [facility] IG# 0.0 K/mm3 0.0-0.2 [facility] LYMPH # 0.7 K/mm3 1.0-5.0 L [facility] MONO # 0.5 K/mm3 0.10-1.20 [facility] EOS # 0.3 K/mm3 0.0-0.5 [facility] BASO # 0.1 K/mm3 0.0-0.2 [facility] ID Date Data Source [id number] 08/06/2019 07:29:00 AM EDT [facility] l Name Value Range Interpretation Code Description Data Cindy rce(s) Supporting Document(s) GLUCOSE 88 mg/dL 74-106 [facility] BLOOD UREA NITROGEN 43 mg/dL 7-18 *H [facility] ital CREATININE 2.6 mg/dL 0.7-1.3 H [facility] SODIUM 147 mmol/L 136-145 H [facility] POTASSIUM 3.2 mmol/L 3.5-5.1 L [facility] CHLORIDE 105 mmol/L 98-107 [facility] [facility] CO2 30 mmol/L 21-32 [facility] CALCIUM 8.8 mg/dL 8.5-10.1 [facility] ANION GAP 12.0 mmol/L 5-12 [facility] GLOMERULAR FILTRATION RATE 23 mL/min [facility] GFR IS CALCULATED IN mL/min/1.73m2 LEONARD L FUNCTION: >90MILDLY DECREASED: 60-89MILDY TO MODERATELY DECREASED: 45-59 MODERATELY TO SEVERELY DECREASED: 30-44SEVERELY DECREASED: 15-29RENAL FAILURE: <15 AST 23 U/L 15-37 [facility] ALT 22 U/L 12-78 [facility] ALKALINE PHOSPHATASE 74 U/L 46-116 [facility] TOTAL BILIRUBIN 0.7 mg/dL 0.2-1.0 [facility] TOTAL PROTEIN 7.1 g/dl 6.4-8.2 [facility] ALBUMIN 3.5 gm/dL 3.4-5.0 [facility] ID Date Data Source [id number] 08/06/2019 06:48:[address] [facility] Name Value Range Interpretation Code Description Data Cindy rce(s) Supporting Document(s) PROTHROMBIN TIME (PATIENT) 30.2 SECONDS 9.2-11.6 H [facility] INR 2.99 0.87-1.06 H [facility] ID Date Data Source [id number] 08/06/2019 06:40:00 AM T [facility] l Name Value Range Interpretation Code Description Data Cindy rce(s) Supporting Document(s) WHITE BLOOD COUNT 6.5 K/mm3 4.0-10.0 [facility] al RED BLOOD COUNT 2.73 M/mm3 4.50-6.[address] [facility] HEMOGLOBIN 8.9 gm/dL 14.0-18.0 L [facility] HEMATOCRIT 27.6 % 42.0-54.0 [facility] MEAN CELL VOLUME 101.1 fl 80-96 *H [facility] MEAN CORPUSCULAR HEMOGLOBIN 32.6 pg 27.0-31.0 H [facility] MEAN CORPUSCULAR HGB CONC 32.2 g/dl 32.0-36.0 [facility] RED CELL DISTRIBUTION WIDTH 15.6 % 10.0-14.5 H [facility] PLATELET COUNT 210 K/mm3 172-450 [facility] MEAN PLATELET VOLUME 10.3 fl 9.0-13.0 [facility] pital GRAN % 76.7 % 50-80.0 [facility] IG% 0.2 % 0.0-0.2 [facility] LYMPH % 12.2 % 25.0-50.0 L [facility] MONO % 6.7 % 2.0-10.0 [facility] EOS % 3.4 % 0-5.0 [facility] BASO % 0.8 % 0.0-2.0 [facility] GRAN # 5.0 K/mm3 2.0-8.00 [facility] IG# 0.0 K/mm3 0.0-0.2 [facility] LYMPH # 0.8 K/mm3 1.0-5.0 L [facility] MONO # 0.4 K/mm3 0.10-1.20 [facility] EOS # 0.2 K/mm3 0.0-0.5 [facility] BASO # 0.1 K/mm3 0.0-0.2 [facility] ID Date Data Source [id number] 08/05/2019 10:24:00 PM EDT [facility] l HistoryChief Complaint/Admit ReasonCHF exacerbationFluid OverloadLeft Lower [...] and carotid artery disease who presented to [facility] Emertgency Department on 08/04/2019 after progressively [...] be compressive atelectasis or pneumonia Pleural space: Pcizg-el-thbpjfha bilateral pleural effusions more pronounced on the [...] 70.9 H mg/L (0.0-3.0) B-TYPE NATRIURETIC PEPTIDE [id number] *H pg/ml (0-450) Unable to obtainAll 14 [...] refill, no calf tenderness, pedal edemaNeurologic/Psychiatric alert, 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 Hypoxemia A&PContinue oxygen supplementation 8. Diabetes A&ZEjap5eq insulin 16 units at bedtime and sliding [...] discussed with patient, significant otherCase discussed with test case developer, blane dewitt staffCopies toFamily Provider: TENZIN GRAVES JR VTE ProphylaxisVTE Prophylaxis: Patient is fully anticoagulated with warfarin Name Value Range Interpretation Code Description Data Cindy rce(s) Supporting Document(s) ID Date Data Source [id number] 08/06/2019 12:21:00 PM EDT [facility] Y Name Value Range Interpretation Code Description Data Cindy rce(s) Supporting Document(s) L PNEUMO SERO 1 NEGATIVE NEGATIVE N [facility] Screen for L. pneumophila serogroup [...] (REFERENCE RANGE= NEGATIVE) ID Date Data Source [id number] 08/10/2019 04:06:00 PM EDT [facility] Name Value Range Interpretation Code Description Data Cindy rce(s) Supporting Document(s) Specimen Source Urine [facility] Streptococcus pneumoniae Ag Negative Negative [facility] Body Fluid Culture, Sterile Not indicated. [facility] Organism ID Not indicated. [facility] Please Note: [facility] [employer] standar ds require a culture to beperformed on CSF specimens submitted for bacterial antigen testing.(CAP CLARE.[id number]) Urine specimens will not be cultured. ID Date Data Source [id number] 08/05/2019 07:10:00 AM EDT [facility] l TSYSORDER [id number] Name Value Range Interpretation Code Description Data Cindy rce(s) Supporting Document(s) PROTHROMBIN TIME (PATIENT) 25.6 SECONDS 9.2-11.6 H [facility] INR 2.53 0.87-1.06 H [facility] ID Date Data Source [id number] 08/05/2019 07:05:00 AM EDT [facility] l TSYSORDER [id number] Name Value Range Interpretation Code Description Data Cindy rce(s) Supporting Document(s) GLUCOSE 221 mg/dL 74-106 H [facility] BLOOD UREA NITROGEN 36 mg/dL 7-18 H [facility] ital CREATININE 2.4 mg/dL 0.7-1.3 H [facility] SODIUM 147 mmol/L 136-145 H [facility] POTASSIUM 3.7 mmol/L 3.5-5.1 [facility] CHLORIDE 107 mmol/L 98-107 [facility] CO2 31 mmol/L 21-32 [facility] CALCIUM 8.7 mg/dL 8.5-10.1 [facility] ANION GAP 9.0 mmol/L 5-12 [facility] GLOMERULAR FILTRATION RATE 26 mL/min [facility] GFR IS CALCULATED IN mL/min/1.73m2 LEONARD L FUNCTION: >90MILDLY DECREASED: 60-89MILDY TO MODERATELY DECREASED: 45-59 MODERATELY TO SEVERELY DECREASED: 30-44SEVERELY DECREASED: 15-29RENAL FAILURE: <15 AST 18 U/L 15-37 [facility] ALT 20 U/L 12-78 [facility] ALKALINE PHOSPHATASE 79 U/L 46-116 [facility] pital TOTAL BILIRUBIN 0.8 mg/dL 0.2-1.0 [facility] TOTAL PROTEIN 7.1 g/dl 6.4-8.2 [facility] ALBUMIN 3.6 gm/dL 3.4-5.0 [facility] ID Date Data Source [id number] 08/05/2019 06:34:[address] [facility] TSYSORDER [id number] Name Value Range Interpretation Code Description Data Cindy rce(s) Supporting Document(s) WHITE BLOOD COUNT 6.0 K/mm3 4.0-10.0 [facility] 2.79 M/mm3 4.50-6.[address] [facility] HEMOGLOBIN 9.1 gm/dL 14.0-18.0 L [facility] HEMATOCRIT 28.5 % 42.0-54.0 L [facility] MEAN CELL VOLUME 102.2 fl 80-96 *H [facility] MEAN CORPUSCULAR HEMOGLOBIN 32.6 pg 27.0-31.0 H [facility] MEAN CORPUSCULAR HGB CONC 31.9 g/dl 32.0-36.0 L [facility] RED CELL DISTRIBUTION WIDTH 15.6 % 10.0-14.5 H [facility] PLATELET COUNT 184 K/mm3 172-450 [facility] MEAN PLATELET VOLUME 10.0 fl 9.0-13.0 [facility] pital GRAN % 80.0 % 50-80.0 [facility] IG% 0.2 % 0.0-0.2 [facility] LYMPH % 11.4 % 25.0-50.0 L [facility] MONO % 6.9 % 2.0-10.0 [facility] EOS % 1.0 % 0-5.0 [facility] BASO % 0.5 % 0.0-2.0 [facility] GRAN # 4.8 K/mm3 2.0-8.00 [facility] IG# 0.0 K/mm3 0.0-0.2 [facility] LYMPH # 0.7 K/mm3 1.0-5.0 L [facility] MONO # 0.4 K/mm3 0.10-1.20 [facility] EOS # 0.1 K/mm3 0.0-0.5 [facility] BASO # 0.0 K/mm3 0.0-0.2 [facility] ID Date Data Source [id number] 08/10/2019 02:09:00 PM EDT [facility] l Name Value Range Interpretation Code Description Data Cindy rce(s) Supporting Document(s) BLOOD CULTURE, ROUTINE Final report . [facility] 08/10/19 1409: BLOOD CULT, RT previousl y reported as: Preliminary report BC RESULT1 Comment . [facility] No aerobic or anaerobic growth in five d ays.Performed at: [facility] [address] [id number] Director: Cira Joe MD, Phone: [phone]/11/20 1409: BC RESULT1 previously reported as: Comment No growth in 36 - 48 hours. Performed at: [facility] [address] [id number] Wet Press Tender: Cira Joe MD, Phone: [phone] 08/07/19 1205: BC RESULT1 previously reported as: Comment No growth after 16-24 hours. Performed at: [facility] [address] [id number] Wet Press Tender: Cira Joe MD, Phone: [phone] @ Edited by: @ Reason: [] ID Date Data Source [id number] 08/10/2019 02:05:00 PM EDT [facility] Name Value Range Interpretation Code Description Data Cindy rce(s) Supporting Document(s) Blood Culture, Routine Final report [facility] ID Date Data Source [id number] 08/10/2019 02:05:00 PM EDT [facility] Name Value Range Interpretation Code Description Data Cindy rce(s) Supporting Document(s) Result 1 [facility] No aerobic or anaerobic growth in five d ays. ID Date Data Source [id number] 08/10/2019 02:09:00 PM EDT [facility] Name Value Range Interpretation Code Description Data Cindy rce(s) Supporting Document(s) BLOOD CULTURE, ROUTINE Final report . [facility] 08/10/19 1409: BLOOD CULT, RT previousl y reported as: Preliminary report BC [email or web address] Comment . [facility] No aerobic or anaerobic growth in five d ays.Performed at: [facility] [address] [id number] Director: Cira Joe MD, Phone: [phone]/11/20 1409: BC RESULT1 previously reported as: Comment No growth in 36 - 48 hours. Performed at: [facility] [address] [id number] Wet Press Tender: Cira Joe MD, Phone: [phone] 08/07/19 1205: BC RESULT1 previously reported as: Comment No growth after 16-24 hours. Performed at: RN - [facility] [address] [id number] Wet Press Tender: Cira Joe MD, Phone: [phone] @ Edited by: @ Reason: [] ID Date Data Source [id number] 08/10/2019 02:05:00 PM EDT [facility] Name Value Range Interpretation Code Description Data Cindy rce(s) Supporting Document(s) Blood Culture, Routine Final report [facility] ID Date Data Source [id number] 08/10/2019 02:05:00 PM EDT [facility] Name Value Range Interpretation Code Description Data Cindy rce(s) Supporting Document(s) Result 1 [facility] No aerobic or anaerobic growth in five d ays. ID Date Data Source [id number] 08/04/2019 02:38:00 PM [facility] [...] which may be compressiveatelectasis or pneumoniaPleural space: Qqage-pi-ynderckj bilateral pleural effusions more pronounced onthe left [...] rce(s) Supporting Document(s) ID Date Data Source [id number] 08/04/2019 12:06:00 PM EDT [facility] [...] rce(s) Supporting Document(s) ID Date Data Source [id number] 08/04/2019 01:58:00 PM EDT [facility] TSYSORDER [id number] Name Value Range Interpretation Code Description Data Cindy rce(s) Supporting Document(s) C REACTIVE PROTEIN 70.9 mg/L 0.0-3.0 [facility] ID Date Data Source [id number] 08/04/2019 12:15:00 PM EDT [facility] TSYSORDER [id number] Name Value Range Interpretation Code Description Data Cindy rce(s) Supporting Document(s) B-TYPE NATRIURETIC PEPTIDE [id number] pg/ml 0-450 *H [facility] ID Date Data Source [id number] 08/04/2019 12:15:00 PM EDT [facility] TSYSORDER [id number] Name Value Range Interpretation Code Description Data Cindy rce(s) Supporting Document(s) MAGNESIUM 2.1 mg/dL 1.8-2.4 [facility] ID Date Data Source [id number] 08/04/2019 12:15:00 PM EDT [facility] TSYSORDER [id number] Name Value Range Interpretation Code Description Data Cindy rce(s) Supporting Document(s) TROPONIN I < 0.017 ng/mL 0.0-0.056 [facility] ID Date Data Source [id number] 08/04/2019 12:15:00 PM EDT [facility] TSYSORDER [id number] Name Value Range Interpretation Code Description Data Cindy rce(s) Supporting Document(s) GLUCOSE 273 mg/dL 74-106 H [facility] BLOOD UREA NITROGEN 35 mg/dL 7-18 H [facility] ital CREATININE 2.5 mg/dL 0.7-1.3 H [facility] SODIUM 142 mmol/L 136-145 [facility] POTASSIUM 3.9 mmol/L 3.5-5.1 [facility] CHLORIDE 104 mmol/L 98-107 [facility] CO2 28 mmol/L 21-32 [facility] CALCIUM 9.2 mg/dL 8.5-10.1 [facility] ANION GAP 10.0 mmol/L 5-12 [facility] GLOMERULAR FILTRATION RATE 25 mL/min [facility] GFR IS CALCULATED IN mL/min/1.73m2 LEONARD L FUNCTION: >90MILDLY DECREASED: 60-89MILDY TO MODERATELY DECREASED: 45-59 MODERATELY TO SEVERELY DECREASED: 30-44SEVERELY DECREASED: 15-29RENAL FAILURE: <15 AST 22 U/L 15-37 [facility] ALT 20 U/L 12-78 [facility] ALKALINE PHOSPHATASE 88 U/L 46-116 [facility] pital TOTAL BILIRUBIN 1.3 mg/dL 0.2-1.0 H [facility] TOTAL PROTEIN 7.9 g/dl 6.4-8.2 [facility] ALBUMIN 3.8 gm/dL 3.4-5.0 [facility] ID Date Data Source [id number] 08/04/2019 11:53:00 AM EDT [facility] TSYSORDER [id number] Name Value Range Interpretation Code Description Data Cindy rce(s) Supporting Document(s) PARTIAL THROMBOPLASTIN TIME 41.7 SECONDS 21.4-30.2 H [facility] ID Date Data Source [id number] 08/04/2019 11:53:00 AM EDT [facility] TSYSORDER [id number] Name Value Range Interpretation Code Description Data Cindy rce(s) Supporting Document(s) PROTHROMBIN TIME (PATIENT) 22.6 SECONDS 9.2-11.6 H [facility] INR 2.22 0.87-1.06 H [facility] ID Date Data Source [id number] 08/04/2019 11:32:00 AM EDT [facility] [id number] Name Value Range Interpretation Code Description Data Cindy rce(s) Supporting Document(s) WHITE BLOOD COUNT 6.2 K/mm3 4.0-10.0 [facility]LOOD [facility] 3.04 M/mm3 4.50-6.[address] [facility] HEMOGLOBIN 9.8 gm/dL 14.0-18.0 L [facility] HEMATOCRIT 30.9 % 42.0-54.0 L [facility] MEAN CELL VOLUME 101.6 fl 80-96 *H [facility] MEAN CORPUSCULAR HEMOGLOBIN 32.2 pg 27.0-31.0 H [facility] MEAN CORPUSCULAR HGB CONC 31.7 g/dl 32.0-36.0 L [facility] RED CELL DISTRIBUTION WIDTH 15.7 % 10.0-14.5 H [facility] PLATELET COUNT 213 K/mm3 172-450 [facility] MEAN PLATELET VOLUME 9.9 fl 9.0-13.0 [facility] pital GRAN % 81.7 % 50-80.0 H [facility] IG% 0.0 % 0.0-0.2 [facility] LYMPH % 9.5 % 25.0-50.0 L [facility] MONO % 7.2 % 2.0-10.0 [facility] EOS % 1.0 % 0-5.0 [facility] BASO % 0.6 % 0.0-2.0 [facility] GRAN # 5.1 K/mm3 2.0-8.00 [facility] IG# 0.0 K/mm3 0.0-0.2 [facility] LYMPH # 0.6 K/mm3 1.0-5.0 L [facility] MONO # 0.5 K/mm3 0.10-1.20 [facility] EOS # 0.1 K/mm3 0.0-0.5 [facility] BASO # 0.0 K/mm3 0.0-0.2 [facility] ID Date Data Source [id number] 08/01/2019 02:16:00 PM EDT [facility] ([facility]) Name Value Range Interpretation Code Description Data Cindy rce(s) Supporting Document(s) Urea nitrogen [Mass/volume] in Serum or Plasma 31 mg/dL 7-18 [facility] ([facility]) Glucose [Mass/volume] in Serum or Plasma 221 mg/dL 74-99 [facility] ([facility]) 100-125 mg/dL PRE-DIABETES/FASTING >126 mg/dL DIABETES/FASTING Sodium [Moles/volume] in Serum or Plasma 147 meq/L 136-145 [facility] ([facility]) Creatinine 2.3 mg/dL 0.6-1.3 [facility] ([facility]) Potassium [Moles/volume] in Serum or Plasma 4.0 meq/L 3.5-5.1 [facility] ([facility]) Carbon dioxide, total [Moles/volume] in Serum or Plasma 25 meq/L 21 -32 [facility] ([facility]) Chloride [Moles/volume] in Serum or Plasma 108 meq/L 98-107 [facility] ([facility]) Glomerular filtration rate/1.73 sq M pre dicted among non-blacks [Volume Rate/Area] in Serum or Plasma by Creatinine-based formula (MDRD) 27 mL/min [facility] ([facility]) Calcium [Mass/volume] in Serum or Plasma 8.7 mg/dL 8.5-10.1 [facility] ([facility]) Glomerular filtration rate/1.73 sq M pre dicted among blacks [Volume Rate/Area] in Serum or Plasma by Creatinine-based formula (MDRD) 33 mL/min [facility] ([facility]) <content>CHRONIC KIDNEY DISEASE STAGING PER NKF</content>
<content></content>
<content>STAGE I & II GFR >= 60 NORMAL TO MILDLY DECREASED</content>
<content>STAGE III GFR 30-59 MODERATELY DECREASED</content>
<content>STAGE IV GFR 15-29 SEVERELY DECREASED</content>
<content>STAGE V GFR <15 VERY LITTLE GFR LEFT</content>
<content>ESRD GFR <15 ON DIRECTOR [employer]OP[employer]</content>
<content></content> ID Date Data Source [id number] 07/26/2019 09:33:00 AM EDT [facility] DATE OF EXAMINATION: 07/26/2019 9:07 EDT [...] rce(s) Supporting Document(s) ID Date Data Source [id number] 07/26/2019 08:58:00 AM EDT [facility] ([facility]) Name Value Range Interpretation Code Description Data Cindy rce(s) Supporting Document(s) Magnesium [Mass/volume] in Serum or Plasma 2.3 mg/dL 1.8-2.4 [facility] ([facility]) FAX RESULTS TO [phone] CC: [phone] ID Date Data Source [id number] 07/26/2019 08:58:00 AM EDT [facility] ([facility]) Name Value Range Interpretation Code Description Data Cindy rce(s) Supporting Document(s) Glu 120 mg/dL 74-106 [facility] Na 144 mmol/L 136-145 [facility] ([facility]) BUN 32 mg/dL 7-18 [facility] Cre 2.5 mg/dL 0.7-1.3 [facility] Co2 29 mmol/L 21-32 [facility] K 3.6 mmol/L 3.5-5.1 [facility] ([facility]) CL 103 mmol/L 98-107 [facility] ([facility]) Gap 12.0 mmol/L 5-12 [facility] ([facility]) CA 9.4 mg/dL 8.5-10.1 [facility] ([facility]) ID Date Data Source [id number] 07/26/2019 08:58:00 AM EDT [facility] ([facility]) Name Value Range Interpretation Code Description Data Cindy rce(s) Supporting Document(s) Magnesium 2.3 mg/dL 1.8-2.4 [facility]) FAX RESULTS TO [phone] CC: [phone] ID Date Data Source [id number] 07/26/2019 08:58:00 AM EDT [facility] ([facility]) Name Value Range Interpretation Code Description Data Cindy rce(s) Supporting Document(s) Glu 120 mg/dL 74-106 [facility] BUN 32 mg/dL 7-18 [facility] Na 144 mmol/L 136-145 [facility] Cre 2.5 mg/dL 0.7-1.3 [facility] Co2 29 mmol/L 21-32 [facility] CL 103 mmol/L 98-107 [facility] K 3.6 mmol/L 3.5-5.1 [facility] Gap 12.0 mmol/L 5-12 [facility] ([facility]) GFR 25 mL/min [facility]) <content>GFR IS CALCULATED IN mL/min/1.73m2</content>
<content></content>
<content>NORMAL FUNCTION: >90</content>
<content>MILDLY DECREASED: 60-89</content>
<content>MILDY TO MODERATELY DECREASED: 45-59</content>
<content>MODERATELY TO SEVERELY DECREASED: 30-44</content>
<content>SEVERELY DECREASED: 15- 29</content>
<content>RENAL FAILURE: <15</content>
<content></content> CA 9.4 mg/dL 8.5-10.1 [facility] Ast 26 U/L 15-37 [facility]) Alt 24 U/L 12-78 [facility] TP 7.4 g/dL 6.4-8.2 [facility] Alk 86 U/L 46-116 [facility] Tbili 0.8 mg/dL 0.2-1.0 [facility] Alb 4.1 gm/dL 3.4-5.0 [facility]) ID Date Data Source [id number] 07/26/2019 09:41:00 AM EDT [facility] FAX RESULTS TO [phone]: [phone] Name Value Range Interpretation Code Description Data Cindy rce(s) Supporting Document(s) MAGNESIUM 2.3 mg/dL 1.8-2.4 [facility] ID Date Data Source [id number] 07/26/2019 09:41:00 AM EDT [facility] FA[facility] RES[facility] TO [phone]: [id number] Name Value Range Interpretation Code Description Data Cindy rce(s) Supporting Document(s) GLUCOSE 120 mg/dL 74-106 H [facility] BLOOD UREA NITROGEN 32 mg/dL 7-18 H [facility] ital CREATININE 2.5 mg/dL 0.7-1.3 H [facility] SODIUM 144 mmol/L 136-145 [facility] POTASSIUM 3.6 mmol/L 3.5-5.1 [facility] CHLORIDE 103 mmol/L 98-107 [facility] CO2 29 mmol/L 21-32 [facility] CALCIUM 9.4 mg/dL 8.5-10.1 [facility] ANION GAP 12.0 mmol/L 5-12 [facility] GLOMERULAR FILTRATION RATE 25 mL/min [facility] GFR IS CALCULATED IN mL/min/1.73m2 LEONARD L FUNCTION: >90MILDLY DECREASED: 60-89MILDY TO MODERATELY DECREASED: 45-59 MODERATELY TO SEVERELY DECREASED: 30-44SEVERELY DECREASED: 15-29RENAL FAILURE: <15 AST 26 U/L 15-37 [facility] ALT 24 U/L 12-78 [facility] ALKALINE PHOSPHATASE 86 U/L 46-116 [facility] pital TOTAL BILIRUBIN 0.8 mg/dL 0.2-1.0 [facility] TOTAL PROTEIN 7.4 g/dl 6.4-8.2 [facility] ALBUMIN 4.1 gm/dL 3.4-5.0 [facility] ID Date Data Source [id number] 07/21/2019 01:34:00 PM EDT [facility] ([facility]) Name Value Range Interpretation Code Description Data Cindy rce(s) Supporting Document(s) Glucose [Mass/volume] in Serum or Plasma 252 mg/dL 74-99 [facility] ([facility]) 100-125 mg/dL PRE-DIABETES/FASTING >126 mg/dL DIABETES/FASTING Urea nitrogen [Mass/volume] in Serum or Plasma 32 mg/dL 7-18 [facility] ([facility]) Sodium [Moles/volume] in Serum or Plasma 142 meq/L 136-145 [facility] ([facility]) Potassium [Moles/volume] in Serum or Plasma 4.1 meq/L 3.5-5.1 [facility] ([facility]) Creatinine 2.6 mg/dL 0.6-1.3 [facility] ([facility]) Calcium [Mass/volume] in Serum or Plasma 9.5 mg/dL 8.5-10.1 [facility] ([facility]) Chloride [Moles/volume] in Serum or Plasma 104 meq/L 98-107 [facility] ([facility]) Carbon dioxide, total [Moles/volume] in Serum or Plasma 26 meq/L 21 -32 [facility] Glomerular filtration rate/1.73 sq M pre dicted among non-blacks [Volume Rate/Area] in Serum or Plasma by Creatinine-based formula (MDRD) 23 mL/min [facility] ([facility]) Glomerular filtration rate/1.73 sq M pre dicted among blacks [Volume Rate/Area] in Serum or Plasma by Creatinine-based formula (MDRD) 28 mL/min MED[facility] ([facility]) <content>CHRONIC KIDNEY DISEASE STAGING PER NKF</content>
<content></content>
<content>STAGE I & II GFR >= 60 NORMAL TO MILDLY DECREASED</content>
<content>STAGE III GFR 30-59 MODERATELY DECREASED</content>
<content>STAGE IV GFR 15-29 SEVERELY DECREASED</content>
<content>STAGE V GFR <15 VERY LITTLE GFR LEFT</content>
<content>ESRD GFR <15 ON DIRECTOR GEOPHYSICAL LABORATORY</content>
<content></content> ID Date Data Source [id number] 07/21/2019 01:34:00 PM EDT [facility] ([facility]) Name Value Range Interpretation Code Description Data Cindy rce(s) Supporting Document(s) Natriuretic peptide B [Mass/volume] in Serum or Plasma 441.0 pg/mL 0.0-100.0 [facility] ([facility]) ID Date Data Source [id number] 07/21/2019 01:34:00 PM EDT [facility] ([facility]) Name Value Range Interpretation Code Description Data Cindy rce(s) Supporting Document(s) Leukocytes [#/volume] in Blood by Automated count 5.6 x10*3/UL 4.1-10 .9 [facility] ([facility]) Hemoglobin [Mass/volume] in Blood 10.1 g/dL 12.0-18.0 [facility] NOTE: RESULT VERIFIED. Erythrocytes [#/volume] in Blood by Automated count 3.18 x10*6/UL 4.2 0-6.30 [facility] Hematocrit [Volume Fraction] of Blood by Automated count 31.3 % 3 7.0-51.0 [facility] MCV 98.2 fL 80.0-97.0 [facility] ([facility]) MCHC 32.3 g/dL 31.0-38.0 [facility] ([facility]) Erythrocyte distribution width [Ratio] by Automated count 15.7 % 11.6-13.7 [facility] ([facility]) MCH 31.8 pg 26.0-32.0 [facility] ([facility]) MPV 8.3 FL 7.8-11.0 [facility] ([facility]) Platelets [#/volume] in Blood by Automated count 242 x10*3/UL 140-440 MED[facility] ([facility]) Lymph % 19.7 % 10.0-58.5 [facility] ([place] [facility]) Mid % 8.0 % 1.7-9.3 [facility] ([place] [facility]) Neut % 72.3 % 37.0-92.0 [facility] [facility]) Neut # 4.0 x10*3/UL 2.0-7.8 [facility] ([facility]) Mid # 0.5 x10*3/UL 0.1-0.6 [facility] ([facility]) Lymph # 1.1 x10*3/UL 0.6-4.1 [facility] ([facility]) ID Date Data Source [id number] 05/08/2019 11:15:00 AM EDT [facility] ([facility]) Name Value Range Interpretation Code Description Data Cindy rce(s) Supporting Document(s) Glucose [Mass/volume] in Serum or Plasma 191 mg/dL 74-99 [facility] ([facility]) 100-125 mg/dL PRE-DIABETES/FASTING >126 mg/dL DIABETES/FASTING Creatinine 2.0 mg/dL 0.6-1.3 [facility] ([facility]) Sodium [Moles/volume] in Serum or Plasma 146 meq/L 136-145 [facility] ([facility]) Urea nitrogen [Mass/volume] in Serum or Plasma 29 mg/dL 7-18 [facility] ([facility]) Calcium [Mass/volume] in Serum or Plasma 9.3 mg/dL 8.5-10.1 [facility] ([facility]) Chloride [Moles/volume] in Serum or Plasma 105 meq/L 98-107 [facility] ([facility]) Potassium [Moles/volume] in Serum or Plasma 4.1 meq/L 3.5-5.1 [facility] ([facility]) Carbon dioxide, total [Moles/volume] in Serum or Plasma 25 meq/L 21 -32 [facility] ([facility]) Alkaline phosphatase isoenzyme [Units/volume] in Serum or Pl asma 94 mg/dL 46-116 [facility] ([facility]) Aspartate aminotransferase [Enzymatic activity/volume] in Serum or Plasma 20 U/L 15-37 MED[facility] ([facility] [employer] [facility]) Total Bilirubin 0.7 mg/dL 0.2-1.0 [facility] ([facility]) Proteinase 3 Ab [Units/volume] in Serum 7.6 g/dL 6.4-8.2 [facility] ([facility]) Alanine aminotransferase [Enzymatic activity/volume] in Seru m or Plasma 24 U/L 12-78 [facility] ([facility]) Albumin [Mass/volume] in Serum or Plasma 4.3 g/dL 3.4-5.0 [facility] ([facility]) Glomerular filtration rate/1.73 sq M pre dicted among non-blacks [Volume Rate/Area] in Serum or Plasma by Creatinine-based formula (MDRD) 32 mL/min [facility]) A/G Ratio 1.30 CALC 1.00-1.[address] [facility] ([facility]) Glomerular filtration rate/1.73 sq M pre dicted among blacks [Volume Rate/Area] in Serum or Plasma by Creatinine-based formula (MDRD) 38 mL/min [facility]) <content>CHRONIC KIDNEY DISEASE STAGING PER NKF</content>
<content></content>
<content>STAGE I & II GFR >= 60 NORMAL TO MILDLY DECREASED</content>
<content>STAGE III GFR 30-59 MODERATELY DECREASED</content>
<content>STAGE IV GFR 15-29 SEVERELY DECREASED</content>
<content>STAGE V GFR <15 VERY LITTLE GFR LEFT</content>
<content>ESRD GFR <15 ON DIRECTOR GEOPHYSICAL LABORATORY</content>
<content></content>
<content></content> ID Date Data Source [id number] 05/08/2019 11:15:00 AM EDT [facility] ([facility] [place] [facility]) Name Value Range Interpretation Code Description Data Cindy rce(s) Supporting Document(s) Hemoglobin A1c/Hemoglobin.total in Blood 7.8 g/dL 4.8-5.6 [facility] ([facility] [place]) Lab Result Notes: Pre-Diabetes 5.7 - 6.4 % Diabetes = or > 6.5% Glucose mean value [Mass/volume] in Blood Estimated fr om glycated hemoglobin 177 mg/dL 60-110 [facility] ([facility] [employer] [facility]) ID Date Data Source [id number] 05/08/2019 11:15:00 AM EDT [facility] ([facility] [place]) Name Value Range Interpretation Code Description Data Cindy rce(s) Supporting Document(s) Leukocytes [#/volume] in Blood by Automated count 5.7 x10*3/UL 4.1-10 .9 [facility] ([facility] [place]) Erythrocytes [#/volume] in Blood by Automated count 3.17 x10*6/UL 4.2 0-6.30 [facility] ([facility]) Hematocrit [Volume Fraction] of Blood by Automated count 31.3 % 3 7.0-51.0 [facility] ([facility]) MCH 32.5 pg 26.0-32.0 MED[facility] ([facility]) Hemoglobin [Mass/volume] in Blood 10.3 g/dL 12.0-18.0 [facility] ([facility]) MCV 98.5 fL 80.0-97.0 [facility] ([facility]) Erythrocyte distribution width [Ratio] by Automated count 13.8 % 11.6-13.7 [facility] ([facility]) MCHC 33.0 g/dL 31.0-38.0 [facility] ([facility]) Lymphocytes/100 leukocytes in Blood by Automated count 23.2 % 10. 0-58.5 [facility] ([facility]) Platelet mean volume [Entitic volume] in Blood by Satish 8.4 FL 7.8-11.0 [facility] ([facility]) Platelets [#/volume] in Blood by Automated count 231 x10*3/UL 140-440 [facility] ([facility]) Mid % 7.1 % 1.7-9.3 [facility] ([facility]) Mid # 0.4 x10*3/UL 0.1-0.6 [facility] ([facility]) Lymph # 1.3 x10*3/UL 0.6-4.1 [facility] ([facility]) Neut % 69.7 % 37.0-92.0 [facility] ([facility]) Neutrophils [#/volume] in Semen by Manual count 4.0 x10*3/UL 2.0-7.8 [facility] ([facility]) ID Date Data Source [id number] 05/08/2019 11:15:00 AM EDT [facility] ([facility]) Name Value Range Interpretation Code Description Data Cindy rce(s) Supporting Document(s) Hemoglobin A1c/Hemoglobin.total in Blood <pending> MED[facility] ([facility]) ID Date Data Source [id number] 05/08/2019 11:15:00 AM EDT [facility] ([facility]) Name Value Range Interpretation Code Description Data Cindy rce(s) Supporting Document(s) Leukocytes [#/volume] in Blood by Automated count 5.7 x10*3/UL 4.1-10 .9 [facility] ([facility]) Hematocrit [Volume Fraction] of Blood by Automated count 31.3 % 3 7.0-51.0 [facility] ([facility]) Hemoglobin [Mass/volume] in Blood 10.3 g/dL 12.0-18.0 [facility] ([facility]) Erythrocytes [#/volume] in Blood by Automated count 3.17 x10*6/UL 4.2 0-6.30 [facility] ([facility]) MCV 98.5 fL 80.0-97.0 [facility] [facility]) MCH 32.5 pg 26.0-32.0 [facility] [facility]) MCHC 33.0 g/dL 31.0-38.0 [facility] ([facility]) Platelets [#/volume] in Blood by Automated count 231 x10*3/UL 140-440 MED[facility] ([facility]) Erythrocyte distribution width [Ratio] by Automated count 13.8 % 11.6-13.7 [facility] ([facility]) Lymph % 23.2 % 10.0-58.5 [facility] ([place] [facility]) MPV 8.4 FL 7.8-11.0 [facility] ([place] [facility]) Mid % 7.1 % 1.7-9.3 [facility] [facility]) Mid # 0.4 x10*3/UL 0.1-0.6 [facility] ([facility]) Neut % 69.7 % 37.0-92.0 [facility] [facility]) Lymph # 1.3 x10*3/UL 0.6-4.1 [facility] ([facility]) Neut # 4.0 x10*3/UL 2.0-7.8 [facility] ([facility]) ID Date Data Source [id number] 05/08/2019 11:15:00 AM EDT [facility]) Name Value Range Interpretation Code Description Data Cindy rce(s) Supporting Document(s) Hemoglobin A1c/Hemoglobin.total in Blood 7.8 g/dL 4.8-5.6 [facility] Lab Result Notes: Pre-Diabetes 5.7 - 6.4 % Diabetes = or > 6.5% Glucose mean value [Mass/volume] in Blood Estimated fr om glycated hemoglobin 177 mg/dL 60-110 [facility] ID Date Data Source [id number] 05/08/2019 11:15:00 AM EDT [facility] ([facility]) Name Value Range Interpretation Code Description Data Cindy rce(s) Supporting Document(s) Glucose [Mass/volume] in Serum or Plasma 191 mg/dL 74-99 [facility] ([facility]) 100-125 mg/dL PRE-DIABETES/FASTING >126 mg/dL DIABETES/FASTING Sodium [Moles/volume] in Serum or Plasma 146 meq/L 136-145 [facility] ([facility]) Creatinine 2.0 mg/dL 0.6-1.[address] [facility] Urea nitrogen [Mass/volume] in Serum or Plasma 29 mg/dL 7-18 [facility] ([facility]) Chloride [Moles/volume] in Serum or Plasma 105 meq/L 98-[address] [facility] ([facility]) Potassium [Moles/volume] in Serum or Plasma 4.1 meq/L 3.5-5.[address] [facility] ([facility]) Alkaline phosphatase isoenzyme [Units/volume] in Serum or Pl asma 94 mg/dL 46-116 [facility] ([facility]) Carbon dioxide, total [Moles/volume] in Serum or Plasma 25 meq/L 21 -32 [facility] ([facility]) Calcium [Mass/volume] in Serum or Plasma 9.3 mg/dL 8.5-10.1 [facility] ([facility]) Total Bilirubin 0.7 mg/dL 0.2-1.0 [facility] ([facility]) Aspartate aminotransferase [Enzymatic activity/volume] in Serum or Plasma 20 U/L 15-37 [facility] ([facility] ) Alanine aminotransferase [Enzymatic activity/volume] in Seru m or Plasma 24 U/L 12-78 [facility] ([facility]) Proteinase 3 Ab [Units/volume] in Serum 7.6 g/dL 6.4-8.2 [facility] A/G Ratio 1.30 CALC 1.00-1.90 [facility] ([facility]) Albumin [Mass/volume] in Serum or Plasma 4.3 g/dL 3.4-5.0 [facility] ([facility]) Glomerular filtration rate/1.73 sq M pre dicted among non-blacks [Volume Rate/Area] in Serum or Plasma by Creatinine-based formula (MDRD) 32 mL/min [facility] Glomerular filtration rate/1.73 sq M pre dicted among blacks [Volume Rate/Area] in Serum or Plasma by Creatinine-based formula (MDRD) 38 mL/min [facility] <content>CHRONIC KIDNEY DISEASE STAGING PER NKF</content>
<content></content>
<content>STAGE I & II GFR >= 60 NORMAL TO MILDLY DECREASED</content>
<content>STAGE III GFR 30-59 MODERATELY DECREASED</content>
<content>STAGE IV GFR 15-29 SEVERELY DECREASED</content>
<content>STAGE V GFR <15 VERY LITTLE GFR LEFT</content>
<content>ESRD GFR <15 ON DIRECTOR GEOPHYSICAL LABORATORY</content>
<content></content> ID Date Data Source [id number] 05/08/2019 11:15:00 AM EDT [facility] ([facility]) Name Value Range Interpretation Code Description Data Cindy rce(s) Supporting Document(s) Microalbumin Urine 190.3 mg/L 1.3-20.0 [facility] ([facility]) NOTE: DILUTED AND VERIFIED Urine Creatinine 130.3 mg/dL 30.0-125.0 [facility] ([facility]) Microalb/Creat Ratio 146.0 ug/mg 0.0-30.0 [facility] ([facility]) ID Date Data Source [id number] 03/15/2019 12:43:00 PM EST [facility] FAX RESULTS TO [phone] Name Value Range Interpretation Code Description Data Cindy rce(s) Supporting Document(s) TSH 4.61 uIU/mL 0.36-3.74 [facility] ID Date Data Source [id number] 03/15/2019 11:32:00 AM EST [facility] ([facility]) Name Value Range Interpretation Code Description Data Cindy rce(s) Supporting Document(s) Thyrotropin [Units/volume] in Serum or Plasma by Detec tion limit <= 0.05 mIU/L 4.61 uIU/mL 0.36-3.74 [facility] ([facility] ) FAX RESULTS TO [id number] Procedure Social History Code Duration Value Status Description Data Source(s ) Smoking 02/15/2020 12:00:00 AM EST Patient is a former smoker completed Patient is a former smoker [facility] ([facility]) Smoking 06/01/2019 10:46:05 PM EDT Never smoked tobacco (findi ng) completed Never smoked tobacco (finding) [place] (Sabino Watkins MD [facility]) Vital Signs ID Date Data Source [id number] Name Value Range Interpretation Code Description Data Source(s) Diastolic blood pressure 66 mm[Hg] 66 mm[Hg] [facility] ([facility]) sitting, regular cuff Systolic blood pressure 126 mm[Hg] 126 mm[Hg] M EDENT ([facility]) sitting, regular cuff Respiratory rate 16 /min 16 /min [facility] ( [facility]) Heart rate 80 /min 80 /min [facility] ([facility]) Regular Body mass index (BMI) [Ratio] 22.4 kg/m2 22.4 k g/m2 [facility] ([facility]) Body height 70 [in_i] 70 [in_i] [facility] ([facility]) 5'10" Body weight 156.00 [lb_av] 156.00 [lb_av] MEDEN T ([facility]) Diastolic blood pressure 68 mm[Hg] 68 mm[Hg] [facility] ([facility]) sitting Systolic blood pressure 124 mm[Hg] 124 mm[Hg] M EDENT ([facility]) sitting Diastolic blood pressure 68 mm[Hg] 68 mm[Hg] [facility] ([facility]) sitting, regular cuff Systolic blood pressure 126 mm[Hg] 126 mm[Hg] M EDENT ([facility]) sitting, regular cuff Respiratory rate 16 /min 16 /min [facility] ( [facility]) Heart rate 80 /min 80 /min [facility] ([facility]) Regular Body mass index (BMI) [Ratio] 21.1 kg/m2 21.1 k g/m2 [facility] ([facility]) Body height 70 [in_i] 70 [in_i] [facility] ([facility]) 5'10" Body weight 147.00 [lb_av] 147.00 [lb_av] MEDEN T ([facility]) Body mass index (BMI) [Ratio] 26.9 kg/m2 26.9 k g/m2 [facility] ([facility]) Oxygen saturation in Arterial blood by Pulse oximetry --post exerci se 92 % 92 % [facility] ([facility]) RM Air Oxygen saturation in Arterial blood by Pulse oximetry 98 % 98 % [facility] ([facility]) RM Air Body weight 174.25 [lb_av] 174.25 [lb_av] MEDEN T ([facility]) Body height 67.5 [in_i] 67.5 [in_i] [facility] ([facility]) 5'7.50" Heart rate 80 /min 80 /min [facility] ([facility]) Diastolic blood pressure 70 mm[Hg] 70 mm[Hg] MED[facility] ([facility]) RT Arm Systolic blood pressure 138 mm[Hg] 138 mm[Hg] M EDENT ([facility]) RT Arm Diastolic blood pressure 64 mm[Hg] 64 mm[Hg] [facility] ([facility]) sitting, regular cuff Systolic blood pressure 126 mm[Hg] 126 mm[Hg] M EDENT ([facility]) sitting, regular cuff Respiratory rate 16 /min 16 /min [facility] ( [facility]) Heart rate 72 /min 72 /min [facility] ([facility]) Regular Body mass index (BMI) [Ratio] 24.1 kg/m2 24.1 k g/m2 [facility] ([facility]) Body height 70 [in_i] 70 [in_i] [facility] ([facility]) 5'10" Body weight 168.00 [lb_av] 168.00 [lb_av] MEDEN T ([facility]) Body mass index (BMI) [Ratio] 26.9 kg/m2 26.9 k g/m2 [facility] ([facility]) Oxygen saturation in Arterial blood by Pulse oximetry --post exerci se 93 % 93 % [facility] ([facility]) RM Air Oxygen saturation in Arterial blood by Pulse oximetry 96 % 96 % [facility] ([facility]) RM Air Body weight 174.38 [lb_av] 174.38 [lb_av] MEDEN T ([facility]) Body height 67.5 [in_i] 67.5 [in_i] [facility] ([facility]) 5'7.50" Respiratory rate 20 /min 20 /min MED[facility] ( [facility]) room air Diastolic blood pressure 70 mm[Hg] 70 mm[Hg] MED[facility] ([facility]) RT Arm Systolic blood pressure 126 mm[Hg] 126 mm[Hg] M EDENT ([facility]) RT Arm Body mass index (BMI) [Ratio] 26.1 kg/m2 26.1 k g/m2 [facility] ([facility]) Body weight 169.00 [lb_av] 169.00 [lb_av] MEDEN T ([facility]) Body height 67.5 [in_i] 67.5 [in_i] [facility] ([facility]) 5'7.50" Heart rate 78 /min 78 /min [facility] ([facility]) Diastolic blood pressure 80 mm[Hg] 80 mm[Hg] [facility] ([facility]) Systolic blood pressure 128 mm[Hg] 128 mm[Hg] M EDENT ([facility]) Diastolic blood pressure 72 mm[Hg] 72 mm[Hg] [facility] ([facility]) Sitting Systolic blood pressure 134 mm[Hg] 134 mm[Hg] M EDENT ([facility]) Sitting Diastolic blood pressure 76 mm[Hg] 76 mm[Hg] [facility] ([facility]) Sitting, regular cuff Systolic blood pressure 136 mm[Hg] 136 mm[Hg] M EDENT ([facility]) Sitting, regular cuff Respiratory rate 16 /min 16 /min [facility] ( [facility]) Heart rate 60 /min 60 /min [facility] ([facility]) Regular Body mass index (BMI) [Ratio] 24.1 kg/m2 24.1 k g/m2 [facility] ([facility]) Body height 70 [in_i] 70 [in_i] [facility]) 5'10" Body weight 168.00 [lb_av] 168.00 [lb_av] MEDEN T ([facility]) Body weight 77.112 kg 77.112 kg MED[facility] ([facility]) Body mass index (BMI) [Ratio] 24.4 kg/m2 24.4 k g/m2 [facility] ([facility]) Heart rate 59 /min 59 /min [facility]) Diastolic blood pressure 78 mm[Hg] 78 mm[Hg] [facility] ([facility]) Systolic blood pressure 130 mm[Hg] 130 mm[Hg] [facility] Body weight 170.00 [lb_av] 170.00 [lb_av] MEDEN T ([facility]) Body height 70 [in_i] 70 [in_i] MED[facility] ([facility]) 5'10" ID Date Data Source [id number] 08/17/2019 03:29:00 PM EDT [facility] l Name Value Range Interpretation Code Description Data Source(s) WEIGHT 75.8 kilos 75.8 kilos [facility] HEIGHT 152.4 centimeters 152.4 centimeters [facility] WEIGHT 75.2 kilos 75.2 kilos [facility] HEIGHT 180.34 centimeters 180.34 centimeter [facility] WEIGHT 76.8 kilos 76.8 kilos [facility] HEIGHT 152.4 centimeters 152.4 centimeters [facility] WEIGHT 76.5 [facility].4 centimeters 152.4 centimeters [facility] WEIGHT 77.7 kilos 77.7 kilos [facility] HEIGHT 180.34 centimeters 180.34 centimeter [facility]
[2020-04-18 18:56] LABS: INR 1.61; PROTHROMBIN TIME 19.5 SECONDS (12.5-14.3)
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
[2020-04-18 20:03] LABS: TOTAL PROTEIN 7.8 GM/DL (6.4-8.2)
[2020-04-18 20:14] LABS: VITAMIN B12 LEVEL 697 PG/ML (247-911)
[2020-04-18 20:15] LABS: FOLATE 14.4 NG/ML (>5.4)
[2020-04-18 22:00] VITALS: BP 198/92
[2020-04-18] MEDS: TAMSULOSIN 0.4 MG CAP PO SCH (22:49)
[2020-04-18] MEDS: **hydrALAZINE HCL** 25 MG TAB PO SCH (22:49)
[2020-04-18] MEDS: CARVedilol 3.125 MG TAB PO SCH (22:50)
[2020-04-18] MEDS: LEVEMIR (INSULIN DETEMIR) 1 UNITS/0.01ML SC SCH (22:55)
[2020-04-18] MEDS: HumaLOG INSULIN (NovoLOG) PER UNIT SC SCH (22:59)
[2020-04-18] MEDS ORDERED: SLF 3 ML SYR IV PRN (23:30)
[2020-04-19 02:39] VITALS: BP 172/90
[2020-04-19] MEDS ORDERED: LABETALOL 100MG/20ML VIAL IV ONE ×2 (03:45)
[2020-04-19 05:41] LABS: HEMATOCRIT 29.7 % (42.0-52.0); HEMOGLOBIN 9.3 g/dl (13.5-17.5); MEAN CORPUSCULAR HGB CONC 31.3 g/dl (32.0-36.5); MEAN CORPUSCULAR VOLUME 105.3 fl (80.0-96.0); PLATELET COUNT, AUTOMATED 198 10^3/uL (150-450); RED BLOOD COUNT 2.82 10^6/uL (4.30-6.10); WHITE BLOOD COUNT 5.6 10^3/uL (4.0-10.0)
[2020-04-19 05:52] LABS: INR 1.78; PROTHROMBIN TIME 21.1 SECONDS (12.5-14.3)
[2020-04-19 05:55] LABS: CALCIUM LEVEL 10.1 MG/DL (8.8-10.2); CREATININE FOR GFR 2.17 MG/DL (0.70-1.30); GLOMERULAR FILTRATION RATE 30.7 (>35); POTASSIUM SERUM 3.9 MEQ/L (3.5-5.1); TROPONIN I 0.03 NG/ML (< 0.10)
[2020-04-19 05:56] VITALS: BP 136/80
[2020-04-19] MEDS: LEVOTHYROXINE 50MCG TABLET (0.05MG) PO SCH (06:10)
[2020-04-19] MEDS: SLF 3 ML SYR IV SCH ×3 (06:13→20:53)
[2020-04-19 08:00] VITALS: BP 138/63
--- NOTE | 2020-04-19 08:15 | ECGEPIP ---
[facility] - ED Test Date: 2020-04-18 Pat Name: AURELIO MANNING Department: Room: - Gender: Male [employer] Supervisor: matteo : [id number] Requested By: DIVYA Fernandez Order Number: [id number] Reading MD: Jazmyne Hagan Measurements Intervals [place] Rate: 80 P: NV: QRS: -89 QRSD: 182 T: 91 QT: 482 QTc: 555 Interpretive Statements Ventricular-paced rhythm similar 10/10/19 Electronically Signed on 04-19-2020 8:15:16 EST by Jazmyne Hagan
[2020-04-19 08:19] LABS: HEMOGLOBIN A1c 11.1 %
[2020-04-19] MEDS: HumaLOG INSULIN (NovoLOG) PER UNIT SC SCH ×4 (09:04→20:53)
[2020-04-19] MEDS: ASPIRIN 81 MG ENTERIC TAB PO SCH (09:04)
[2020-04-19] MEDS: QUINAPRIL 20 MG TAB PO SCH (09:04)
[2020-04-19] MEDS: TORSEMIDE 20 MG TAB PO SCH (09:05)
[2020-04-19] MEDS: **hydrALAZINE HCL** 25 MG TAB PO SCH ×2 (09:05→20:52)
[2020-04-19] MEDS: SPIRONOLACTONE 12.5MG PER 1/2 TABLET PO SCH (09:05)
[2020-04-19] MEDS: CALCITRIOL 0.25 MCG CAP (S0169) PO SCH (09:05)
[2020-04-19] MEDS: EZETIMIBE 10 MG TAB (ZETIA) PO SCH (09:05)
[2020-04-19] MEDS: ATORVASTATIN 20 MG TAB PO SCH (09:05)
[2020-04-19] MEDS: ISOSORBIDE MON. (IMDUR) 30 MG XR TAB PO SCH (09:05)
[2020-04-19] MEDS: CARVedilol 3.125 MG TAB PO SCH ×2 (09:06→20:52)
--- NOTE | 2020-04-19 09:43 | IPN ---
PROGRESS NOTE DATE: 04/19/2020 SUBJECTIVE: Ghassan is seen in PCU. He was admitted with unresponsive episode with no recurrence with this. I think he certainly has some baseline dementia. The patient is not known to me previously. He became unresponsive while family members were present. He has a history of congestive heart failure with reduced ejection fraction severely depressed at 25% - 30% echocardiogram 09/2019. OBJECTIVE: VITAL SIGNS: Blood pressure 138/63, pulse 80, respiratory rate 18. GENERAL APPEARANCE: Alert and conversant in no distress. Answers are vague and lack content. HEENT: Unremarkable. No JVD. LUNGS: Clear. HEART: Regular rhythm with 1/6 systolic ejection murmur. ABDOMEN: Soft and nontender with no masses. EXTREMITIES: No peripheral edema. Good pulses in the feet. NEUROLOGIC: Shows no focal deficits. No focal weakness. Mental status exam shows that he does understand he is in the hospital, but does not know where it is. He knows the year, but not the month. He is not able to name the president nor the occupant preceding him, though he did note that "he created a lot of problems." LABORATORY DATA: INR 1.78. ASSESSMENT/PLAN: 1. Unresponsive episode. Telemetry has been unremarkable. He has a pacemaker that is functioning normally. EEG is pending. Probably discharge tomorrow. 2. Diabetes. Sliding scale insulin coverage. Low dose basal insulin has been ordered. 3. Hypertension well-controlled on current regimen. 4. Congestive heart failure with reduced ejection fraction that seems compensated on exam. We stopped his IV fluids yesterday. 5. Underlying chronic atrial fibrillation. Continue his warfarin 2.5 mg daily. 6. Dementia. There seems to be some underlying dementia. 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
[2020-04-19 10:28] LABS: ALBUMIN 4.16 GM/DL (3.29-5.55); ALBUMIN % 53.3 % (55.8-66.1); ALPHA-1-GLOBULINS 0.39 GM/DL (0.17-0.41); ALPHA-2-GLOBULINS 0.86 GM/DL (0.42-0.99); BETA-1-GLOBULINS 0.51 GM/DL (0.28-0.60); BETA-1-GLOBULINS % 6.6 % (4.7-7.2); BETA-2-GLOBULINS 0.65 GM/DL (0.19-0.55); BETA-2-GLOBULINS % 8.3 % (3.2-6.5); GAMMA GLOBULIN % 15.8 % (11.1-18.8); GAMMA GLOBULINS 1.23 GM/DL (0.65-1.58)
[2020-04-19 12:00] VITALS: BP 107/53
[2020-04-19 16:00] VITALS: BP 124/59
[2020-04-19] MEDS ORDERED: WARFARIN SOD 2.5MG TAB PO SCH (17:00)
[2020-04-19 20:00] VITALS: BP 143/65
[2020-04-19] MEDS: TAMSULOSIN 0.4 MG CAP PO SCH (20:52)
[2020-04-19] MEDS: LEVEMIR (INSULIN DETEMIR) 1 UNITS/0.01ML SC SCH (20:53)
[2020-04-20] VITALS: BP 179/74
[2020-04-20 03:59] VITALS: BP 135/56
[2020-04-20 04:58] LABS: HEMATOCRIT 28.7 % (42.0-52.0); HEMOGLOBIN 9.2 g/dl (13.5-17.5); MEAN CORPUSCULAR HEMOGLOBIN 33.9 pg (27.0-33.0); MEAN CORPUSCULAR HGB CONC 32.1 g/dl (32.0-36.5); MEAN CORPUSCULAR VOLUME 105.9 fl (80.0-96.0); PLATELET COUNT, AUTOMATED 191 10^3/uL (150-450); RED BLOOD COUNT 2.71 10^6/uL (4.30-6.10); WHITE BLOOD COUNT 5.7 10^3/uL (4.0-10.0)
[2020-04-20 05:05] LABS: INR 1.66
[2020-04-20 05:18] LABS: CALCIUM LEVEL 10.2 MG/DL (8.8-10.2); CREATININE FOR GFR 2.12 MG/DL (0.70-1.30); GLOMERULAR FILTRATION RATE 31.5 (>35)
[2020-04-20] MEDS: LEVOTHYROXINE 50MCG TABLET (0.05MG) PO SCH (05:49)
[2020-04-20] MEDS: SLF 3 ML SYR IV SCH (05:50)
[2020-04-20 07:27] VITALS: BP 144/72
[2020-04-20] MEDS: HumaLOG INSULIN (NovoLOG) PER UNIT SC SCH ×2 (08:07→12:16)
[2020-04-20] MEDS: ASPIRIN 81 MG ENTERIC TAB PO SCH (08:08)
[2020-04-20] MEDS: CALCITRIOL 0.25 MCG CAP (S0169) PO SCH (08:08)
[2020-04-20] MEDS: CARVedilol 3.125 MG TAB PO SCH (08:08)
[2020-04-20] MEDS: **hydrALAZINE HCL** 25 MG TAB PO SCH (08:08)
[2020-04-20] MEDS: ATORVASTATIN 20 MG TAB PO SCH (08:08)
[2020-04-20] MEDS: TORSEMIDE 20 MG TAB PO SCH (08:08)
[2020-04-20 08:09] VITALS: BP 144/72
[2020-04-20] MEDS: ISOSORBIDE MON. (IMDUR) 30 MG XR TAB PO SCH (08:09)
[2020-04-20] MEDS: QUINAPRIL 20 MG TAB PO SCH (08:09)
[2020-04-20] MEDS: SPIRONOLACTONE 12.5MG PER 1/2 TABLET PO SCH (08:09)
[2020-04-20] MEDS: EZETIMIBE 10 MG TAB (ZETIA) PO SCH (08:09)
--- NOTE | 2020-04-20 10:02 | DSES ---
DISCHARGE SUMMARY DATE OF ADMISSION: 04/18/2020 DATE OF DISCHARGE: 04/20/2020 PRINCIPAL DIAGNOSIS: Unresponsive episode. SECONDARY DIAGNOSES: 1. Type 2 diabetes. 2. Hypertension. 3. Congestive heart failure. 4. Reduced ejection fraction. 5. Chronic atrial fibrillation. 6. Dementia. BRIEF HISTORY: Ghassan Augustine was witnessed to have an unresponsive episode, admitted for further observation. HOSPITAL COURSE: He was admitted to PCU bed. Rhythms were paced with no pacemaker problem identified. He had EEG ordered; results are pending at the time of discharge. He had no recurrence of unresponsive episode. He would like to go home today. If he clears physical therapy I will discharge him. Significant labs today: White count 5.7, hemoglobin 9.2, platelets 191, sodium 145, potassium 4, BUN 52, creatinine 2.1. Hemoglobin A1C 11.1 showing poor long-term control of his diabetes. INR 1.7. DISPOSITION: If he passes physical therapy he will go home. I have already made Home Care referral. He will follow up with his primary care provider in a week. Activity is as tolerated. He is on 2 gm sodium diet, 1800 mL per day fluid restriction. DISCHARGE MEDICATIONS: Unchanged from admission: 1. Albuterol inhaler as needed. 2. Aspirin 81 mg daily. 3. Atorvastatin 20 mg daily. 4. Calcitriol 0.25 mcg daily. 5. Carvedilol 3.125 mg twice daily. 6. Vitamin D 1000 mcg daily. 7. Zetia 10 mg daily. 8. Famotidine 40 mg daily. 9. Hydralazine 25 mg twice daily. 10. Glargine insulin resuming previous dose. 11. Sliding scale insulin from previous sliding scale. 12. Isosorbide Mononitrate 30 mg daily. 13. Levothyroxine 50 mcg daily. 14. Quinapril 40 mg daily. 15. Spironolactone 12.5 mg daily. 16. Tamsulosin 0.4 mg daily. 17. Torsemide 20 mg daily. 18. Warfarin 2.5 mg daily. He is to get an INR at his follow up appointment in a week.
[2020-04-20 18:06] LABS: FREE KAPPA LIGHT CHAINS SERUM 99.6 mg/L (3.3-19.4); KAPPA/LAMBDA RATIO SERUM 1.44 (0.26-1.65)
--- NOTE | 2020-04-21 11:55 | EEG ---
ELECTROENCEPHALOGRAM DATE: 04/19/2020 DIAGNOSIS: Rule out seizure. EEG# [id number]. REFERRING PHYSICIAN: Jayme Roy MD HISTORY: Patient is an 89-year-old man who was found unresponsive. This EEG was done to rule out epileptic potential. He is currently taking aspirin, Lipitor, Calcitriol, carvedilol, Zetia, hydralazine, isosorbide, Quinapril, Coumadin, and Flomax. INTERPRETATION: Patient was noted to be in awake and drowsy states during this EEG. Resting and awake background rhythm consisted of 6-7 Hz theta activity measuring 15-40 microvolts in amplitude, which was symmetric bilaterally. Hyperventilation could not be performed. Photic stimulation could not be performed. Stage 2 sleep was noted and was symmetric bilaterally. EKG revealed irregular heart beat. No focal, lateralizing, or epileptiform abnormalities were seen. No relevant clinical activity was noted. CONCLUSION: This EEG in awake, drowsy, and stage 2 sleep is abnormal due to the presence of generalized slowing and disorganization of background consistent with nonspecific diffuse cerebellar dysfunction such as seen in encephalopathy and dementia. No focal, lateralizing, or epileptiform abnormalities were seen. Clinical correlation is recommended.
== END 2020-04-20 13:26 | disposition home health service (06) | DRG 884 ==
LOC: EDBD 12:27 → M ED 12:27 → M ED INP 18:24 → ENRESERV 18:57 → M PCU 22:01
PROVIDERS: ADMIT Family Medicine; ATTEND Family Medicine
DX: R40.4 Transient alteration of awareness (principal); I50.22 Chronic systolic (congestive) heart failure; I48.20 Chronic atrial fibrillation, unspecified; I13.0 Hypertensive heart and chronic kidney disease with heart failure and stage 1 through stage 4 chronic kidney disease, or unspecified chronic kidney disease; N18.4 Chronic kidney disease, stage 4 (severe); F03.90 Unspecified dementia, unspecified severity, without behavioral disturbance, psychotic disturbance, mood disturbance, and anxiety; Z79.899 Other long term (current) drug therapy; Z79.82 Long term (current) use of aspirin; E55.9 Vitamin D deficiency, unspecified; D64.9 Anemia, unspecified; I25.10 Atherosclerotic heart disease of native coronary artery without angina pectoris; J45.909 Unspecified asthma, uncomplicated; E03.9 Hypothyroidism, unspecified; Z79.01 Long term (current) use of anticoagulants; K22.70 Barrett's esophagus without dysplasia; Z95.0 Presence of cardiac pacemaker; E78.5 Hyperlipidemia, unspecified

== ENCOUNTER 2020-05-15 18:45 | Observation (INO) | payer MEDICARE ==
[~2020-05-15] VITALS: Ht 180.3 cm; Wt 66.2 kg
[~2020-05-15 18:45] MED LIST changes: +ASPI-161 PO; -HUMA100I5 SQ; -LANTINJ4 SQ; +PATIENT COMMENT; +TAMS1CAP17 PO; +VENTAER INH
[2020-05-15 20:25] LABS: INR 1.89; PROTHROMBIN TIME 22.1 SECONDS (12.5-14.3)
[2020-05-15 20:26] LABS: PARTIAL THROMBOPLASTIN TIME 41.7 SECONDS (24.2-38.5)
[2020-05-15 20:29] LABS: BASO % 0.5 % (0.0-1.0); EOS # 0.1 10^3/uL (0.0-0.5); HEMATOCRIT 28.2 % (42.0-52.0); LYMPH # 0.6 10^3/uL (1.5-5.0); LYMPH % 14.5 % (24.0-44.0); MEAN CORPUSCULAR HEMOGLOBIN 34.2 pg (27.0-33.0); MEAN CORPUSCULAR HGB CONC 31.9 g/dl (32.0-36.5); MEAN CORPUSCULAR VOLUME 107.2 fl (80.0-96.0); MONO # 0.4 10^3/uL (0.0-0.8); NEUTROPHILS # 2.9 10^3/uL (1.5-8.5); NEUTROPHILS % 72.7 % (36.0-66.0); PLATELET COUNT, AUTOMATED 152 10^3/uL (150-450); RED BLOOD COUNT 2.63 10^6/uL (4.30-6.10)
[2020-05-15 20:43] LABS: BLOOD UREA NITROGEN 61 MG/DL (7-18); CALCIUM LEVEL 10.5 MG/DL (8.8-10.2); CARBON DIOXIDE LEVEL 31 MEQ/L (21-32); CHLORIDE LEVEL 105 MEQ/L (98-107); CK-MB VALUE MASS 3.4 NG/ML (<3.6); CPK CREATINE PHOSPHOKINASE 71 U/L (39-308); CREATININE FOR GFR 2.49 MG/DL (0.70-1.30); ETHYL ALCOHOL (ETHANOL) < 0.003 % (0.000-0.010); GLOMERULAR FILTRATION RATE 26.2 (>35); GLUCOSE, FASTING 242 MG/DL (70-100); MB/CK RELATIVE INDEX 4.79 (< OR =4); POTASSIUM SERUM 3.9 MEQ/L (3.5-5.1); SODIUM LEVEL 143 MEQ/L (136-145); TROPONIN I 0.05 NG/ML (< 0.10)
--- NOTE | 2020-05-15 20:58 | REPVR ---
PROCEDURE INFORMATION: Exam: CT Head Without Contrast Exam date and time: 05/15/2020 8:15 PM Age: 89 years old Clinical indication: Syncope and collapse TECHNIQUE: Imaging protocol: Computed tomography of the head without contrast. Radiation optimization: All CT scans at this facility use at least one of these dose optimization techniques: automated exposure control; mA and/or kV adjustment per patient size (includes targeted exams where dose is matched to clinical indication); or iterative reconstruction. COMPARISON: CT Head without contrast 04/18/2020 4:51 PM FINDINGS: Brain: There is moderate age related parenchymal volume loss. White matter changes are demonstrated in the subcortical, centrum semiovale and periventricular white matter consistent with chronic age related small vessel ischemic changes. 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 Diffuse cerebellar atrophy. Cerebral ventricles: The degree of ventricular dilatation is normal for age and/or degree of atrophy present. Bones/joints: Unremarkable. No acute fracture. Paranasal sinuses: Visualized sinuses are unremarkable. No fluid levels. Mastoid air cells: Visualized mastoid air cells are well aerated. Vasculature: Atherosclerotic calcifications are demonstrated in the intracranial carotid arteries bilaterally as well as in the vertebral basilar system. Soft tissues: Unremarkable. Other findings: . IMPRESSION: 1. There is moderate age related parenchymal volume loss. White matter changes are demonstrated in the subcortical, centrum semiovale and periventricular white matter consistent with chronic age related small vessel ischemic changes. 2. The degree of ventricular dilatation is normal for age and/or degree of atrophy present. 3. Diffuse cerebellar atrophy. Electronically signed by: Mendel Smith On 05/15/2020 20:58:37 PM
--- NOTE | 2020-05-15 20:59 | REPVR ---
PROCEDURE INFORMATION: Exam: XR Chest Exam date and time: 05/15/2020 8:35 PM Age: 89 years old Clinical indication: Other: Syncope; Additional info: Syncope/near-syncope TECHNIQUE: Imaging protocol: XR of the chest Views: 1 view. COMPARISON: NE PORTABLE CHEST X-RAY 04/18/2020 3:37 PM FINDINGS: Tubes, catheters and devices: Dual chamber cardiac pacer demonstrated with intact pacer wires. Lungs: Unremarkable. No consolidation. Pleural spaces: Unremarkable. No pleural effusion. No pneumothorax. Heart/Mediastinum: Unremarkable. Cardiomegaly. Status post CABG. Bones/joints: Status post sternotomy. IMPRESSION: No acute findings. Electronically signed by: Mendel Smith On 05/15/2020 20:59:20 PM
[2020-05-15] MEDS ORDERED: NS 1,000 ML IV ONE (21:45)
[2020-05-15 21:46] LABS: AMPHETAMINES LEVEL URINE NEGATIVE (NEGATIVE); BARBITURATES URINE NEGATIVE (NEGATIVE); BENZODIAZEPINES URINE NEGATIVE (NEGATIVE); CANNABINOIDS URINE NEGATIVE (NEGATIVE); COCAINE METABOLITE URINE NEGATIVE (NEGATIVE); METHADONE URINE NEGATIVE (NEGATIVE); OPIATES URINE NEGATIVE (NEGATIVE); PHENCYCLIDINE URINE NEGATIVE (NEGATIVE)
[2020-05-15 22:50] LABS: RSV AMPLIFICATION NEGATIVE (NEGATIVE)
[2020-05-15 23:10] LABS: PROLACTIN 14.6 NG/ML (2.1-17.7)
[2020-05-15] MEDS ORDERED: DEXTROSE 50% 50 ML SYRINGE IV PRN (23:10)
[2020-05-15] MEDS ORDERED: GLUCAGON INJ 1MG VIAL SC PRN (23:10)
[2020-05-15] MEDS ORDERED: ACETAMINOPHEN TAB 650MG DOSE (2X325MG) PO PRN (23:10)
[2020-05-15] MEDS ORDERED: GLUCOSE 4GM CHEW TABLET PO PRN (23:10)
[2020-05-15] MEDS ORDERED: MOM 30ML SUSPENSION UDC PO PRN (23:10)
--- NOTE | 2020-05-15 23:58 | HPEPDOC ---
[facility] Medical History & Physical Date of Admission May 15, 2020 Date of Service: May 15, 2020 Attending Physician: ROSITA GUADARRAMA MD History and Physical CHIEF COMPLAINT: [89 y/o male presents to the ED after second episode of syncope in 1 week.] HISTORY OF PRESENT ILLNESS: [This is an 89 y/o male with a pmh of IDDM, systolic heart failure, a-fib with pacemaker placement, CAD with CABG, HTN, and CKD. Patient states that this week he has experienced two episodes of syncope. Patient states to me that he has no history of passing out and that this is new for him. Patient states that today, he was out with his girlfriend when he sat down in a chair, and was overcome with a feeling that something bad was about to happen to him. Patient states that the next thing he knew, he was being examined on the ground by first responders. Patient states that he felt fine as soon as he woke up and had no residual effects, pain, dizziness, and he does not believe he struck his head. EMS then convinced him to report to the hospital. Patient denies fever, chills, chest pain, palpitations, headache, dizziness, weakness, confusion, fatigue, shortness of breath, nausea, vomiting, vision changes or vision loss. ] PAST MEDICAL HISTORY: 1. [See HPI PAST SURGICAL HISTORY: 1. [Cataract removal]. 2. [CABG]. 3. [Carotid endarterectomy 4. Thoracentesis 5. Pacemaker placement 6. B/L hip arthroplasty]. SOCIAL HISTORY: Marital status: [has girlfriend]. Resides in: [lives with girlfriend] Employment: [no] Tobacco use:[no] ETOH: [no] Illicit drug use: [no] ALLERGIES: Please see below. REVIEW OF SYSTEMS: CONSTITUTIONAL: [See hpi]. HEENT: [See hpi]. CARDIOVASCULAR: [See hpi]. RESPIRATORY: [See hpi]. GASTROINTESTINAL: [See hpi]. SKIN: [Denies rash, wound]. MUSCULOSKELETAL: [Denies joint pain]. NEUROLOGICAL: [See hpi]. PSYCHIATRIC: [Admits to occasional visual hallucinations]. HOME MEDICATIONS: Please see below. PHYSICAL EXAMINATION: VITAL SIGNS: see below GENERAL APPEARANCE: [This is an 89 year old male who is resting comfortably in bed in no acute distress.]. HEENT: [No mass or lesion noted. EOMI. PERRL. Nares patent. Oral mucosa moist without erythema. Left sided carotid bruit appreciated]. CARDIOVASCULAR: [Regular rate, irregular rhythm. No murmurs rubs or gallops appreciated.]. LUNGS: [Clear air flow appreciated. No wheezes, rales or rhonchi]. ABDOMEN: [Soft, non distended, non tender.]. EXTREMITIES: [Warm, dry extremities. No peripheral edema or cyanosis noted. Pulses intact.]. NEUROLOGICAL: [A+Ox3, somewhat confused. Speech clear. Strength rated as 5/5 in all extremities. No focal deficits.]. PSYCHIATRIC: [Mood and affect appear appropriate.]. LABORATORY DATA: See below. IMAGING: [CXR: FINDINGS: Tubes, catheters and devices: Dual chamber cardiac pacer demonstrated with intact pacer wires. Lungs: Unremarkable. No consolidation. Pleural spaces: Unremarkable. No pleural effusion. No pneumothorax. Heart/Mediastinum: Unremarkable. Cardiomegaly. Status post CABG. Bones/joints: Status post sternotomy. IMPRESSION: No acute findings Head CT: FINDINGS: Brain: There is moderate age related parenchymal volume loss. White matter changes are demonstrated in the subcortical, centrum semiovale and periventricular white matter consistent with chronic age related small vessel ischemic changes. 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 Diffuse cerebellar atrophy. Cerebral ventricles: The degree of ventricular dilatation is normal for age and/or degree of atrophy present. Bones/joints: Unremarkable. No acute fracture. Paranasal sinuses: Visualized sinuses are unremarkable. No fluid levels. Mastoid air cells: Visualized mastoid air cells are well aerated. Vasculature: Atherosclerotic calcifications are demonstrated in the intracranial carotid arteries bilaterally as well as in the vertebral basilar system. Soft tissues: Unremarkable. Other findings: . IMPRESSION: 1. There is moderate age related parenchymal volume loss. White matter changes are demonstrated in the subcortical, centrum semiovale and periventricular white matter consistent with chronic age related small vessel ischemic changes. 2. The degree of ventricular dilatation is normal for age and/or degree of atrophy present. 3. Diffuse cerebellar atrophy. ] MICROBIOLOGY: Please see below. ASSESSMENT/PLAN: 1. [Recurrent Syncope]. - Etiology of syncope likely of cardiac or neurologic origin. Patient states that ems told him that his blood sugar was low but was found to be in the 140s in the ER. Chart review has also revealed an A1C of 11, so hypoglycemic episodes seem unlikely in this scenario. Due to the nature of patient's symptomatology surrounding his syncopal episodes and fast recovery after collapse, I feel confident in ruling out stroke as a cause as well. Negative CT brain also argues against cva. I will not be ordering an MRI at this time. Patient was admitted on 04/20/20 for this same reason, and at that time underwent EEG with Dr. Bhandari which was uneventful and clinical correlation was recommended. Most recent ECHO may have been in september, however report is no able to be located. Supposedly reduced ejection fraction of approx. 30-40%. Carotid bruits are also noted on exam. - Will admit on telemetry to monitor him for further episodes - Will order carotid US, orthostatic blood pressures, ECHO - Can consider repeat EEG pending results of other tests 2. SITA on CKD - Patients Cr is up to 2.5 from 2.1 one month ago - IV fluids have been given in the ER and have now been started on the floor - Unclear etiology at this time. Have ordered renal US, pth, phos, [id number], mag, and urine urea nitrogen - Consider establishing with nephrology 3. Labile Hypertension - Upon chart review, patients blood pressures have been noted to be extremely labile, at one point decreasing over 40mmHg systolic in the course of one hour in the ED. Even with these fluctuations, patient is still hypertensive - ranging from 150-190 systolic. Patient is currently taking 5 medications that can affect blood pressure - losartan, hydralazine, spironolactone, flomax and torsemide. It may be reasonable for patient to follow up with Dr. Hendrix for better titration of medications for patients blood pressure. These blood pressure fluxuations may also be causing his syncope. - we will continue previously mentioned bp meds for now and monitor 4. Macrocytic anemia - Likely multifactorial picture. CKD - Ordered methylmalonic acid and b12 level 5. A-fib with pacemaker placement - Continue warfarin, asa - patient is on tele - pacemaker recently tested at last admission one month ago 6. IDDM - continue at home basal insulin - sliding scale insulin initiated, we will follow glucose while he is inpatient 7. Dementia - Patient is confused when discussing his at-home meds with myself, pharmacy, and other providers. Will consult social studies department chair to look into at home nursing to help him manage his medications at home. 8.Hypothyroidism - continue synthroid 9.Hyperlipidemia - continue zetia, statin 10. DVT prophylaxis - Continue at home warfarin, INR ordered Vital Signs Vital Signs Date Time Temp Pulse Resp B/P (MAP) Pulse Ox O2 Delivery O2 Flow Rate FiO2 05/15/20 23:46 80 97 05/15/20 23:45 16 152/63 (92) 05/15/20 23:01 Room Air 05/15/20 19:32 97.1 Laboratory Data Labs 24H Laboratory Tests 2 05/15/20 19:49: Immature Granulocyte % (Auto) 0.3, Neutrophils (%) (Auto) 72.7H, Lymphocytes (%) (Auto) 14.5L, Monocytes (%) (Auto) 9.0H, Eosinophils (%) (Auto) 3.0, Basophils (%) (Auto) 0.5, Neutrophils # (Auto) 2.9, Lymphocytes # (Auto) 0.6L, Monocytes # (Auto) 0.4, Eosinophils # (Auto) 0.1, Basophils # (Auto) 0.0, Nucleated Red Blood Cells % (auto) 0.0, Prothrombin Time 22.1H, Prothromb Time International Ratio 1.89, Activated Partial Thromboplast Time 41.7H, Anion Gap 7L, Glomerular Filtration Rate 26.2L, Calcium Level 10.5H, Total Creatine Kinase 71, Creatine Kinase MB 3.4, Creatine Kinase MB Relative Index 4.79H, Troponin I 0.05, Thyroid Stimulating Hormone (TSH) 2.450, Prolactin 14.6, Ethyl Alcohol Level < 0.003 05/15/20 21:00: Lactic Acid Level 1.3, Urine Opiates Screen NEGATIVE, Urine Methadone Screen NEGATIVE, Urine Barbiturates Screen NEGATIVE, Urine Phencyclidine Screen NEGATIVE, Urine Amphetamines Screen NEGATIVE, Urine Benzodiazepines Screen NEGATIVE, Urine Cocaine Metabolite Screen NEGATIVE, Urine Cannabinoids Screen NEGATIVE 05/15/20 22:06: Coronavirus (COVID-19)(PCR) NEGATIVE, Influenza Type A (RT-PCR) NEGATIVE, Influenza Type B (RT-PCR) NEGATIVE, Respiratory Syncytial Virus (PCR) NEGATIVE CBC/BMP Laboratory Tests 05/15/20 19:49 Home Medications Scheduled Aspirin (Aspirin EC) 81 Mg Tablet.dr, 81 MG PO DAILY Atorvastatin Calcium (Atorvastatin Calcium) 20 Mg Tablet, 20 MG PO DAILY Calcitriol (Calcitriol) 0.25 Mcg Capsule, 0.25 MCG PO 3XW WEDNESDAY, WEDNESDAY AND WEDNESDAY Carvedilol (Carvedilol) 3.125 Mg Tablet, 3.125 MG PO BID Cholecalciferol (Vitamin D3) (Vitamin D3) 1,000 Unit Tablet, 1,000 UNITS PO DAILY Ezetimibe (Zetia) 10 Mg Tablet, 10 MG PO DAILY Famotidine (Famotidine) 40 Mg Tablet, 40 MG PO DAILY Hydralazine HCl (Hydralazine HCl) 25 Mg Tablet, 25 MG PO BID Insulin Glargine,Hum.rec.anlog (Lantus Solostar) 100 Unit/1 Ml Insuln.pen, 18 DOSE SC QHS Insulin Lispro (Humalog Kwikpen U-100) 100 Unit/1 Ml Insuln.pen, 1 DOSE SC AC PER SLIDING SCALE Levothyroxine Sodium (Levoxyl) 50 Mcg Tablet, 50 MCG PO DAILY Spironolactone (Spironolactone) 25 Mg Tablet, 12.5 MG PO DAILY Tamsulosin Hcl (Tamsulosin HCl) 0.4 Mg Capsule, 0.4 MG PO QHS Torsemide (Torsemide) 20 Mg Tablet, 20 MG PO DAILY Warfarin Sodium (Warfarin Sodium) 2.5 Mg Tablet, Unknown Dose PO DAILY Scheduled PRN Albuterol Sulfate (Ventolin Hfa) 18 Gm Hfa.aer.ad, 2 PUFF INH QID PRN for SHORTNESS OF BREATH Allergies Coded Allergies: No Known Allergies (Verified , 04/18/20) A-FIB/CHADSVASC A-FIB History Current/History of A-Fib/PAF?: Yes Current PO Anticoag Therapy: Yes Attending Note Attending Note time of service 1157pm is an 89 yr old M w a hx of IDDM2, longstanding persistent Afib, small vessel ischemic dz, HFrEF (25%), Dementia, HTN and Hypothryodism who presented w c/o recurrent & witnessed syncopal episodes. He will be admitted for evaluation of syncope and SITA on CKD4. Plan: f/u trops, prolactin & orthostats the day time team may consider MRI of the brain to r/o vertibrobasillar insufficiency if indicated / treat SITA, f/u work up for CKD4 (ie SPEP, PTH, iron studies w soluble transferrin receptor, Phosph, Hepatitis panel, UA w urine studies renal US ect) Rest per GREGORIA Garcia H&P RAMÓN LOWE May 15, 2020 23:58 ROSITA GUADARRAMA MD May 16, 2020 02:25
[2020-05-16 00:05] LABS: MAGNESIUM LEVEL 2.3 MG/DL (1.8-2.4)
[2020-05-16 00:20] VITALS: BP 140/70
[2020-05-16] MEDS ORDERED: ALBUTEROL 90 MCG/ACT 8GM HFA INHALER INH PRN (00:50)
[2020-05-16] MEDS: NS 1,000 ML IV SCH ×3 (00:52→21:33)
--- NOTE | 2020-05-16 01:15 | ECGEPIP ---
[facility] - ED Test Date: 2020-05-15 Pat Name: AURELIO MANNING Department: Room: - Gender: Male Rn Review: GARETH : 1930 Requested By: JAMES Duval Order Number: [id number] Reading MD: Dmitri Steen Measurements Intervals [place] Rate: 80 P: GA: QRS: -84 QRSD: 174 T: 89 QT: 462 QTc: 532 Interpretive Statements Ventricular-paced rhythm SIMILAR TO 04/18/20 Electronically Signed on 05-16-2020 1:15:05 EDT by Dmitri Steen
[2020-05-16] MEDS: **hydrALAZINE HCL** 25 MG TAB PO SCH ×3 (01:46→21:32)
[2020-05-16] MEDS: CARVedilol 3.125 MG TAB PO SCH ×3 (01:47→21:33)
[2020-05-16 01:50] VITALS: BP_SYST 128; BP_SYST 130; BP_SYST 138; BP_DIAS 62; BP_DIAS 64; BP_DIAS 68
[2020-05-16 03:19] LABS: APPEARANCE, URINE CLEAR (CLEAR); BACTERIA, URINE AUTO NEGATIVE (NEGATIVE); BILIRUBIN, URINE AUTO NEGATIVE (NEGATIVE); BLOOD, URINE BLOOD NEGATIVE (NEGATIVE); COLOR, URINE YELLOW (YELLOW); GLUCOSE, URINE (UA) AUTO 1+ mg/dL (NEGATIVE); KETONE, URINE AUTO NEGATIVE (NEGATIVE); LEUKOCYTE ESTERASE, URINE AUTO 2+ (NEGATIVE); NITRITE, URINE AUTO NEGATIVE (NEGATIVE); PROTEIN, URINE AUTO NEGATIVE (NEGATIVE); RBC, URINE AUTO 2 /HPF (0-3); SQUAMOUS EPITHELIAL CELL UR AU 1 /HPF (0-6); UROBILINOGEN, URINE AUTO 0.2 mg/dL (0.0-2.0); WBC, URINE AUTO 51 /HPF (0-3)
[2020-05-16 03:33] LABS: CREATININE,RANDOM URINE 44.6 MG/DL; SODIUM,RANDOM URINE 80 MEQ/L; TOTAL PROTEIN,RANDOM URINE 13.7 MG/DL (0.0-12.0); UREA NITROGEN RANDOM URINE 493 MG/DL
--- NOTE | 2020-05-16 04:54 | REP ---
INDICATION: akiko COMPARISON: 10/11/2019 TECHNIQUE: Real time martin scale ultrasound examination using curved array transducer. FINDINGS: The kidneys demonstrate multiple large primarily benign simple appearing cysts (right greater than left). No obvious hydronephrosis. Right kidney measures 17.5 x 5.1 x 5.9 cm including the largest cysts measuring 9.1 cm, and 6.0 cm at the upper pole along with 4.4 cm at the lower pole. Left kidney measures 9.2 x 3.8 x 4.5 cm including largest cysts measuring 3.2 cm and 4.2 cm at the midpole and 2.9 cm at the lower pole. Bladder demonstrates large left posterior diverticulum. IMPRESSION: 1. Bilateral renal cysts (right greater than left) similar to prior examination. No obvious hydronephrosis. 2. Bladder demonstrates large left posterior diverticulum. <Electronically signed by Waqas Zavala > 05/16/20 [id number]
[2020-05-16 06:00] VITALS: BP 128/76
[2020-05-16] MEDS: LEVOTHYROXINE 50MCG TABLET (0.05MG) PO SCH (06:05)
[2020-05-16 06:17] LABS: BASO % 0.6 % (0.0-1.0); EOS # 0.3 10^3/uL (0.0-0.5); EOS % 7.6 % (0.0-3.0); HEMATOCRIT 26.3 % (42.0-52.0); HEMOGLOBIN 8.4 g/dl (13.5-17.5); LYMPH # 0.8 10^3/uL (1.5-5.0); LYMPH % 23.5 % (24.0-44.0); MEAN CORPUSCULAR HEMOGLOBIN 33.9 pg (27.0-33.0); MEAN CORPUSCULAR HGB CONC 31.9 g/dl (32.0-36.5); MONO # 0.4 10^3/uL (0.0-0.8); NEUTROPHILS % 56.3 % (36.0-66.0); PLATELET COUNT, AUTOMATED 141 10^3/uL (150-450); RED BLOOD COUNT 2.48 10^6/uL (4.30-6.10); WHITE BLOOD COUNT 3.6 10^3/uL (4.0-10.0)
[2020-05-16 06:27] LABS: INR 2.06; PROTHROMBIN TIME 23.6 SECONDS (12.5-14.3)
[2020-05-16 06:41] LABS: CALCIUM LEVEL 10.3 MG/DL (8.8-10.2); CREATININE FOR GFR 2.21 MG/DL (0.70-1.30); GLOMERULAR FILTRATION RATE 30.1 (>35); MAGNESIUM LEVEL 2.1 MG/DL (1.8-2.4); POTASSIUM SERUM 3.7 MEQ/L (3.5-5.1)
[2020-05-16 07:55] VITALS: BP 166/72
[2020-05-16] MEDS: SPIRONOLACTONE 25 MG TAB PO SCH (07:57)
[2020-05-16] MEDS: WARFARIN SOD 2.5MG TAB PO SCH (07:57)
[2020-05-16] MEDS: FAMOTIDINE 20 MG TAB PO SCH (07:58)
[2020-05-16] MEDS: ASPIRIN 81MG ENTERIC TABLET PO SCH (07:58)
[2020-05-16] MEDS: DOCUSATE SODIUM 100MG CAPSULE PO SCH ×2 (07:59→21:32)
[2020-05-16] MEDS: ATORVASTATIN 20 MG TAB PO SCH (07:59)
[2020-05-16 08:00] LABS: FERRITIN 195 NG/ML (26-388); IRON (FE) 41 UG/DL (65-175); PERCENT SATURATION 17.7 % (19.7-50.0); TOTAL IRON BINDING CAPACITY 231 UG/DL (250-450); TOTAL PROTEIN 6.2 GM/DL (6.4-8.2); TROPONIN I 0.05 NG/ML (< 0.10)
[2020-05-16] MEDS: EZETIMIBE 10 MG TAB (ZETIA) PO SCH (08:00)
[2020-05-16] MEDS: VITAMIN D 1,000 INTERNATIONAL UNITS TABLET PO SCH (08:00)
[2020-05-16] MEDS: HumaLOG INSULIN (NovoLOG) PER UNIT SC SCH ×3 (08:00→17:53)
[2020-05-16] MEDS ORDERED: TORSEMIDE 20 MG TAB PO SCH (09:00)
[2020-05-16 10:20] LABS: PTH INTACT 7.6 PG/ML (18.5-88.0); TOTAL 25(OH) VITAMIN D 32.2 NG/ML (30.0-100.0)
--- NOTE | 2020-05-16 10:30 | IPNPDOC ---
Date Seen The patient was seen on 05/16/20. Progress Note Hospitalist progress note Dictated. Ifprogress note is needed urgently, pls call hypertype at [phone] Rodriguez's progress note VS, I&O, 24H, Fishbone Vital Signs/I&O Vital Signs Date Time Temp Pulse Resp B/P (MAP) Pulse Ox O2 Delivery O2 Flow Rate FiO2 05/16/20 07:55 82 166/72 (103) 05/16/20 06:00 97.1 18 95 Room Air I&O- Last 24 Hours up to 6 AM 05/16/20 06:00 Intake Total 1060 ml Output Total 150 ml Balance 910 ml Laboratory Data 24H LABS Laboratory Tests 2 05/15/20 19:49: Immature Granulocyte % (Auto) 0.3, Neutrophils (%) (Auto) 72.7H, Lymphocytes (%) (Auto) 14.5L, Monocytes (%) (Auto) 9.0H, Eosinophils (%) (Auto) 3.0, Basophils (%) (Auto) 0.5, Neutrophils # (Auto) 2.9, Lymphocytes # (Auto) 0.6L, Monocytes # (Auto) 0.4, Eosinophils # (Auto) 0.1, Basophils # (Auto) 0.0, Nucleated Red Blood Cells % (auto) 0.0, Prothrombin Time 22.1H, Prothromb Time International Ratio 1.89, Activated Partial Thromboplast Time 41.7H, Anion Gap 7L, Glomerular Filtration Rate 26.2L, Calcium Level 10.5H, Phosphorus Level 5.0H, Magnesium Level 2.3, Total Creatine Kinase 71, Creatine Kinase MB 3.4, Creatine Kinase MB Relative Index 4.79H, Troponin I 0.05, Thyroid Stimulating Hormone (TSH) 2.450, Prolactin 14.6, Ethyl Alcohol Level < 0.003 05/15/20 21:00: Lactic Acid Level 1.3, Urine Opiates Screen NEGATIVE, Urine Methadone Screen NEGATIVE, Urine Barbiturates Screen NEGATIVE, Urine Phencyclidine Screen NEGATIVE, Urine Amphetamines Screen NEGATIVE, Urine Benzodiazepines Screen NEGATIVE, Urine Cocaine Metabolite Screen NEGATIVE, Urine Cannabinoids Screen NEGATIVE 05/15/20 22:06: Coronavirus (COVID-19)(PCR) NEGATIVE, Influenza Type A (RT-PCR) NEGATIVE, Influenza Type B (RT-PCR) NEGATIVE, Respiratory Syncytial Virus (PCR) NEGATIVE 05/16/20 00:35: Bedside Glucose ([facility]) 222H 05/16/20 02:15: Urine Color YELLOW, Urine Appearance CLEAR, Urine pH 5.0, Urine Specific [place] 1.010, Urine Protein NEGATIVE, Urine Glucose (Auto)(UA) 1+H, Urine Ketones (Auto) NEGATIVE, Urine Blood NEGATIVE, Urine Nitrite NEGATIVE, Urine Bilirubin NEGATIVE, Urine Urobilinogen 0.2, Urine Leukocyte Esterase (Auto) 2+H, Urine WBC (Auto) 51H, Urine RBC (Auto) 2, Urine Hyaline Casts (Auto) 0, Urine Bacteria (Auto) NEGATIVE, Urine Squamous Epithelial Cells 1, Urine Sperm (Auto) , Urine Random Creatinine 44.6, Urine Random Total Protein 13.7H, Urine Random Sodium 80, Urine Random Urea Nitrogen 493 05/16/20 02:37: Troponin I 0.05 05/16/20 05:48: Troponin I 0.05, Immature Granulocyte % (Auto) 0.0, Neutrophils (%) (Auto) 56.3, Lymphocytes (%) (Auto) 23.5L, Monocytes (%) (Auto) 12.0H, Eosinophils (%) (Auto) 7.6H, Basophils (%) (Auto) 0.6, Neutrophils # (Auto) 2.0, Lymphocytes # (Auto) 0.8L, Monocytes # (Auto) 0.4, Eosinophils # (Auto) 0.3, Basophils # (Auto) 0.0, Nucleated Red Blood Cells % (auto) 0.0, Prothrombin Time 23.6H, Prothromb Time International Ratio 2.06, Anion Gap 6L, Glomerular Filtration Rate 30.1L, Calcium Level 10.3H, Phosphorus Level 4.0, Magnesium Level 2.1, Iron Level 41L, Total Iron Binding Capacity 231L, Transferrin % Saturation 17.7L, Ferritin 195, Total Protein (PEP) 6.2L, Vitamin B12 Level 411, 25-Hydroxy Vitamin D Total 32.2, Parathyroid Hormone (Intact) 7.6L 05/16/20 05:49: CBC/BMP Laboratory Tests 05/15/20 19:49 05/16/20 05:48 ISMAEL RODRIGUEZ MD May 16, 2020 10:29
[2020-05-16 12:00] LABS: HEPATITIS A ANTIBODY IGM NEGATIVE (NEGATIVE); HEPATITIS B CORE ANTIBODY IGM NEGATIVE (NEGATIVE); HEPATITIS B SURFACE ANTIGEN NEGATIVE (NEGATIVE); HEPATITIS C VIRUS ABY INDEX < 0.0 INDEX (<0.8)
[2020-05-16 14:00] VITALS: BP 163/91
--- NOTE | 2020-05-16 16:29 | IPN ---
PROGRESS NOTE DATE: 05/15/2020 SUBJECTIVE: The patient was seen and examined at the bedside. Chart has been reviewed. He has had no recurrent syncopal episode during this admission overnight. Telemetry was unremarkable. Remains in atrial fibrillation, rate controlled. Paced rhythm. He denies any chest pain, pressure or tightness, dizziness, or lightheadedness currently but says he had some dizziness prior to the syncopal episode yesterday witnessed by his significant other of 35 years. The patient had a prior EEG done which was negative for epileptiform activity. Previous echo was in 2019 which was an ejection fraction of 20-25%. No significant aortic stenosis. The patient is pancytopenic but no overt indication for RBC or platelet transfusion or signs of bleeding. Denies bright red blood, melena, black tarry stool. Negative for orthostasis. He is currently a stage III chronic kidney disease which is baseline for him. OBJECTIVE: Physical exam: Vitals: Temperature 97.1, pulse 83, respiratory rate 18, blood pressure 128/76, 95% on room air. Generally awake, alert and oriented to himself. Answers questions appropriately. No jugular venous distention (JVD), no thyromegaly. Dry mucous membranes with chapped lips. Lungs are clear to auscultation, no wheezing, rales or rhonchi. Heart: S1, S2 sinus rhythm. Pacer noted in left anterior chest. Abdomen is soft, nontender, nondistended. Positive bowel sounds. No hepatosplenomegaly noted. Extremities: No cyanosis, clubbing or pitting edema. LABORATORY DATA: White count 3.6, hemoglobin 8.4, previous hemoglobin of 9, hematocrit 26.3, previous hematocrit 28.2, platelet count 141, previous platelet count was 152. Sodium 145, potassium 3.7, chloride 110, bicarb 29, BUN 53, creatinine 2.21, glucose of 177. Iron 41, TIBC 231. IMAGING STUDY: Renal ultrasound 05/15: Bilateral renal cysts similar to prior exam. No obvious hydronephrosis. Bladder shows large left posterior diverticulum. Chest x-ray 05/15/2020: No acute findings. CT of the head 05/15/2020: Moderate parenchymal volume loss demonstrated in the subcortical central semiovale and paraventricular white matter, chronic age-related small vessel ischemic disease. Ventricle dilatation is normal for age and/or degree of atrophy. Diffuse cerebellar atrophy. ASSESSMENT AND PLAN: This is an 89-year-old male with a history of cardiomyopathy, congestive heart failure, systolic and diastolic failure, ejection fraction 20-25% on echo in 2020, coronary artery disease, CABG, hypertension, chronic kidney disease stage III who presents with syncopal episode at home witnessed by his significant other, girlfriend. IMPRESSION: 1. Syncope. Telemetry was unremarkable. Glucose is normal. The patient is not orthostatic. CT head, EEG previously done were all negative. Repeat echo to be done. The patient will need a Holter or Corthera monitor as outpatient. Referral to business line controller. 2. Chronic kidney disease stage III currently still at stage III renal failure which is chronic. The patient has no new changes on renal ultrasound. No signs of hydronephrosis or obstructive uropathy. 3. Hypertension. Losartan, hydralazine, Spironolactone, Flomax, and torsemide may have caused low blood pressure at home. Holding parameters to be given. 4. Macrocytic anemia, stable. No acute indication for RBC transfusion. 5. Leukopenia. Continue to monitor CBC. 6. Atrial fibrillation with pacemaker, chronic. The patient is on Warfarin, Aspirin. No signs of GI bleed. Rate controlled. Has pacemaker placed. 7. 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 Consistent carbohydrate diet. Glucose on admission was normal at 140. 8. Chronic dementia. The patient has 24/7 care at home with a girlfriend. 9. Hypothyroidism on chronic Synthroid. 10. Hyperlipidemia on Zetia and statin. 11. Disposition: PT, home safety evaluation today. Continue telemetry for another 24 hours. If negative, the patient will need a referral to Cardiology for telemetry monitoring with Holter or Corthera. MTDD
[2020-05-16] MEDS ORDERED: TAMSULOSIN 0.4 MG CAP PO SCH (21:00)
[2020-05-16] MEDS ORDERED: LEVEMIR (INSULIN DETEMIR) 1 UNITS/0.01ML SC SCH (21:00)
[2020-05-16 22:00] VITALS: BP 156/82
[2020-05-17 06:00] VITALS: BP 163/83
[2020-05-17] MEDS: LEVOTHYROXINE 50MCG TABLET (0.05MG) PO SCH (06:14)
[2020-05-17] MEDS: NS 1,000 ML IV SCH ×2 (06:15→15:50)
[2020-05-17 06:40] LABS: BASO % 0.6 % (0.0-1.0); EOS # 0.2 10^3/uL (0.0-0.5); EOS % 4.5 % (0.0-3.0); HEMATOCRIT 27.1 % (42.0-52.0); HEMOGLOBIN 8.6 g/dl (13.5-17.5); LYMPH # 0.7 10^3/uL (1.5-5.0); LYMPH % 12.5 % (24.0-44.0); MEAN CORPUSCULAR HEMOGLOBIN 33.6 pg (27.0-33.0); MEAN CORPUSCULAR HGB CONC 31.7 g/dl (32.0-36.5); MEAN CORPUSCULAR VOLUME 105.9 fl (80.0-96.0); MONO # 0.4 10^3/uL (0.0-0.8); MONO % 7.4 % (2.0-8.0); NEUTROPHILS % 74.8 % (36.0-66.0); PLATELET COUNT, AUTOMATED 152 10^3/uL (150-450); RED BLOOD COUNT 2.56 10^6/uL (4.30-6.10); WHITE BLOOD COUNT 5.4 10^3/uL (4.0-10.0)
[2020-05-17 06:58] LABS: INR 1.98; PROTHROMBIN TIME 22.9 SECONDS (12.5-14.3)
[2020-05-17 07:03] LABS: CALCIUM LEVEL 9.8 MG/DL (8.8-10.2); CREATININE FOR GFR 2.08 MG/DL (0.70-1.30); GLOMERULAR FILTRATION RATE 32.2 (>35); POTASSIUM SERUM 3.8 MEQ/L (3.5-5.1)
[2020-05-17] MEDS ORDERED: TORSEMIDE 20 MG TAB PO ONE (07:25)
[2020-05-17] MEDS ORDERED: **hydrALAZINE HCL** 25 MG TAB PO ONE (07:25)
[2020-05-17] MEDS ORDERED: CARVedilol 3.125 MG TAB PO ONE (07:25)
[2020-05-17] MEDS: EZETIMIBE 10 MG TAB (ZETIA) PO SCH (08:47)
[2020-05-17] MEDS: VITAMIN D 1,000 INTERNATIONAL UNITS TABLET PO SCH (08:47)
[2020-05-17] MEDS: DOCUSATE SODIUM 100MG CAPSULE PO SCH (08:47)
[2020-05-17] MEDS: WARFARIN SOD 2.5MG TAB PO SCH (08:49)
[2020-05-17] MEDS: SPIRONOLACTONE 25 MG TAB PO SCH (08:50)
[2020-05-17] MEDS: ATORVASTATIN 20 MG TAB PO SCH (08:50)
[2020-05-17] MEDS: ASPIRIN 81MG ENTERIC TABLET PO SCH (08:51)
[2020-05-17] MEDS: FAMOTIDINE 20 MG TAB PO SCH (08:51)
[2020-05-17] MEDS: HumaLOG INSULIN (NovoLOG) PER UNIT SC SCH ×2 (08:51→12:00)
[2020-05-17] MEDS ORDERED: CALCITRIOL 0.25 MCG CAP (S0169) PO SCH (09:00)
[2020-05-17 10:34] LABS: ALBUMIN 3.37 GM/DL (3.29-5.55); ALBUMIN % 54.3 % (55.8-66.1); ALPHA-1-GLOBULIN % 4.6 % (2.9-4.9); ALPHA-1-GLOBULINS 0.29 GM/DL (0.17-0.41); ALPHA-2-GLOBULINS % 10.2 % (7.1-11.8); BETA-1-GLOBULINS % 6.5 % (4.7-7.2); BETA-2-GLOBULINS % 7.5 % (3.2-6.5); GAMMA GLOBULIN % 16.9 % (11.1-18.8)
[2020-05-17 10:35] LABS: ALPHA-2-GLOBULINS 0.63 GM/DL (0.42-0.99); BETA-2-GLOBULINS 0.47 GM/DL (0.19-0.55); GAMMA GLOBULINS 1.05 GM/DL (0.65-1.58)
[2020-05-17 11:29] VITALS: BP 163/86
[2020-05-17] MEDS ORDERED: cloNIDine 0.1MG TABLET PO ONE (11:45)
[2020-05-17 12:17] VITALS: BP 147/69
[2020-05-17] MEDS ORDERED: CLON-383 PO (12:26)
--- NOTE | 2020-05-17 13:13 | DSES ---
DISCHARGE SUMMARY DATE OF ADMISSION: 05/15/2020 DATE OF ANTICIPATED DISCHARGE: 05/17/2020 PRIMARY DISCHARGE DIAGNOSES: 1. Hypertensive urgency. 2. Recurrent syncope. 3. Compensated congestive heart failure with systolic and diastolic dysfunction, ejection fraction of 20-25% on echocardiogram done in 2019. 4. History of coronary artery disease (CAD), coronary artery bypass graft surgery (CABG). 5. Chronic kidney disease stage III. 6. Hypertension. 7. Cardiomyopathy. DISCHARGE MEDICATIONS: - albuterol two puffs four times a day as needed - aspirin 81 daily - atorvastatin 20 daily - calcitriol 0.25 mcg three times a week - Coreg 3.125 twice a day - vitamin D 1000 units daily - Zetia 10 daily - famotidine 40 daily - hydralazine 25 twice a day - Levemir insulin 18 units subcutaneous nightly - insulin sliding scale with coverage - Synthroid 50 mcg daily - spironolactone 12.5 daily - tamsulosin 0.4 nightly - torsemide 20 daily DISCHARGE INSTRUCTIONS: Patient is to have an immediate followup with table saw operator, Dr. Augustin, at [facility] regarding recurrent syncope and systolic dysfunction, congestive heart failure (CHF) with ejection fraction (EF) of 25%. Patient is to hold his torsemide, spironolactone, Coreg, hydralazine as blood pressure is less than 100 mmHg. Primary care physician followup within 5 days of discharge. HOSPITAL COURSE: This is an 89-year-old male with history of cardiomyopathy, systolic and diastolic heart failure, ejection fraction of 20-25% on echo in 2019, CAD, CABG, hypertension, chronic kidney disease stage III, presented to the emergency room with witnessed syncopal episode, patient had a similar episode previously, evaluated with an EEG which showed no epileptiform activity, CT imaging which showed no acute CVA, patient was not orthostatic and glucose was normal. On arrival to the emergency room, he was found to be slightly anemic, 8.6, hematocrit 27, but denied bright red blood per rectum, melena, black tarry stools, and was not orthostatic, he was at his baseline chronic kidney disease stage III, EKG showed sinus rhythm, troponins were unremarkable. Patient was admitted to the telemetry floor and observed overnight. Blood work was unrevealing aside from chronic kidney disease. Urine output was adequate. He had no signs of any infection, was afebrile, respiratory panel was negative, Coronavirus-19 was negative. Telemetry did not show any nonsustained ventricular tachycardia, premature atrial contractions (PACs) or premature ventricular contractions (PVCs) overnight. He had no recurrent episodes of syncope. Patient was given his home medications for hypertensive urgency with control from 220 to 158 systolic. Patient was stable on hydralazine, Coreg, and torsemide. He was kept on aspirin and warfarin, no signs of gastrointestinal (GI) bleed. He is discharged in stable condition with home care referral and immediate followup with his table saw operator for evaluation of his systolic heart failure, EF of 25%, as well as recurrent syncope to rule out nonsustained ventricular tachycardia. PHYSICAL EXAMINATION ON DISCHARGE: Temperature 98.2, pulse 80, respiratory rate 18, blood pressure 151/56, 96% on room air. Generally: Patient is awake, alert, oriented to person, place, and time, answers questions appropriately. Face is symmetric, tongue is midline. Dry mucous membranes. No jugular venous distention (JVD), thyromegaly, or cervical lymphadenopathy. Lungs: Diminished but clear to auscultation, no wheezing, rales, or rhonchi. Heart: S1, S2, regular rate, rhythm. Abdomen is soft, nontender, nondistended, positive bowel sounds. Extremities: No pitting edema. Discharge weight was 66.2 kg. LABORATORY DATA: White count 5.4, hemoglobin 8.6, hematocrit 27, platelet count 152, sodium 144, potassium 3.8, chloride 111, bicarbonate 29, BUN 49, creatinine 2.08, glucose of 112, magnesium of 2, iron 41, TIBC 231, transferrin 17.7. Microbiology: Respiratory panel is negative. IMAGING STUDIES: CT of the head, 05/15/2020, moderate age related parenchymal loss demonstrated in subcorticals, centrum semiovale consistent with chronic age related ventricular dilatation, is normal for age, diffuse cerebellar atrophy. Chest x-ray, 05/15/2020, no acute findings. Renal ultrasound, 05/15/2020, bilateral renal cysts similar to prior exam, no obvious hydronephrosis, bladder demonstrates large left posterior diverticulum. TIME SPENT ON DISCHARGE: 30 minutes MTDD
[2020-05-17 13:21] VITALS: BP 122/55
[2020-05-17 14:00] VITALS: BP 130/66
--- NOTE | 2020-05-17 14:54 | ECHO ---
DATE OF PROCEDURE: 05/16/2020 Age: 89 Gender: Male Height: 180 cm Weight: 66 kg REFERRING PHYSICIAN: Aby Saldivar MD and GREGORIA Harrison INDICATION: Syncope. MEASUREMENTS: IVS 1.2 cm LV 5.2 cm LVPW 1.1 cm LA 4.4 cm Aorta 4.1 cm RV 3.1 IVC 1.8 cm Mitral E wave velocity 117 E prime septal 3.4 E prime lateral 9.6 FINDINGS: This study is of good technical quality. Underlying likely atrial fibrillation with ventricular pacing. Left ventricle is normal size. There is septal wall motion abnormality likely due to underlying right ventricular pacing. Otherwise, there is global hypokinesis and apical essentially akinesis. I estimate overall EF in the neighborhood of 30% to 35%. Right ventricle appears dilated and hypokinetic. There is severe biatrial enlargement. Aortic valve is heavily sclerotic and there is some restriction of cusp mobility. There are also degenerative abnormalities of the mitral valve with mitral annular calcifications, but mobility of leaflets is preserved. Tricuspid and pulmonic valves appear normal. There are echo artifacts in right-sided hear chambers corresponding to pacemaker lead or leads. No pericardial effusion is noted. Inferior vena cava is in upper limits of normal size, but has no appreciable collapse with inspiration indicative of high central venous pressure. The aortic root, aortic arch, and visualized segment of the abdominal aorta appear normal. Doppler interrogation of the aortic valve revealed mild insufficiency and mild stenosis with mean gradient only 5 mmHg. There is mild mitral and tricuspid insufficiency. Calculated pulmonary artery pressure is approximately 40 to 45 mmHg corresponding to moderate pulmonary hypertension. Trace pulmonic insufficiency is seen. Evaluation of diastolic function is inconclusive. There is only single mitral inflow wave indicative of either underlying atrial fibrillation or fusion of E and A wave. CONCLUSION: 1. Study is of good technical quality. Underlying likely atrial fibrillation with ventricular pacing. 2. Normal LV size with global hypokinesis, apical essentially akinesis, septal atypical motion related to RV pacing, and overall estimated LVEF 30% to 35%. 3. Prominent aortic sclerosis resulting in mild stenosis and mild insufficiency. 4. Mild mitral and tricuspid insufficiency. 5. Likely at least mildly elevated central venous pressure and moderate pulmonary hypertension. 6. Biatrial enlargement. 7. Artifacts consistent with pacemaker leads apparent in the right-sided heart chambers. [facility]
[2020-05-22 17:08] LABS: Methylmalonic Acid 281 nmol/L (0-378)
== END 2020-05-17 16:10 | disposition home or self-care (01) ==
LOC: EDBD 18:45 → M ED 18:45 → M ED INP 22:36 → INTOOBSV 22:36 → ENRESERV 23:23 → M MSPAV 05-16 00:17
PROVIDERS: ADMIT Internal Medicine; ATTEND General Practice
DX: I16.0 Hypertensive urgency (principal); R55 Syncope and collapse; I50.43 Acute on chronic combined systolic (congestive) and diastolic (congestive) heart failure; I25.10 Atherosclerotic heart disease of native coronary artery without angina pectoris; Z95.1 Presence of aortocoronary bypass graft; E11.9 Type 2 diabetes mellitus without complications; Z95.0 Presence of cardiac pacemaker; I48.91 Unspecified atrial fibrillation; N18.30 Chronic kidney disease, stage 3 unspecified; I12.9 Hypertensive chronic kidney disease with stage 1 through stage 4 chronic kidney disease, or unspecified chronic kidney disease; I42.9 Cardiomyopathy, unspecified; Z79.82 Long term (current) use of aspirin; Z79.899 Other long term (current) drug therapy
CPT/HCPCS: 36415; 70450; 71045; 76775; 80048; 80307; 81001; 82077; 82306; 82550; 82553; 82570; 82607; 82728; 82746; 83520; 83550; 83605; 83735; 83921; 83970; 84100; 84146; 84156; 84165; 84300; 84443; 84484; 84540; 85025; 85610; 85730; 86705; 86709; 86803; 87340; 87631; 93005; 93041; 93306; 94760; 96360; 97161; 97165; 99285; G0378

== ENCOUNTER → 2020-07-02 | Outpatient (REF) ==
[~2020-07-02] MED LIST changes: +CLON-383 PO; -DOCU-129 PO; +DOCU-153 PO
[2020-07-02 10:45] LABS: HEMATOCRIT 27.2 % (42.0-52.0); HEMOGLOBIN 8.6 g/dl (13.5-17.5); MEAN CORPUSCULAR HEMOGLOBIN 32.8 pg (27.0-33.0); MEAN CORPUSCULAR HGB CONC 31.6 g/dl (32.0-36.5); MEAN CORPUSCULAR VOLUME 103.8 fl (80.0-96.0); PLATELET COUNT, AUTOMATED 218 10^3/uL (150-450); RED BLOOD COUNT 2.62 10^6/uL (4.30-6.10); WHITE BLOOD COUNT 4.1 10^3/uL (4.0-10.0)
[2020-07-02 11:19] LABS: CALCIUM LEVEL 11.1 MG/DL (8.8-10.2); CREATININE FOR GFR 1.87 MG/DL (0.70-1.30); GLOMERULAR FILTRATION RATE 36.5 (>35); POTASSIUM SERUM 4.2 MEQ/L (3.5-5.1)
[2020-07-02 13:00] LABS: PERCENT SATURATION 13.8 % (19.7-50.0)
[2020-07-02 13:07] LABS: FOLATE 16.6 NG/ML
--- NOTE | 2020-07-02 15:22 | REPPI ---
INDICATION: COUGH/R/O ASPIRATION 234. COMPARISON: 05/15/2020 TECHNIQUE: AP frontal view FINDINGS: The technique utilized in obtaining the radiograph has magnified the cardiac silhouette and attenuated the interstitial markings. There is cardiomegaly accentuated by technique status quo. Note is again made of previous median sternotomy. The dual chamber bipolar pacemaker devices unchanged. Bilateral CP angle blunting has developed since the last exam. There are no other significant lung field changes. IMPRESSION: Small bilateral pleural effusions. <Electronically signed by Jose Leon > 07/02/20 [id number]
== END ==
PROVIDERS: ATTEND Internal Medicine
DX: J90 Pleural effusion, not elsewhere classified (principal); I51.7 Cardiomegaly; Z95.0 Presence of cardiac pacemaker

== ENCOUNTER → 2020-07-03 | Outpatient (REF) ==
[2020-07-03 10:11] LABS: HEMOGLOBIN 10.5 g/dl (13.5-17.5); MEAN CORPUSCULAR HEMOGLOBIN 33.3 pg (27.0-33.0); MEAN CORPUSCULAR HGB CONC 31.8 g/dl (32.0-36.5); MEAN CORPUSCULAR VOLUME 104.8 fl (80.0-96.0); PLATELET COUNT, AUTOMATED 240 10^3/uL (150-450); RED BLOOD COUNT 3.15 10^6/uL (4.30-6.10); WHITE BLOOD COUNT 5.2 10^3/uL (4.0-10.0)
== END ==
PROVIDERS: ATTEND Internal Medicine
DX: I50.9 Heart failure, unspecified (principal)

== ENCOUNTER → 2020-07-04 | Outpatient (REF) | PROVIDERS: ATTEND Internal Medicine | DX: R19.5 Other fecal abnormalities (principal) ==

== ENCOUNTER → 2020-07-05 | Outpatient (REF) ==
[2020-07-05 11:42] LABS: CALCIUM LEVEL 11.1 MG/DL (8.8-10.2); CREATININE FOR GFR 2.47 MG/DL (0.70-1.30); GLOMERULAR FILTRATION RATE 26.4 (>35); POTASSIUM SERUM 4.2 MEQ/L (3.5-5.1)
== END ==
PROVIDERS: ATTEND Internal Medicine
DX: I50.9 Heart failure, unspecified (principal)

== ENCOUNTER → 2020-07-07 | Outpatient (REF) | payer MEDICARE ==
[2020-07-07 12:10] LABS: HEMATOCRIT 29.2 % (42.0-52.0); HEMOGLOBIN 9.1 g/dl (13.5-17.5); MEAN CORPUSCULAR HEMOGLOBIN 32.9 pg (27.0-33.0); MEAN CORPUSCULAR HGB CONC 31.2 g/dl (32.0-36.5); MEAN CORPUSCULAR VOLUME 105.4 fl (80.0-96.0); PLATELET COUNT, AUTOMATED 197 10^3/uL (150-450); RED BLOOD COUNT 2.77 10^6/uL (4.30-6.10); WHITE BLOOD COUNT 4.6 10^3/uL (4.0-10.0)
[2020-07-07 12:17] LABS: CREATININE FOR GFR 2.4 MG/DL (0.70-1.30); GLOMERULAR FILTRATION RATE 27.3 (>35); POTASSIUM SERUM 3.8 MEQ/L (3.5-5.1); TROPONIN I 0.03 NG/ML (< 0.10)
== END ==
PROVIDERS: ATTEND Nurse Practitioner Adult Health
DX: I50.9 Heart failure, unspecified (principal)

== ENCOUNTER → 2020-07-08 | Outpatient (REF) ==
[2020-07-08 10:52] LABS: CALCIUM LEVEL 11.8 MG/DL (8.8-10.2); CREATININE FOR GFR 2.32 MG/DL (0.70-1.30); GLOMERULAR FILTRATION RATE 28.4 (>35); POTASSIUM SERUM 4.3 MEQ/L (3.5-5.1)
== END ==
PROVIDERS: ATTEND Internal Medicine
DX: I50.9 Heart failure, unspecified (principal)

== ENCOUNTER → 2020-07-10 | Outpatient (REF) ==
[2020-07-10 10:29] LABS: CALCIUM LEVEL 11.3 MG/DL (8.8-10.2); CREATININE FOR GFR 2.19 MG/DL (0.70-1.30); GLOMERULAR FILTRATION RATE 30.4 (>35); POTASSIUM SERUM 3.7 MEQ/L (3.5-5.1)
== END ==
PROVIDERS: ATTEND Internal Medicine
DX: N17.9 Acute kidney failure, unspecified (principal)

== ENCOUNTER → 2020-07-17 | Outpatient (REF) | payer MEDICARE ==
[2020-07-17 11:11] LABS: HEMATOCRIT 33.9 % (42.0-52.0); HEMOGLOBIN 10.3 g/dl (13.5-17.5); MEAN CORPUSCULAR HEMOGLOBIN 32.8 pg (27.0-33.0); MEAN CORPUSCULAR HGB CONC 30.4 g/dl (32.0-36.5); PLATELET COUNT, AUTOMATED 264 10^3/uL (150-450); RED BLOOD COUNT 3.14 10^6/uL (4.30-6.10)
[2020-07-17 11:38] LABS: CALCIUM LEVEL 11.1 MG/DL (8.8-10.2); CREATININE FOR GFR 2.26 MG/DL (0.70-1.30); GLOMERULAR FILTRATION RATE 29.3 (>35); POTASSIUM SERUM 3.8 MEQ/L (3.5-5.1)
[2020-07-17 12:41] LABS: CK-MB VALUE MASS 1.8 NG/ML (<3.6); MB/CK RELATIVE INDEX 4.62 (< OR =4)
--- NOTE | 2020-07-17 15:36 | REPPI ---
INDICATION: COUGH 234-. COMPARISON: 07/02/2020. TECHNIQUE: AP view chest performed. FINDINGS: There is no evidence of acute infiltrate. There is mild biapical pleural thickening which is stable. Cardiac silhouette is mildly prominent. Mediastinal silhouette is unchanged. Left pacemaker is again noted as well as multiple sternal wires mediastinal clips. IMPRESSION: No acute infiltrate. Stable chronic findings. <Electronically signed by Jorge Caputo > 07/17/20 [id number]
== END ==
PROVIDERS: ATTEND Internal Medicine
DX: I50.9 Heart failure, unspecified (principal); Z95.0 Presence of cardiac pacemaker

== ENCOUNTER → 2020-07-19 | Outpatient (REF) | payer MEDICARE ==
[2020-07-19 09:45] LABS: CALCIUM LEVEL 10.3 MG/DL (8.8-10.2); CREATININE FOR GFR 2.25 MG/DL (0.70-1.30); GLOMERULAR FILTRATION RATE 29.4 (>35); POTASSIUM SERUM 3.7 MEQ/L (3.5-5.1)
== END ==
PROVIDERS: ATTEND Internal Medicine
DX: E87.0 Hyperosmolality and hypernatremia (principal)

== ENCOUNTER → 2020-07-25 | Outpatient (REF) | payer MEDICARE ==
[2020-07-25 14:09] LABS: RSV AMPLIFICATION NEGATIVE (NEGATIVE)
== END ==
PROVIDERS: ATTEND Internal Medicine
DX: Z04.89 Encounter for examination and observation for other specified reasons (principal); Z20.822 Contact with and (suspected) exposure to COVID-19